=== PATIENT | male | born 1935 | race Hispanic/Latino ===

== ENCOUNTER 2019-02-18 12:29 | Outpatient (CLI) | payer MEDICARE ==
--- NOTE | 2019-02-18 13:58 | Cat Scan Report ---
CT HEAD WITHOUT CONTRAST INDICATION : STROKE. TECHNIQUE: Axial imaging performed from the skull apex through the skull base without the use of con trast. Sagittal and coronal reformatted images. All CT scans at this location are performed using CT dose reduction for ALARA by means of automated exposure control. COMPARISON: None FINDINGS: Parenchyma: Mild diffuse cortical volume loss and mild chronic ischemic changes in the white matter are identified. A chronic cortical infarct in the right parietal lobe measures 2.8 cm in greatest javier meter. A chronic focal infarct in the anterior left frontal lobe measures 1.4 cm. A chronic lacunar i nfarct in the posterior left thalamus measures 9 mm. There is no evidence for hemorrhage, mass, mass effect or extra-axial fluid collection. Ventricles: Ventricles are normal in size and appear symmetric. Soft tissues: Soft tissues including the orbits appear normal. Bones: No acute osseous abnormality. Sinuses: Sinuses and mastoid air cells are clear. IMPRESSION: No acute abnormality. Mild volume loss and chronic white matter changes. Focal chronic in farcts as outlined above. Signer Name: Maco Duran Jr, MD Signed: 02/18/2019 1:54 PM Workstation Name: [id number]
== END 2019-02-18 12:30 | disposition home or self-care (01) ==
LOC: CT 12:29
PROVIDERS: ATTEND Psychiatry & Neurology Neurology
DX: R90.82 White matter disease, unspecified (principal); Z90.49 Acquired absence of other specified parts of digestive tract
CPT/HCPCS: 70450

== ENCOUNTER 2019-04-21 11:26 | Observation (INO) | payer MEDICARE ==
--- NOTE | 2019-04-21 11:40 | Emergency Department Report ---
Blank Doc - Documentation Documentation: This is a 83-year-old male that presents with dizziness. HX of stroke 15 years ago. No new symptoms of one sided weakness. Speaking in full sentences. No facial drooping. Normal speech. This initial assessment/diagnostic orders/clinical plan/treatment(s) is/are subject to change based on patient's health status, clinical progression and re- assessment by fellow clinical providers in the ED. Further treatment and workup at subsequent clinical providers discretion. Patient/guardians urged not to elope from the ED as their condition may be serious if not clinically assessed and managed. Initial orders include: 1- Patient sent to main ed for further evaluation and treatment 2- labs 3- EKG 4- CT head
--- NOTE | 2019-04-21 12:03 | Consultation ---
History of Present Illness History of present illness: [facility] Impression: Dizziness R/O Stroke Not a tpa candidate due to:LKW > 4.5 hrs ago. Symptoms not consistent with LVO therefore no PAULINO Comments: Last Known Well: 12 last night [facility] contacted: 11:46 [facility] at bedside: 11:49 NIHSS assessment time: 11:56 Recommendations: Orthostatics Metabolic workup Admit for stroke workup. ASA/Statin if no contraindications. IV Fluids Inpatient neurology consultation Inpatient stroke evaluation as per Neurology/ Internal Medicine Discussed with ED MD Please call with questions --------- CC: dizziness History of Present Illness: Patient is a 83 yo m with h/o CAD s/p CABG, ICH presented with dizziness. He went to bed midnight last night and was feeling okay. This morning he woke up at 9:30 with dizziness. He could not stand up and when he finally stood up, he was off balance. No focal weakness. Dizziness is better lying down but worse on standing up. No nausea/vomiting. Diagnostic: CT Head: No acute Intracranial findings. Exam: NIH Stroke Scale/Score (NIHSS) from RESULT SUMMARY: 1 points NIH Stroke Scale INPUTS: 1A: Level of consciousness > 0 = Alert; keenly responsive 1B: Ask month and age > 1 = 1 question right 1C: 'Blink eyes' & 'squeeze hands' > 0 = Performs both tasks 2: Horizontal extraocular movements > 0 = Normal 3: Visual briseno > 0 = No visual loss 4: Facial palsy > 0 = Normal symmetry 5A: Left arm motor drift > 0 = No drift for 10 seconds 5B: Right arm motor drift > 0 = No drift for 10 seconds 6A: Left leg motor drift > 0 = No drift for 5 seconds 6B: Right leg motor drift > 0 = No drift for 5 seconds 7: Limb Ataxia > 0 = No ataxia 8: Sensation > 0 = Normal; no sensory loss 9: Language/aphasia > 0 = Normal; no aphasia 10: Dysarthria > 0 = Normal 11: Extinction/inattention > 0 = No abnormality Medical Decision Making: - Extensive number of diagnosis or management options are considered above. - Extensive amount of complex data reviewed. - High risk of complication and/or morbidity or mortality are associated with differential diagnostic considerations above. - There may be Uncertain outcome and increased probability of prolonged f unctional impairment or high probability of severe prolonged functional impairment associated with some of these differential diagnosis. Medical Data Reviewed: 1.Data reviewed include clinical labs, radiology, Medical Tests; 2.Tests results discussed w/performing or interpreting physician; 3.Obtaining/reviewing old medical records; 4.Obtaining case history from another source; 5.Independent review of image, tracing or specimen. Patient was informed the neurology consult would happen via telehealth consult by way of interactive audio and video telecommunications and consented to receiving care in this manner. Medications and Allergies Allergies Allergy/AdvReac Type Severity Reaction Status Date / Time levofloxacin [From Levaquin] AdvReac Rash Verified 04/21/17 21:12 Home Medications Medication Instructions Recorded Confirmed Last Taken Type Cetirizine HCl [ZyrTEC 10mg cap] 10 mg PO PRN 04/21/17 04/21/17 Unknown History Memantine HCl [Namenda] 10 mg PO QDAY 04/21/17 04/21/17 Unknown History Omeprazole 40 mg PO QDAY 04/21/17 04/21/17 Unknown History Sertraline [Zoloft] 50 mg PO QDAY 04/21/17 04/21/17 Unknown History Simvastatin [Zocor TAB] 40 mg PO QDAY 04/21/17 04/21/17 Unknown History Tamsulosin [Flomax] 0.4 mg PO QDAY 04/21/17 04/21/17 Unknown History Meclizine [Antivert] 12.5 mg PO BID #14 tablet 04/23/17 Unknown Rx
--- NOTE | 2019-04-21 12:15 | Cat Scan Report ---
CT HEAD WITHOUT CONTRAST INDICATION : Lightheadedness/Dizziness. CVA. Code stroke. Ataxia. TECHNIQUE: Axial imaging performed from the skull apex through the skull base without the use of con trast. Sagittal and coronal reformatted images. All CT scans at this location are performed using C T dose reduction for ALARA by means of automated exposure control. COMPARISON: 02/18/2019 FINDINGS: Parenchyma: Mild diffuse cortical volume loss and mild chronic white matter changes are again noted. Multiple chronic infarcts are again identified in the right parietal lobe, left frontal lobe and lef t thalamus. There is no evidence for hemorrhage, mass or large area of acute ischemia on noncontrast CT. The brainstem and cerebellar hemispheres are unremarkable. Ventricles: Ventricles are normal in size and appear symmetric. Bones: No acute osseous abnormality. Sinuses: Sinuses and mastoid air cells are clear. Soft tissues: Soft tissues including the orbits appear normal. IMPRESSION: Volume loss and chronic white matter changes. Multiple chronic focal infarcts as describe d. No change is appreciated since 02/18/2019. These findings were discussed with Dr. Burton in the emergency department at 1208 hours EST. Signer Name: Maco Duran Jr, MD Signed: 04/21/2019 12:10 PM Workstation Name: [id number]
[2019-04-21 12:35] LABS: Basophils % (Auto) 0.2 % (0.0-1.8); Eosinophils % (Auto) 0.4 % (0.0-4.3); Hematocrit 39.1 % (35.5-45.6); Hemoglobin 13.3 gm/dl (11.8-15.2); Lymphocytes # (Auto) 1.1 K/mm3 (1.2-5.4); Lymphocytes % (Auto) 13.4 % (13.4-35.0); Mean Corpuscular HGB Conc 34 % (32-34); Mean Corpuscular Volume 88 fl (84-94); Monocytes # (Auto) 0.4 K/mm3 (0.0-0.8); Monocytes % (Auto) 5.2 % (0.0-7.3); Platelet Count 185 K/mm3 (140-440); Red Blood Count 4.43 M/mm3 (3.65-5.03); Red Cell Distribution Width 16.9 % (13.2-15.2)
[2019-04-21 12:43] LABS: INR 1.05 (0.87-1.13)
[2019-04-21 12:44] LABS: Partial Thromboplastin Time 31.2 Sec. (24.2-36.6)
[2019-04-21 13:00] LABS: Alanine Aminotransferase 18 units/L (7-56); BUN/Creatinine Ratio 15; Blood Urea Nitrogen 15 mg/dL (9-20); Calcium 9.4 mg/dL (8.4-10.2); Hemolysis Index 15
--- NOTE | 2019-04-21 13:10 | Emergency Department Report ---
ED General Adult HPI - General Chief complaint: Dizziness Stated complaint: DIZZY/HARD TO WALK Time Seen by Provider: 04/21/19 11:35 Source: patient, family Mode of arrival: Wheelchair Limitations: No Limitations - History of Present Illness Initial comments: Patient presents to the emergency department with a chief complaint of dizziness that started last night before going to bed. Patient also ascribes walking stating he is leaning to the right. Patient describes the dizziness being present even with sitting still. Patient denies any chest pain, shortness breath, or headache. -: Sudden Severity scale (0 -10): 0 Consistency: constant Improves with: none Worsens with: none Associated Symptoms: denies other symptoms Treatments Prior to Arrival: none - Related Data Home Medications Medication Instructions Recorded Confirmed Last Taken Memantine HCl [Namenda] 10 mg PO BID 04/21/17 04/21/19 Unknown Omeprazole 40 mg PO QDAY 04/21/17 04/21/19 Unknown Sertraline [Zoloft] 50 mg PO QDAY 04/21/17 04/21/19 Unknown Simvastatin [Zocor TAB] 40 mg PO QHS 04/21/17 04/21/19 Unknown Tamsulosin [Flomax] 0.4 mg PO QDAY 04/21/17 04/21/19 Unknown Diclofenac 1% [Diclofenac 1% 2 gram TP DAILY PRN 04/21/19 04/21/19 Unknown topical gel] Allergies Allergy/AdvReac Type Severity Reaction Status Date / Time levofloxacin [From Levaquin] AdvReac Rash Verified 04/21/17 21:12 ED Review of Systems ROS: Stated complaint: DIZZY/HARD TO WALK Other details as noted in HPI Constitutional: denies: chills, fever Eyes: denies: eye pain, eye discharge, vision change ENT: denies: ear pain, throat pain Respiratory: denies: cough, shortness of breath, wheezing Cardiovascular: denies: chest pain, palpitations Endocrine: no symptoms reported Gastrointestinal: denies: abdominal pain, nausea, diarrhea Genitourinary: denies: urgency, dysuria Musculoskeletal: denies: back pain, joint swelling, arthralgia Skin: denies: rash, lesions Neurological: other (dizziness; difficulty walking ). denies: headache, weakness, paresthesias Psychiatric: denies: anxiety, depression Hematological/Lymphatic: denies: easy bleeding, easy bruising ED Past Medical Hx - Past Medical History Previous Medical History?: Yes Hx CVA: Yes Hx Heart Attack/AMI: Yes Hx Arthritis: Yes Hx Kidney Stones: Yes Additional medical history: hiatal hernia,BPH,elevated cholesterol - Surgical History Past Surgical History?: Yes Hx Coronary Stent: Yes (5) Hx Open Heart Surgery: Yes Hx Cholecystectomy: Yes - Social History Smoking Status: Never Smoker Substance Use Type: None - Medications Home Medications: Home Medications Medication Instructions Recorded Confirmed Last Taken Type Memantine HCl [Namenda] 10 mg PO BID 04/21/17 04/21/19 Unknown History Omeprazole 40 mg PO QDAY 04/21/17 04/21/19 Unknown History Sertraline [Zoloft] 50 mg PO QDAY 04/21/17 04/21/19 Unknown History Simvastatin [Zocor TAB] 40 mg PO QHS 04/21/17 04/21/19 Unknown History Tamsulosin [Flomax] 0.4 mg PO QDAY 04/21/17 04/21/19 Unknown History Diclofenac 1% [Diclofenac 1% 2 gram TP DAILY PRN 04/21/19 04/21/19 Unknown History topical gel] ED Physical Exam - General Limitations: No Limitations General appearance: alert, in no apparent distress - Head Head exam: Present: atraumatic, normocephalic - Eye Eye exam: Present: normal appearance, PERRL, EOMI - ENT ENT exam: Present: mucous membranes moist - Neck Neck exam: Present: normal inspection - Respiratory Respiratory exam: Present: normal lung sounds bilaterally. Absent: respiratory distress, wheezes, rales - Cardiovascular Cardiovascular Exam: Present: regular rate, normal rhythm. Absent: systolic murmur, diastolic murmur, rubs, gallop - GI/Abdominal GI/Abdominal exam: Present: soft, normal bowel sounds. Absent: distended, tenderness - Rectal Rectal exam: Present: deferred - Extremities Exam Extremities exam: Present: normal inspection - Back Exam Back exam: Present: normal inspection - Neurological Exam Neurological exam: Present: alert, oriented X3, CN II-XII intact, abnormal gait (right sided ataxia). Absent: motor sensory deficit - Psychiatric Psychiatric exam: Present: normal affect, normal mood - Skin Skin exam: Present: warm, dry, intact, normal color. Absent: rash ED Course Vital Signs 04/21/19 12:29 Temperature 98 F Pulse Rate 78 Respiratory 16 Rate Blood Pressure 126/67 [Left] O2 Sat by Pulse 100 Oximetry ED Medical Decision Making - Lab Data Result diagrams: 04/21/19 12:05 04/21/19 12:05 Lab Results 04/21/19 04/21/19 04/21/19 Range/Units 11:42 11:54 12:05 WBC 7.9 (4.5-11.0) K/mm3 RBC 4.43 (3.65-5.03) M/mm3 Hgb 13.3 (11.8-15.2) gm/dl Hct 39.1 (35.5-45.6) % MCV 88 (84-94) fl MCH 30 (28-32) pg MCHC 34 (32-34) % RDW 16.9 H (13.2-15.2) % Plt Count 185 (140-440) K/mm3 Lymph % (Auto) 13.4 (13.4-35.0) % Alcorn % (Auto) 5.2 (0.0-7.3) % Eos % (Auto) 0.4 (0.0-4.3) % Baso % (Auto) 0.2 (0.0-1.8) % Lymph # 1.1 L (1.2-5.4) K/mm3 Alcorn # 0.4 (0.0-0.8) K/mm3 Eos # 0.0 (0.0-0.4) K/mm3 Baso # 0.0 (0.0-0.1) K/mm3 Seg Neutrophils % 80.8 H (40.0-70.0) % Seg Neutrophils # 6.4 (1.8-7.7) K/mm3 PT (12.2-14.9) Sec. INR (0.87-1.13) APTT (24.2-36.6) Sec. Sodium (137-145) mmol/L Potassium (3.6-5.0) mmol/L Chloride (98-107) mmol/L Carbon Dioxide (22-30) mmol/L Anion Gap mmol/L BUN (9-20) mg/dL Creatinine (0.8-1.5) mg/dL Estimated GFR ml/min BUN/Creatinine Ratio % Glucose (75-100) mg/dL POC Glucose 101 104 (70-105) Calcium (8.4-10.2) mg/dL Total Bilirubin (0.1-1.2) mg/dL AST (5-40) units/L ALT (7-56) units/L Alkaline Phosphatase (35-129) units/L Troponin T (0.00-0.029) ng/mL Total Protein (6.3-8.2) g/dL Albumin (3.9-5) g/dL Albumin/Globulin Ratio % 04/21/19 04/21/19 Range/Units 12:05 12:05 WBC (4.5-11.0) K/mm3 RBC (3.65-5.03) M/mm3 Hgb (11.8-15.2) gm/dl Hct (35.5-45.6) % MCV (84-94) fl MCH (28-32) pg MCHC (32-34) % RDW (13.2-15.2) % Plt Count (140-440) K/mm3 Lymph % (Auto) (13.4-35.0) % Alcorn % (Auto) (0.0-7.3) % Eos % (Auto) (0.0-4.3) % Baso % (Auto) (0.0-1.8) % Lymph # (1.2-5.4) K/mm3 Alcorn # (0.0-0.8) K/mm3 Eos # (0.0-0.4) K/mm3 Baso # (0.0-0.1) K/mm3 Seg Neutrophils % (40.0-70.0) % Seg Neutrophils # (1.8-7.7) K/mm3 PT 13.4 (12.2-14.9) Sec. INR 1.05 (0.87-1.13) APTT 31.2 (24.2-36.6) Sec. Sodium 138 (137-145) mmol/L Potassium 4.2 (3.6-5.0) mmol/L Chloride 100.3 (98-107) mmol/L Carbon Dioxide 26 (22-30) mmol/L Anion Gap 16 mmol/L BUN 15 (9-20) mg/dL Creatinine 1.0 (0.8-1.5) mg/dL Estimated GFR > 60 ml/min BUN/Creatinine Ratio 15 % Glucose 96 (75-100) mg/dL POC Glucose (70-105) Calcium 9.4 (8.4-10.2) mg/dL Total Bilirubin 0.70 (0.1-1.2) mg/dL AST 24 (5-40) units/L ALT 18 (7-56) units/L Alkaline Phosphatase 66 (35-129) units/L Troponin T < 0.010 (0.00-0.029) ng/mL Total Protein 6.7 (6.3-8.2) g/dL Albumin 4.0 (3.9-5) g/dL Albumin/Globulin Ratio 1.5 % - EKG Data -: EKG Interpreted by Me EKG shows normal: sinus rhythm Rate: normal - Radiology Data Radiology results: report reviewed Critical care attestation.: If time is entered above; I have spent that time in minutes in the direct care of this critically ill patient, excluding procedure time. ED Disposition Clinical Impression: Ataxia Disposition: OP ADMIT IP TO THIS HOSP Is pt being admited?: Yes Does the pt Need Aspirin: Yes Condition: Fair - Assessment Assessment Interval: Baseline - Level of Consciousness 1a. Level of Consciousness: alert/keenly responsive - LOC Questions 1b. LOC Questions: answers 1 question correctly - LOC Command 1c. LOC Commands: performs tasks correctly - Best Gaze 2. Best Gaze: normal - Visual 3. Visual: no visual loss - Facial Palsy 4. Facial Palsy: normal symmetrical movement - Motor Arm 5a. Motor Arm Left: no drift 5b. Motor Arm Right: no drift - Motor Leg 6a. Motor Leg Left: no drift 6b. Motor Leg Right: no drift - Limb Ataxia 7. Limb Ataxia: absent - Sensory 8. Sensory: normal - Best Language 9. Best Language: no aphasia - Dysarthria 10. Dysarthria: normal
[2019-04-21] MEDS ORDERED: ZOFRAN IV PRN (13:19)
[2019-04-21] MEDS ORDERED: DULCOLAX PR PRN (13:19)
[2019-04-21] MEDS ORDERED: REGLAN PO PRN (13:19)
[2019-04-21] MEDS ORDERED: PHENERGAN PR PRN (13:19)
[2019-04-21] MEDS ORDERED: TYLENOL PO PRN (13:19)
[2019-04-21] MEDS ORDERED: MILK OF MAGNESIA PO PRN (13:19)
--- NOTE | 2019-04-21 13:19 | History and Physical Report ---
History of Present Illness Chief complaint: Im dizzy History of present illness: 83 YO Male with HLD, Dementia, CVA, [place], OA, Nephrolithiasis, CAD S/P CABG and Stent Placement, BPH presents to ED for evaluation. Pt states that he was in his usual state of health at bedtime around 2100hrs. Pt awoke from sleep this morn ing and experienced dizziness, and right side weakness. Pt reports that he is now unable to walk. Pt transported to [facility] via private vehicle. Pt seen and evaluated in ED. A code stroke was called. The patient was found to have symptoms consistent with CVA. Teleneurology consulted in ED. Pt admitted to telemetry and initiated on CVA protocol. Pt denies fever, chills, chest pain, shortness breath, or headache. Prior admission of 04/21/17 reviewed. All listed medication reconciled at time of admission. Past History Past Surgical History: cholecystectomy, CABG, Other (cardiac stent placement. ) Social history: , lives with family. denies: smoking, alcohol abuse, prescription drug abuse Family history: hypertension Medications and Allergies Allergies Allergy/AdvReac Type Severity Reaction Status Date / Time levofloxacin [From Levaquin] AdvReac Rash Verified 04/21/17 21:12 Home Medications Medication Instructions Recorded Confirmed Last Taken Type Memantine HCl [Namenda] 10 mg PO BID 04/21/17 04/21/19 Unknown History Omeprazole 40 mg PO QDAY 04/21/17 04/21/19 Unknown History Sertraline [Zoloft] 50 mg PO QDAY 04/21/17 04/21/19 Unknown History Simvastatin [Zocor TAB] 40 mg PO QHS 04/21/17 04/21/19 Unknown History Tamsulosin [Flomax] 0.4 mg PO QDAY 04/21/17 04/21/19 Unknown History Diclofenac 1% [Diclofenac 1% 2 gram TP DAILY PRN 04/21/19 04/21/19 Unknown History topical gel] Review of Systems Constitutional: no weight loss, no weight gain, no fever, no chills Ears, nose, mouth and throat: no ear pain, no ear discharge, no tinnitis, no decreased hearing, no nasal congestion Cardiovascular: no chest pain, no palpitations, no syncope, no shortness of breath Respiratory: no cough, no shortness of breath, no dyspnea on exertion Gastrointestinal: no abdominal pain, no nausea, no vomiting, no constipation, no change in bowel habits, no hematemesis, no coffee ground emesis Genitourinary Male: no dysuria, no hematuria, no discharge, no urinary frequency, no urinary hesitancy, no nocturia, no incontinence, no decreased libido, no testicular lump Rectal: no pain, no incontinence, no bleeding, no itching, no hemorrhoids, no discharge Musculoskeletal: no neck stiffness, no neck pain, no low back pain, no leg numbness/tingling, no morning stiffness Integumentary: no rash, no pruritis, no redness, no sores, no wounds, no bullae, no lesions, no depigmentation, no acne Neurological: weakness, ataxia, lack of coordination, change in speech, no head injury, no paralysis Psychiatric: no anxiety, no memory loss, no change in sleep habits, no sleep disturbances, no insomnia, no change in libido Endocrine: no cold intolerance, no heat intolerance, no polyphagia, no excessive thirst, no polydipsia, no polyuria Hematologic/Lymphatic: no easy bruising, no easy bleeding, no lymphadenopathy Allergic/Immunologic: no urticaria, no allergic rhinitis, no wheezing, no persistent infections, no angioedema Exam - Constitutional Vitals: Temp Pulse Resp BP Pulse Ox 98 F 78 16 126/67 100 04/21/19 12:29 04/21/19 12:29 04/21/19 12:29 04/21/19 12:29 04/21/19 12:29 General appearance: Present: mild distress - EENT Eyes: Present: PERRL ENT: hearing intact, clear oral mucosa - Neck Neck: Present: supple, normal ROM - Respiratory Respiratory effort: normal Respiratory: bilateral: CTA - Cardiovascular Heart Sounds: Present: S1 & S2. Absent: rub, click - Extremities Extremities: pulses symmetrical, No edema Peripheral Pulses: within normal limits - Abdominal General gastrointestinal: Present: soft, non-tender, non-distended, normal bowel sounds Male genitourinary: Present: normal - Integumentary Integumentary: Present: clear, warm, dry - Musculoskeletal Musculoskeletal: gait normal, strength equal bilaterally - Psychiatric Psychiatric: appropriate mood/affect, intact judgment & insight - Neurologic Neurologic: CNII-XII intact, moves all extremities Results - Labs CBC & Chem 7: 04/21/19 12:05 04/21/19 12:05 Labs: Abnormal lab results 04/21/19 Range/Units 12:05 RDW 16.9 H (13.2-15.2) % Lymph # 1.1 L (1.2-5.4) K/mm3 Seg Neutrophils % 80.8 H (40.0-70.0) % Assessment and Plan - Patient Problems (1) CVA (cerebral vascular accident) Current Visit: Yes Status: Acute Qualifiers: Laterality of affected vessel: unspecified Plan to address problem: Stroke Protocol: CT head, PT/OT/Speech Therapy, antiplatelet therapy, lipid panel, statin therapy, neurology consulted in ED, further testing as per neurology team. (2) HTN (hypertension) Current Visit: Yes Status: Acute Qualifiers: Hypertension type: essential hypertension Qualified Code(s): I10 - Essential (primary) hypertension Plan to address problem: Monitor BP q shift, continue medical management. (3) HLD (hyperlipidemia) Current Visit: Yes Status: Acute Qualifiers: Hyperlipidemia type: mixed hyperlipidemia Qualified Code(s): E78.2 - Mixed hyperlipidemia Plan to address problem: Statin therapy, lipid panel (4) Dementia Current Visit: Yes Status: Acute Plan to address problem: CT head, neuro checks, supportive care. (5) DVT prophylaxis Current Visit: Yes Status: Acute Plan to address problem: SCD to BLE while in bed, supportive care.
[2019-04-21 15:11] LABS: Bilirubin,Urine NEG (Negative); Blood,Urine NEG (Negative); Color,Urine Yellow (Yellow); Protein,Urine <15 mg/dL mg/dL (Negative); Urobilinogen,Urine < 2.0 mg/dL (<2.0)
--- NOTE | 2019-04-21 15:32 | Vascular Lab Report ---
BILATERAL CAROTID DOPPLER ULTRASOUND INDICATION : stroke TECHNIQUE: Grayscale and color Doppler imaging performed through the neck. COMPARISON: None FINDINGS: Right: There is no significant atherosclerotic disease. Peak systolic velocity in the CCA is 61 cm/ s with end-diastolic velocity of 12 cm/s. Peak systolic velocity in the proximal ICA is 68 cm/s with end-diastolic velocity of 11 cm/s. ICA to CCA ratio is less than 2. There is antegrade flow in the E CA and the vertebral artery. Left: There is mild calcific plaques in the proximal ICA. Peak systolic velocity in the CCA is 82 cm/ s with end-diastolic velocity of 17 cm/s. Peak systolic velocity in the proximal ICA is 94 cm/s with end-diastolic velocity of 27 cm/s. ICA to CCA ratio is less than 2. There is antegrade flow in the E CA and the vertebral artery. IMPRESSION: No hemodynamically significant stenosis by NASCET criteria. There is less than 50% lumina l narrowing in both carotid systems. Signer Name: Maco Duran Jr, MD Signed: 04/21/2019 3:27 PM Workstation Name: [id number]
[2019-04-21] MEDS: SODIUM CHLORIDE FLUSH SYRINGE 10 ML IV PRN (21:13)
[2019-04-22 06:11] LABS: Chol/HDL Ratio 2.82 %
--- NOTE | 2019-04-22 08:18 | Progress Note ---
Assessment and Plan Assessment and plan: 83 YO Male with HLD, Dementia, CVA, NH, OA, Nephrolithiasis, CAD S/P CABG and Stent Placement, BPH presents to ED for evaluation. Pt states that he was in his usual state of health at bedtime around 2100hrs. Pt awoke from sleep this morning and experienced dizziness, and right side weakness. Pt reports that he is now unable to walk. Pt transported to [facility] via private vehicle. Pt seen and evaluated in ED. A code stroke was called. The patient was found to have symptoms consistent with CVA. Teleneurology consulted in ED. Pt admitted to telemetry and initiated on CVA protocol. Pt denies fever, chills, chest pain, shortness breath, or headache. Prior admission of 04/21/17 reviewed. All listed medication reconciled at time of admission. Ataxia concerning for CVA * Prior hx of the same, Continue ASA, High intensity statin therapy, PT,OT,Speech * Await Neurology consult * Patient well known to him, hx of vertigo with more periods of imbalance, no change on exam from what he is known to be in the office. 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 Concern for sinus infection * Check orthostatic, Carotid ultrasound. Defer MRI to Neurology team. * Family declines home health or Rehab * BP control * Meclizine Presumed Sinusitis * Start on Augmentin X 5 DAYS Advanced age CAD with hx of NH * Resume home meds Hypertension * As noted above * check orthostatic vitals Hyperlipidemia * As noted above Dementia * Resume Home management plan DVT/GI prophy Monitor till tomorrow. History Interval history: Patient seen and examined, resting comfortable, states he feels better and was hoping to go home today. Discussed Home health but the patient declines. Hospitalist Physical - Constitutional Vitals: Temp Pulse Resp BP Pulse Ox 98.0 F 79 18 122/71 95 04/22/19 05:25 04/22/19 05:25 04/22/19 05:25 04/22/19 05:25 04/22/19 05:25 General appearance: Present: well-nourished, other (lathergic) - EENT Eyes: Present: PERRL, EOM intact ENT: hearing intact - Neck Neck: Present: supple, normal ROM - Respiratory Respiratory effort: normal Respiratory: bilateral: CTA - Cardiovascular Rhythm: regular Heart Sounds: Present: S1 & S2. Absent: systolic murmur, diastolic murmur - Extremities Extremities: no ischemia, pulses intact, pulses symmetrical, No edema, normal temperature, Full ROM Peripheral Pulses: within normal limits - Abdominal General gastrointestinal: soft, non-tender, non-distended, normal bowel sounds - Integumentary Integumentary: Present: clear, warm, dry - Psychiatric Psychiatric: appropriate mood/affect, intact judgment & insight, cooperative - Neurologic Neurologic: CNII-XII intact, moves all extremities, other (gait not tested) - Allied Health Allied health notes reviewed: nursing Results - Labs CBC & Chem 7: 04/21/19 12:05 04/21/19 12:05 Labs: Laboratory Last Values WBC 7.9 K/mm3 (4.5-11.0) 04/21/19 12:05 RBC 4.43 M/mm3 (3.65-5.03) 04/21/19 12:05 Hgb 13.3 gm/dl (11.8-15.2) 04/21/19 12:05 Hct 39.1 % (35.5-45.6) 04/21/19 12:05 MCV 88 fl (84-94) 04/21/19 12:05 MCH 30 pg (28-32) 04/21/19 12:05 MCHC 34 % (32-34) 04/21/19 12:05 RDW 16.9 % (13.2-15.2) H 04/21/19 12:05 Plt Count 185 K/mm3 (140-440) 04/21/19 12:05 Lymph % (Auto) 13.4 % (13.4-35.0) 04/21/19 12:05 Crane % (Auto) 5.2 % (0.0-7.3) 04/21/19 12:05 Eos % (Auto) 0.4 % (0.0-4.3) 04/21/19 12:05 Baso % (Auto) 0.2 % (0.0-1.8) 04/21/19 12:05 Lymph # 1.1 K/mm3 (1.2-5.4) L 04/21/19 12:05 Crane # 0.4 K/mm3 (0.0-0.8) 04/21/19 12:05 Eos # 0.0 K/mm3 (0.0-0.4) 04/21/19 12:05 Baso # 0.0 K/mm3 (0.0-0.1) 04/21/19 12:05 Seg Neutrophils % 80.8 % (40.0-70.0) H 04/21/19 12:05 Seg Neutrophils # 6.4 K/mm3 (1.8-7.7) 04/21/19 12:05 PT 13.4 Sec. (12.2-14.9) 04/21/19 12:05 INR 1.05 (0.87-1.13) 04/21/19 12:05 APTT 31.2 Sec. (24.2-36.6) 04/21/19 12:05 Sodium 138 mmol/L (137-145) 04/21/19 12:05 Potassium 4.2 mmol/L (3.6-5.0) 04/21/19 12:05 Chloride 100.3 mmol/L (98-107) 04/21/19 12:05 Carbon Dioxide 26 mmol/L (22-30) 04/21/19 12:05 16 mmol/L 04/21/19 12:05 BUN 15 mg/dL (9-20) 04/21/19 12:05 1.0 mg/dL (0.8-1.5) 04/21/19 12:05 Estimated GFR > 60 ml/min 04/21/19 12:05 15 % 04/21/19 12:05 Glucose 96 mg/dL (75-100) 04/21/19 12:05 POC Glucose 113 (70-105) H 04/21/19 22:36 Calcium 9.4 mg/dL (8.4-10.2) 04/21/19 12:05 0.70 mg/dL (0.1-1.2) 04/21/19 12:05 AST 24 units/L (5-40) 04/21/19 12:05 ALT 18 units/L (7-56) 04/21/19 12:05 66 units/L (35-129) 04/21/19 12:05 < 0.010 ng/mL (0.00-0.029) 04/21/19 12:05 6.7 g/dL (6.3-8.2) 04/21/19 12:05 4.0 g/dL (3.9-5) 04/21/19 12:05 1.5 % 04/21/19 12:05 Triglycerides 91 mg/dL (2-149) 04/22/19 04:29 Cholesterol 127 mg/dL (50-199) 04/22/19 04:29 82 mg/dL (50-130) 04/22/19 04:29 45 mg/dL (40-59) 04/22/19 04:29 2.82 % 04/22/19 04:29 Yellow (Yellow) 04/21/19 14:29 Clear (Clear) 04/21/19 14:29 7.0 (5.0-7.0) 04/21/19 14:29 Ur Specific [place] 1.008 (1.003-1.030) 04/21/19 14:29 <15 mg/dl mg/dL (Negative) 04/21/19 14:29 Neg mg/dL (Negative) 04/21/19 14:29 Neg mg/dL (Negative) 04/21/19 14:29 Neg (Negative) 04/21/19 14:29 Neg (Negative) 04/21/19 14:29 Neg (Negative) 04/21/19 14:29 < 2.0 mg/dL (<2.0) 04/21/19 14:29 Ur Leukocyte Esterase Mod (Negative) 04/21/19 14:29 1.0 /HPF (0.0-6.0) 04/21/19 14:29 6.0 /HPF (0.0-6.0) 04/21/19 14:29 Active Medications - Current Medications Current Medications: Generic Name Dose Route Start Last Admin Trade Name Freq PRN Reason Stop Dose Admin Acetaminophen 650 mg 04/21/19 13:19 Tylenol PO Q4H PRN Pain, Mild (1-3) Aspirin 325 mg 04/22/19 10:00 Aspirin PO QDAY GENA Atorvastatin Calcium 40 mg 04/21/19 22:00 04/21/19 21:16 Lipitor PO 40 mg QHS GENA Administration Bisacodyl 10 mg 04/21/19 13:19 Dulcolax HI QDAY PRN Constipation Diclofenac Sodium 0.4 applic 04/22/19 08:16 Diclofenac 1% TP DAILY PRN Inflammation Magnesium Hydroxide 30 ml 04/21/19 13:19 Milk Of Magnesia PO Q4H PRN Constipation Memantine 10 mg 04/22/19 10:00 Namenda PO BID GENA Metoclopramide HCl 10 mg 04/21/19 13:19 Reglan PO Q6H PRN Nausea And Vomiting Ondansetron HCl 4 mg 04/21/19 13:19 Zofran IV Q8H PRN Nausea And Vomiting Promethazine HCl 25 mg 04/21/19 13:19 Phenergan HI Q6H PRN Nausea And Vomiting Sertraline HCl 50 mg 04/22/19 10:00 Zoloft PO QDAY GENA Sodium Chloride 10 ml 04/21/19 13:19 04/21/19 21:13 Sodium Chloride Flush Syringe 10 Ml IV 10 ml PRN PRN Administration LINE FLUSH Tamsulosin HCl 0.4 mg 04/22/19 10:00 Flomax PO QDAY GENA
--- NOTE | 2019-04-22 08:19 | Progress Note ---
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 Objective - Vital Sign Vital Signs - 12hr 04/21/19 04/22/19 22:30 05:25 Temperature 97.6 F 98.0 F Pulse Rate 70 79 Respiratory 20 18 Rate Blood Pressure 126/69 122/71 O2 Sat by Pulse 95 95 Oximetry - Laboratory Findings CBC and BMP: 04/21/19 12:05 04/21/19 12:05 Abnormal Lab Findings: Abnormal Labs 04/21/19 04/21/19 04/21/19 12:05 17:37 22:36 RDW 16.9 H Lymph # 1.1 L Seg Neutrophils % 80.8 H POC Glucose 148 H 113 H
[2019-04-22] MEDS ORDERED: ANTIVERT PO PRN (09:00)
[2019-04-22] MEDS: ZOLOFT PO SCH (09:44)
[2019-04-22] MEDS: NAMENDA PO SCH ×2 (09:44→21:48)
[2019-04-22] MEDS: FLOMAX PO SCH (09:44)
[2019-04-22] MEDS: AUGMENTIN 875 MG PO SCH ×2 (09:53→21:47)
[2019-04-22] MEDS: SODIUM CHLORIDE FLUSH SYRINGE 10 ML IV PRN (09:56)
[2019-04-22] MEDS ORDERED: DICLOFENAC 1% TP PRN (10:00)
[2019-04-22] MEDS ORDERED: ASPIRIN PO SCH (10:00)
--- NOTE | 2019-04-22 17:30 | Progress Note ---
Subjective Date of service: 04/22/19 Interval history: to my review the CT is unchanged and see no new stroke not very impressive sinus changes do not see abscess in the sinus Objective - Vital Sign Vital Signs - 12hr 04/22/19 04/22/19 04/22/19 08:22 11:36 11:49 Temperature 98.0 F 97.9 F 97.9 F Pulse Rate 82 72 84 Respiratory 18 18 18 Rate Blood Pressure 137/82 139/85 Blood Pressure 118/62 [Left] O2 Sat by Pulse 98 99 99 Oximetry 04/22/19 04/22/19 11:51 16:17 Temperature 97.9 F 98.5 F Pulse Rate 77 81 Respiratory 18 18 Rate Blood Pressure 113/59 Blood Pressure 154/77 [Left] O2 Sat by Pulse 99 97 Oximetry - Laboratory Findings CBC and BMP: 04/21/19 12:05 04/21/19 12:05 Abnormal Lab Findings: Abnormal Labs 04/21/19 04/21/19 04/21/19 12:05 17:37 22:36 RDW 16.9 H Lymph # 1.1 L Seg Neutrophils % 80.8 H POC Glucose 148 H 113 H
--- NOTE | 2019-04-23 08:06 | Discharge Summary ---
Providers - Providers Date of Admission: 04/21/19 13:10 Attending physician: MARIA ALEJANDRA REYNOLDS MD 04/21/19 13:19 Occupational Therapy Evaluate and Treat [CONS] Routine Comment: Reason For Exam: Neuro deficits Physical Therapy Evaluation and Treat [CONS] Routine Comment: Reason For Exam: Neuro deficits 04/21/19 13:20 Speech Therapy Evaluation and Treat [CONS] Routine Reason For Exam: swallow eval 04/22/19 08:16 Consult to Physician [CONS] Routine Comment: Consulting Provider: KERI HENRY Physician Instructions: Reason For Exam: CVA Primary care physician: ANKUR MUSA Hospitalization Reason for admission: fall Condition: Stable Hospital course: 83 YO Male with HLD, Dementia, CVA, [place], OA, Nephrolithiasis, CAD S/P CABG and Stent Placement, BPH presents to ED for evaluation. Pt states that he was in his usual state of health at bedtime around 2100hrs. Pt awoke from sleep this morning and experienced dizziness, and right side weakness. Pt reports that he is now unable to walk. Pt transported to [facility] via private vehicle. Pt seen and evaluated in ED. A code stroke was called. The patient was found to have sy mptoms consistent with CVA. Teleneurology consulted in ED. Pt admitted to telemetry and initiated on CVA protocol. Pt denies fever, chills, chest pain, shortness breath, or headache. Prior admission of 04/21/17 reviewed. All listed medication reconciled at time of admission. * Neurology re-evaluated, recommend management for possible sinuistis, reviewed old ct, no new changes. hx of vertigo with more periods of imbalance, no change on exam from what he is known to be in the office. 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 Concern for sinus infection * family offered PT outaptient but declined, referral still given incase they change their mind as patient with recurrent falls * Patient clinically improved and will be discharged Ataxia concerning for CVA Sinusitis Advanced age CAD with hx of [place] Hypertension Hyperlipidemia Dementia Disposition: DC-01 TO HOME OR SELFCARE Time spent for discharge: 35 MINS Core Measure Documentation - Palliative Care Palliative Care/ Comfort Measures: Not Applicable - Core Measures Any of the following diagnoses?: none Exam - Physical Exam Narrative exam: General appearance: Present: well-nourished, - EENT Eyes: Present: PERRL, EOM intact ENT: hearing intact - Neck Neck: Present: supple, normal ROM - Respiratory Respiratory effort: normal Respiratory: bilateral: CTA - Cardiovascular Rhythm: regular Heart Sounds: Present: S1 & S2. Absent: systolic murmur, diastolic murmur - Extremities Extremities: no ischemia, pulses intact, pulses symmetrical, No edema, normal temperature, Full ROM Peripheral Pulses: within normal limits - Abdominal General gastrointestinal: soft, non-tender, non-distended, normal bowel sounds - Integumentary Integumentary: Present: clear, warm, dry - Psychiatric Psychiatric: appropriate mood/affect, intact judgment & insight, cooperative - Neurologic Neurologic: CNII-XII intact, moves all extremities, other (gait not tested) - Allied Health Allied health notes reviewed: nursing - Constitutional Vitals: Temp Pulse Resp BP Pulse Ox 98.0 F 81 20 139/75 98 04/23/19 04:02 04/23/19 06:04 04/23/19 04:02 04/23/19 04:02 04/23/19 04:02 Plan Activity: advance as tolerated, fall precautions Diet: low fat Special Instructions: record daily weights, record daily BP diary, physical therapy Follow up with: ANKUR MUSA MD [Primary Care Provider] - 7 Days KERI HENRY MD [Staff Physician] - 7 Days Prescriptions: Meclizine [Antivert] 12.5 mg PO Q12H PRN #60 tablet PRN Reason: Vertigo Amoxicillin/K Clav Tab [Augmentin 875MG TAB] 1 each PO Q12HR #10 tablet Fluticasone [Flonase] 1 spray NS QDAY #1 bottle Other Discharge Orders: Physicial Therapy (Amb) Location: None Selected
[2019-04-23 08:21] VITALS: BP 152/69
[2019-04-23] MEDS: FLOMAX PO SCH (09:23)
[2019-04-23] MEDS: ZOLOFT PO SCH (09:23)
[2019-04-23] MEDS: AUGMENTIN 875 MG PO SCH (09:23)
[2019-04-23] MEDS: NAMENDA PO SCH (09:23)
--- NOTE | 2019-04-23 09:49 | Progress Note ---
Subjective Date of service: 04/23/19 Interval history: patient seen and assessed doing excellent this AM and quite stable explained I want him to use Flonase AQ can have outpatient PT Objective - Vital Sign Vital Signs - 12hr 04/22/19 04/22/19 04/23/19 23:20 23:40 00:05 Temperature 98.0 F Pulse Rate 81 Respiratory 18 79 H 18 Rate Blood Pressure 124/67 Blood Pressure [Left] O2 Sat by Pulse 94 Oximetry 04/23/19 04/23/19 04/23/19 01:00 04:02 06:04 Temperature 98.0 F Pulse Rate 80 80 81 Respiratory 20 Rate Blood Pressure 139/75 Blood Pressure [Left] O2 Sat by Pulse 98 Oximetry 04/23/19 08:00 Temperature 97.9 F Pulse Rate 84 Respiratory 18 Rate Blood Pressure Blood Pressure 152/69 [Left] O2 Sat by Pulse 98 Oximetry - Laboratory Findings CBC and BMP: 04/21/19 12:05 04/21/19 12:05 Abnormal Lab Findings: Abnormal Labs 04/21/19 04/21/19 04/21/19 12:05 17:37 22:36 RDW 16.9 H Lymph # 1.1 L Seg Neutrophils % 80.8 H POC Glucose 148 H 113 H
== END 2019-04-23 11:59 | disposition home or self-care (01) ==
LOC: ED 11:26 → 4A 13:10 → INTOOBSV 13:10
PROVIDERS: ADMIT Internal Medicine; ATTEND Internal Medicine
DX: I63.9 Cerebral infarction, unspecified (principal); I10 Essential (primary) hypertension; F03.90 Unspecified dementia, unspecified severity, without behavioral disturbance, psychotic disturbance, mood disturbance, and anxiety; E78.5 Hyperlipidemia, unspecified
CPT/HCPCS: 36415; 70450; 80053; 80061; 81001; 82962; 84484; 85025; 85610; 85730; 92610; 93005; 93010; 93306; 93880; 97116; 97162; 99284; A9270; G0378; 96374

== ENCOUNTER 2022-04-02 14:14 | Outpatient (CLI) | payer MEDICARE ==
[2022-04-02 15:42] LABS: Basophils # (Auto) 0.1 K/mm3 (0.0-0.1); Basophils % (Auto) 1.1 % (0.0-1.8); Eosinophils % (Auto) 0.3 % (0.0-4.3); Hematocrit 37.9 % (35.5-45.6); Hemoglobin 12.9 gm/dl (11.8-15.2); Lymphocytes # (Auto) 1.3 K/mm3 (1.2-5.4); Lymphocytes % (Auto) 23.7 % (13.4-35.0); Mean Corpuscular HGB Conc 34 % (32-34); Mean Corpuscular Volume 84 fl (84-94); Monocytes # (Auto) 0.4 K/mm3 (0.0-0.8); Monocytes % (Auto) 7.4 % (0.0-7.3); Platelet Count 201 K/mm3 (140-440); Red Blood Count 4.51 M/mm3 (3.65-5.03); Red Cell Distribution Width 17.1 % (13.2-15.2)
[2022-04-02 15:51] LABS: Albumin 4.6 g/dL (3.9-5); Calcium 9.5 mg/dL (8.4-10.2); Chol/HDL Ratio 2.95 %
== END 2022-04-02 14:15 | disposition home or self-care (01) ==
LOC: LABHHL 14:14
PROVIDERS: ATTEND Internal Medicine
DX: E55.9 Vitamin D deficiency, unspecified (principal); R73.9 Hyperglycemia, unspecified; E78.5 Hyperlipidemia, unspecified; R53.83 Other fatigue
CPT/HCPCS: 36415; 80053; 80061; 82306; 83036; 84443; 85025

== ENCOUNTER 2022-05-01 22:30 | Inpatient (IN) | payer MEDICARE ==
--- NOTE | 2022-05-01 23:11 | Emergency Department Report ---
ED General Adult HPI - General Stated complaint: AMS PUI?: No Time Seen by Provider: 05/01/22 22:40 Source: EMS - History of Present Illness Initial comments: ER charge nurse brought to my attention and asked if I could see a patient who appears to be confused and is still on the stretcher with the EMS. On my arrival, EMS informed me that patient is confused and not saying anything and has history of stroke, hypertension, and hyperlipidemia. States they think the last known normal was about 2 hours ago. During my initial evaluation, patient understands what I said to him. "Look at me if you understand what I am saying;" patient did look at me. However, when asking patient questions, patient is not able to respond back at all. Patient was not able to follow command when I asked him to raise his lower extremities as well as upper extremities. Code stroke was called immediately. - Related Data Home Medications Medication Instructions Recorded Confirmed Last Taken Memantine HCl [Namenda] 10 mg PO BID 04/21/17 04/21/19 Unknown Omeprazole 40 mg PO QDAY 04/21/17 04/21/19 Unknown Sertraline [Zoloft] 50 mg PO QDAY 04/21/17 04/21/19 Unknown Simvastatin (NF) [Zocor TAB] 40 mg PO QHS 04/21/17 04/21/19 Unknown Tamsulosin [Flomax] 0.4 mg PO QDAY 04/21/17 04/21/19 Unknown Diclofenac 1% [Diclofenac 1% 2 gram TP DAILY PRN 04/21/19 04/21/19 Unknown topical gel] Previous Rx's Medication Instructions Recorded Last Taken Type Amoxicillin/K Clav Tab [Augmentin 1 each PO Q12HR #10 tablet 04/22/19 Unknown Rx 875MG TAB] Meclizine [Antivert] 12.5 mg PO Q12H PRN #60 tablet 04/22/19 Unknown Rx Fluticasone [Flonase] 1 spray NS QDAY #1 bottle 04/23/19 Unknown Rx Allergies Allergy/AdvReac Type Severity Reaction Status Date / Time levofloxacin [From Levaquin] AdvReac Rash Verified 04/21/17 21:12 ED Review of Systems ROS: Stated complaint: AMS Other details as noted in HPI ED Past Medical Hx - Past Medical History Hx CVA: Yes Hx Heart Attack/AMI: Yes Hx Congestive Heart Failure: No Hx Diabetes: No Hx Arthritis: Yes Hx Kidney Stones: Yes Hx Asthma: No Hx COPD: No Additional medical history: hiatal hernia,BPH,elevated cholesterol - Surgical History Hx Coronary Stent: Yes (5) Hx Open Heart Surgery: Yes Hx Cholecystectomy: Yes - Social History Smoking Status: Never Smoker - Medications Home Medications: Home Medications Medication Instructions Recorded Confirmed Last Taken Type Memantine HCl [Namenda] 10 mg PO BID 04/21/17 04/21/19 Unknown History Omeprazole 40 mg PO QDAY 04/21/17 04/21/19 Unknown History Sertraline [Zoloft] 50 mg PO QDAY 04/21/17 04/21/19 Unknown History Simvastatin (NF) [Zocor TAB] 40 mg PO QHS 04/21/17 04/21/19 Unknown History Tamsulosin [Flomax] 0.4 mg PO QDAY 04/21/17 04/21/19 Unknown History Diclofenac 1% [Diclofenac 1% 2 gram TP DAILY PRN 04/21/19 04/21/19 Unknown History topical gel] Amoxicillin/K Clav Tab [Augmentin 1 each PO Q12HR #10 tablet 04/22/19 Unknown Rx 875MG TAB] Meclizine [Antivert] 12.5 mg PO Q12H PRN #60 tablet 04/22/19 Unknown Rx Fluticasone [Flonase] 1 spray NS QDAY #1 bottle 04/23/19 Unknown Rx ED Course - Reevaluation(s) Reevaluation #1: 05/01/22 23:16 During my reevaluation after patient came back from CT. Patient have significantly improved. Following command; able to raise and keep upper extremities up for 5 seconds as well as left lower extremity. However, right lower extremity drift and hits bed rail. Patient is now able to answer one word "yes" when I ask him questions but with obvious effort to say it. Pending neurologist further recommendations. Per nurse at bedside who was also in CT Scan when neurologist did the neurological examination, "there is obvious/significant improvement." 05/01/22 23:42 SPOKE TO FAMILY WHO PROVIDED THE HISTORY. PER FAMILY, PATIENT HAD COVID-19 2-3 WEEKS AGO AND 2 DAYS AGO, THEY NOTICED THAT PATIENT HAS BEEN UNSTEADY ON THE FEET AND ALSO WOULD BE MORE CONFUSED THAN USUAL. NEUROLOGIST, DR CAMACHO GLASS STATES HE DOESN'T SEE ANY ACUTE FINDING ON CT SCAN. RADIOLOGIST CALLED ME AND STATES THERE ARE SEVERAL STENOSIS AT COMMUNICATIONS AND ANEURYSM BUT NO ACUTE FINDINGS. WE WILL CONTINUE WITH WORK UP; RACHEL. INFECTIOUS. 05/01/22 23:55 SPOKE TO FAMILY REGARDING THE CT SCAN FINDINGS SUCH STENOSIS/ANEURYSM; FAMILY AND STATES THEY DO NOT WANT ANY INTRACRANIAL INTERVENTIONS. 05/02/22 00:[address] WHITE WHO KINDLY ACCEPTED THE PATIENT. ED Medical Decision Making - Lab Data Result diagrams: 05/01/22 23:14 05/01/22 23:14 Critical care attestation.: If time is entered above; I have spent that time in minutes in the direct care of this critically ill patient, excluding procedure time. ED Disposition Clinical Impression: AMS (altered mental status) Disposition: ADMITTED INPATIENT Is pt being admited?: Yes Does the pt Need Aspirin: No Condition: Stable Time of Disposition: 23:55
--- NOTE | 2022-05-01 23:24 | Cat Scan Report ---
CT HEAD WITHOUT CONTRAST INDICATION / CLINICAL INFORMATION: EXPRESSIVE APHAGIA. TECHNIQUE: CT head was performed without administration of intravenous contrast. All CT scans at this location are performed using CT dose reduction for ALARA by means of automated exposure control. COMPARISON: None available. FINDINGS: CEREBRAL HEMISPHERES: Chronic right parietal infarction again demonstrated with interval increase in white matter hypoattenuation suggesting continued evolution and encephalomalacia. Additional subcorti radha white matter hypoattenuation within the far anterior left frontal lobe and left mid frontal lobe centrum semiovale appears stable. Generalized atrophy demonstrates little progression. White matter h ypoattenuation compatible with microvascular ischemia is present. HEMORRHAGE: None. CEREBELLUM / BRAINSTEM: No significant abnormality. ORBITS: No significant abnormality. Bilateral postoperative changes SOFT TISSUES: No significant abnormality. SKULL: No significant abnormality. PARANASAL SINUSES / MASTOID AIR CELLS: Normal as visualized. ADDITIONAL FINDINGS: None. IMPRESSION: 1. No acute intracranial abnormality. Stable appearance of right parietal infarction some evolution o f white matter encephalomalacia. Additional left frontal white matter hypoattenuation is stable. 2. Little change in the degree of atrophy or senescent changes. Signer Name: Vazquez Prado II, MD Signed: 05/01/2022 11:20 PM Workstation Name: [id number]
[2022-05-01 23:26] LABS: Hematocrit 30.9 % (35.5-45.6); Hemoglobin 10.8 gm/dl (11.8-15.2); Mean Corpuscular HGB Conc 35 % (32-34); Mean Corpuscular Volume 84 fl (84-94); Platelet Count 113 K/mm3 (140-440)
--- NOTE | 2022-05-01 23:34 | Consultation ---
History of Present Illness History of present illness: [place] [facility] Consult Note # Demographics Consult Type: Acute Stroke Level 1 (0-4.5 hrs) Patient Location: Emergency Room First Name: Les Last Name: Chantelle Date of : 1935 Age: 86 Gender: Male Facility: [facility] Time of Initial Page (): 05/01/2022, 22:42 Time of Return Call ( Time): 05/01/2022, 22:42 # HPI Chief Complaint: speech changes History: 86M with dementia, prior strokes and ICH, presents with difficulty speaking. LKWT [id number]. Will answer questions with one or two words, but cannot really answer; does appear to understand. BP 140/103, fingerstick 208. At baseline has right-sided weakness. # Scores Time of exam and NIHSS (): 05/01/2022, 22:48 Level of Consciousness 1a: [0] = Alert; keenly responsive LOC Questions 1b: [2] = Answers neither correctly LOC Commands 1c: [0] = Performs both tasks correctly Best Gaze 2: [0] = Normal Visual 3: [0] = No visual loss Facial Palsy 4: [0] = Normal symmetrical movements Motor Arm Left 5a: [2] = Some effort against gravity Motor Arm Right 5b: [2] = Some effort against gravity Motor Leg Left 6a: [2] = Some effort against gravity Motor Leg Right 6b: [2] = Some effort against gravity Limb Ataxia 7: [0] = Absent Sensory 8: [0] = Normal Best Language 9: [2] = Severe aphasia Dysarthria 10: [2] = Severe dysarthria Extinction and Inattention 11: [0] = No abnormality NIHSS Total: 14 # Data Time Head CT personally read by me (): 05/01/2022, 22:[address]: no bleed preliminarily reviewed by me, please refer to radiology read for official reading Chronic right parietal and left frontal strokes CTA Head: no large vessel occlusion preliminarily reviewed by me, please refer to radiology read for official readin g CTA Neck: preliminarily reviewed by me, please refer to radiology read for official reading moderate atherosclerotic disease at the origin of the R>L ICAs # Assessment Impression: r/o stroke # Plan Thrombolytic/Intervention: NOT IV Thrombolysis or IA Intervention candidate Thrombolytic Exclusion (< 3 hour window): history of ICH Intraarterial Exclusion: no large vessel occlusion (LVO) Target Blood Pressure: SBP < 220 DBP < 105 Medication: ASA 325 Other: permissive hypertension telemetry monitoring I have discussed my recommendations with the referring provider Disposition: admit # Logistics Telemedicine: Interactive 2 way audio and visual telecommunication technology was utilized during this visit Electronically signed at 05/01/2022 23:33 (Eastern Time) by Reji King MD Medications and Allergies Allergies Allergy/AdvReac Type Severity Reaction Status Date / Time levofloxacin [From Levaquin] AdvReac Rash Verified 04/21/17 21:12 Home Medications Medication Instructions Recorded Confirmed Last Taken Type Memantine HCl [Namenda] 10 mg PO BID 04/21/17 04/21/19 Unknown History Omeprazole 40 mg PO QDAY 04/21/17 04/21/19 Unknown History Sertraline [Zoloft] 50 mg PO QDAY 04/21/17 04/21/19 Unknown History Simvastatin (NF) [Zocor TAB] 40 mg PO QHS 04/21/17 04/21/19 Unknown History Tamsulosin [Flomax] 0.4 mg PO QDAY 04/21/17 04/21/19 Unknown History Diclofenac 1% [Diclofenac 1% 2 gram TP DAILY PRN 04/21/19 04/21/19 Unknown History topical gel] Amoxicillin/K Clav Tab [Augmentin 1 each PO Q12HR #10 tablet 04/22/19 Unknown Rx 875MG TAB] Meclizine [Antivert] 12.5 mg PO Q12H PRN #60 tablet 04/22/19 Unknown Rx Fluticasone [Flonase] 1 spray NS QDAY #1 bottle 04/23/19 Unknown Rx Results - Laboratory Findings CBC and BMP: 05/01/22 23:14 Abnormal Lab Findings: Abnormal Labs 05/01/22 23:14 Hgb 10.8 L Hct 30.9 L MCHC 35 H RDW 18.0 H Plt Count 113 L
[2022-05-01 23:35] LABS: INR 1.42 (0.87-1.13)
[2022-05-01 23:36] LABS: Partial Thromboplastin Time 39.9 Sec. (24.2-36.6)
--- NOTE | 2022-05-01 23:44 | Cat Scan Report ---
CT angio head, CT angio neck INDICATION / CLINICAL INFORMATION: expressive aphagia. TECHNIQUE: CT angiography of the head and neck was performed following administration of 100 cc Omnip aque 350 intravenous contrast. In addition to axial source images, coronal and sagittal thin slab MIP reconstructions were provided. Additional 3-D volumetric reconstructions of vasculature were provide d. All CT scans at this location are performed using CT dose reduction for ALARA by means of automate d exposure control. Calculation of stenosis will be made using direct NASCET criteria. COMPARISON: None available. FINDINGS: VASCULAR FINDINGS: NECK: AORTA: The aorta demonstrates normal branch morphology. Bovine variant arch. No acute aortic patholo gy. No severe stenosis of great vessel origins. GREAT VESSELS: No significant abnormality demonstrated involving great vessels. VERTEBRAL ARTERIES: Vertebral origins are patent. The bilateral V2 segments demonstrate no significan t abnormality. RIGHT CAROTID: The proximal right cervical segment ICA demonstrates a focal stenosis in which the lum en narrows to 1.8 mm as result of predominantly calcified plaque. The distal right cervical segment I CA measures 4 mm transverse dimension. Moderate to severe stenosis of the right common carotid artery origin additionally is demonstrated lumen narrowing to 2 mm. LEFT CAROTID: The left common carotid artery, common carotid artery bifurcation, external carotid art day, and cervical segment internal carotid artery demonstrate no significant abnormalities. Small foc us of calcified plaque noted along the posterior aspect of the proximal left cervical segment ICA. VENOUS STRUCTURES: No significant abnormality of the jugular veins is demonstrated. INTRACRANIAL CIRCULATION: RIGHT ICA: Short segment severe stenosis of the proximal right supraclinoid ICA is demonstrated as re sult of predominantly calcified plaque. Lumen of the vessel is nearly imperceptible. RIGHT MALOU: The right A1 segment is absent. A 2 segment is unremarkable flow provided by cross over fr om anterior communicating artery. RIGHT MCA: The right MCA demonstrates no evidence of large vessel occlusion, aneurysm formation, or s evere stenosis. LEFT ICA: Diffuse intimal calcification of the cavernous and supraclinoid segment resulting in no are as of severe stenosis. LEFT MALOU: The left MALOU demonstrates no evidence of aneurysm formation, occlusion, or severe stenosis. LEFT MCA: The left MCA demonstrates no evidence of large vessel occlusion, aneurysm formation, or sev ere stenosis. ANTERIOR COMMUNICATING ARTERY: A small saccular aneurysm projects anteriorly/superiorly from the junc tion of the anterior communicating artery and left A1 segment. This measures 1.9 cm transverse dimens ion, 2.0 cm craniocaudal dimension, the neck appears wide. POSTERIOR COMMUNICATING ARTERIES: Posterior communicating arteries are either are too small to visual ize are anatomically absent. VERTEBRAL CONFLUENCE: The vertebral confluence demonstrates no significant abnormality. BASILAR ARTERY: Basilar artery demonstrates no significant abnormality. Bifurcation and bilateral P1 segments demonstrate patency without evidence of aneurysm formation, significant stenosis, or occlusi on. RIGHT RESEARCH CENTER DIRECTOR: The right RESEARCH CENTER DIRECTOR demonstrates no evidence of occlusion, aneurysm formation, or severe stenosi s. LEFT RESEARCH CENTER DIRECTOR: Focal moderate stenosis of the proximal left P2 segment. DURAL SINUSES AND CORTICAL DURAL VEINS: The dural sinuses and cortical dural veins demonstrate no sig nificant abnormalities. NONVASCULAR FINDINGS: The intracranial contents, intraorbital contents, paranasal sinuses, mastoid air cells, soft tissues and musculature of the face, soft tissues and musculature of the neck, thyroid, and upper chest demon strate no significant abnormalities. IMPRESSION: 1. No evidence of large vessel occlusion. 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 2. The dural sinuses and cortical epidural veins as well as the cervical venous structures demonstrat e no significant abnormality. 3. 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 4. 50-60% stenosis of the right proximal cervical segment ICA. 5. No hemodynamically significant stenosis of the left cervical ICA. 6. Focal moderate stenosis of the proximal left P2 segment. CODE STROKE Time of Communication (SPECIAL DELIVERY CLERK/CDT): 2240 hours Licensed Practitioner Receiving Report: Dr. Botello Signer Name: Vazquez Prado II, MD Signed: 05/01/2022 11:40 PM Workstation Name: [id number]
--- NOTE | 2022-05-01 23:45 | Cat Scan Report ---
CT angio head, CT angio neck INDICATION / CLINICAL INFORMATION: expressive aphagia. TECHNIQUE: CT angiography of the head and neck was performed following administration of 100 cc Omnip aque 350 intravenous contrast. In addition to axial source images, coronal and sagittal thin slab MIP reconstructions were provided. Additional 3-D volumetric reconstructions of vasculature were provide d. All CT scans at this location are performed using CT dose reduction for ALARA by means of automate d exposure control. Calculation of stenosis will be made using direct NASCET criteria. COMPARISON: None available. FINDINGS: VASCULAR FINDINGS: NECK: AORTA: The aorta demonstrates normal branch morphology. Bovine variant arch. No acute aortic patholo gy. No severe stenosis of great vessel origins. GREAT VESSELS: No significant abnormality demonstrated involving great vessels. VERTEBRAL ARTERIES: Vertebral origins are patent. The bilateral V2 segments demonstrate no significan t abnormality. RIGHT CAROTID: The proximal right cervical segment ICA demonstrates a focal stenosis in which the lum en narrows to 1.8 mm as result of predominantly calcified plaque. The distal right cervical segment I CA measures 4 mm transverse dimension. Moderate to severe stenosis of the right common carotid artery origin additionally is demonstrated lumen narrowing to 2 mm. LEFT CAROTID: The left common carotid artery, common carotid artery bifurcation, external carotid art day, and cervical segment internal carotid artery demonstrate no significant abnormalities. Small foc us of calcified plaque noted along the posterior aspect of the proximal left cervical segment ICA. VENOUS STRUCTURES: No significant abnormality of the jugular veins is demonstrated. INTRACRANIAL CIRCULATION: RIGHT ICA: Short segment severe stenosis of the proximal right supraclinoid ICA is demonstrated as re sult of predominantly calcified plaque. Lumen of the vessel is nearly imperceptible. RIGHT MALOU: The right A1 segment is absent. A 2 segment is unremarkable flow provided by cross over fr om anterior communicating artery. RIGHT MCA: The right MCA demonstrates no evidence of large vessel occlusion, aneurysm formation, or s evere stenosis. LEFT ICA: Diffuse intimal calcification of the cavernous and supraclinoid segment resulting in no are as of severe stenosis. LEFT MALOU: The left MALOU demonstrates no evidence of aneurysm formation, occlusion, or severe stenosis. LEFT MCA: The left MCA demonstrates no evidence of large vessel occlusion, aneurysm formation, or sev ere stenosis. ANTERIOR COMMUNICATING ARTERY: A small saccular aneurysm projects anteriorly/superiorly from the junc tion of the anterior communicating artery and left A1 segment. This measures 1.9 cm transverse dimens ion, 2.0 cm craniocaudal dimension, the neck appears wide. POSTERIOR COMMUNICATING ARTERIES: Posterior communicating arteries are either are too small to visual ize are anatomically absent. VERTEBRAL CONFLUENCE: The vertebral confluence demonstrates no significant abnormality. BASILAR ARTERY: Basilar artery demonstrates no significant abnormality. Bifurcation and bilateral P1 segments demonstrate patency without evidence of aneurysm formation, significant stenosis, or occlusi on. RIGHT CHAIN PERSON: The right CHAIN PERSON demonstrates no evidence of occlusion, aneurysm formation, or severe stenosi s. LEFT CHAIN PERSON: Focal moderate stenosis of the proximal left P2 segment. DURAL SINUSES AND CORTICAL DURAL VEINS: The dural sinuses and cortical dural veins demonstrate no sig nificant abnormalities. NONVASCULAR FINDINGS: The intracranial contents, intraorbital contents, paranasal sinuses, mastoid air cells, soft tissues and musculature of the face, soft tissues and musculature of the neck, thyroid, and upper chest demon strate no significant abnormalities. IMPRESSION: 1. No evidence of large vessel occlusion. 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 2. The dural sinuses and cortical epidural veins as well as the cervical venous structures demonstrat e no significant abnormality. 3. 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 4. 50-60% stenosis of the right proximal cervical segment ICA. 5. No hemodynamically significant stenosis of the left cervical ICA. 6. Focal moderate stenosis of the proximal left P2 segment. CODE STROKE Time of Communication (MANAGER FUND/CDT): 2240 hours Licensed Practitioner Receiving Report: Dr. Botello Signer Name: Vazquez Prado II, MD Signed: 05/01/2022 11:40 PM Workstation Name: [id number]
[2022-05-01 23:51] LABS: Albumin 3.3 g/dL (3.9-5)
--- NOTE | 2022-05-01 23:55 | XRay Report ---
CHEST 1 VIEW INDICATION / CLINICAL INFORMATION: STROKE WORK UP. COMPARISON: Chest x-ray 04/21/2007 not available for comparison. FINDINGS: SUPPORT DEVICES: None. HEART / MEDIASTINUM: Heart size is within normal limits. Mediastinal contour demonstrates no signific ant abnormality. Prior sternotomy. LUNGS / PLEURA: Diffuse interstitial prominence demonstrated bilaterally is likely chronic. The left cardiophrenic angle is indistinct focal airspace disease not excluded. Small hiatal hernia not exclud ed. BONES: No significant osseous abnormality. ADDITIONAL FINDINGS: No significant additional findings. IMPRESSION: 1. Density in the left cardiophrenic angle may reflect focal airspace disease, atelectasis, infection , or possibly small hiatal hernia. 2. Coarsened interstitial markings present bilaterally likely chronic. Signer Name: Vazquez Prado II, MD Signed: 05/01/2022 11:51 PM Workstation Name: [id number]
[2022-05-02] MEDS ORDERED: ASPIRIN 325 MG TAB PO ONE
[2022-05-02] MEDS ORDERED: SODIUM CHLORIDE 0.9% 1000 ML 1,000 ML IV ONE
[2022-05-02 00:02] LABS: Color,Urine Yellow (Yellow)
[2022-05-02 00:04] LABS: Bacteria,Urine 2+ /HPF (Negative); Mucus,Urine FEW /HPF
[2022-05-02 00:06] LABS: WBC,Urine > 182.0 /HPF (0.0-6.0)
[2022-05-02 00:16] LABS: Calcium 7.9 mg/dL (8.4-10.2)
[2022-05-02] MEDS ORDERED: ONDANSETRON 4 MG/2 ML INJ IV PRN (00:33)
[2022-05-02] MEDS ORDERED: MAGNESIUM HYDROXIDE (MOM) ORAL LIQD UDC PO PRN (00:33)
[2022-05-02] MEDS ORDERED: MORPHINE 4 MG/1 ML INJ IV PRN (00:33)
[2022-05-02] MEDS ORDERED: ACETAMINOPHEN 325 MG TAB PO PRN (00:33)
--- NOTE | 2022-05-02 00:50 | History and Physical Report ---
History of Present Illness Date of examination: 05/02/22 Date of admission: 05/02/2022 Chief complaint: Altered mental status History of present illness: 86-year-old white male with known history of hypertension, CVA, dementia, hyperlipidemia and also a recent history of COVID infection about 2 to 3 weeks ago brought into the emergency room today accompanied by family for evaluation of changes in mental status with started about 2 hours prior to reporting to the emergency room. Patient is said to have been declining since his recent COVID infection. He has been increasingly getting weaker, having unsteady gait and appearing confused. Upon arrival in the emergency room, a code stroke was called and patient was promptly evaluated by the neurologist. CT head and neck and CT of the head did not reveal any acute abnormalities. Most of the history was obtained from and daughters who were by the bedside. Patient unable to give any coherent history. Further work-up reveals UTI and multiple electrolyte imbalance with acute kidney injury. Patient being admitted for multiple medical problems including UTI, electrolyte imbalance, dehydration. Will also be ruled out for possible CVA. Past History Past Medical History: arthritis, hypertension, hyperlipidemia, stroke, other (Dementia,hiatal hernia,BPH,Kidney stones) Past Surgical History: cholecystectomy, Other (Open heart surgery) Social history: no significant social history Family history: no significant family history Medications and Allergies Allergies Allergy/AdvReac Type Severity Reaction Status Date / Time aspirin AdvReac Bleeding Verified 05/02/22 13:20 levofloxacin [From Levaquin] AdvReac Rash Verified 04/21/17 21:12 blood thinners AdvReac Bleeding Uncoded 05/02/22 13:20 Home Medications Medication Instructions Recorded Confirmed Last Taken Type Memantine HCl [Namenda] 10 mg PO BID 04/21/17 05/02/22 Unknown History Omeprazole 40 mg PO QDAY 04/21/17 05/02/22 Unknown History Sertraline [Zoloft] 50 mg PO QDAY 04/21/17 05/02/22 Unknown History Simvastatin (NF) [Zocor TAB] 40 mg PO QHS 04/21/17 05/02/22 Unknown History Meclizine [Antivert] 12.5 mg PO Q12H PRN #60 tablet 04/22/19 05/02/22 Unknown Rx Fluticasone [Flonase] 1 spray NS QDAY #1 bottle 04/23/19 05/02/22 Unknown Rx Active Meds: Active Medications Acetaminophen (Acetaminophen 325 Mg Tab) 650 mg PO Q4H PRN PRN Reason: Pain MILD(1-3)/Fever >100.5/ALLEN Heparin Sodium (Porcine) (Heparin 5,000 Unit/1 Ml Vial) 5,000 unit SUB-Q Q8HR GENA Sodium Chloride (Nacl 0.9% 1000 Ml) 1,000 mls @ 100 mls/hr IV ONCE ONE Stop: 05/02/22 09:59 Sodium Chloride (Nacl 0.9% 1000 Ml) 1,000 mls @ 75 mls/hr IV DIRECT GENA Ceftriaxone Sodium (Rocephin/Ns 1 Gm/50 Ml) 1 gm in 50 mls @ 100 mls/hr IV Q24HR GENA; Protocol Magnesium Sulfate 1 gm/ Sodium (Chloride) 102 mls @ 52 mls/hr IV ONCE ONE Stop: 05/02/22 02:37 Magnesium Hydroxide (Magnesium Hydroxide (Mom) Oral Liqd Udc) 30 ml PO Q4H PRN PRN Reason: Constipation Morphine Sulfate (Morphine 2 Mg/1 Ml Inj) 2 mg IV Q4H PRN PRN Reason: Pain, Moderate (4-6) Morphine Sulfate (Morphine 4 Mg/1 Ml Inj) 4 mg IV Q4H PRN PRN Reason: Pain , Severe (7-10) Ondansetron HCl (Ondansetron 4 Mg/2 Ml Inj) 4 mg IV Q8H PRN PRN Reason: Nausea And Vomiting Sodium Chloride (Sodium Chloride 0.9% 10 Ml Flush Syringe) 10 ml IV BID GENA Sodium Chloride (Sodium Chloride 0.9% 10 Ml Flush Syringe) 10 ml IV PRN PRN PRN Reason: LINE FLUSH Review of Systems ROS unobtainable: due to mental status Exam - Constitutional General appearance: Present: no acute distress, well-nourished, other (Dry oral mucosa) - EENT Eyes: Present: PERRL, EOM intact. Absent: scleral icterus ENT: hearing intact, clear oral mucosa, dentition normal - Neck Neck: Present: supple, normal ROM - Respiratory Respiratory effort: normal Respiratory: bilateral: CTA - Cardiovascular Rhythm: regular Heart Sounds: Present: S1 & S2. Absent: gallop, systolic murmur, diastolic murmur, rub, click - Extremities Extremities: no ischemia, pulses intact, pulses symmetrical, No edema, Full ROM Peripheral Pulses: within normal limits - Abdominal General gastrointestinal: Present: soft, non-tender, non-distended, normal bowel sounds. Absent: mass - Integumentary Integumentary: Present: clear, warm, dry, normal turgor. Absent: rash - Musculoskeletal Musculoskeletal: strength equal bilaterally - Psychiatric Psychiatric: cooperative - Neurologic Neurologic: CNII-XII intact, no focal deficits, moves all extremities - Additional findings Additional findings: SKIN: Multiple skin bruises on elbows and chou of legs Wound on left big toe HEART Score - HEART Score Troponin: Troponin T 0.054 ng/mL (0.00-0.029) H 05/01/22 23:14 Results - Labs CBC & Chem 7: 05/01/22 23:14 05/02/22 20:20 Labs: Abnormal lab results 05/01/22 05/01/22 05/01/22 Range/Units 23:14 23:14 23:14 Hgb 10.8 L (11.8-15.2) gm/dl Hct 30.9 L (35.5-45.6) % MCHC 35 H (32-34) % RDW 18.0 H (13.2-15.2) % Plt Count 113 L (140-440) K/mm3 PT 19.1 H (12.2-14.9) Sec. INR 1.42 H (0.87-1.13) APTT 39.9 H (24.2-36.6) Sec. Sodium 125 L (137-145) mmol/L Chloride 91.0 L (98-107) mmol/L Carbon Dioxide 21 L (22-30) mmol/L BUN 38 H (9-20) mg/dL Creatinine 2.1 H (0.8-1.3) mg/dL Glucose 131 H (75-100) mg/dL Calcium 7.9 L (8.4-10.2) mg/dL Magnesium 1.60 L (1.7-2.3) mg/dL Troponin T (0.00-0.029) ng/mL NT-Pro-B Natriuret Pep (0-900) pg/mL Total Protein 4.8 L (6.3-8.2) g/dL Albumin 3.3 L (3.9-5) g/dL Urine WBC (Auto) (0.0-6.0) /HPF 05/01/22 05/01/22 Range/Units 23:14 23:54 Hgb (11.8-15.2) gm/dl Hct (35.5-45.6) % MCHC (32-34) % RDW (13.2-15.2) % Plt Count (140-440) K/mm3 PT (12.2-14.9) Sec. INR (0.87-1.13) APTT (24.2-36.6) Sec. Sodium (137-145) mmol/L Chloride (98-107) mmol/L Carbon Dioxide (22-30) mmol/L BUN (9-20) mg/dL Creatinine (0.8-1.3) mg/dL Glucose (75-100) mg/dL Calcium (8.4-10.2) mg/dL Magnesium (1.7-2.3) mg/dL Troponin T 0.054 H (0.00-0.029) ng/mL NT-Pro-B Natriuret Pep 03478 H (0-900) pg/mL Total Protein (6.3-8.2) g/dL Albumin (3.9-5) g/dL Urine WBC (Auto) > 182.0 H (0.0-6.0) /HPF Assessment and Plan Assessment: 1. Altered mental status 2. UTI 3. Electrolyte imbalance-namely hypomagnesemia, hyponatremia, hypocalcemia 4. ANJU 5.Hypotension 6.Sepsis- secondary to UTI Plan: 1. Patient admitted and placed on empiric IV antibiotics and IV fluid. 2. We will await culture results. 3. We will also monitor chemistry. 4. We will resume routine home medications once reconciled. 5. We will place consult to nephrology for evaluation and recommendations. 6.Patient placed on pressor . Will monitor vital signs closely DVT prophylaxis: Subcutaneous heparin CODE STATUS: Full code
[2022-05-02] MEDS: cefTRIAXone/NS 1 GM/50 ML 1 GM/50 ML BAG IV SCH ×2 (01:30→09:36)
[2022-05-02] MEDS ORDERED: MAGNESIUM SULFATE 1 GM in SODIUM CHLORIDE 0.9% 50 ML IV ONE (01:40)
[2022-05-02 02:27] LABS: Chol/HDL Ratio 1.67 %
[2022-05-02] MEDS: NORepinephrine/NS 8 MG-250 ML 8 MG/250 ML INFUS..BTL IV SCH ×3 (03:02→17:44)
[2022-05-02] MEDS: MORPHINE 2 MG/1 ML INJ IV PRN ×2 (04:49→13:17)
[2022-05-02] MEDS ORDERED: METOPROLOL TARTRATE 5 MG/5 ML INJ IV ONE ×2 (04:55)
[2022-05-02] MEDS ORDERED: dilTIAZem 25 MG/5 ML INJ IV ONE (05:13)
[2022-05-02] MEDS: SODIUM CHLORIDE 0.9% 1000 ML 1,000 ML IV SCH (05:24)
[2022-05-02] MEDS: HEPARIN 5,000 UNIT/1 ML VIAL SUB-Q SCH ×2 (05:25→13:41)
--- NOTE | 2022-05-02 09:22 | Consultation ---
History of Present Illness Consult date: 05/02/22 Requesting physician: AFIA TODD Reason for consult: other (A-fib with RVR; Hypotension) History of present illness: PCCM CONSULT NOTE (Full dictation # [id number]) Please see dictated notes for full details Past History Past Medical History: arthritis, hypertension, hyperlipidemia, stroke, other (Dementia,hiatal hernia,BPH,Kidney stones) Past Surgical History: cholecystectomy, Other (Open heart surgery) Social history: no significant social history Family history: no significant family history Medications and Allergies Allergies Allergy/AdvReac Type Severity Reaction Status Date / Time aspirin AdvReac Bleeding Verified 05/02/22 13:20 levofloxacin [From Levaquin] AdvReac Rash Verified 04/21/17 21:12 blood thinners AdvReac Bleeding Uncoded 05/02/22 13:20 Home Medications Medication Instructions Recorded Confirmed Last Taken Type Memantine HCl [Namenda] 10 mg PO BID 04/21/17 05/02/22 Unknown History Omeprazole 40 mg PO QDAY 04/21/17 05/02/22 Unknown History Sertraline [Zoloft] 50 mg PO QDAY 04/21/17 05/02/22 Unknown History Simvastatin (NF) [Zocor TAB] 40 mg PO QHS 04/21/17 05/02/22 Unknown History Tamsulosin [Flomax] 0.4 mg PO QDAY 04/21/17 05/02/22 Unknown History Diclofenac 1% [Diclofenac 1% 2 gram TP DAILY PRN 04/21/19 04/21/19 Unknown History topical gel] Amoxicillin/K Clav Tab [Augmentin 1 each PO Q12HR #10 tablet 04/22/19 Unknown Rx 875MG TAB] Meclizine [Antivert] 12.5 mg PO Q12H PRN #60 tablet 04/22/19 05/02/22 Unknown Rx Fluticasone [Flonase] 1 spray NS QDAY #1 bottle 04/23/19 05/02/22 Unknown Rx Active Meds: Active Medications Acetaminophen (Acetaminophen 325 Mg Tab) 650 mg PO Q4H PRN PRN Reason: Pain MILD(1-3)/Fever >100.5/ALLEN Atorvastatin Calcium (Atorvastatin 40 Mg Tab) 40 mg PO QHS GENA Famotidine (Famotidine 20 Mg/2 Ml Inj) 20 mg IV QDAY GENA Stop: 05/03/22 09:59 Famotidine (Famotidine 20 Mg Tab) 20 mg PO QDAY GENA Heparin Sodium (Porcine) (Heparin 5,000 Unit/1 Ml Vial) 5,000 unit SUB-Q Q8HR GENA Last Admin: 05/02/22 05:25 Dose: 5,000 unit Sodium Chloride (Nacl 0.9% 1000 Ml) 1,000 mls @ 100 mls/hr IV ONCE ONE Stop: 05/02/22 09:59 Last Infusion: 05/02/22 06:25 Dose: 0 mls/hr Sodium Chloride (Nacl 0.9% 1000 Ml) 1,000 mls @ 75 mls/hr IV DIRECT GENA Last Infusion: 05/02/22 06:25 Dose: 75 mls/hr Ceftriaxone Sodium (Rocephin/Ns 1 Gm/50 Ml) 1 gm in 50 mls @ 100 mls/hr IV Q24HR GENA; Protocol Last Infusion: 05/02/22 06:25 Dose: Infused NORepinephrine/NS 8 MG-250 ML (Norepinephrine/Ns 8 Mg-250 Ml (Double Conc)) 8 mg in 250 mls @ 14.458 mls/hr IV TITRATE GENA; Protocol Last Titration: 05/02/22 08:49 Dose: 0.16 mcg/kg/min, 23.133 mls/hr Sodium Chloride (Nacl 0.9% 500 Ml) 500 mls @ 999 mls/hr IV ONCE ONE Stop: 05/02/22 09:01 Magnesium Sulfate (Magnesium Sulfate 2gm/50ml) 2 gm in 50 mls @ 25 mls/hr IV ONCE ONE Stop: 05/02/22 10:35 Magnesium Hydroxide (Magnesium Hydroxide (Mom) Oral Liqd Udc) 30 ml PO Q4H PRN PRN Reason: Constipation Morphine Sulfate (Morphine 2 Mg/1 Ml Inj) 2 mg IV Q4H PRN PRN Reason: Pain, Moderate (4-6) Last Admin: 05/02/22 04:49 Dose: 2 mg Ondansetron HCl (Ondansetron 4 Mg/2 Ml Inj) 4 mg IV Q8H PRN PRN Reason: Nausea And Vomiting Sodium Chloride (Sodium Chloride 0.9% 10 Ml Flush Syringe) 10 ml IV BID GENA Sodium Chloride (Sodium Chloride 0.9% 10 Ml Flush Syringe) 10 ml IV PRN PRN PRN Reason: LINE FLUSH Physical Examination Vital signs: Vital Signs Temp Pulse Resp BP Pulse Ox 96.5 F L 124 H 18 147/103 96 05/02/22 00:34 05/02/22 00:34 05/02/22 00:34 05/02/22 00:34 05/02/22 00:34 Results - Laboratory Findings CBC and BMP: 05/01/22 23:14 05/02/22 11:14 PT/INR, D-dimer PT 19.1 Sec. (12.2-14.9) H 05/01/22 23:14 INR 1.42 (0.87-1.13) H 05/01/22 23:14 Abnormal lab findings: Abnormal Labs 05/01/22 05/01/22 05/01/22 23:14 23:14 23:14 Hgb 10.8 L Hct 30.9 L MCHC 35 H RDW 18.0 H Plt Count 113 L PT 19.1 H INR 1.42 H APTT 39.9 H Sodium 125 L Chloride 91.0 L Carbon Dioxide 21 L BUN 38 H Creatinine 2.1 H Glucose 131 H POC Glucose Lactic Acid Calcium 7.9 L Magnesium 1.60 L Troponin T NT-Pro-B Natriuret Pep Total Protein 4.8 L Albumin 3.3 L LDL Cholesterol Direct Urine WBC (Auto) 05/01/22 05/01/22 05/02/22 23:14 23:54 03:39 Hgb Hct MCHC RDW Plt Count PT INR APTT Sodium Chloride Carbon Dioxide BUN Creatinine Glucose POC Glucose Lactic Acid 2.30 H* Calcium Magnesium Troponin T 0.054 H NT-Pro-B Natriuret Pep 68869 H Total Protein Albumin LDL Cholesterol Direct 25 L Urine WBC (Auto) > 182.0 H 05/02/22 06:05 Hgb Hct MCHC RDW Plt Count PT INR APTT Sodium Chloride Carbon Dioxide BUN Creatinine Glucose POC Glucose 139 H Lactic Acid Calcium Magnesium Troponin T NT-Pro-B Natriuret Pep Total Protein Albumin LDL Cholesterol Direct Urine WBC (Auto)
[2022-05-02] MEDS ORDERED: SODIUM CHLORIDE 0.9% 500 ML 500 ML IV ONE (10:00)
[2022-05-02] MEDS ORDERED: MAGNESIUM SULFATE 2 GM/50 ML BAG IV SCH (10:00)
[2022-05-02] MEDS ORDERED: FAMOTIDINE 20 MG/2 ML INJ IV SCH (10:00)
--- NOTE | 2022-05-02 11:10 | Progress Note ---
<PARVEZ LEON - Last Filed: 05/02/22 16:32> Assessment and Plan Assessment and plan: This is a 86-year-old male with known past medical history of CVA, ICHx2, dementia, HLD, UT, CAD s/p CABGX5, paroxysmal Afib- not a candidate of anticoagulation, s/p multiple falls at home admitted for septic shock probably secondary to urosepsis requiring vasopressors. Hospital Course to Date 05/02: Remains encephalopathic, stable on RA, on high dose pressors, additional IVF bolus administered. Patient remains in Afib, rate control. Cardiology consulted Dumont inserted this am due to retenstion, 1L of malodorous and cloudy urine drained. Probable urosepsis, patient is current on IV rocephin. D/w patie nt's daughters they reported that patient does have a history of Afib and open heart surgery with 5 bypass. Patient had X2 ICH in the past and he is not a candidate for any anticoagulations. Patient was also recently diagnosed with COVID outpatient, did not received any treatment since he was stable. COVID and PLU PCRs pending, check inflam. markers and Procal. Renal function is unchanged, continue IVF hydration, Nephrology is also following. Continue to trend Lactic acid. Assessment and Plan #Septic Shock- Probable Urosepsis (POA) #Urinary Tract Infection (UTI) #Lactic Acidosis #Recent COVID infection- no treatment at that time - Dumont inserted for retention- cloudy and malodourous urine drained - Blood cultures and urine culture pending - R/o COVID infection and FLU - Check inflammatory markers and procal - Continue IVF hydration and current empiric IV Abx- Rocephin - Continue blood pressure monitor per protocol - Titrate pressors to maintain MAP above 65 #Acute Kidney Injury(ANJU) most likely ATN #Electrolyte imbalance- hypomagnesemia, hyponatremia, hypocalcemia #Hypovelemia/Dehydration - Nephrology on consult, appreciated recommendation - Strict intake and output - Avoid nephrotoxic medications; Renally dose medications - Dumont inserted for retention- cloudy and malodourous urine drained - Continue IVF for now - Monitor and replace electrolytes as needed #Paroxysmal Atrial Fibrillation- Not candidate for anticoagulation #NSTEMI- probably Type 2 2/2 demand ischemia vs ANJU #H/o UT and CAD s/p CABGX5 over 20 years ago - Cardiology consulted - Not candidate for BB due to low BP on levophed gtt - Continue blood pressure monitor per protocol - Titrate pressors to maintain MAP above 65 - Not candidate for AC due to bleeding #Acute Metabolic Encephalopathy #Multiple Falls at Home #H/o Dementia #H/o CVA and ICHx2 - Mentation improved - Avoid benzodiazepine to reduce the possibility of delirium - PRN Analgesia for pain control - Maintenance of sleep-wake cycle - Fall precaution #Urinary Retention #History of BPH - Dumont inserted - resume home meds once list is available #Thrombocytopenia - Present on admit - H&H stable, no s/s of any active bleeding - Not on any AC due to bleeding - Continue to trend CBC - Transfuse for hgb less than 7 #GI/DVT Prophylaxis - PPI- pepcid - SCDs to bilateral lower extremities while in bed #Advance Care Planning - Disease education data, care plan, diagnoses, and prognosis were discussed with patient's daughters via phone, Kath Sargentruben- ; Jacquie Laguerre- . Patient is a FULL code. Patient's family acknowledged understanding and agreed with current care plan. The high probability of a clinically significant, sudden or life threatening deterioration of the [multiple] system(s) required my full and direct attention, intervention and personal management. The aggregate critical care time was [60] minutes. This time is in addition to time spent performing reported procedures but includes the following: [x] Data Review and interpretation [x] Patient assessment and monitoring of vital signs [x] Documentation [x] Medication orders and management Disposition Plan: ICU Total Time Spent with Patient (Minutes): 60 History Interval history: Patient seen and examined at the bedside. Drowsy but easily arousable, AAOX2, on RA, complaining of generalized bodyache. Patient voiced that he fell multiple times at home, generalized bruising and skin tears note throughout his body. In Afib, rate control on the monitor, hypotensive on high dose Levophed. Dumont cath inserted for urinary retention, 1L of cloudy and malodorous urine drained. Hospitalist Physical - Constitutional Vitals: Temp Pulse Resp BP Pulse Ox 98.8 F 94 H 17 72/36 98 05/02/22 08:00 05/02/22 10:00 05/02/22 10:00 05/02/22 10:00 05/02/22 10:00 General appearance: Present: no acute distress, well-nourished, other (Confused) - EENT Eyes: Present: PERRL ENT: hearing intact, other (Dry oral mucosa) - Neck Neck: Present: normal ROM - Respiratory Respiratory effort: normal Respiratory: bilateral: diminished - Cardiovascular Rhythm: regular Heart Sounds: Present: S1 & S2 - Extremities Extremities: no ischemia, pulses intact, pulses symmetrical Peripheral Pulses: within normal limits - Abdominal General gastrointestinal: soft, non-distended, normal bowel sounds - Integumentary Integumentary: Present: dry, erythema (Generalized ecchymosis and skin tears, stage 1 sacral pressure ulcer, and Lt. big toe wound) - Psychiatric Psychiatric: appropriate mood/affect, cooperative, other (Drowsy but confused) - Neurologic Neurologic: moves all extremities, other (Drowsy but confused) - Allied Health Allied health notes reviewed: nursing HEART Score - HEART Score Troponin: Troponin T 0.054 ng/mL (0.00-0.029) H 05/01/22 23:14 Results - Labs CBC & Chem 7: 05/01/22 23:14 05/02/22 11:14 Labs: Laboratory Last Values WBC 4.5 K/mm3 (4.5-11.0) 05/01/22 23:14 RBC 3.70 M/mm3 (3.65-5.03) 05/01/22 23:14 Hgb 10.8 gm/dl (11.8-15.2) L 05/01/22 23:14 Hct 30.9 % (35.5-45.6) L 05/01/22 23:14 MCV 84 fl (84-94) 05/01/22 23:14 MCH 29 pg (28-32) 05/01/22 23:14 MCHC 35 % (32-34) H 05/01/22 23:14 RDW 18.0 % (13.2-15.2) H 05/01/22 23:14 Plt Count 113 K/mm3 (140-440) L 05/01/22 23:14 PT 19.1 Sec. (12.2-14.9) H 05/01/22 23:14 INR 1.42 (0.87-1.13) H 05/01/22 23:14 APTT 39.9 Sec. (24.2-36.6) H 05/01/22 23:14 Sodium 125 mmol/L (137-145) L 05/01/22 23:14 Potassium 4.2 mmol/L (3.6-5.0) 05/01/22 23:14 Chloride 91.0 mmol/L (98-107) L 05/01/22 23:14 Carbon Dioxide 21 mmol/L (22-30) L 05/01/22 23:14 Anion Gap 17 mmol/L 05/01/22 23:14 BUN 38 mg/dL (9-20) H 05/01/22 23:14 Creatinine 2.1 mg/dL (0.8-1.3) H 05/01/22 23:14 Estimated GFR 30 ml/min 05/01/22 23:14 BUN/Creatinine Ratio 18 % 05/01/22 23:14 Glucose 131 mg/dL (75-100) H 05/01/22 23:14 POC Glucose 139 mg/dL (70-105) H 05/02/22 06:05 Lactic Acid 2.30 mmol/L (0.7-2.0) H* 05/02/22 03:39 Calcium 7.9 mg/dL (8.4-10.2) L 05/01/22 23:14 Magnesium 1.60 mg/dL (1.7-2.3) L 05/01/22 23:14 Total Bilirubin 1.00 mg/dL (0.1-1.2) 05/01/22 23:14 AST 27 units/L (5-40) 05/01/22 23:14 ALT 17 units/L (7-56) 05/01/22 23:14 Alkaline Phosphatase 77 units/L (35-129) 05/01/22 23:14 Troponin T 0.054 ng/mL (0.00-0.029) H 05/01/22 23:14 NT-Pro-B Natriuret Pep 97463 pg/mL (0-900) H 05/01/22 23:14 Total Protein 4.8 g/dL (6.3-8.2) L 05/01/22 23:14 Albumin 3.3 g/dL (3.9-5) L 05/01/22 23:14 Albumin/Globulin Ratio 2.2 % 05/01/22 23:14 Triglycerides 64 mg/dL (2-149) 05/01/22 23:14 Cholesterol 77 mg/dL (50-199) 05/01/22 23:14 LDL Cholesterol Direct 25 mg/dL (50-130) L 05/01/22 23:14 HDL Cholesterol 46 mg/dL (40-59) 05/01/22 23:14 Cholesterol/HDL Ratio 1.67 % 05/01/22 23:14 Urine Color Yellow (Yellow) 05/01/22 23:54 Urine Turbidity Hazy (Clear) 05/01/22 23:54 Specific [place] (Man) 1.015 (1.003-1.030) 05/01/22 23:54 Ur Protein (Man) 1+ mg/dL (Negative) 05/01/22 23:54 Ur Ketones (Man) Negative (Negative) 05/01/22 23:54 Ur Nitrite (Man) Negative (Negative) 05/01/22 23:54 Urine Bilirubin (Man) Negative (Negative) 05/01/22 23:54 Leukocyte Esterase (Man) Moderate (Negative) 05/01/22 23:54 Urine WBC (Auto) > 182.0 /HPF (0.0-6.0) H 05/01/22 23:54 Urine RBC (Auto) 33.0 /HPF (0.0-6.0) 05/01/22 23:54 Urine Bacteria (Auto) 2+ /HPF (Negative) 05/01/22 23:54 Urine RBC (Manual) 3+ (Negative) 05/01/22 23:54 Urine WBC Clumps 3+ /HPF 05/01/22 23:54 Urine Mucus Few /HPF 05/01/22 23:54 Urine Yeast (Budding) 2+ /HPF 05/01/22 23:54 Microbiology: Microbiology 05/02/22 00:38 Peripheral/Venous Blood Culture - Preliminary Culture in Progress 05/02/22 00:44 Peripheral/Venous Blood Culture - Preliminary Culture in Progress Dumont/IV: Voiding Method Incontinent Active Medications - Current Medications Current Medications: Generic Name Dose Route Start Last Admin Trade Name Freq PRN Reason Stop Dose Admin Acetaminophen 650 mg 05/02/22 00:33 Acetaminophen 325 Mg Tab PO Q4H PRN Pain MILD(1-3)/Fever >100.5/ALLEN Atorvastatin Calcium 40 mg 05/02/22 22:00 Atorvastatin 40 Mg Tab PO QHS GENA Famotidine 20 mg 05/02/22 10:00 05/02/22 10:48 Famotidine 20 Mg/2 Ml Inj IV 05/03/22 09:59 20 mg QDAY GENA Administration Famotidine 20 mg 05/03/22 10:00 Famotidine 20 Mg Tab PO QDAY GENA Heparin Sodium (Porcine) 5,000 unit 05/02/22 06:00 05/02/22 05:25 Heparin 5,000 Unit/1 Ml Vial SUB-Q 5,000 unit Q8HR GENA Administration Sodium Chloride 1,000 mls @ 75 mls/hr 05/02/22 00:45 05/02/22 06:25 Nacl 0.9% 1000 Ml IV 75 mls/hr DIRECT GENA Infusion Ceftriaxone Sodium 1 gm in 50 mls @ 100 mls/hr 05/02/22 01:00 05/02/22 09:36 Rocephin/Ns 1 Gm/50 Ml IV 100 mls/hr Q24HR GENA Administration Protocol NORepinephrine/NS 8 MG-250 ML 8 mg in 250 mls @ 14.458 mls/hr 05/02/22 03:00 05/02/22 10:47 Norepinephrine/Ns 8 Mg-250 Ml (Double Conc) IV 0.22 mcg/kg/min TITRATE GENA 31.808 mls/hr Titration Protocol 0.1 MCG/KG/MIN Magnesium Sulfate 2 gm in 50 mls @ 25 mls/hr 05/02/22 10:00 05/02/22 10:48 Magnesium Sulfate 2gm/50ml IV 05/02/22 14:00 25 mls/hr ONCE@1000 GENA Administration Magnesium Hydroxide 30 ml 05/02/22 00:33 Magnesium Hydroxide (Mom) Oral Liqd Udc PO Q4H PRN Constipation Morphine Sulfate 2 mg 05/02/22 00:33 05/02/22 04:49 Morphine 2 Mg/1 Ml Inj IV 2 mg Q4H PRN Administration Pain, Moderate (4-6) Ondansetron HCl 4 mg 05/02/22 00:33 Ondansetron 4 Mg/2 Ml Inj IV Q8H PRN Nausea And Vomiting Sodium Chloride 10 ml 05/02/22 10:00 05/02/22 10:50 Sodium Chloride 0.9% 10 Ml Flush Syringe IV 10 ml BID GENA Administration Sodium Chloride 10 ml 05/02/22 00:33 Sodium Chloride 0.9% 10 Ml Flush Syringe IV PRN PRN LINE FLUSH Nutrition/Malnutrition Assess - Dietary Evaluation Nutrition/Malnutrition Findings: Nutrition Notes Start: 05/02/22 10:24 Freq: Status: Active Protocol: Document 05/02/22 10:24 KIERSTEN (Rec: 05/02/22 11:05 KIERSTEN [id number]) Nutrition Notes Need for Assessment generated from: distributor sales manager,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 Current Diet Cardiac -Renal- Diet (since B 05/02). Labs/Tests 05/01: Na 125, Cl 91.0, CO2 21 , BUN 38, Crea 2.1, Glu 131, Ca 7.9, Mg 1.6. Pertinent Medications 05/02: Nutritionally unremarkable. 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 Weight Status Appropriate Subjective/Other Information RD consult for skin risk and risk of malnutrition assessments. No reports available on Pt's PO intake of meals at the time , will assess at F/U. I will recommend Renal modification to current diet, to support Pt's ANJU condition during LOS. I will also recommend dietary supplements to support wound healinh processes during LOS. Pt is on Room Air, O2 saturation @ 99%, according to Physical Assessment History notes. Pt has caries and missing teeth, according to Physical Assessment History notes. Pt passed bedside swallow assessment on 05/02, according to Swallow Screen notes. Pt shows Decubitus Sacral Ulcer stage II, L-toe open wound, and multiple bruises and skin tears in arms and legs as signs of concern for skin risk at the time, according to Physical Assessment History notes. Pt shows no signs of concern for risk of malnutrition at the time, according to Physical Assessment History notes. Percent of energy/protein needs met: Prescribed Cardiac -Renal- Diet provides for energy/ protein needs (2,230 Kcal/85 g ) during LOS; additionally, Dietary Supplements will support wound healing processes with 320 Kcal and 32 g of protein. Burn Absent Trauma Absent GI Symptoms None Food Allergy No Skin Integrity/Comment Sacral decubitus, L-toe & bruises. Minimum of two criteria No Fluid Accumulation N/A Reduced Elementary Instructional Coach Strength N/A (non-severe) Protein-Calorie Malnutrition N\A #2 Nutrition Diagnosis Increased nutrient needs ( specify in comment below) Comments: Protein, to support wound healing processes during LOS. Etiology Uncertain. As Evidenced by Signs and Symptoms Pt shows Decubitus Sacral Ulcer stage II, L-toe open wound, and multiple bruises and skin tears in arms and legs as signs of concern for skin risk at the time, according to Physical Assessment History notes. #1 Nutrition Diagnosis Altered nutrition-related laboratory values Etiology ANJU. As Evidenced by Signs and Symptoms 05/01: Na 125, Cl 91.0, CO2 21 , BUN 38, Crea 2.1, Glu 131, Ca 7.9, Mg 1.6. Is patient on ventilator? No Is Patient Ambulatory and/or Out of Bed No REE-([facility]-confined to bed) 1617.408 Kcal/Kg value to use for calculation 26 Approximate Energy Requirements Using 1812 kcal/Kg Calculation Used for Recommendations Kcal/kg Additional Notes Protein: 0.8-1.2 g/Kg ABW; 56- 84 g/day. Fluids: 1 ml/Kcal, or as per MD. Nutrition Intervention Change Diet Order: Modify to Cardiac -Renal- Diet , continue as tolerated. Add Supplement/Snack (indicate name/kcal Start 8 fl oz Ensure High /protein ) Protein; BID. Provides kCal: 320 Provides Protein (gm) 32 Goal #1 Help reach and maintain acceptable chemistry lab values during LOS. Goal #2 Support, through dietary supplementation, wound healing processes during LOS. Goal #3 Adjust the dietary intervention to better serve Pt's energy/protein needs and clinical conditions during LOS . Follow-Up By: 05/09/22 Additional Comments Continue monitoring food tolerance, %PO intake of meals , dietary supplements, and BM. <MARIA ALEJANDRA REYNOLDS - Last Filed: 05/03/22 07:33> Assessment and Plan Assessment and plan: I saw and evaluated the patient. I agree with the findings and the plan of care as documented in the Nurse Practitioner's~note, with the following corrections and additions. Hospitalist Physical - Constitutional Vitals: Temp Pulse Resp BP Pulse Ox 98.2 F 96 H 23 105/61 100 05/03/22 04:31 05/03/22 06:15 05/03/22 06:15 05/03/22 06:15 05/03/22 06:15 HEART Score - HEART Score Troponin: Troponin T 0.196 ng/mL (0.00-0.029) H* D 05/02/22 11:14 Results - Labs CBC & Chem 7: 05/03/22 05:00 05/02/22 20:20 Labs: Laboratory Last Values WBC 13.3 K/mm3 (4.5-11.0) H 05/03/22 05:00 RBC 3.62 M/mm3 (3.65-5.03) L 05/03/22 05:00 Hgb 10.1 gm/dl (11.8-15.2) L 05/03/22 05:00 Hct 30.8 % (35.5-45.6) L 05/03/22 05:00 MCV 85 fl (84-94) 05/03/22 05:00 MCH 28 pg (28-32) 05/03/22 05:00 MCHC 33 % (32-34) 05/03/22 05:00 RDW 19.1 % (13.2-15.2) H 05/03/22 05:00 Plt Count 160 K/mm3 (140-440) 05/03/22 05:00 Lymph % (Auto) 3.9 % (13.4-35.0) L 05/03/22 05:00 Dare % (Auto) 9.4 % (0.0-7.3) H 05/03/22 05:00 Eos % (Auto) 1.0 % (0.0-4.3) 05/03/22 05:00 Baso % (Auto) 0.1 % (0.0-1.8) 05/03/22 05:00 Lymph # (Auto) 0.5 K/mm3 (1.2-5.4) L 05/03/22 05:00 Dare # (Auto) 1.3 K/mm3 (0.0-0.8) H 05/03/22 05:00 Eos # (Auto) 0.1 K/mm3 (0.0-0.4) 05/03/22 05:00 Baso # (Auto) 0.0 K/mm3 (0.0-0.1) 05/03/22 05:00 Seg Neutrophils % 85.6 % (40.0-70.0) H 05/03/22 05:00 Seg Neutrophils # 11.4 K/mm3 (1.8-7.7) H 05/03/22 05:00 PT 19.1 Sec. (12.2-14.9) H 05/01/22 23:14 INR 1.42 (0.87-1.13) H 05/01/22 23:14 APTT 39.9 Sec. (24.2-36.6) H 05/01/22 23:14 D-Dimer 1135.33 ng/mlDDU (0-234) H 05/02/22 11:14 Sodium 133 mmol/L (137-145) L 05/02/22 20:20 Potassium 4.3 mmol/L (3.6-5.0) 05/02/22 11:14 Potassium 4.4 mmol/L (3.6-5.0) 05/02/22 11:14 Chloride 96.0 mmol/L (98-107) L 05/02/22 11:14 Chloride 99.0 mmol/L (98-107) 05/02/22 11:14 Carbon Dioxide 15 mmol/L (22-30) L 05/02/22 11:14 Carbon Dioxide 17 mmol/L (22-30) L 05/02/22 11:14 Anion Gap 21 mmol/L 05/02/22 11:14 Anion Gap 22 mmol/L 05/02/22 11:14 BUN 41 mg/dL (9-20) H 05/02/22 11:14 BUN 42 mg/dL (9-20) H 05/02/22 11:14 Creatinine 2.1 mg/dL (0.8-1.3) H 05/02/22 11:14 Creatinine 2.3 mg/dL (0.8-1.3) H 05/02/22 11:14 Estimated GFR 27 ml/min 05/02/22 11:14 Estimated GFR 30 ml/min 05/02/22 11:14 BUN/Creatinine Ratio 18 % 05/02/22 11:14 BUN/Creatinine Ratio 20 % 05/02/22 11:14 Glucose 127 mg/dL (75-100) H 05/02/22 11:14 Glucose 141 mg/dL (75-100) H 05/02/22 11:14 POC Glucose 146 mg/dL (70-105) H 05/02/22 22:06 Lactic Acid 1.90 mmol/L (0.7-2.0) 05/02/22 11:14 Calcium 7.6 mg/dL (8.4-10.2) L 05/02/22 11:14 Calcium 7.7 mg/dL (8.4-10.2) L 05/02/22 11:14 Phosphorus 3.10 mg/dL (2.5-4.5) 05/02/22 11:14 Magnesium 2.20 mg/dL (1.7-2.3) 05/02/22 11:14 Ferritin 544.4 ng/mL (30.0-300.0) H 05/02/22 11:14 Total Bilirubin 1.00 mg/dL (0.1-1.2) 05/01/22 23:14 AST 27 units/L (5-40) 05/01/22 23:14 ALT 17 units/L (7-56) 05/01/22 23:14 Alkaline Phosphatase 77 units/L (35-129) 05/01/22 23:14 Lactate Dehydrogenase 172 units/L (91-180) 05/02/22 11:14 Total Creatine Kinase 816 units/L (55-170) H 05/02/22 20:20 Troponin T 0.196 ng/mL (0.00-0.029) H* D 05/02/22 11:14 C-Reactive Protein 29.00 mg/dL (0.00-1.30) H 05/02/22 11:14 NT-Pro-B Natriuret Pep 45567 pg/mL (0-900) H 05/01/22 23:14 Total Protein 4.8 g/dL (6.3-8.2) L 05/01/22 23:14 Albumin 3.3 g/dL (3.9-5) L 05/01/22 23:14 Albumin/Globulin Ratio 2.2 % 05/01/22 23:14 Triglycerides 64 mg/dL (2-149) 05/01/22 23:14 Cholesterol 77 mg/dL (50-199) 05/01/22 23:14 LDL Cholesterol Direct 25 mg/dL (50-130) L 05/01/22 23:14 HDL Cholesterol 46 mg/dL (40-59) 05/01/22 23:14 Cholesterol/HDL Ratio 1.67 % 05/01/22 23:14 Procalcitonin 16.30 ng/mL (<0.15) 05/02/22 11:14 Urine Color Yellow (Yellow) 05/01/22 23:54 Urine Turbidity Hazy (Clear) 05/01/22 23:54 Specific [place] (Man) 1.015 (1.003-1.030) 05/01/22 23:54 Ur Protein (Man) 1+ mg/dL (Negative) 05/01/22 23:54 Ur Ketones (Man) Negative (Negative) 05/01/22 23:54 Ur Nitrite (Man) Negative (Negative) 05/01/22 23:54 Urine Bilirubin (Man) Negative (Negative) 05/01/22 23:54 Leukocyte Esterase (Man) Moderate (Negative) 05/01/22 23:54 Urine WBC (Auto) > 182.0 /HPF (0.0-6.0) H 05/01/22 23:54 Urine RBC (Auto) 33.0 /HPF (0.0-6.0) 05/01/22 23:54 Urine Bacteria (Auto) 2+ /HPF (Negative) 05/01/22 23:54 Urine RBC (Manual) 3+ (Negative) 05/01/22 23:54 Urine WBC Clumps 3+ /HPF 05/01/22 23:54 Urine Mucus Few /HPF 05/01/22 23:54 Urine Yeast (Budding) 2+ /HPF 05/01/22 23:54 Coronavirus (PCR) Positive (Negative) A 05/02/22 Unknown Hep Bs Antigen Non-reactive (Negative) 05/02/22 20:20 Hepatitis C Antibody Non-reactive (NonReactive) 05/02/22 20:20 Influenza A (RT-PCR) Negative (Negative) 05/02/22 15:40 Influenza B (RT-PCR) Negative (Negative) 05/02/22 15:40 Microbiology: Microbiology 05/02/22 00:44 Peripheral/Venous Blood Culture - Preliminary 05/02/22 00:38 Peripheral/Venous Blood Culture - Preliminary Dumont/IV: Voiding Method Indwelling Catheter Active Medications - Current Medications Current Medications: Generic Name Dose Route Start Last Admin Trade Name Freq PRN Reason Stop Dose Admin Acetaminophen 650 mg 05/02/22 00:33 Acetaminophen 325 Mg Tab PO Q4H PRN Pain MILD(1-3)/Fever >100.5/ALLEN Atorvastatin Calcium 40 mg 05/02/22 22:00 05/02/22 23:44 Atorvastatin 40 Mg Tab PO Not Given QHS GENA Dexamethasone 8 mg 05/03/22 10:00 Dexamethasone 4 Mg Tab PO 05/13/22 09:59 DAILY GENA Dextrose 50 ml 05/02/22 18:49 Dextrose 50% In Water (25gm) 50 Ml Syringe IV Q30MIN PRN Hypoglycemia Protocol Famotidine 20 mg 05/02/22 10:00 05/02/22 10:48 Famotidine 20 Mg/2 Ml Inj IV 05/03/22 09:59 20 mg QDAY GENA Administration Famotidine 20 mg 05/03/22 10:00 Famotidine 20 Mg Tab PO QDAY GENA Sodium Chloride 1,000 mls @ 75 mls/hr 05/02/22 00:45 05/03/22 02:35 Nacl 0.9% 1000 Ml IV 75 mls/hr DIRECT GENA Administration Ceftriaxone Sodium 1 gm in 50 mls @ 100 mls/hr 05/02/22 01:00 05/02/22 20:33 Rocephin/Ns 1 Gm/50 Ml IV Infused Q24HR GENA Infusion Protocol NORepinephrine/NS 8 MG-250 ML 8 mg in 250 mls @ 14.458 mls/hr 05/02/22 03:00 05/03/22 01:35 Norepinephrine/Ns 8 Mg-250 Ml (Double Conc) IV 0.1 mcg/kg/min TITRATE GENA 14.458 mls/hr Administration Protocol 0.1 MCG/KG/MIN AMIODARONE HCL 450 mg/ 250 mls @ 16.667 mls/hr 05/02/22 16:00 05/03/22 02:35 Dextrose IV 0.5 mg/min DIRECT GENA 16.667 mls/hr Administration Protocol 0.5 MG/MIN Insulin Human Regular 0 units 05/02/22 22:00 05/02/22 22:07 Insulin Regular, Human 100 Units/1 Ml SUB-Q Not Given ACHS [facility] Protocol Magnesium Hydroxide 30 ml 05/02/22 00:33 Magnesium Hydroxide (Mom) Oral Liqd Udc PO Q4H PRN Constipation Morphine Sulfate 2 mg 05/02/22 00:33 05/02/22 13:17 Morphine 2 Mg/1 Ml Inj IV 2 mg Q4H PRN Administration Pain, Moderate (4-6) Ondansetron HCl 4 mg 05/02/22 00:33 Ondansetron 4 Mg/2 Ml Inj IV Q8H PRN Nausea And Vomiting Sodium Chloride 10 ml 05/02/22 10:00 05/02/22 23:44 Sodium Chloride 0.9% 10 Ml Flush Syringe IV 10 ml BID GENA Administration Sodium Chloride 10 ml 05/02/22 00:33 Sodium Chloride 0.9% 10 Ml Flush Syringe IV PRN PRN LINE FLUSH Nutrition/Malnutrition Assess - Dietary Evaluation Nutrition/Malnutrition Findings: Nutrition Notes Start: 05/02/22 10:24 Freq: Status: Active Protocol: Document 05/02/22 10:24 KIERSTEN (Rec: 05/02/22 11:05 KIERSTEN [id number]) Nutrition Notes Need for Assessment generated from: distributor sales manager,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 Current Diet Cardiac -Renal- Diet (since B 05/02). Labs/Tests 05/01: Na 125, Cl 91.0, CO2 21 , BUN 38, Crea 2.1, Glu 131, Ca 7.9, Mg 1.6. Pertinent Medications 05/02: Nutritionally unremarkable. 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 Weight Status Appropriate Subjective/Other Information RD consult for skin risk and risk of malnutrition assessments. No reports available on Pt's PO intake of meals at the time , will assess at F/U. I will recommend Renal modification to current diet, to support Pt's ANJU condition during LOS. I will also recommend dietary supplements to support wound healinh processes during LOS. Pt is on Room Air, O2 saturation @ 99%, according to Physical Assessment History notes. Pt has caries and missing teeth, according to Physical Assessment History notes. Pt passed bedside swallow assessment on 05/02, according to Swallow Screen notes. Pt shows Decubitus Sacral Ulcer stage II, L-toe open wound, and multiple bruises and skin tears in arms and legs as signs of concern for skin risk at the time, according to Physical Assessment History notes. Pt shows no signs of concern for risk of malnutrition at the time, according to Physical Assessment History notes. Percent of energy/protein needs met: Prescribed Cardiac -Renal- Diet provides for energy/ protein needs (2,230 Kcal/85 g ) during LOS; additionally, Dietary Supplements will support wound healing processes with 320 Kcal and 32 g of protein. Burn Absent Trauma Absent GI Symptoms None Food Allergy No Skin Integrity/Comment Sacral decubitus, L-toe & bruises. Minimum of two criteria No Fluid Accumulation N/A Reduced Elementary Instructional Coach Strength N/A (non-severe) Protein-Calorie Malnutrition N\A #2 Nutrition Diagnosis Increased nutrient needs ( specify in comment below) Comments: Protein, to support wound healing processes during LOS. Etiology Uncertain. As Evidenced by Signs and Symptoms Pt shows Decubitus Sacral Ulcer stage II, L-toe open wound, and multiple bruises and skin tears in arms and legs as signs of concern for skin risk at the time, according to Physical Assessment History notes. #1 Nutrition Diagnosis Altered nutrition-related laboratory values Etiology ANJU. As Evidenced by Signs and Symptoms 05/01: Na 125, Cl 91.0, CO2 21 , BUN 38, Crea 2.1, Glu 131, Ca 7.9, Mg 1.6. Is patient on ventilator? No Is Patient Ambulatory and/or Out of Bed No REE-([facility]-confined to bed) 1617.408 Kcal/Kg value to use for calculation 26 Approximate Energy Requirements Using 1812 kcal/Kg Calculation Used for Recommendations Kcal/kg Additional Notes Protein: 0.8-1.2 g/Kg ABW; 56- 84 g/day. Fluids: 1 ml/Kcal, or as per MD. Nutrition Intervention Change Diet Order: Modify to Cardiac -Renal- Diet , continue as tolerated. Add Supplement/Snack (indicate name/kcal Start 8 fl oz Ensure High /protein ) Protein; BID. Provides kCal: 320 Provides Protein (gm) 32 Goal #1 Help reach and maintain acceptable chemistry lab values during LOS. Goal #2 Support, through dietary supplementation, wound healing processes during LOS. Goal #3 Adjust the dietary intervention to better serve Pt's energy/protein needs and clinical conditions during LOS . Follow-Up By: 05/09/22 Additional Comments Continue monitoring food tolerance, %PO intake of meals , dietary supplements, and BM.
[2022-05-02 11:58] LABS: Calcium 7.7 mg/dL (8.4-10.2)
--- NOTE | 2022-05-02 13:27 | Electrocardiograph Report ---
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
--- NOTE | 2022-05-02 14:20 | XRay Report ---
CHEST 1 VIEW 05/02/2022 1:13 PM INDICATION / CLINICAL INFORMATION: CVL Placement. COMPARISON: May 01, 2022 FINDINGS: SUPPORT DEVICES: Right jugular line tip overlies distal SVC RA junction HEART / MEDIASTINUM: No significant abnormality. LUNGS / PLEURA: Bilateral pulmonary opacities with increased pulmonary vascularity No pneumothorax. Signer Name: Jcarlos Caraballo MD Signed: 05/02/2022 2:15 PM Workstation Name: [id number]
--- NOTE | 2022-05-02 14:43 | Procedure Note ---
Date of procedure: 05/02/22 Pre-op diagnosis: Septic Shock Post-op diagnosis: same Procedure: Right Internal Jugular Central Line Placement Patient was evaluated and required Central line placement due to pressor requirement Informed consent obtained from patient's daughters. Consent signed, witnessed, and placed in the chart A time-out was completed verifying correct patient, procedure, site, and positioning. Hand hygiene were performed immediately prior to the procedure and sterile technique was used throughout the procedure. The patient's right neck was prepped with chlorhexidine scrub then draped in a sterile fashion. 1% Lidocaine was used to anesthetize the surrounding skin area. Ultrasound was utilized to localize the right internal jugular vein without difficulty. Then the right internal jugular vein was accessed using ultrasound guidance and a triple lumen catheter was introduced using the Seldinger technique. The catheter threaded smoothly over the guidewire and advanced easily into the vein and brisk blood return was observed from each lumen. Each lumen were flushed and clamped, then the catheter was sutured in place, a Biopatch was placed at the insertion site, and covered with a sterile dressing. Patient tolerated the procedure well, no signs of any adverse reaction noted. CXR shows good placement without PTX, CVC is okay to use. Total Time Spent with Patient (Minutes): 60 minutes Anesthesia: local Surgeon: PARVEZ LEON Estimated blood loss: minimal Condition: critical Disposition: ICU
[2022-05-02] MEDS ORDERED: LORazepam 2 MG/ML VIAL IV PRN (15:00)
[2022-05-02] MEDS ORDERED: AMIODARONE 150 MG in DEXTROSE 5% IN WATER 97 ML IV ONE (16:00)
[2022-05-02] MEDS: AMIODARONE HCL 450 MG in DEXTROSE 5% IN WATER 241 ML IV SCH (16:16)
[2022-05-02 16:52] LABS: Calcium 7.6 mg/dL (8.4-10.2)
[2022-05-02] MEDS ORDERED: VANCOMYCIN PHARMACY TO DOSE IV SCH (18:00)
[2022-05-02] MEDS ORDERED: DEXTROSE 50% IN WATER (25GM) 50 ML SYRINGE IV PRN (18:49)
--- NOTE | 2022-05-02 19:15 | Consultation ---
History of Present Illness - Reason for Consult Consult date: 05/02/22 acute renal failure - History of Present Illness This is a 86-year-old man with history of dementia, CVA, hypertension, hyperl ipidemia and recent history of COVID who presented to the emergency department on 05/01/2022 with encephalopathy. Nephrology was consulted for acute kidney injury on 05/02/2022. Review of labs was also notable for hyponatremia. History has been obtained from chart as patient is encephalopathic. Past History Past Medical History: arthritis, hypertension, hyperlipidemia, stroke, other (Dementia,hiatal hernia,BPH,Kidney stones) Past Surgical History: cholecystectomy, Other (Open heart surgery) Social history: no significant social history Family history: no significant family history Medications and Allergies Allergies Allergy/AdvReac Type Severity Reaction Status Date / Time aspirin AdvReac Bleeding Verified 05/02/22 13:20 levofloxacin [From Levaquin] AdvReac Rash Verified 04/21/17 21:12 blood thinners AdvReac Bleeding Uncoded 05/02/22 13:20 Home Medications Medication Instructions Recorded Confirmed Last Taken Type Memantine HCl [Namenda] 10 mg PO BID 04/21/17 05/02/22 Unknown History Omeprazole 40 mg PO QDAY 04/21/17 05/02/22 Unknown History Sertraline [Zoloft] 50 mg PO QDAY 04/21/17 05/02/22 Unknown History Simvastatin (NF) [Zocor TAB] 40 mg PO QHS 04/21/17 05/02/22 Unknown History Meclizine [Antivert] 12.5 mg PO Q12H PRN #60 tablet 04/22/19 05/02/22 Unknown Rx Fluticasone [Flonase] 1 spray NS QDAY #1 bottle 04/23/19 05/02/22 Unknown Rx Active Meds: Active Medications Acetaminophen (Acetaminophen 325 Mg Tab) 650 mg PO Q4H PRN PRN Reason: Pain MILD(1-3)/Fever >100.5/ALLEN Atorvastatin Calcium (Atorvastatin 40 Mg Tab) 40 mg PO QHS GENA Dexamethasone (Dexamethasone 4 Mg Tab) 8 mg PO DAILY GENA Stop: 05/13/22 09:59 Dextrose (Dextrose 50% In Water (25gm) 50 Ml Syringe) 50 ml IV Q30MIN PRN; Protocol PRN Reason: Hypoglycemia Famotidine (Famotidine 20 Mg/2 Ml Inj) 20 mg IV QDAY GENA Stop: 05/03/22 09:59 Last Admin: 05/02/22 10:48 Dose: 20 mg Famotidine (Famotidine 20 Mg Tab) 20 mg PO QDAY GENA Sodium Chloride (Nacl 0.9% 1000 Ml) 1,000 mls @ 75 mls/hr IV DIRECT GENA Last Infusion: 05/02/22 06:25 Dose: 75 mls/hr Ceftriaxone Sodium (Rocephin/Ns 1 Gm/50 Ml) 1 gm in 50 mls @ 100 mls/hr IV Q24HR GENA; Protocol Last Admin: 05/02/22 09:36 Dose: 100 mls/hr NORepinephrine/NS 8 MG-250 ML (Norepinephrine/Ns 8 Mg-250 Ml (Double Conc)) 8 mg in 250 mls @ 14.458 mls/hr IV TITRATE GENA; Protocol Last Admin: 05/02/22 17:44 Dose: 0.28 mcg/kg/min, 40.483 mls/hr AMIODARONE HCL 450 mg/ (Dextrose) 250 mls @ 16.667 mls/hr IV DIRECT GENA; Protocol Last Admin: 05/02/22 16:16 Dose: 0.5 mg/min, 16.667 mls/hr Vancomycin HCl 1,500 mg/ (Sodium Chloride) 530 mls @ 333.333 mls/hr IV ONCE ONE Stop: 05/02/22 21:35 Insulin Human Regular (Insulin Regular, Human 100 Units/1 Ml) 0 units SUB-Q ACHS GENA; Protocol Lorazepam (Lorazepam 2 Mg/Ml Vial) 1 mg IV ONCE PRN PRN Reason: Prior to MRI Stop: 05/02/22 21:00 Last Admin: 05/02/22 14:58 Dose: 1 mg Magnesium Hydroxide (Magnesium Hydroxide (Mom) Oral Liqd Udc) 30 ml PO Q4H PRN PRN Reason: Constipation Morphine Sulfate (Morphine 2 Mg/1 Ml Inj) 2 mg IV Q4H PRN PRN Reason: Pain, Moderate (4-6) Last Admin: 05/02/22 13:17 Dose: 2 mg Ondansetron HCl (Ondansetron 4 Mg/2 Ml Inj) 4 mg IV Q8H PRN PRN Reason: Nausea And Vomiting Sodium Chloride (Sodium Chloride 0.9% 10 Ml Flush Syringe) 10 ml IV BID GENA Last Admin: 05/02/22 10:50 Dose: 10 ml Sodium Chloride (Sodium Chloride 0.9% 10 Ml Flush Syringe) 10 ml IV PRN PRN PRN Reason: LINE FLUSH Review of Systems ROS unobtainable: due to mental status Exam - Vital Signs Vital signs: Vital Signs Temp Pulse Resp BP Pulse Ox 96.5 F L 124 H 18 147/103 96 05/02/22 00:34 05/02/22 00:34 05/02/22 00:34 05/02/22 00:34 05/02/22 00:34 - Physical Exam Narrative exam: Constitutional: no acute distress Head: NC/AT Neck: supple Lungs: clear to auscultation CV: RRR, no M/R/G Abdomen: soft, non-tender, bowel sounds present Back: nontender Extremities: no edema, pulses WNL Skin: intact Neuro: Somnolent. Altered. Results - Lab Results 05/01/22 23:14 05/02/22 11:14 Most recent lab results Calcium 7.6 mg/dL (8.4-10.2) L 05/02/22 11:14 Calcium 7.7 mg/dL (8.4-10.2) L 05/02/22 11:14 Phosphorus 3.10 mg/dL (2.5-4.5) 05/02/22 11:14 Magnesium 2.20 mg/dL (1.7-2.3) 05/02/22 11:14 Assessment and Plan Acute kidney injury Hyponatremia Acute encephalopathy Shock Check renal ultrasound Check serologies Check urine culture Status post IVF with appropriate rise of sodium. Continue IVF Monitor sodium every 8 hours Keep MAP more than 65 renally dose medications Avoid nephrotoxins Renal diet Neurology note reviewed
[2022-05-02] MEDS ORDERED: VANCOMYCIN 1,500 MG in SODIUM CHLORIDE 0.9% 500 ML 500 ML IV ONE (20:00)
[2022-05-02] MEDS: INSULIN REGULAR, HUMAN 100 UNITS/1 ML SUB-Q SCH (22:07)
[2022-05-03] MEDS: NORepinephrine/NS 8 MG-250 ML 8 MG/250 ML INFUS..BTL IV SCH (01:35)
--- NOTE | 2022-05-03 02:17 | Consultation ---
DATE OF CONSULTATION: 05/02/2022 PULMONARY CRITICAL CARE CONSULT NOTE CONSULTING PHYSICIAN: Dr. Frank. REASON FOR CONSULTATION: Hypotension and atrial fibrillation with rapid ventricular response. CHIEF COMPLAINT AND HISTORY OF PRESENT ILLNESS: The patient is a now 86-year-old male with a past medical history significant amongst other things for hypertension, but also cerebrovascular accident that was previously complicated with intracranial bleeding as well as a history of a recent COVID-19 infection about 2-3 weeks ago, was brought into the Emergency Room by his family complaining of altered mental status that happened 2 hours prior to reporting to the ER. They report that his mental status had been declining since his recent COVID-19 infection. He had been increasingly getting weaker. His gait was unsteady. I believe his daughters and gave the history in the Emergency Room as the patient was unable to give a coherent history. Further workup revealed a urinary tract infection as well as multiple electrolyte imbalances and acute kidney injury. He remained hypotensive and ICU admission was requested and offered. The patient ultimately required institution of vasopressor support with Levophed. When I stopped by to see him, he was resting peacefully in bed. He was on room air. He answered questions with simple answers. He denied chest pain. He denied fevers or chills. He denied nausea or vomiting. He was unsure if he was on home oxygen prior to coming to the hospital. This really is as much of the history of presentation as I have. PAST MEDICAL HISTORY: Again, history of prior cerebrovascular accident, history of hypertension, hyperlipidemia, history of dementia, benign prostatic hypertrophy. PAST SURGICAL HISTORY: He has had a cholecystectomy and has had open heart surgery in the past. MEDICATIONS: He was on at the time I stopped by to see him, according to the medication administration record included the following: He was on Tylenol 650 mg p.o. q. 4 hours p.r.n. mild pain or fevers, Lipitor 40 mg p.o. at bedtime, Rocephin 1 gram IV q. 12 hours, Pepcid 20 mg IV daily, heparin 5000 units subcutaneous q. 8 hours that was held, milk of magnesia 30 mL p.o. q. 4 hours p.r.n. constipation. He got 2 grams of magnesium sulfate IV x1, morphine sulfate 2 mg IV q. 4 hours p.r.n. moderate pain, Levophed drip had been started at 0.1 mcg per kilogram per minute, Zofran 4 mg IV q. 8 hours p.r.n. nausea and vomiting. He apparently received 1 dose of aspirin in the Emergency Room as well as IV metoprolol. ALLERGIES: ASPIRIN AND LEVAQUIN. Nature of this allergy is unknown. DIET: Well built gentleman, acute weight loss or gain history is unknown. SOCIAL HISTORY: Apparently lives in the family. He is . His daughter was also in the hospital today. The patient denies current alcohol, tobacco or illicit drug use or abuse. Remote history is unknown. FAMILY HISTORY: Unknown. REVIEW OF SYSTEMS: Difficult to obtain secondary to the patient's medical and mental condition. Since he has been in the hospital, no gross hematochezia or melena. No gross hematuria. He had an abnormal urine that appeared to have pus in it. No witnessed seizures. He denies chest pain. Review of systems otherwise unobtainable or as in the body of history above. PHYSICAL EXAMINATION: VITAL SIGNS: At presentation in the Emergency Room, he was afebrile, temperature 96.5 degrees Fahrenheit, pulse of 124, respiratory rate of 18, blood pressure 147/103, O2 sats were 96%, inspired oxygen concentration at that time was not recorded. When I stopped by to see him, he was on room air. GENERAL: He is an elderly looking male. Normocephalic, atraumatic. Resting in bed with normal respiratory effort at rest. HEAD, EYES, EARS, NOSE AND THROAT: Anicteric. No conjunctival erythema. Oropharynx was dry. NECK: No gross jugular venous distention, no thyromegaly. Grossly, there were no palpable lymph nodes in the supraclavicular or submandibular lymph node chains. LUNGS: Auscultation of both lung briseno unremarkable except for diminished bilateral breath sounds. There was no active wheezing. HEART: Sounds 1 and 2 are heard at the time of my evaluation. Irregular rate and rhythm without overt rubs or murmurs. ABDOMEN: Soft, full, protuberant. Bowel sounds are positive, nontender, no palpable hepatosplenomegaly. EXTREMITIES: Without overt digital clubbing or cyanosis, no pedal edema. Pedal pulses are 2+ bilaterally. NEUROLOGIC: Pupils were equal, round, about 4 mm, reactive to light. Extraocular muscle movements were intact. He moves all 4 extremities spontaneously and followed my commands appropriately to a large extent. SKIN: Normal turgor in the areas examined without overt cellulitis or rash. Please see the wound care nurses' notes for full description of his skin. He did not have any evidence of obvious abrasion to the forehead or face that I could see. PSYCHIATRIC: Mood was normal. Affect was appropriate. He did not have intact judgment and insight. LABORATORY DATA: From my review are as follows: White cell count 4500, hemoglobin 10.8, hematocrit 30.9, platelet count was 113. INR was 1.42. Serum sodium was 125, potassium 4.2, chloride 91, bicarbonate 21, BUN 38, creatinine 2.1, glucose 131. Lactic acid level was 2.30 at presentation, is now within normal limits. Magnesium was low at 1.6. Liver function test essentially within normal limits. His BNP was elevated at 14,516, LDL cholesterol was 25. Urinalysis, moderate leukocyte esterase, greater than 182 white cells per high power field, 2+ bacteria. Two sets of blood cultures, no growth to date for now. Chest x-ray has been reviewed. There is indeed density in the left costophrenic angle, nonspecific, perhaps some of the left heart border, perhaps a little bit of atelectasis. He does have increased interstitial markings bilaterally that appear chronic. Median sternotomy wires are in place. No gross pneumothorax. No gross bony fracture. A CT scan of the head was done as well as CT angio. No evidence of large vessel occlusion. 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 The CT of the head itself did not report any intracranial bleeding. ASSESSMENT: 1. Acute altered mental status. 2. Urinary tract infection. 3. History of a cerebrovascular accident with intracranial hemorrhage. 4. Acute possibly on chronic kidney injury. 5. Sepsis, presumably secondary to the urinary tract infection. 6. Septic shock. 7. History of hyperlipidemia. 8. History of hypertension. 9. History of arthritis. 10. Anemia that is normocytic. 11. Thrombocytopenia. 12. Hypomagnesemia. PLAN: He has appropriately been started on empiric antibiotic therapy with Rocephin. He has received about 2 liters of volume replacement since he has been in the hospital. I will give him another third liter bolus. He remains hypoxemic at this time. He does have a history of coronary artery disease, but there is no evidence of volume overload acutely at this time. Supplemental oxygen as necessary will be offered to keep sats greater than or equal to 90%. An initial CT does not report any acute findings. MRI has been ordered; however, the patient is hemodynamically unstable right now and the MRI will be done tomorrow. Some of his changes in mental status are probably explained by the urinary tract infection also at his age. Urine electrolytes has been sent and will be monitored to calculate a fractional excretion of sodium. According to the family, he is not to receive any anticoagulation or antiplatelet therapy and we will respect that. He is appropriately on GI prophylaxis with Pepcid. DVT prophylaxis will be with SCDs. Flu and pneumonia vaccination will be addressed per protocol. Atrial fibrillation rate controlled will be deferred to Cardiology. Thank you very much for the consult. We will follow along and make further recommendations as picture progresses/becomes clearer. I should mention vasopressors will be started to keep mean we will continue to keep mean arterial pressures greater than or equal to about 65 mmHg and a central venous access has been obtained. I will follow along and make further recommendations as picture progresses/becomes clearer. He is critically ill on life-sustaining interventions including Levophed drip, at very high risk of from cardiopulmonary and possibly neurologic system decompensation. At this time, I spent about 35-40 minutes of critical care time without overlap and excluding any procedural time that may be necessary. TID: [id number] RECEIPT: [id number] MARICEL/HAKAN
[2022-05-03] MEDS: AMIODARONE HCL 450 MG in DEXTROSE 5% IN WATER 241 ML IV SCH ×2 (02:35→17:59)
[2022-05-03] MEDS: SODIUM CHLORIDE 0.9% 1000 ML 1,000 ML IV SCH ×2 (02:35→16:50)
[2022-05-03 06:24] LABS: Basophils % (Auto) 0.1 % (0.0-1.8); Eosinophils # (Auto) 0.1 K/mm3 (0.0-0.4); Hematocrit 30.8 % (35.5-45.6); Hemoglobin 10.1 gm/dl (11.8-15.2); Lymphocytes # (Auto) 0.5 K/mm3 (1.2-5.4); Lymphocytes % (Auto) 3.9 % (13.4-35.0); Mean Corpuscular HGB Conc 33 % (32-34); Mean Corpuscular Volume 85 fl (84-94); Monocytes # (Auto) 1.3 K/mm3 (0.0-0.8); Monocytes % (Auto) 9.4 % (0.0-7.3); Platelet Count 160 K/mm3 (140-440); Red Blood Count 3.62 M/mm3 (3.65-5.03); Red Cell Distribution Width 19.1 % (13.2-15.2)
[2022-05-03 08:12] LABS: Calcium 7.6 mg/dL (8.4-10.2)
[2022-05-03] MEDS: INSULIN REGULAR, HUMAN 100 UNITS/1 ML SUB-Q SCH ×3 (08:51→16:46)
[2022-05-03] MEDS: cefTRIAXone/NS 1 GM/50 ML 1 GM/50 ML BAG IV SCH (09:07)
[2022-05-03] MEDS: FAMOTIDINE 20 MG TAB PO SCH (09:07)
--- NOTE | 2022-05-03 09:15 | Progress Note ---
Assessment and Plan 86-year-old white male with known history of hypertension, CVA, dementia,Arthritis, hyperlipidemia and also a recent history of COVID infection about 2 to 3 weeks ago brought into the emergency room by the family for evaluation of changes in mental status with started about 2 hours prior to reporting to the emergency room. Patient is said to have been declining since his recent COVID infection. He has been increasingly getting weaker, having unsteady gait and appearing confused. Upon arrival in the emergency room, a code stroke was called and patient was promptly evaluated by the neurologist. CT head and neck and CT of the head did not reveal any acute abnormalities. Patient has history of Cholecystectomy and Open heart surgery. Most of the history was obtained from and daughter. Patient unable to give any coherent history. Patients smoking, alcohol or drug history not known at this time. Further work-up reveals UTI and multiple electrolyte imbalance with acute kidney injury. Patient being admitted for multiple medical problems including UTI, electrolyte imbalance, dehydration. Will also be ruled out for possible CVA. Urine wbc greater than 182. Patient sleeping at this time. Not responding to verbal stimuli. Patient is on room air. O2 saturation running 98%. No acute respiratory distress. Patient afebrile. Has leukocytosis. Blood pressure 109/61, Pulse 86, Respirations 21. Urine wbc greater than 182. Patients Coronana virus PCR Positive. Chest xray done 05/02/22 reported Bilateral pulmonary opacities with increased pulmonary vascularity . No pneumothorax, Patient is on ceftriaxone, Vancomycin, Norepinephrine, famotidine. I spent critical care time of 45 minutes, review the chart, examine the patient, review chest xray, lab results,talking to the nursing staff, respiratory therapy and work up plan of treatment in this critically ill patient. - Patient Problems (1) AMS (altered mental status) Current Visit: No Status: Acute Plan to address problem: Could be related to his infection or dementia. Management as per primary care. (2) CVA (cerebral vascular accident) Current Visit: No Status: Acute Qualifiers: Laterality of affected vessel: unspecified Plan to address problem: Management as per primary care and neurology. (3) Dementia Current Visit: No Status: Acute Plan to address problem: Management as per primary care. (4) HLD (hyperlipidemia) Current Visit: No Status: Acute Qualifiers: Hyperlipidemia type: mixed hyperlipidemia Qualified Code(s): E78.2 - Mixed hyperlipidemia Plan to address problem: Management as per primary care. (5) HTN (hypertension) Current Visit: No Status: Acute Qualifiers: Hypertension type: essential hypertension Plan to address problem: Management as per primary care. (6) UTI (urinary tract infection) Current Visit: Yes Status: Acute Plan to address problem: Patient is on Rocephin and vancomycin. (7) Coronavirus infection Current Visit: Yes Status: Acute Plan to address problem: Management as per infectious disease specialists. Gann virus precautions. (8) Opacities of both lungs present on chest x-ray Current Visit: Yes Status: Acute Plan to address problem: Patient is on rocephin and vancomycin. Subjective Date of service: 05/03/22 Interval history: 86-year-old white male with known history of hypertension, CVA, dementia,Arthritis, hyperlipidemia and also a recent history of COVID infection about 2 to 3 weeks ago brought into the emergency room by the family for evalu ation of changes in mental status with started about 2 hours prior to reporting to the emergency room. Patient is said to have been declining since his recent COVID infection. He has been increasingly getting weaker, having unsteady gait and appearing confused. Upon arrival in the emergency room, a code stroke was called and patient was promptly evaluated by the neurologist. CT head and neck and CT of the head did not reveal any acute abnormalities. Patient has history of Cholecystectomy and O pen heart surgery. Most of the history was obtained from and daughter. Patient unable to give any coherent history. Patients smoking, alcohol or drug history not known at this time. Further work-up reveals UTI and multiple electrolyte imbalance with acute kidney injury. Patient being admitted for multiple medical problems including UTI, electrolyte imbalance, dehydration. Will also be ruled out for possible CVA. Patient sleeping at this time. Not responding to verbal stimuli. Patient is on room air. O2 saturation running 98%. No acute respiratory distress. Patient afebrile. Has leukocytosis. Blood pressure 109/61, Pulse 86, Respirations 21. Urine wbc greater than 182. Patients Coronana virus PCR Positive Chest xray done 05/02/22 reported Bilateral pulmonary opacities with increased pulmonary vascularity . No pneumothorax, Patient is on ceftriaxone, Vancomycin, Norepinephrine, famotidine. Objective Vital Signs - 12hr 05/02/22 05/02/22 05/02/22 21:15 21:30 21:45 Temperature Pulse Rate 88 91 H 87 Pulse Rate [ From Monitor] Respiratory 21 22 15 Rate Blood Pressure 105/46 103/50 112/59 O2 Sat by Pulse 100 100 100 Oximetry 05/02/22 05/02/22 05/02/22 22:00 22:15 22:30 Temperature Pulse Rate 85 83 85 Pulse Rate [ From Monitor] Respiratory 25 H 21 11 L Rate Blood Pressure 105/64 96/57 96/57 O2 Sat by Pulse 100 100 100 Oximetry 05/02/22 05/02/22 05/02/22 22:45 23:00 23:15 Temperature 98.8 F Pulse Rate 89 89 89 Pulse Rate [ From Monitor] Respiratory 22 17 18 Rate Blood Pressure 111/54 111/54 109/56 O2 Sat by Pulse 100 100 100 Oximetry 05/02/22 05/02/22 05/03/22 23:34 23:45 00:00 Temperature Pulse Rate 84 82 86 Pulse Rate [ From Monitor] Respiratory 17 12 22 Rate Blood Pressure 103/54 115/60 O2 Sat by Pulse 100 100 100 Oximetry 05/03/22 05/03/22 05/03/22 00:01 00:05 00:15 Temperature Pulse Rate 91 H 92 H 84 Pulse Rate [ From Monitor] Respiratory 25 H 24 24 Rate Blood Pressure 118/66 118/66 118/66 O2 Sat by Pulse 100 100 98 Oximetry 05/03/22 05/03/22 05/03/22 00:30 00:45 01:00 Temperature Pulse Rate 86 94 H 89 Pulse Rate [ From Monitor] Respiratory 23 24 23 Rate Blood Pressure 108/46 100/49 97/52 O2 Sat by Pulse 100 100 100 Oximetry 05/03/22 05/03/22 05/03/22 01:15 01:30 01:45 Temperature Pulse Rate 77 88 83 Pulse Rate [ From Monitor] Respiratory 22 25 H 19 Rate Blood Pressure 107/54 90/48 93/51 O2 Sat by Pulse 100 98 100 Oximetry 05/03/22 05/03/22 05/03/22 02:01 02:15 02:30 Temperature Pulse Rate 89 92 H 87 Pulse Rate [ From Monitor] Respiratory 26 H 25 H 13 Rate Blood Pressure 113/50 113/50 103/61 O2 Sat by Pulse 100 100 100 Oximetry 05/03/22 05/03/22 05/03/22 02:45 03:00 03:15 Temperature Pulse Rate 92 H 98 H 87 Pulse Rate [ From Monitor] Respiratory 18 15 20 Rate Blood Pressure 108/59 111/56 115/52 O2 Sat by Pulse 100 100 100 Oximetry 05/03/22 05/03/22 05/03/22 03:30 03:45 04:00 Temperature Pulse Rate 92 H 91 H 900 H Pulse Rate [ From Monitor] Respiratory 19 15 22 Rate Blood Pressure 116/60 116/60 O2 Sat by Pulse 100 100 100 Oximetry 05/03/22 05/03/22 05/03/22 04:01 04:15 04:30 Temperature Pulse Rate 92 H 99 H 90 Pulse Rate [ From Monitor] Respiratory 21 15 18 Rate Blood Pressure 105/55 117/45 108/54 O2 Sat by Pulse 100 100 100 Oximetry 05/03/22 05/03/22 05/03/22 04:31 04:45 05:00 Temperature 98.2 F Pulse Rate 93 H 91 H Pulse Rate [ From Monitor] Respiratory 11 L 27 H Rate Blood Pressure 108/54 98/54 O2 Sat by Pulse 97 100 Oximetry 05/03/22 05/03/22 05/03/22 05:15 05:31 05:45 Temperature Pulse Rate 91 H 89 92 H Pulse Rate [ From Monitor] Respiratory 24 24 21 Rate Blood Pressure 87/54 105/48 112/58 O2 Sat by Pulse 100 100 100 Oximetry 05/03/22 05/03/22 05/03/22 06:01 06:15 06:30 Temperature Pulse Rate 100 H 96 H 97 H Pulse Rate [ From Monitor] Respiratory 19 23 19 Rate Blood Pressure 116/48 105/61 106/58 O2 Sat by Pulse 100 100 100 Oximetry 05/03/22 05/03/22 05/03/22 06:45 07:00 07:15 Temperature 99.1 F Pulse Rate 91 H 78 91 H Pulse Rate [ From Monitor] Respiratory 22 23 26 H Rate Blood Pressure 116/65 101/51 112/59 O2 Sat by Pulse 100 100 100 Oximetry 05/03/22 05/03/22 05/03/22 07:30 07:45 08:00 Temperature Pulse Rate 92 H 92 H 85 Pulse Rate [ 93 H From Monitor] Respiratory 25 H 19 21 Rate Blood Pressure 100/52 105/60 99/60 O2 Sat by Pulse 100 100 100 Oximetry 05/03/22 05/03/22 05/03/22 08:15 08:30 08:45 Temperature Pulse Rate 95 H 85 89 Pulse Rate [ From Monitor] Respiratory 19 20 22 Rate Blood Pressure 105/47 105/64 92/49 O2 Sat by Pulse 100 100 100 Oximetry 05/03/22 05/03/22 09:00 09:04 Temperature Pulse Rate 92 H Pulse Rate [ From Monitor] Respiratory 21 Rate Blood Pressure 87/47 O2 Sat by Pulse 100 100 Oximetry Constitutional: no acute distress, asleep, other (Weak) Eyes: non-icteric ENT: oropharynx dry Neck: supple, no lymphadenopathy Effort: mildly labored Ascultation: Bilateral: rhonchi Cardiovascular: regular rate and rhythm Gastrointestinal: normoactive bowel sounds, soft, non-tender Integumentary: normal Extremities: no cyanosis, no edema Neurologic: non-focal exam, pupils equal and round Psychiatric: other (Patient sleeping. Notresponding to verbal stimuli.) CBC and BMP: 05/03/22 05:00 05/03/22 06:48 ABG, PT/INR, D-dimer: PT/INR, D-dimer PT 19.1 Sec. (12.2-14.9) H 05/01/22 23:14 INR 1.42 (0.87-1.13) H 05/01/22 23:14 D-Dimer 1135.33 ng/mlDDU (0-234) H 05/02/22 11:14 Abnormal lab findings: Abnormal Labs 05/01/22 05/01/22 05/01/22 23:14 23:14 23:14 WBC RBC Hgb 10.8 L Hct 30.9 L MCHC 35 H RDW 18.0 H Plt Count 113 L Lymph % (Auto) [place] % (Auto) Lymph # (Auto) [place] # (Auto) Seg Neutrophils % Seg Neutrophils # PT 19.1 H INR 1.42 H APTT 39.9 H D-Dimer Sodium 125 L Chloride 91.0 L Carbon Dioxide 21 L BUN 38 H Creatinine 2.1 H Glucose 131 H POC Glucose Lactic Acid Calcium 7.9 L Magnesium 1.60 L Ferritin Total Creatine Kinase Troponin T C-Reactive Protein NT-Pro-B Natriuret Pep Total Protein 4.8 L Albumin 3.3 L LDL Cholesterol Direct Urine WBC (Auto) Coronavirus (PCR) 05/01/22 05/01/2222 23:14 23:54 03:39 WBC RBC Hgb Hct MCHC RDW Plt Count Lymph % (Auto) [place] % (Auto) Lymph # (Auto) [place] # (Auto) Seg Neutrophils % Seg Neutrophils # PT INR APTT D-Dimer Sodium Chloride Carbon Dioxide BUN Creatinine Glucose POC Glucose Lactic Acid 2.30 H* Calcium Magnesium Ferritin Total Creatine Kinase Troponin T 0.054 H C-Reactive Protein NT-Pro-B Natriuret Pep 40860 H Total Protein Albumin LDL Cholesterol Direct 25 L Urine WBC (Auto) > 182.0 H Coronavirus (PCR) 05/02/22 05/02/22 05/02/22 06:05 11:14 11:14 WBC RBC Hgb Hct MCHC RDW Plt Count Lymph % (Auto) [place] % (Auto) Lymph # (Auto) [place] # (Auto) Seg Neutrophils % Seg Neutrophils # PT INR APTT D-Dimer 1135.33 H Sodium 132 L D Chloride Carbon Dioxide 15 L BUN 41 H Creatinine 2.1 H Glucose 127 H POC Glucose 139 H Lactic Acid Calcium 7.6 L Magnesium Ferritin Total Creatine Kinase Troponin T 0.196 H* D C-Reactive Protein 29.00 H NT-Pro-B Natriuret Pep Total Protein Albumin LDL Cholesterol Direct Urine WBC (Auto) Coronavirus (PCR) 05/02/22 05/02/22 05/02/22 11:14 11:14 17:10 WBC RBC Hgb Hct MCHC RDW Plt Count Lymph % (Auto) [place] % (Auto) Lymph # (Auto) [place] # (Auto) Seg Neutrophils % Seg Neutrophils # PT INR APTT D-Dimer Sodium 130 L Chloride 96.0 L Carbon Dioxide 17 L BUN 42 H Creatinine 2.3 H Glucose 141 H POC Glucose 150 H Lactic Acid Calcium 7.7 L Magnesium Ferritin 544.4 H Total Creatine Kinase Troponin T C-Reactive Protein NT-Pro-B Natriuret Pep Total Protein Albumin LDL Cholesterol Direct Urine WBC (Auto) Coronavirus (PCR) 05/02/22 05/02/22 05/02/22 20:20 20:20 22:06 WBC RBC Hgb Hct MCHC RDW Plt Count Lymph % (Auto) [place] % (Auto) Lymph # (Auto) [place] # (Auto) Seg Neutrophils % Seg Neutrophils # PT INR APTT D-Dimer Sodium 133 L Chloride Carbon Dioxide BUN Creatinine Glucose POC Glucose 146 H Lactic Acid Calcium Magnesium Ferritin Total Creatine Kinase 816 H Troponin T C-Reactive Protein NT-Pro-B Natriuret Pep Total Protein Albumin LDL Cholesterol Direct Urine WBC (Auto) Coronavirus (PCR) 05/02/22 05/03/22 05/03/22 Unknown 05:00 06:48 WBC 13.3 H RBC 3.62 L Hgb 10.1 L Hct 30.8 L MCHC RDW 19.1 H Plt Count Lymph % (Auto) 3.9 L [place] % (Auto) 9.4 H Lymph # (Auto) 0.5 L [place] # (Auto) 1.3 H Seg Neutrophils % 85.6 H Seg Neutrophils # 11.4 H PT INR APTT D-Dimer Sodium 135 L Chloride Carbon Dioxide 16 L BUN 38 H Creatinine 2.0 H Glucose 122 H POC Glucose Lactic Acid Calcium 7.6 L Magnesium Ferritin Total Creatine Kinase Troponin T C-Reactive Protein NT-Pro-B Natriuret Pep Total Protein Albumin LDL Cholesterol Direct Urine WBC (Auto) Coronavirus (PCR) Positive A Chest x-ray: report reviewed, image reviewed Additional Studies: CHEST 1 VIEW 05/02/2022 1:13 PM INDICATION / CLINICAL INFORMATION: CVL Placement. COMPARISON: May 01, 2022 FINDINGS: SUPPORT DEVICES: Right jugular line tip overlies distal SVC RA junction HEART / MEDIASTINUM: No significant abnormality. LUNGS / PLEURA: Bilateral pulmonary opacities with increased pulmonary vascularity No pneumothorax
[2022-05-03] MEDS ORDERED: dexAMETHasone 4 MG/ML VIAL IV SCH (10:00)
[2022-05-03] MEDS ORDERED: DEXAMETHASONE 4 MG TAB PO SCH (10:00)
--- NOTE | 2022-05-03 10:59 | Progress Note ---
Subjective Date of service: 05/03/22 Interval history: CONSULT DICTATED A.FIB - HR CONTROLLED POSSIBLE PULM EDEMA Hx CABG MMPS PLAN: ECHO MAY NEED TO DIURESE AMIODARONE CAN BE GIVEN PO Objective Vital Signs Temp Pulse Pulse Resp BP Pulse Ox 05/03/22 10:30 86 24 100/56 100 05/03/22 10:15 90 23 102/54 100 05/03/22 10:00 81 22 102/58 100 05/03/22 09:45 89 20 98/52 100 05/03/22 09:30 89 21 95/56 100 05/03/22 09:15 83 23 96/50 100 05/03/22 09:04 100 05/03/22 09:00 92 H 21 87/47 100 05/03/22 08:45 89 22 92/49 100 05/03/22 08:30 85 20 105/64 100 05/03/22 08:15 95 H 19 105/47 100 05/03/22 08:00 85 93 H 21 99/60 100 05/03/22 07:45 92 H 19 105/60 100 05/03/22 07:30 92 H 25 H 100/52 100 05/03/22 07:15 91 H 26 H 112/59 100 05/03/22 07:00 99.1 F 78 23 101/51 100 05/03/22 06:45 91 H 22 116/65 100 05/03/22 06:30 97 H 19 106/58 100 05/03/22 06:15 96 H 23 105/61 100 05/03/22 06:01 100 H 19 116/48 100 05/03/22 05:45 92 H 21 112/58 100 05/03/22 05:31 89 24 105/48 100 05/03/22 05:15 91 H 24 87/54 100 05/03/22 05:00 91 H 27 H 98/54 100 05/03/22 04:45 93 H 11 L 108/54 97 05/03/22 04:31 98.2 F 05/03/22 04:30 90 18 108/54 100 05/03/22 04:15 99 H 15 117/45 100 05/03/22 04:01 92 H 21 105/55 100 05/03/22 04:00 900 H 22 100 05/03/22 03:45 91 H 15 116/60 100 05/03/22 03:30 92 H 19 116/60 100 05/03/22 03:15 87 20 115/52 100 05/03/22 03:00 98 H 15 111/56 100 05/03/22 02:45 92 H 18 108/59 100 05/03/22 02:30 87 13 103/61 100 05/03/22 02:15 92 H 25 H 113/50 100 05/03/22 02:01 89 26 H 113/50 100 05/03/22 01:45 83 19 93/51 100 05/03/22 01:30 88 25 H 90/48 98 05/03/22 01:15 77 22 107/54 100 05/03/22 01:00 89 23 97/52 100 05/03/22 00:45 94 H 24 100/49 100 05/03/22 00:30 86 23 108/46 100 05/03/22 00:15 84 24 118/66 98 05/03/22 00:05 92 H 24 118/66 100 05/03/22 00:01 91 H 25 H 118/66 100 05/03/22 00:00 86 22 100 05/02/22 23:45 82 12 115/60 100 05/02/22 23:34 84 17 103/54 100 05/02/22 23:15 89 18 109/56 100 05/02/22 23:00 98.8 F 89 17 111/54 100 05/02/22 22:45 89 22 111/54 100 05/02/22 22:30 85 11 L 96/57 100 05/02/22 22:15 83 21 96/57 100 05/02/22 22:00 85 25 H 105/64 100 05/02/22 21:45 87 15 112/59 100 05/02/22 21:30 91 H 22 103/50 100 05/02/22 21:15 88 21 105/46 100 05/02/22 21:00 86 24 100/40 99 05/02/22 20:52 100 05/02/22 20:45 97 H 23 93/39 100 05/02/22 20:30 94 H 23 100/47 100 05/02/22 20:15 89 17 98/55 100 05/02/22 20:00 99.7 F H 95 H 24 98/55 100 05/02/22 19:45 97 H 21 106/55 100 05/02/22 19:30 97 H 23 98/52 100 05/02/22 19:15 90 23 105/53 100 05/02/22 19:00 94 H 21 96/51 100 05/02/22 18:45 96 H 22 94/52 100 05/02/22 18:30 89 25 H 92/56 98 05/02/22 18:15 96 H 22 102/60 100 05/02/22 18:00 93 H 19 107/52 100 05/02/22 17:45 102 H 22 108/51 100 05/02/22 17:30 97 H 22 99/60 83 L 05/02/22 17:15 97 H 22 110/58 100 05/02/22 17:00 98 H 18 118/57 100 05/02/22 16:45 93 H 19 95/52 100 05/02/22 16:30 96 H 22 100/52 100 05/02/22 16:15 88 23 98/44 98 05/02/22 16:00 99.4 F 103 H 102 H 22 96/48 99 05/02/22 15:45 107 H 22 91/41 100 05/02/22 15:30 106 H 23 96/46 98 05/02/22 15:15 143 H 12 132/77 84 05/02/22 15:01 157 H 24 133/71 83 L 05/02/22 14:45 159 H 34 H 110/87 88 05/02/22 14:30 140 H 23 125/86 85 05/02/22 14:15 111 H 24 135/60 97 05/02/22 14:01 94 H 19 131/54 100 05/02/22 13:45 83 17 139/66 100 05/02/22 13:30 77 17 145/67 98 05/02/22 13:15 87 20 137/65 92 05/02/22 13:00 84 20 93/46 92 05/02/22 12:45 88 21 87/52 96 05/02/22 12:30 74 17 85/48 100 05/02/22 12:15 82 17 87/43 96 05/02/22 12:00 97.6 F 82 83 19 77/44 98 05/02/22 11:45 95 H 15 71/37 99 05/02/22 11:30 90 18 71/42 99 05/02/22 11:15 88 13 80/44 98 05/02/22 11:00 81 13 78/42 100 - Labs and Meds Cardiac Enzymes 05/02/22 Range/Units 11:14 Lactate Dehydrogenase 172 (91-180) units/L CBC 05/03/22 Range/Units 05:00 WBC 13.3 H (4.5-11.0) K/mm3 RBC 3.62 L (3.65-5.03) M/mm3 Hgb 10.1 L (11.8-15.2) gm/dl Hct 30.8 L (35.5-45.6) % Plt Count 160 (140-440) K/mm3 Lymph # (Auto) 0.5 L (1.2-5.4) K/mm3 [place] # (Auto) 1.3 H (0.0-0.8) K/mm3 Eos # (Auto) 0.1 (0.0-0.4) K/mm3 Baso # (Auto) 0.0 (0.0-0.1) K/mm3 Comprehensive Metabolic Panel 05/02/22 05/02/22 05/02/22 Range/Units 11:14 11:14 20:20 Sodium 132 L D 130 L 133 L (137-145) mmol/L Potassium 4.4 4.3 (3.6-5.0) mmol/L Chloride 99.0 96.0 L (98-107) mmol/L Carbon Dioxide 15 L 17 L (22-30) mmol/L BUN 41 H 42 H (9-20) mg/dL Creatinine 2.1 H 2.3 H (0.8-1.3) mg/dL Glucose 127 H 141 H (75-100) mg/dL Calcium 7.6 L 7.7 L (8.4-10.2) mg/dL 05/03/22 Range/Units 06:48 Sodium 135 L (137-145) mmol/L Potassium 4.2 (3.6-5.0) mmol/L Chloride 103.3 (98-107) mmol/L Carbon Dioxide 16 L (22-30) mmol/L BUN 38 H (9-20) mg/dL Creatinine 2.0 H (0.8-1.3) mg/dL Glucose 122 H (75-100) mg/dL Calcium 7.6 L (8.4-10.2) mg/dL
--- NOTE | 2022-05-03 11:32 | Progress Note ---
<PARVEZ LEON - Last Filed: 05/03/22 17:11> Assessment and Plan Assessment and plan: This is a 86-year-old male with known past medical history of CVA, ICHx2, dementia, HLD, ID, CAD s/p CABGX5, paroxysmal Afib- not a candidate of anticoagulation, s/p multiple falls at home admitted for septic shock probably secondary to urosepsis requiring vasopressors. Hospital Course to Date 05/02: Remains encephalopathic, stable on RA, on high dose pressors, additional IVF bolus administered. Patient remains in Afib, rate control. Cardiology consulted Dumont inserted this am due to retenstion, 1L of malodorous and cloudy urine drained. Probable urosepsis, patient is current on IV rocephin. D/w patie nt's daughters they reported that patient does have a history of Afib and open heart surgery with 5 bypass. Patient had X2 ICH in the past and he is not a candidate for any anticoagulations. Patient was also recently diagnosed with COVID outpatient, did not received any treatment since he was stable. COVID and PLU PCRs pending, check inflam. markers and Procal. Renal function is unchanged, continue IVF hydration, Nephrology is also following. Continue to trend Lactic acid. 05/03: More awake and alert this am but still confused. Still in Afib but rate control this am. Amiodarone gtt added yesterday due to Afib with RVR, patient remains on low dose Levophed. Cardiology recommendations noted. Concern for possible aspiration this morning, awaiting speech consulted. Will keep amiodarone gtt for now, transition to PO Amio if clear by speech. Blood cultures positive gram negative rods in 3/4 bottles, Vancomycin added. Check 2D echo to r/o vegetations. ID consulted pending. COVID PCR came back positive, spoke with patient's daughter. She reported that patient received "the COVID pill that Cruzito had". Patient is currently on 1L NC, SPO2 at 100%. Will continue to mon itor for now. Assessment and Plan #Septic Shock- Probable Urosepsis (POA) #Urinary Tract Infection (UTI) #Lactic Acidosis #Recent COVID infection- Received Treatment, probably Paxlovid - Dumont inserted for retention- cloudy and malodourous urine drained - Urine culture pending, Blood cultures with Gram neg Rods in 3/4 bottles - Check inflammatory markers and procal - Continue IVF hydration and current empiric IV Abx- Rocephin, Vanco added - 2D Echo to r/o vegetation - ID consulted - Continue blood pressure monitor per protocol - Titrate pressors to maintain MAP above 65 - COVID PCR positive- per patient's daughter, patient received the COVID Pill that Cruzito had. Probably Paxlovid - Patient is stable on 1L NC, continue to monitor for now #Acute Kidney Injury(ANJU) most likely ATN #Electrolyte imbalance- hypomagnesemia, hyponatremia, hypocalcemia #Hypovelemia/Dehydration - Nephrology on consult, appreciated recommendation - Strict intake and output - Avoid nephrotoxic medications; Renally dose medications - Dumont inserted for retention- cloudy and malodourous urine drained - Continue IVF for now - Monitor and replace electrolytes as needed #Paroxysmal Atrial Fibrillation- Not candidate for anticoagulation #NSTEMI- probably Type 2 2/2 demand ischemia vs ANJU #H/o ID and CAD s/p CABGX5 over 20 years ago - Cardiology consulted - Not candidate for BB due to low BP on levophed gtt - s/p Amio gtt, now on PO Amio - Continue blood pressure monitor per protocol - Titrate pressors to maintain MAP above 65 - Not candidate for AC due to bleeding #Acute Metabolic Encephalopathy #Multiple Falls at Home #H/o Dementia #H/o CVA and ICHx2 - Mentation improved - Avoid benzodiazepine to reduce the possibility of delirium - PRN Analgesia for pain control - Maintenance of sleep-wake cycle - Fall precaution #Urinary Retention #History of BPH - Dumont inserted - resume home meds once list is available #Thrombocytopenia - Present on admit - H&H stable, no s/s of any active bleeding - Not on any AC due to bleeding - Continue to trend CBC - Transfuse for hgb less than 7 #GI/DVT Prophylaxis - PPI- pepcid - SCDs to bilateral lower extremities while in bed #Advance Care Planning - Disease education data, care plan, diagnoses, and prognosis were discussed with patient's daughters via phone, Kath Rogruben- ; Jacquie Laguerre- . Patient is a FULL code. Patient's family acknowledged understanding and agreed with current care plan. The high probability of a clinically significant, sudden or life threatening de terioration of the [multiple] system(s) required my full and direct attention, intervention and personal management. The aggregate critical care time was [60] minutes. This time is in addition to time spent performing reported procedures but includes the following: [x] Data Review and interpretation [x] Patient assessment and monitoring of vital signs [x] Documentation [x] Medication orders and management Disposition Plan: ICU Total Time Spent with Patient (Minutes): 60 History Interval history: Patient seen and examined at the bedside. More awake and alert this am, still with periods of confusion. Remains in Afib, control rate, HR in the 80-90s. On low dose Levophed and amiodarone gtt. LANDEN overnight. Hospitalist Physical - Physical exam Narrative exam: General appearance: Present: no acute distress, well-nourished - EENT Eyes: Present: PERRL ENT: hearing intact, other (Dry oral mucosa) - Neck Neck: Present: normal ROM - Respiratory Respiratory effort: normal Respiratory: bilateral: diminished - Cardiovascular Rhythm: regular Heart Sounds: Present: S1 & S2 - Extremities Extremities: no ischemia, pulses intact, pulses symmetrical Peripheral Pulses: within normal limits - Abdominal General gastrointestinal: soft, non-distended, normal bowel sounds - Integumentary Integumentary: Present: dry, erythema (Generalized ecchymosis and skin tears, stage 1 sacral pressure ulcer, and Lt. big toe wound) - Psychiatric Psychiatric: appropriate mood/affect, cooperative, other (confused) - Neurologic Neurologic: moves all extremities, other (confused) - Allied Health Allied health notes reviewed: nursing, Case management - Constitutional Vitals: Temp Pulse Resp BP Pulse Ox 99.1 F 86 26 H 97/53 99 05/03/22 07:00 05/03/22 11:00 05/03/22 11:00 05/03/22 11:00 05/03/22 11:00 HEART Score - HEART Score Troponin: Troponin T 0.196 ng/mL (0.00-0.029) H* D 05/02/22 11:14 Results - Labs CBC & Chem 7: 05/03/22 05:00 05/03/22 06:48 Labs: Laboratory Last Values WBC 13.3 K/mm3 (4.5-11.0) H 05/03/22 05:00 RBC 3.62 M/mm3 (3.65-5.03) L 05/03/22 05:00 Hgb 10.1 gm/dl (11.8-15.2) L 05/03/22 05:00 Hct 30.8 % (35.5-45.6) L 05/03/22 05:00 MCV 85 fl (84-94) 05/03/22 05:00 MCH 28 pg (28-32) 05/03/22 05:00 MCHC 33 % (32-34) 05/03/22 05:00 RDW 19.1 % (13.2-15.2) H 05/03/22 05:00 Plt Count 160 K/mm3 (140-440) 05/03/22 05:00 Lymph % (Auto) 3.9 % (13.4-35.0) L 05/03/22 05:00 Burnet % (Auto) 9.4 % (0.0-7.3) H 05/03/22 05:00 Eos % (Auto) 1.0 % (0.0-4.3) 05/03/22 05:00 Baso % (Auto) 0.1 % (0.0-1.8) 05/03/22 05:00 Lymph # (Auto) 0.5 K/mm3 (1.2-5.4) L 05/03/22 05:00 [place] # (Auto) 1.3 K/mm3 (0.0-0.8) H 05/03/22 05:00 Eos # (Auto) 0.1 K/mm3 (0.0-0.4) 05/03/22 05:00 Baso # (Auto) 0.0 K/mm3 (0.0-0.1) 05/03/22 05:00 Seg Neutrophils % 85.6 % (40.0-70.0) H 05/03/22 05:00 Seg Neutrophils # 11.4 K/mm3 (1.8-7.7) H 05/03/22 05:00 PT 19.1 Sec. (12.2-14.9) H 05/01/22 23:14 INR 1.42 (0.87-1.13) H 05/01/22 23:14 APTT 39.9 Sec. (24.2-36.6) H 05/01/22 23:14 D-Dimer 1135.33 ng/mlDDU (0-234) H 05/02/22 11:14 Sodium 135 mmol/L (137-145) L 05/03/22 06:48 Potassium 4.2 mmol/L (3.6-5.0) 05/03/22 06:48 Chloride 103.3 mmol/L (98-107) 05/03/22 06:48 Carbon Dioxide 16 mmol/L (22-30) L 05/03/22 06:48 Anion Gap 20 mmol/L 05/03/22 06:48 BUN 38 mg/dL (9-20) H 05/03/22 06:48 Creatinine 2.0 mg/dL (0.8-1.3) H 05/03/22 06:48 Estimated GFR 32 ml/min 05/03/22 06:48 BUN/Creatinine Ratio 19 % 05/03/22 06:48 Glucose 122 mg/dL (75-100) H 05/03/22 06:48 POC Glucose 146 mg/dL (70-105) H 05/02/22 22:06 Lactic Acid 1.90 mmol/L (0.7-2.0) 05/02/22 11:14 Calcium 7.6 mg/dL (8.4-10.2) L 05/03/22 06:48 Phosphorus 3.20 mg/dL (2.5-4.5) 05/03/22 06:48 Magnesium 2.10 mg/dL (1.7-2.3) 05/03/22 06:48 Ferritin 544.4 ng/mL (30.0-300.0) H 05/02/22 11:14 Total Bilirubin 1.00 mg/dL (0.1-1.2) 05/01/22 23:14 AST 27 units/L (5-40) 05/01/22 23:14 ALT 17 units/L (7-56) 05/01/22 23:14 Alkaline Phosphatase 77 units/L (35-129) 05/01/22 23:14 Lactate Dehydrogenase 172 units/L (91-180) 05/02/22 11:14 Total Creatine Kinase 816 units/L (55-170) H 05/02/22 20:20 Troponin T 0.196 ng/mL (0.00-0.029) H* D 05/02/22 11:14 C-Reactive Protein 29.00 mg/dL (0.00-1.30) H 05/02/22 11:14 NT-Pro-B Natriuret Pep 90289 pg/mL (0-900) H 05/01/22 23:14 Total Protein 4.8 g/dL (6.3-8.2) L 05/01/22 23:14 Albumin 3.3 g/dL (3.9-5) L 05/01/22 23:14 Albumin/Globulin Ratio 2.2 % 05/01/22 23:14 Triglycerides 64 mg/dL (2-149) 05/01/22 23:14 Cholesterol 77 mg/dL (50-199) 05/01/22 23:14 LDL Cholesterol Direct 25 mg/dL (50-130) L 05/01/22 23:14 HDL Cholesterol 46 mg/dL (40-59) 05/01/22 23:14 Cholesterol/HDL Ratio 1.67 % 05/01/22 23:14 Procalcitonin 16.30 ng/mL (<0.15) 05/02/22 11:14 Urine Color Yellow (Yellow) 05/01/22 23:54 Urine Turbidity Hazy (Clear) 05/01/22 23:54 Specific [place] (Man) 1.015 (1.003-1.030) 05/01/22 23:54 Ur Protein (Man) 1+ mg/dL (Negative) 05/01/22 23:54 Ur Ketones (Man) Negative (Negative) 05/01/22 23:54 Ur Nitrite (Man) Negative (Negative) 05/01/22 23:54 Urine Bilirubin (Man) Negative (Negative) 05/01/22 23:54 Leukocyte Esterase (Man) Moderate (Negative) 05/01/22 23:54 Urine WBC (Auto) > 182.0 /HPF (0.0-6.0) H 05/01/22 23:54 Urine RBC (Auto) 33.0 /HPF (0.0-6.0) 05/01/22 23:54 Urine Bacteria (Auto) 2+ /HPF (Negative) 05/01/22 23:54 Urine RBC (Manual) 3+ (Negative) 05/01/22 23:54 Urine WBC Clumps 3+ /HPF 05/01/22 23:54 Urine Mucus Few /HPF 05/01/22 23:54 Urine Yeast (Budding) 2+ /HPF 05/01/22 23:54 Coronavirus (PCR) Positive (Negative) A 05/02/22 Unknown Hep Bs Antigen Non-reactive (Negative) 05/02/22 20:20 Hepatitis C Antibody Non-reactive (NonReactive) 05/02/22 20:20 Influenza A (RT-PCR) Negative (Negative) 05/02/22 15:40 Influenza B (RT-PCR) Negative (Negative) 05/02/22 15:40 Microbiology: Microbiology 05/02/22 00:44 Peripheral/Venous Blood Culture - Preliminary 05/02/22 00:38 Peripheral/Venous Blood Culture - Preliminary Dumont/IV: Voiding Method Indwelling Catheter Active Medications - Current Medications Current Medications: Generic Name Dose Route Start Last Admin Trade Name Freq PRN Reason Stop Dose Admin Acetaminophen 650 mg 05/02/22 00:33 Acetaminophen 325 Mg Tab PO Q4H PRN Pain MILD(1-3)/Fever >100.5/ALLEN Atorvastatin Calcium 40 mg 05/02/22 22:00 05/02/22 23:44 Atorvastatin 40 Mg Tab PO Not Given QHS GENA Dexamethasone 8 mg 05/03/22 10:00 05/03/22 09:07 Dexamethasone 4 Mg Tab PO 05/13/22 09:59 Not Given DAILY GENA Dextrose 50 ml 05/02/22 18:49 Dextrose 50% In Water (25gm) 50 Ml Syringe IV Q30MIN PRN Hypoglycemia Protocol Famotidine 20 mg 05/03/22 10:00 05/03/22 09:07 Famotidine 20 Mg Tab PO Not Given QDAY GENA Sodium Chloride 1,000 mls @ 75 mls/hr 05/02/22 00:45 05/03/22 02:35 Nacl 0.9% 1000 Ml IV 75 mls/hr DIRECT GENA Administration Ceftriaxone Sodium 1 gm in 50 mls @ 100 mls/hr 05/02/22 01:00 05/03/22 09:07 Rocephin/Ns 1 Gm/50 Ml IV 100 mls/hr Q24HR GENA Administration Protocol NORepinephrine/NS 8 MG-250 ML 8 mg in 250 mls @ 14.458 mls/hr 05/02/22 03:00 05/03/22 10:47 Norepinephrine/Ns 8 Mg-250 Ml (Double Conc) IV 0.01 mcg/kg/min TITRATE GENA 1.446 mls/hr Titration Protocol 0.1 MCG/KG/MIN AMIODARONE HCL 450 mg/ 250 mls @ 16.667 mls/hr 05/02/22 16:00 05/03/22 02:35 Dextrose IV 0.5 mg/min DIRECT GENA 16.667 mls/hr Administration Protocol 0.5 MG/MIN Insulin Human Regular 0 units 05/02/22 22:00 05/03/22 11:12 Insulin Regular, Human 100 Units/1 Ml SUB-Q Not Given ACHS [facility] Protocol Magnesium Hydroxide 30 ml 05/02/22 00:33 Magnesium Hydroxide (Mom) Oral Liqd Udc PO Q4H PRN Constipation Morphine Sulfate 2 mg 05/02/22 00:33 05/02/22 13:17 Morphine 2 Mg/1 Ml Inj IV 2 mg Q4H PRN Administration Pain, Moderate (4-6) Ondansetron HCl 4 mg 05/02/22 00:33 Ondansetron 4 Mg/2 Ml Inj IV Q8H PRN Nausea And Vomiting Senna/Docusate Sodium 1 tab 05/03/22 22:00 Sennosides/Docusate Sodium 8.6/50 Mg Tab PO QHS [facility] Sodium Bicarbonate 1,300 mg 05/03/22 14:00 Sodium Bicarbonate 650 Mg Tab PO TID GENA Sodium Chloride 10 ml 05/02/22 10:00 05/03/22 09:07 Sodium Chloride 0.9% 10 Ml Flush Syringe IV 10 ml BID GENA Administration Sodium Chloride 10 ml 05/02/22 00:33 Sodium Chloride 0.9% 10 Ml Flush Syringe IV PRN PRN LINE FLUSH Nutrition/Malnutrition Assess - Dietary Evaluation Nutrition/Malnutrition Findings: Nutrition Notes Start: 05/02/22 10:24 Freq: Status: Active Protocol: Document 05/02/22 10:24 KIERSTEN (Rec: 05/02/22 11:05 KIERSTEN [id number]) Nutrition Notes 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 Current Diet Cardiac -Renal- Diet (since B 05/02). Labs/Tests 05/01: Na 125, Cl 91.0, CO2 21 , BUN 38, Crea 2.1, Glu 131, Ca 7.9, Mg 1.6. Pertinent Medications 05/02: Nutritionally unremarkable. 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 Weight Status Appropriate Subjective/Other Information RD consult for skin risk and risk of malnutrition assessments. No reports available on Pt's PO intake of meals at the time , will assess at F/U. I will recommend Renal modification to current diet, to support Pt's AJNU condition during LOS. I will also recommend dietary supplements to support wound healinh processes during LOS. Pt is on Room Air, O2 saturation @ 99%, according to Physical Assessment History notes. Pt has caries and missing teeth, according to Physical Assessment History notes. Pt passed bedside swallow assessment on 05/02, according to Swallow Screen notes. Pt shows Decubitus Sacral Ulcer stage II, L-toe open wound, and multiple bruises and skin tears in arms and legs as signs of concern for skin risk at the time, according to Physical Assessment History notes. Pt shows no signs of concern for risk of malnutrition at the time, according to Physical Assessment History notes. Percent of energy/protein needs met: Prescribed Cardiac -Renal- Diet provides for energy/ protein needs (2,230 Kcal/85 g ) during LOS; additionally, Dietary Supplements will support wound healing processes with 320 Kcal and 32 g of protein. Burn Absent Trauma Absent GI Symptoms None Food Allergy No Skin Integrity/Comment Sacral decubitus, L-toe & bruises. 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 Etiology Uncertain. As Evidenced by Signs and Symptoms Pt shows Decubitus Sacral Ulcer stage II, L-toe open wound, and multiple bruises and skin tears in arms and legs as signs of concern for skin risk at the time, according to Physical Assessment History notes. #1 Nutrition Diagnosis Altered nutrition-related laboratory values Etiology ANJU. As Evidenced by Signs and Symptoms 05/01: Na 125, Cl 91.0, CO2 21 , BUN 38, Crea 2.1, Glu 131, Ca 7.9, Mg 1.6. Is patient on ventilator? No Is Patient Ambulatory and/or Out of Bed No REE-([place]-St Jeor-confined to bed) 1617.408 Kcal/Kg value to use for calculation 26 Approximate Energy Requirements Using 1812 kcal/Kg Calculation Used for Recommendations Kcal/kg Additional Notes Protein: 0.8-1.2 g/Kg ABW; 56- 84 g/day. Fluids: 1 ml/Kcal, or as per MD. Nutrition Intervention Change Diet Order: Modify to Cardiac -Renal- Diet , continue as tolerated. Add Supplement/Snack (indicate name/kcal Start 8 fl oz Ensure High /protein ) Protein; BID. Provides kCal: 320 Provides Protein (gm) 32 Goal #1 Help reach and maintain acceptable chemistry lab values during LOS. Goal #2 Support, through dietary supplementation, wound healing processes during LOS. Goal #3 Adjust the dietary intervention to better serve Pt's energy/protein needs and clinical conditions during LOS . Follow-Up By: 05/09/22 Additional Comments Continue monitoring food tolerance, %PO intake of meals , dietary supplements, and BM. <MARIA ALEJANDRA REYNOLDS - Last Filed: 05/04/22 12:34> Assessment and Plan Assessment and plan: I saw and evaluated the patient. I agree with the findings and the plan of care as documented in the Nurse Practitioner's~note, with the following corrections and additions. Hospitalist Physical - Constitutional Vitals: Temp Pulse Resp BP Pulse Ox 98.0 F 100 H 22 156/70 99 05/04/22 11:40 05/04/22 11:16 05/04/22 11:16 05/04/22 11:16 05/04/22 11:16 HEART Score - HEART Score Troponin: Troponin T 0.196 ng/mL (0.00-0.029) H* D 05/02/22 11:14 Results - Labs CBC & Chem 7: 05/04/22 05:00 05/04/22 Unknown Labs: Laboratory Last Values WBC 10.2 K/mm3 (4.5-11.0) 05/04/22 05:00 RBC 3.39 M/mm3 (3.65-5.03) L 05/04/22 05:00 Hgb 9.6 gm/dl (11.8-15.2) L 05/04/22 05:00 Hct 28.8 % (35.5-45.6) L 05/04/22 05:00 MCV 85 fl (84-94) 05/04/22 05:00 MCH 28 pg (28-32) 05/04/22 05:00 MCHC 33 % (32-34) 05/04/22 05:00 RDW 18.8 % (13.2-15.2) H 05/04/22 05:00 Plt Count 150 K/mm3 (140-440) 05/04/22 05:00 Lymph % (Auto) 3.9 % (13.4-35.0) L 05/03/22 05:00 [place] % (Auto) 9.4 % (0.0-7.3) H 05/03/22 05:00 Eos % (Auto) 1.0 % (0.0-4.3) 05/03/22 05:00 Baso % (Auto) 0.1 % (0.0-1.8) 05/03/22 05:00 Lymph # (Auto) 0.5 K/mm3 (1.2-5.4) L 05/03/22 05:00 [place] # (Auto) 1.3 K/mm3 (0.0-0.8) H 05/03/22 05:00 Eos # (Auto) 0.1 K/mm3 (0.0-0.4) 05/03/22 05:00 Baso # (Auto) 0.0 K/mm3 (0.0-0.1) 05/03/22 05:00 Seg Neutrophils % 85.6 % (40.0-70.0) H 05/03/22 05:00 Seg Neutrophils # 11.4 K/mm3 (1.8-7.7) H 05/03/22 05:00 PT 19.1 Sec. (12.2-14.9) H 05/01/22 23:14 INR 1.42 (0.87-1.13) H 05/01/22 23:14 APTT 39.9 Sec. (24.2-36.6) H 05/01/22 23:14 D-Dimer 1135.33 ng/mlDDU (0-234) H 05/02/22 11:14 Sodium 138 mmol/L (137-145) 05/04/22 Unknown Potassium 3.3 mmol/L (3.6-5.0) L D 05/04/22 05:00 Chloride 108.7 mmol/L (98-107) H 05/04/22 05:00 Carbon Dioxide 17 mmol/L (22-30) L 05/04/22 05:00 Anion Gap 16 mmol/L 05/04/22 05:00 BUN 37 mg/dL (9-20) H 05/04/22 05:00 Creatinine 1.8 mg/dL (0.8-1.3) H 05/04/22 05:00 Estimated GFR 36 ml/min 05/04/22 05:00 BUN/Creatinine Ratio 21 % 05/04/22 05:00 Glucose 117 mg/dL (75-100) H 05/04/22 05:00 POC Glucose 107 mg/dL (70-105) H 05/04/22 07:40 Lactic Acid 1.90 mmol/L (0.7-2.0) 05/02/22 11:14 Calcium 7.4 mg/dL (8.4-10.2) L 05/04/22 05:00 Phosphorus 3.20 mg/dL (2.5-4.5) 05/03/22 06:48 Magnesium 2.10 mg/dL (1.7-2.3) 05/03/22 06:48 Ferritin 544.4 ng/mL (30.0-300.0) H 05/02/22 11:14 Total Bilirubin 1.00 mg/dL (0.1-1.2) 05/01/22 23:14 AST 27 units/L (5-40) 05/01/22 23:14 ALT 17 units/L (7-56) 05/01/22 23:14 Alkaline Phosphatase 77 units/L (35-129) 05/01/22 23:14 Lactate Dehydrogenase 172 units/L (91-180) 05/02/22 11:14 Total Creatine Kinase 816 units/L (55-170) H 05/02/22 20:20 Troponin T 0.196 ng/mL (0.00-0.029) H* D 05/02/22 11:14 C-Reactive Protein 29.00 mg/dL (0.00-1.30) H 05/02/22 11:14 NT-Pro-B Natriuret Pep 51864 pg/mL (0-900) H 05/01/22 23:14 Total Protein 4.8 g/dL (6.3-8.2) L 05/01/22 23:14 Albumin 3.3 g/dL (3.9-5) L 05/01/22 23:14 Albumin/Globulin Ratio 2.2 % 05/01/22 23:14 Triglycerides 64 mg/dL (2-149) 05/01/22 23:14 Cholesterol 77 mg/dL (50-199) 05/01/22 23:14 LDL Cholesterol Direct 25 mg/dL (50-130) L 05/01/22 23:14 HDL Cholesterol 46 mg/dL (40-59) 05/01/22 23:14 Cholesterol/HDL Ratio 1.67 % 05/01/22 23:14 Procalcitonin 16.30 ng/mL (<0.15) 05/02/22 11:14 Urine Color Yellow (Yellow) 05/01/22 23:54 Urine Turbidity Hazy (Clear) 05/01/22 23:54 Specific [place] (Man) 1.015 (1.003-1.030) 05/01/22 23:54 Ur Protein (Man) 1+ mg/dL (Negative) 05/01/22 23:54 Ur Ketones (Man) Negative (Negative) 05/01/22 23:54 Ur Nitrite (Man) Negative (Negative) 05/01/22 23:54 Urine Bilirubin (Man) Negative (Negative) 05/01/22 23:54 Leukocyte Esterase (Man) Moderate (Negative) 05/01/22 23:54 Urine WBC (Auto) > 182.0 /HPF (0.0-6.0) H 05/01/22 23:54 Urine RBC (Auto) 33.0 /HPF (0.0-6.0) 05/01/22 23:54 Urine Bacteria (Auto) 2+ /HPF (Negative) 05/01/22 23:54 Urine RBC (Manual) 3+ (Negative) 05/01/22 23:54 Urine WBC Clumps 3+ /HPF 05/01/22 23:54 Urine Mucus Few /HPF 05/01/22 23:54 Urine Yeast (Budding) 2+ /HPF 05/01/22 23:54 Coronavirus (PCR) Positive (Negative) A 05/02/22 Unknown Hep Bs Antigen Non-reactive (Negative) 05/02/22 20:20 Hepatitis C Antibody Non-reactive (NonReactive) 05/02/22 20:20 Influenza A (RT-PCR) Negative (Negative) 05/02/22 15:40 Influenza B (RT-PCR) Negative (Negative) 05/02/22 15:40 Microbiology: Microbiology 05/04/22 09:20 Peripheral/Venous Blood Culture - Preliminary Culture in Progress 05/04/22 09:20 Peripheral/Venous Blood Culture - Preliminary Culture in Progress 05/02/22 00:38 Peripheral/Venous Blood Culture - Preliminary Gram Negative Lars 05/02/22 00:44 Peripheral/Venous Blood Culture - Preliminary Gram Negative Lars 05/02/22 Unknown Urine,Clean Catch Urine Culture - Preliminary Gram Negative Lars Dumont/IV: Voiding Method Indwelling Catheter Active Medications - Current Medications Current Medications: Generic Name Dose Route Start Last Admin Trade Name Freq PRN Reason Stop Dose Admin Acetaminophen 650 mg 05/02/22 00:33 Acetaminophen 325 Mg Tab PO Q4H PRN Pain MILD(1-3)/Fever >100.5/ALLEN Atorvastatin Calcium 40 mg 05/02/22 22:00 05/03/22 22:10 Atorvastatin 40 Mg Tab PO Not Given QHS GENA Dextrose 50 ml 05/02/22 18:49 Dextrose 50% In Water (25gm) 50 Ml Syringe IV Q30MIN PRN Hypoglycemia Protocol Famotidine 20 mg 05/03/22 10:00 05/04/22 10:16 Famotidine 20 Mg Tab PO Not Given QDAY GENA Haloperidol Lactate 5 mg 05/03/22 13:25 05/04/22 03:08 Haloperidol Lactate 5 Mg/1 Ml Inj IV 5 mg Q6H PRN Administration Agitation Ceftriaxone Sodium 1 gm in 50 mls @ 100 mls/hr 05/02/22 01:00 05/04/22 11:21 Rocephin/Ns 1 Gm/50 Ml IV Infused Q24HR GENA Infusion Protocol NORepinephrine/NS 8 MG-250 ML 8 mg in 250 mls @ 14.458 mls/hr 05/02/22 03:00 05/03/22 16:00 Norepinephrine/Ns 8 Mg-250 Ml (Double Conc) IV 0 mcg/kg/min TITRATE GENA 0 mls/hr Titration Protocol 0.1 MCG/KG/MIN Vancomycin HCl 1 gm in 250 mls @ 166.667 mls/hr 05/03/22 20:00 05/04/22 07:00 Vancomycin/Ns 1 Gm/250 Ml IV Infused Q24H GENA Infusion AMIODARONE HCL 450 mg/ 250 mls @ 16.667 mls/hr 05/03/22 17:00 05/04/22 07:52 Dextrose IV 0.5 mg/min DIRECT GENA 16.667 mls/hr Administration Protocol 0.5 MG/MIN Dextrose/Sodium Chloride 1,000 mls @ 75 mls/hr 05/04/22 12:00 D5ns IV DIRECT GENA Insulin Human Regular 0 units 05/02/22 22:00 05/04/22 11:55 Insulin Regular, Human 100 Units/1 Ml SUB-Q Not Given ACHS [facility] Protocol Magnesium Hydroxide 30 ml 05/02/22 00:33 Magnesium Hydroxide (Mom) Oral Liqd Udc PO Q4H PRN Constipation Morphine Sulfate 2 mg 05/02/22 00:33 05/03/22 21:00 Morphine 2 Mg/1 Ml Inj IV 2 mg Q4H PRN Administration Pain, Moderate (4-6) Ondansetron HCl 4 mg 05/02/22 00:33 Ondansetron 4 Mg/2 Ml Inj IV Q8H PRN Nausea And Vomiting Senna/Docusate Sodium 1 tab 05/03/22 22:00 05/03/22 22:10 Sennosides/Docusate Sodium 8.6/50 Mg Tab PO Not Given QHS [facility] Sodium Bicarbonate 1,300 mg 05/03/22 14:00 05/04/22 07:53 Sodium Bicarbonate 650 Mg Tab PO Not Given TID GENA Sodium Chloride 10 ml 05/02/22 10:00 05/04/22 10:24 Sodium Chloride 0.9% 10 Ml Flush Syringe IV 10 ml BID GENA Administration Sodium Chloride 10 ml 05/02/22 00:33 Sodium Chloride 0.9% 10 Ml Flush Syringe IV PRN PRN LINE FLUSH Nutrition/Malnutrition Assess - Dietary Evaluation Nutrition/Malnutrition Findings: Nutrition Notes Start: 05/02/22 10:24 Freq: Status: Active Protocol: Document 05/02/22 10:24 KIERSTEN (Rec: 05/02/22 11:05 KIERSTEN [id number]) Nutrition Notes 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 Current Diet Cardiac -Renal- Diet (since B 05/02). Labs/Tests 05/01: Na 125, Cl 91.0, CO2 21 , BUN 38, Crea 2.1, Glu 131, Ca 7.9, Mg 1.6. Pertinent Medications 05/02: Nutritionally unremarkable. 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 Weight Status Appropriate Subjective/Other Information RD consult for skin risk and risk of malnutrition assessments. No reports available on Pt's PO intake of meals at the time , will assess at F/U. I will recommend Renal modification to current diet, to support Pt's ANJU condition during LOS. I will also recommend dietary supplements to support wound healinh processes during LOS. Pt is on Room Air, O2 saturation @ 99%, according to Physical Assessment History notes. Pt has caries and missing teeth, according to Physical Assessment History notes. Pt passed bedside swallow assessment on 05/02, according to Swallow Screen notes. Pt shows Decubitus Sacral Ulcer stage II, L-toe open wound, and multiple bruises and skin tears in arms and legs as signs of concern for skin risk at the time, according to Physical Assessment History notes. Pt shows no signs of concern for risk of malnutrition at the time, according to Physical Assessment History notes. Percent of energy/protein needs met: Prescribed Cardiac -Renal- Diet provides for energy/ protein needs (2,230 Kcal/85 g ) during LOS; additionally, Dietary Supplements will support wound healing processes with 320 Kcal and 32 g of protein. Burn Absent Trauma Absent GI Symptoms None Food Allergy No Skin Integrity/Comment Sacral decubitus, L-toe & bruises. 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 Etiology Uncertain. As Evidenced by Signs and Symptoms Pt shows Decubitus Sacral Ulcer stage II, L-toe open wound, and multiple bruises and skin tears in arms and legs as signs of concern for skin risk at the time, according to Physical Assessment History notes. #1 Nutrition Diagnosis Altered nutrition-related laboratory values Etiology ANJU. As Evidenced by Signs and Symptoms 05/01: Na 125, Cl 91.0, CO2 21 , BUN 38, Crea 2.1, Glu 131, Ca 7.9, Mg 1.6. Is patient on ventilator? No Is Patient Ambulatory and/or Out of Bed No REE-([facility]-confined to bed) 1617.408 Kcal/Kg value to use for calculation 26 Approximate Energy Requirements Using 1812 kcal/Kg Calculation Used for Recommendations Kcal/kg Additional Notes Protein: 0.8-1.2 g/Kg ABW; 56- 84 g/day. Fluids: 1 ml/Kcal, or as per MD. Nutrition Intervention Change Diet Order: Modify to Cardiac -Renal- Diet , continue as tolerated. Add Supplement/Snack (indicate name/kcal Start 8 fl oz Ensure High /protein ) Protein; BID. Provides kCal: 320 Provides Protein (gm) 32 Goal #1 Help reach and maintain acceptable chemistry lab values during LOS. Goal #2 Support, through dietary supplementation, wound healing processes during LOS. Goal #3 Adjust the dietary intervention to better serve Pt's energy/protein needs and clinical conditions during LOS . Follow-Up By: 05/09/22 Additional Comments Continue monitoring food tolerance, %PO intake of meals , dietary supplements, and BM.
--- NOTE | 2022-05-03 12:16 | XRay Report ---
ABDOMEN 1 VIEW 05/03/2022 11:17 AM INDICATION / CLINICAL INFORMATION: dobhoff placement confirmation. COMPARISON: Chest radiograph yesterday. FINDINGS: TUBES / LINES: A partially imaged enteric tube tip projects over the lower mediastinum near the GE ju nction. There is suggestion of a possible hiatal hernia with gas-filled lumen projecting over the lef t cardiac silhouette. BOWEL GAS PATTERN: Several mildly pathologically distended loops of small bowel are present, maximum caliber approaching 4 cm. FREE AIR / EXTRALUMINAL GAS: None. ADDITIONAL FINDINGS: No significant additional findings. IMPRESSION: 1. Enteric tube tip projects over the lower mediastinum near the expected position of the GE junction , in the setting of a suspected hiatal hernia. Slight advancement and repeat imaging is recommended t o better characterize tube position. Signer Name: Jase Reynolds MD Signed: 05/03/2022 12:12 PM Workstation Name: [id number]
[2022-05-03] MEDS: SODIUM BICARBONATE 650 MG TAB PO SCH ×2 (16:46→21:00)
[2022-05-03] MEDS: VANCOMYCIN/NS 1 GM/250 ML 1 GM/250 ML BAG IV SCH (20:01)
[2022-05-03] MEDS: MORPHINE 2 MG/1 ML INJ IV PRN (21:00)
[2022-05-03] MEDS ORDERED: SODIUM BICARB 8.4% 50 MEQ/50 ML SYRINGE IV ONE (21:53)
--- NOTE | 2022-05-03 21:56 | Progress Note ---
Assessment and Plan Acute kidney injury Hyponatremia Acute encephalopathy Shock Acidosis COVID-positive Follow-up renal ultrasound Follow serologies Check urine culture Status post IVF with appropriate rise of sodium. Monitor sodium level Ordered sodium bicarb tabs Keep MAP more than 65 renally dose medications Avoid nephrotoxins Renal diet Neurology note reviewed Subjective Date of service: 05/03/22 Principal diagnosis: Encephalopathy Interval history: Seen in ICU Vitals, labs and I/os reviewed Interdisciplinary notes and consults reviewed Objective - Exam Narrative Exam: Constitutional: no acute distress Head: NC/AT Neck: supple Lungs: clear to auscultation CV: RRR, no M/R/G Abdomen: soft, non-tender, bowel sounds present Back: nontender Extremities: no edema, pulses WNL Skin: intact Neuro: Somnolent. Altered. - Vital Signs Vital signs: Vital Signs - 12hr 05/03/22 05/03/22 05/03/22 10:00 10:15 10:30 Temperature Pulse Rate 81 90 86 Pulse Rate [ From Monitor] Respiratory 22 23 24 Rate Blood Pressure 102/58 102/54 100/56 O2 Sat by Pulse 100 100 100 Oximetry 05/03/22 05/03/22 05/03/22 10:45 11:00 11:15 Temperature Pulse Rate 79 86 83 Pulse Rate [ From Monitor] Respiratory 24 26 H 22 Rate Blood Pressure 111/57 97/53 94/51 O2 Sat by Pulse 99 99 Oximetry 05/03/22 05/03/22 05/03/22 11:30 11:45 12:00 Temperature 97.4 F L Pulse Rate 87 87 99 H Pulse Rate [ 92 H From Monitor] Respiratory 23 23 25 H Rate Blood Pressure 109/61 109/61 O2 Sat by Pulse 100 99 99 Oximetry 05/03/22 05/03/22 05/03/22 12:13 12:15 12:31 Temperature Pulse Rate 92 H 88 100 H Pulse Rate [ From Monitor] Respiratory 22 23 23 Rate Blood Pressure 108/51 57/38 O2 Sat by Pulse 99 99 99 Oximetry 05/03/22 05/03/22 05/03/22 12:45 13:01 13:15 Temperature Pulse Rate 104 H 94 H 99 H Pulse Rate [ From Monitor] Respiratory 21 23 19 Rate Blood Pressure 101/49 107/40 110/53 O2 Sat by Pulse 99 100 100 Oximetry 05/03/22 05/03/22 05/03/22 13:30 13:45 14:00 Temperature Pulse Rate 93 H 104 H 105 H Pulse Rate [ From Monitor] Respiratory 25 H 20 36 H Rate Blood Pressure 100/56 99/54 108/60 O2 Sat by Pulse 100 99 98 Oximetry 05/03/22 05/03/22 05/03/22 14:15 14:30 14:45 Temperature Pulse Rate 94 H 88 91 H Pulse Rate [ From Monitor] Respiratory 28 H 27 H 17 Rate Blood Pressure 106/59 115/53 102/56 O2 Sat by Pulse 97 98 97 Oximetry 05/03/22 05/03/22 05/03/22 15:00 15:15 15:30 Temperature Pulse Rate 94 H 92 H 95 H Pulse Rate [ From Monitor] Respiratory 23 22 18 Rate Blood Pressure 96/57 103/57 101/51 O2 Sat by Pulse 97 97 97 Oximetry 05/03/22 05/03/22 05/03/22 15:45 16:00 16:15 Temperature 98.5 F Pulse Rate 99 H 102 H 103 H Pulse Rate [ 89 From Monitor] Respiratory 20 16 17 Rate Blood Pressure 105/60 101/59 103/64 O2 Sat by Pulse 97 98 99 Oximetry 05/03/22 05/03/22 05/03/22 16:30 16:45 17:00 Temperature Pulse Rate 93 H 91 H 96 H Pulse Rate [ From Monitor] Respiratory 24 24 25 H Rate Blood Pressure 97/58 102/55 109/62 O2 Sat by Pulse 99 100 98 Oximetry 05/03/22 05/03/22 05/03/22 17:15 17:30 17:45 Temperature Pulse Rate 99 H 107 H 104 H Pulse Rate [ From Monitor] Respiratory 22 19 23 Rate Blood Pressure 114/47 114/61 114/61 O2 Sat by Pulse 99 100 100 Oximetry 05/03/22 05/03/22 05/03/22 18:01 18:15 20:38 Temperature Pulse Rate 107 H 110 H Pulse Rate [ From Monitor] Respiratory 29 H 13 Rate Blood Pressure 113/63 114/61 O2 Sat by Pulse 99 98 94 Oximetry - Lab 05/03/22 05:00 05/03/22 17:40 Most recent lab results Calcium 7.6 mg/dL (8.4-10.2) L 05/03/22 06:48 Phosphorus 3.20 mg/dL (2.5-4.5) 05/03/22 06:48 Magnesium 2.10 mg/dL (1.7-2.3) 05/03/22 06:48 Medications & Allergies - Medications Allergies/Adverse Reactions: Allergies aspirin Adverse Reaction (Verified 05/02/22 13:20) Bleeding levofloxacin [From Levaquin] Adverse Reaction (Verified 04/21/17 21:12) Rash blood thinners Adverse Reaction (Uncoded 05/02/22 13:20) Bleeding Home Medications: Home Medications Medication Instructions Recorded Confirmed Last Taken Type Memantine HCl [Namenda] 10 mg PO BID 04/21/17 05/02/22 Unknown History Omeprazole 40 mg PO QDAY 04/21/17 05/02/22 Unknown History Sertraline [Zoloft] 50 mg PO QDAY 04/21/17 05/02/22 Unknown History Simvastatin (NF) [Zocor TAB] 40 mg PO QHS 04/21/17 05/02/22 Unknown History Meclizine [Antivert] 12.5 mg PO Q12H PRN #60 tablet 04/22/19 05/02/22 Unknown Rx Fluticasone [Flonase] 1 spray NS QDAY #1 bottle 04/23/19 05/02/22 Unknown Rx Active Medications: Generic Name Dose Route Start Last Admin Trade Name Cristino PRN Reason Stop Dose Admin Acetaminophen 650 mg 05/02/22 00:33 Acetaminophen 325 Mg Tab PO Q4H PRN Pain MILD(1-3)/Fever >100.5/ALLEN Atorvastatin Calcium 40 mg 05/02/22 22:00 05/02/22 23:44 Atorvastatin 40 Mg Tab PO Not Given QHS GENA Dextrose 50 ml 05/02/22 18:49 Dextrose 50% In Water (25gm) 50 Ml Syringe IV Q30MIN PRN Hypoglycemia Protocol Famotidine 20 mg 05/03/22 10:00 05/03/22 09:07 Famotidine 20 Mg Tab PO Not Given QDAY GENA Haloperidol Lactate 5 mg 05/03/22 13:25 Haloperidol Lactate 5 Mg/1 Ml Inj IV Q6H PRN Agitation Sodium Chloride 1,000 mls @ 75 mls/hr 05/02/22 00:45 05/03/22 16:50 Nacl 0.9% 1000 Ml IV 75 mls/hr DIRECT GENA Administration Ceftriaxone Sodium 1 gm in 50 mls @ 100 mls/hr 05/02/22 01:00 05/03/22 09:40 Rocephin/Ns 1 Gm/50 Ml IV Infused Q24HR GENA Infusion Protocol NORepinephrine/NS 8 MG-250 ML 8 mg in 250 mls @ 14.458 mls/hr 05/02/22 03:00 05/03/22 16:00 Norepinephrine/Ns 8 Mg-250 Ml (Double Conc) IV 0 mcg/kg/min TITRATE GENA 0 mls/hr Titration Protocol 0.1 MCG/KG/MIN Vancomycin HCl 1 gm in 250 mls @ 166.667 mls/hr 05/03/22 20:00 05/03/22 20:01 Vancomycin/Ns 1 Gm/250 Ml IV 166.667 mls/hr Q24H GENA Administration AMIODARONE HCL 450 mg/ 250 mls @ 16.667 mls/hr 05/03/22 17:00 05/03/22 17:59 Dextrose IV 0.5 mg/min DIRECT GENA 16.667 mls/hr Administration Protocol 0.5 MG/MIN Insulin Human Regular 0 units 05/02/22 22:00 05/03/22 16:46 Insulin Regular, Human 100 Units/1 Ml SUB-Q Not Given ACHS [facility] Protocol Magnesium Hydroxide 30 ml 05/02/22 00:33 Magnesium Hydroxide (Mom) Oral Liqd Udc PO Q4H PRN Constipation Morphine Sulfate 2 mg 05/02/22 00:33 05/03/22 21:00 Morphine 2 Mg/1 Ml Inj IV 2 mg Q4H PRN Administration Pain, Moderate (4-6) Ondansetron HCl 4 mg 05/02/22 00:33 Ondansetron 4 Mg/2 Ml Inj IV Q8H PRN Nausea And Vomiting Senna/Docusate Sodium 1 tab 05/03/22 22:00 Sennosides/Docusate Sodium 8.6/50 Mg Tab PO QHS [facility] Sodium Bicarbonate 1,300 mg 05/03/22 14:00 05/03/22 21:00 Sodium Bicarbonate 650 Mg Tab PO Not Given TID [facility] Sodium Chloride 10 ml 05/02/22 10:00 05/03/22 09:07 Sodium Chloride 0.9% 10 Ml Flush Syringe IV 10 ml BID GENA Administration Sodium Chloride 10 ml 05/02/22 00:33 Sodium Chloride 0.9% 10 Ml Flush Syringe IV PRN PRN LINE FLUSH
[2022-05-03] MEDS ORDERED: AMIODARONE 200 MG TAB PO SCH (22:00)
[2022-05-03] MEDS: SENNOSIDES/DOCUSATE SODIUM 8.6/50 MG TAB PO SCH (22:10)
[2022-05-04] MEDS: INSULIN REGULAR, HUMAN 100 UNITS/1 ML SUB-Q SCH ×5 (00:11→22:58)
[2022-05-04] MEDS: HALOPERIDOL LACTATE 5 MG/1 ML INJ IV PRN (03:08)
--- NOTE | 2022-05-04 06:19 | Consultation ---
DATE OF CONSULTATION: 05/03/2022 HISTORY OF PRESENT ILLNESS: The patient is an 86-year-old male with many medical problems who is unable to give a history. He has had strokes and coronary artery bypass surgery in the past. He had a recent COVID infection. He was brought in with a chief complaint of an altered mental status. The family described a declining status since his COVID infection a few weeks ago. No clearcut cardiac symptoms were described. He became hypotensive and was placed on pressors. He was noted to have atrial fibrillation with rapid ventricular response. PAST MEDICAL HISTORY: Cholecystectomy and coronary artery bypass surgery. SOCIAL HISTORY: Smoking: None listed. Alcohol: No heavy use described. He lives with his family. REVIEW OF SYSTEMS: He has a history of strokes and intracranial hemorrhage, hypertension, hyperlipidemia, dementia and BPH. ALLERGIES: ASPIRIN and LEVAQUIN. PHYSICAL EXAMINATION: GENERAL: Well developed, well nourished, alert, confused. EYES, NOSE AND THROAT: Unremarkable. NECK: Reveals JVD. There are no bruits. Neck is supple, no masses. LUNGS: Scattered rhonchi. No labored respirations. HEART: Irregular rhythm. No rubs, murmurs or gallops are appreciable. ABDOMEN: Soft, nontender, no masses. Bowel sounds intact. EXTREMITIES: No cyanosis, clubbing, edema. Peripheral pulses are intact, slightly diminished. NEUROLOGIC: He is good. Exam deferred. SKIN: Clear. IMPRESSION: 1. Atrial fibrillation: Currently, the heart rate is under control. 2. History of coronary artery bypass surgery with possible [id number] myocardial infarction. 3. Abnormal chest x-ray, possible early pulmonary edema. 4. History of hypertension. 5. History of cerebrovascular accident and dementia. 6. Hyperlipidemia. 7. Recent COVID infection. 8. Sepsis with shock, possibly secondary to urinary tract infection. 9. Acute renal failure with abnormal electrolytes. 10. Anemia. PLAN: Check the echocardiogram. Consider congestive heart failure therapy. Continue heparin. Aspirin is held because of history of bleeding. Overall, prognosis is guarded. Thank you for this consultation. We will follow the patient. TID: [id number] RECEIPT: [id number] JDS/ARIN
[2022-05-04 06:27] LABS: Hematocrit 28.8 % (35.5-45.6); Hemoglobin 9.6 gm/dl (11.8-15.2); Mean Corpuscular HGB Conc 33 % (32-34); Mean Corpuscular Volume 85 fl (84-94); Platelet Count 150 K/mm3 (140-440); Red Blood Count 3.39 M/mm3 (3.65-5.03); Red Cell Distribution Width 18.8 % (13.2-15.2)
[2022-05-04 06:47] LABS: Calcium 7.4 mg/dL (8.4-10.2)
[2022-05-04] MEDS: SODIUM CHLORIDE 0.9% 1000 ML 1,000 ML IV SCH (07:11)
[2022-05-04] MEDS: AMIODARONE HCL 450 MG in DEXTROSE 5% IN WATER 241 ML IV SCH ×2 (07:52→23:52)
[2022-05-04] MEDS: SODIUM BICARBONATE 650 MG TAB PO SCH ×3 (07:53→20:26)
[2022-05-04] MEDS ORDERED: SODIUM BICARBONATE 650 MG TAB PO SCH (08:00)
[2022-05-04] MEDS ORDERED: SODIUM BICARB 8.4% 50 MEQ/50 ML SYRINGE IV NR (09:51)
[2022-05-04] MEDS: FAMOTIDINE 20 MG TAB PO SCH (10:16)
[2022-05-04] MEDS: POTASSIUM CHLORIDE 20 MEQ 20 MEQ/100 ML BAG IV SCH ×2 (10:25→11:24)
[2022-05-04] MEDS: cefTRIAXone/NS 1 GM/50 ML 1 GM/50 ML BAG IV SCH (10:25)
--- NOTE | 2022-05-04 11:36 | Progress Note ---
<PARVEZ LEON - Last Filed: 05/04/22 16:30> Assessment and Plan Assessment and plan: This is a 86-year-old male with known past medical history of CVA, ICHx2, dementia, HLD, NE, CAD s/p CABGX5, paroxysmal Afib- not a candidate of anticoagulation, s/p multiple falls at home admitted for septic shock probably secondary to urosepsis requiring vasopressors. Hospital Course to Date 05/02: Remains encephalopathic, stable on RA, on high dose pressors, additional IVF bolus administered. Patient remains in Afib, rate control. Cardiology consulted Dumont inserted this am due to retenstion, 1L of malodorous and cloudy urine drained. Probable urosepsis, patient is current on IV rocephin. D/w patie nt's daughters they reported that patient does have a history of Afib and open heart surgery with 5 bypass. Patient had X2 ICH in the past and he is not a candidate for any anticoagulations. Patient was also recently diagnosed with COVID outpatient, did not received any treatment since he was stable. COVID and PLU PCRs pending, check inflam. markers and Procal. Renal function is unchanged, continue IVF hydration, Nephrology is also following. Continue to trend Lactic acid. 05/03: More awake and alert this am but still confused. Still in Afib but rate control this am. Amiodarone gtt added yesterday due to Afib with RVR, patient remains on low dose Levophed. Cardiology recommendations noted. Concern for possible aspiration this morning, awaiting speech consulted. Will keep amiodarone gtt for now, transition to PO Amio if clear by speech. Blood cultures positive gram negative rods in 3/4 bottles, Vancomycin added. Check 2D echo to r/o vegetations. ID consulted pending. COVID PCR came back positive, spoke with patient's daughter. She reported that patient received "the COVID pill that Cruzito had". Patient is currently on 1L NC, SPO2 at 100%. Will continue to mon itor for now. 05/04: Still confused but calm and following commands, agitated overnight required IV ativan. MRI brain pending. Patient remains in Afib, rate control. Remains on Amiodarone gtt, off pressors this am, VSS. Orders placed for repeat blood culture. Continue current IV abx, 2D echo and ID consult pending. Patient failed speech swallow due to cognitive deficits, multiple attempts to insert DHT was unsuccessful due to suspected hiatal hernia. Continue IVF hydration for now, speech to reassess swallow screen in 48hrs since patient's mentation is improving. If patient continue to fail swallow, alternative nutrition should be considered. Plan of care discussed with patient's daughters while visiting patient today. All questions and concerns were addressed at this time. Team will continue to follow with any further updates. Assessment and Plan #Septic Shock- Probable Urosepsis (POA) #Urinary Tract Infection (UTI) #Lactic Acidosis #Recent COVID infection- Received Treatment, probably Paxlovid - Dumont inserted for retention- cloudy and malodourous urine drained - Urine culture pending, Blood cultures with Gram neg Rods in 3/4 bottles - Repeat Blood cultures - Continue IVF hydration and current empiric IV Abx- Rocephin, Vanco added - 2D Echo to r/o vegetation - ID consulted - Continue blood pressure monitor per protocol - Titrate pressors to maintain MAP above 65 - COVID PCR positive- per patient's daughter, patient received the COVID Pill that Cruzito had. Probably Paxlovid - Patient is stable on 1L NC, continue to monitor for now #Acute Kidney Injury(ANJU) most likely ATN #Electrolyte imbalance- hypomagnesemia, hyponatremia, hypocalcemia #Hypovelemia/Dehydration - Nephrology on consult, appreciated recommendation - Strict intake and output - Avoid nephrotoxic medications; Renally dose medications - Dumont inserted for retention- cloudy and malodourous urine drained - Continue IVF for now - Monitor and replace electrolytes as needed #Paroxysmal Atrial Fibrillation- Not candidate for anticoagulation #NSTEMI- probably Type 2 2/2 demand ischemia vs ANJU #H/o NE and CAD s/p CABGX5 over 20 years ago - Cardiology consulted - Not candidate for BB due to low BP on levophed gtt - on Amio gtt - Continue blood pressure monitor per protocol - Titrate pressors to maintain MAP above 65 - Not candidate for AC due to bleeding #Acute Metabolic Encephalopathy #Multiple Falls at Home #H/o Dementia #H/o CVA and ICHx2 - Mentation improved - Avoid benzodiazepine to reduce the possibility of delirium - PRN Analgesia for pain control - Maintenance of sleep-wake cycle - Fall precaution #Dyphagia #Unable to insert NGT/DHT due to Hiatal Hernia - Failed speech bedside swallow due to cognitive deficits - Multiple attempts to insert NGT/DHT unsuccessful, blockage at the GE junction probably due to Hiatal Hernia - Continue IVF hydration for now - speech to reassess swallow screen in 48hrs since patient's mentation is improving. - If patient continue to fail swallow, alternative nutrition should be considered #Urinary Retention #History of BPH - Dumont inserted - resume home meds once list is available #Thrombocytopenia - Present on admit - H&H stable, no s/s of any active bleeding - Not on any AC due to bleeding - Continue to trend CBC - Transfuse for hgb less than 7 #GI/DVT Prophylaxis - PPI- pepcid - SCDs to bilateral lower extremities while in bed #Advance Care Planning - Disease education data, care plan, diagnoses, and prognosis were discussed with patient's daughters via phone, Kath Carter- ; Jacquie Pooleward- . Patient is a FULL code. Patient's family acknowledged understanding and agreed with current care plan. The high probability of a clinically significant, sudden or life threatening deterioration of the [multiple] system(s) required my full and direct attention, intervention and personal management. The aggregate critical care time was [60] minutes. This time is in addition to time spent performing reported procedures but includes the following: [x] Data Review and interpretation [x] Patient assessment and monitoring of vital signs [x] Documentation [x] Medication orders and management Disposition Plan: ICU Total Time Spent with Patient (Minutes): 60 History Interval history: Patient seen and examined at the bedside. More awake and alert this am, still with periods of confusion. Remains in Afib, control rate, HR in the 80-100s. Off Levophed gtt this am, remains amiodarone gtt. Increased agitation overnight, received IV ativan. Hospitalist Physical - Physical exam Narrative exam: General appearance: Present: no acute distress, well-nourished - EENT Eyes: Present: PERRL ENT: hearing intact, other (Dry oral mucosa) - Neck Neck: Present: normal ROM - Respiratory Respiratory effort: normal Respiratory: bilateral: diminished - Cardiovascular Rhythm: regular Heart Sounds: Present: S1 & S2 - Extremities Extremities: no ischemia, pulses intact, pulses symmetrical Peripheral Pulses: within normal limits - Abdominal General gastrointestinal: soft, non-distended, normal bowel sounds - Integumentary Integumentary: Present: dry, erythema (Generalized ecchymosis and skin tears, stage 1 sacral pressure ulcer, and Lt. big toe wound) - Psychiatric Psychiatric: appropriate mood/affect, cooperative, other (confused) - Neurologic Neurologic: moves all extremities, other (confused) - Allied Health Allied health notes reviewed: nursing, Case management - Constitutional Vitals: Temp Pulse Resp BP Pulse Ox 98.6 F 100 H 22 156/70 99 05/04/22 07:16 05/04/22 11:16 05/04/22 11:16 05/04/22 11:16 05/04/22 11:16 HEART Score - HEART Score Troponin: Troponin T 0.196 ng/mL (0.00-0.029) H* D 05/02/22 11:14 Results - Labs CBC & Chem 7: 05/04/22 05:00 05/04/22 Unknown Labs: Laboratory Last Values WBC 10.2 K/mm3 (4.5-11.0) 05/04/22 05:00 RBC 3.39 M/mm3 (3.65-5.03) L 05/04/22 05:00 Hgb 9.6 gm/dl (11.8-15.2) L 05/04/22 05:00 Hct 28.8 % (35.5-45.6) L 05/04/22 05:00 MCV 85 fl (84-94) 05/04/22 05:00 MCH 28 pg (28-32) 05/04/22 05:00 MCHC 33 % (32-34) 05/04/22 05:00 RDW 18.8 % (13.2-15.2) H 05/04/22 05:00 Plt Count 150 K/mm3 (140-440) 05/04/22 05:00 Lymph % (Auto) 3.9 % (13.4-35.0) L 05/03/22 05:00 [place] % (Auto) 9.4 % (0.0-7.3) H 05/03/22 05:00 Eos % (Auto) 1.0 % (0.0-4.3) 05/03/22 05:00 Baso % (Auto) 0.1 % (0.0-1.8) 05/03/22 05:00 Lymph # (Auto) 0.5 K/mm3 (1.2-5.4) L 05/03/22 05:00 [place] # (Auto) 1.3 K/mm3 (0.0-0.8) H 05/03/22 05:00 Eos # (Auto) 0.1 K/mm3 (0.0-0.4) 05/03/22 05:00 Baso # (Auto) 0.0 K/mm3 (0.0-0.1) 05/03/22 05:00 Seg Neutrophils % 85.6 % (40.0-70.0) H 05/03/22 05:00 Seg Neutrophils # 11.4 K/mm3 (1.8-7.7) H 05/03/22 05:00 PT 19.1 Sec. (12.2-14.9) H 05/01/22 23:14 INR 1.42 (0.87-1.13) H 05/01/22 23:14 APTT 39.9 Sec. (24.2-36.6) H 05/01/22 23:14 D-Dimer 1135.33 ng/mlDDU (0-234) H 05/02/22 11:14 Sodium 138 mmol/L (137-145) 05/04/22 05:00 Sodium 138 mmol/L (137-145) 05/04/22 05:00 Potassium 3.3 mmol/L (3.6-5.0) L D 05/04/22 05:00 Chloride 108.7 mmol/L (98-107) H 05/04/22 05:00 Carbon Dioxide 17 mmol/L (22-30) L 05/04/22 05:00 Anion Gap 16 mmol/L 05/04/22 05:00 BUN 37 mg/dL (9-20) H 05/04/22 05:00 Creatinine 1.8 mg/dL (0.8-1.3) H 05/04/22 05:00 Estimated GFR 36 ml/min 05/04/22 05:00 BUN/Creatinine Ratio 21 % 05/04/22 05:00 Glucose 117 mg/dL (75-100) H 05/04/22 05:00 POC Glucose 107 mg/dL (70-105) H 05/04/22 07:40 Lactic Acid 1.90 mmol/L (0.7-2.0) 05/02/22 11:14 Calcium 7.4 mg/dL (8.4-10.2) L 05/04/22 05:00 Phosphorus 3.20 mg/dL (2.5-4.5) 05/03/22 06:48 Magnesium 2.10 mg/dL (1.7-2.3) 05/03/22 06:48 Ferritin 544.4 ng/mL (30.0-300.0) H 05/02/22 11:14 Total Bilirubin 1.00 mg/dL (0.1-1.2) 05/01/22 23:14 AST 27 units/L (5-40) 05/01/22 23:14 ALT 17 units/L (7-56) 05/01/22 23:14 Alkaline Phosphatase 77 units/L (35-129) 05/01/22 23:14 Lactate Dehydrogenase 172 units/L (91-180) 05/02/22 11:14 Total Creatine Kinase 816 units/L (55-170) H 05/02/22 20:20 Troponin T 0.196 ng/mL (0.00-0.029) H* D 05/02/22 11:14 C-Reactive Protein 29.00 mg/dL (0.00-1.30) H 05/02/22 11:14 NT-Pro-B Natriuret Pep 39530 pg/mL (0-900) H 05/01/22 23:14 Total Protein 4.8 g/dL (6.3-8.2) L 05/01/22 23:14 Albumin 3.3 g/dL (3.9-5) L 05/01/22 23:14 Albumin/Globulin Ratio 2.2 % 05/01/22 23:14 Triglycerides 64 mg/dL (2-149) 05/01/22 23:14 Cholesterol 77 mg/dL (50-199) 05/01/22 23:14 LDL Cholesterol Direct 25 mg/dL (50-130) L 05/01/22 23:14 HDL Cholesterol 46 mg/dL (40-59) 05/01/22 23:14 Cholesterol/HDL Ratio 1.67 % 05/01/22 23:14 Procalcitonin 16.30 ng/mL (<0.15) 05/02/22 11:14 Urine Color Yellow (Yellow) 05/01/22 23:54 Urine Turbidity Hazy (Clear) 05/01/22 23:54 Specific Charlo (Man) 1.015 (1.003-1.030) 05/01/22 23:54 Ur Protein (Man) 1+ mg/dL (Negative) 05/01/22 23:54 Ur Ketones (Man) Negative (Negative) 05/01/22 23:54 Ur Nitrite (Man) Negative (Negative) 05/01/22 23:54 Urine Bilirubin (Man) Negative (Negative) 05/01/22 23:54 Leukocyte Esterase (Man) Moderate (Negative) 05/01/22 23:54 Urine WBC (Auto) > 182.0 /HPF (0.0-6.0) H 05/01/22 23:54 Urine RBC (Auto) 33.0 /HPF (0.0-6.0) 05/01/22 23:54 Urine Bacteria (Auto) 2+ /HPF (Negative) 05/01/22 23:54 Urine RBC (Manual) 3+ (Negative) 05/01/22 23:54 Urine WBC Clumps 3+ /HPF 05/01/22 23:54 Urine Mucus Few /HPF 05/01/22 23:54 Urine Yeast (Budding) 2+ /HPF 05/01/22 23:54 Coronavirus (PCR) Positive (Negative) A 05/02/22 Unknown Hep Bs Antigen Non-reactive (Negative) 05/02/22 20:20 Hepatitis C Antibody Non-reactive (NonReactive) 05/02/22 20:20 Influenza A (RT-PCR) Negative (Negative) 05/02/22 15:40 Influenza B (RT-PCR) Negative (Negative) 05/02/22 15:40 Microbiology: Microbiology 05/02/22 00:38 Peripheral/Venous Blood Culture - Preliminary Gram Negative Lars 05/02/22 00:44 Peripheral/Venous Blood Culture - Preliminary Gram Negative Lars 05/02/22 Unknown Urine,Clean Catch Urine Culture - Preliminary Gram Negative Lars Dumont/IV: Voiding Method Indwelling Catheter Active Medications - Current Medications Current Medications: Generic Name Dose Route Start Last Admin Trade Name Freq PRN Reason Stop Dose Admin Acetaminophen 650 mg 05/02/22 00:33 Acetaminophen 325 Mg Tab PO Q4H PRN Pain MILD(1-3)/Fever >100.5/ALLEN Atorvastatin Calcium 40 mg 05/02/22 22:00 05/03/22 22:10 Atorvastatin 40 Mg Tab PO Not Given QHS GENA Dextrose 50 ml 05/02/22 18:49 Dextrose 50% In Water (25gm) 50 Ml Syringe IV Q30MIN PRN Hypoglycemia Protocol Famotidine 20 mg 05/03/22 10:00 05/04/22 10:16 Famotidine 20 Mg Tab PO Not Given QDAY GENA Haloperidol Lactate 5 mg 05/03/22 13:25 05/04/22 03:08 Haloperidol Lactate 5 Mg/1 Ml Inj IV 5 mg Q6H PRN Administration Agitation Sodium Chloride 1,000 mls @ 75 mls/hr 05/02/22 00:45 05/04/22 07:11 Nacl 0.9% 1000 Ml IV 75 mls/hr DIRECT GENA Administration Ceftriaxone Sodium 1 gm in 50 mls @ 100 mls/hr 05/02/22 01:00 05/04/22 11:21 Rocephin/Ns 1 Gm/50 Ml IV Infused Q24HR GENA Infusion Protocol NORepinephrine/NS 8 MG-250 ML 8 mg in 250 mls @ 14.458 mls/hr 05/02/22 03:00 05/03/22 16:00 Norepinephrine/Ns 8 Mg-250 Ml (Double Conc) IV 0 mcg/kg/min TITRATE GENA 0 mls/hr Titration Protocol 0.1 MCG/KG/MIN Vancomycin HCl 1 gm in 250 mls @ 166.667 mls/hr 05/03/22 20:00 05/04/22 07:00 Vancomycin/Ns 1 Gm/250 Ml IV Infused Q24H GENA Infusion AMIODARONE HCL 450 mg/ 250 mls @ 16.667 mls/hr 05/03/22 17:00 05/04/22 07:52 Dextrose IV 0.5 mg/min DIRECT GENA 16.667 mls/hr Administration Protocol 0.5 MG/MIN Insulin Human Regular 0 units 05/02/22 22:00 05/04/22 07:52 Insulin Regular, Human 100 Units/1 Ml SUB-Q Not Given ACHS GENA Protocol Magnesium Hydroxide 30 ml 05/02/22 00:33 Magnesium Hydroxide (Mom) Oral Liqd Udc PO Q4H PRN Constipation Morphine Sulfate 2 mg 05/02/22 00:33 05/03/22 21:00 Morphine 2 Mg/1 Ml Inj IV 2 mg Q4H PRN Administration Pain, Moderate (4-6) Ondansetron HCl 4 mg 05/02/22 00:33 Ondansetron 4 Mg/2 Ml Inj IV Q8H PRN Nausea And Vomiting Senna/Docusate Sodium 1 tab 05/03/22 22:00 05/03/22 22:10 Sennosides/Docusate Sodium 8.6/50 Mg Tab PO Not Given QHS GENA Sodium Bicarbonate 1,300 mg 05/03/22 14:00 05/04/22 07:53 Sodium Bicarbonate 650 Mg Tab PO Not Given TID GENA Sodium Chloride 10 ml 05/02/22 10:00 05/04/22 10:24 Sodium Chloride 0.9% 10 Ml Flush Syringe IV 10 ml BID GENA Administration Sodium Chloride 10 ml 05/02/22 00:33 Sodium Chloride 0.9% 10 Ml Flush Syringe IV PRN PRN LINE FLUSH Nutrition/Malnutrition Assess - Dietary Evaluation Nutrition/Malnutrition Findings: Nutrition Notes Start: 05/02/22 10:24 Freq: Status: Active Protocol: Document 05/02/22 10:24 KIERSTEN (Rec: 05/02/22 11:05 KIERSTEN [id number]) Nutrition Notes Need for 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 Current Diet Cardiac -Renal- Diet (since B 05/02). Labs/Tests 05/01: Na 125, Cl 91.0, CO2 21 , BUN 38, Crea 2.1, Glu 131, Ca 7.9, Mg 1.6. Pertinent Medications 05/02: Nutritionally unremarkable. 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 Weight Status Appropriate Subjective/Other Information RD consult for skin risk and risk of malnutrition assessments. No reports available on Pt's PO intake of meals at the time , will assess at F/U. I will recommend Renal modification to current diet, to support Pt's ANJU condition during LOS. I will also recommend dietary supplements to support wound healinh processes during LOS. Pt is on Room Air, O2 saturation @ 99%, according to Physical Assessment History notes. Pt has caries and missing teeth, according to Physical Assessment History notes. Pt passed bedside swallow assessment on 05/02, according to Swallow Screen notes. Pt shows Decubitus Sacral Ulcer stage II, L-toe open wound, and multiple bruises and skin tears in arms and legs as signs of concern for skin risk at the time, according to Physical Assessment History notes. Pt shows no signs of concern for risk of malnutrition at the time, according to Physical Assessment History notes. Percent of energy/protein needs met: Prescribed Cardiac -Renal- Diet provides for energy/ protein needs (2,230 Kcal/85 g ) during LOS; additionally, Dietary Supplements will support wound healing processes with 320 Kcal and 32 g of protein. Burn Absent Trauma Absent GI Symptoms None Food Allergy No Skin Integrity/Comment Sacral decubitus, L-toe & bruises. 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 Etiology Uncertain. As Evidenced by Signs and Symptoms Pt shows Decubitus Sacral Ulcer stage II, L-toe open wound, and multiple bruises and skin tears in arms and legs as signs of concern for skin risk at the time, according to Physical Assessment History notes. #1 Nutrition Diagnosis Altered nutrition-related laboratory values Etiology ANJU. As Evidenced by Signs and Symptoms 05/01: Na 125, Cl 91.0, CO2 21 , BUN 38, Crea 2.1, Glu 131, Ca 7.9, Mg 1.6. Is patient on ventilator? No Is Patient Ambulatory and/or Out of Bed No REE-([facility]-confined to bed) 1617.408 Kcal/Kg value to use for calculation 26 Approximate Energy Requirements Using 1812 kcal/Kg Calculation Used for Recommendations Kcal/kg Additional Notes Protein: 0.8-1.2 g/Kg ABW; 56- 84 g/day. Fluids: 1 ml/Kcal, or as per MD. Nutrition Intervention Change Diet Order: Modify to Cardiac -Renal- Diet , continue as tolerated. Add Supplement/Snack (indicate name/kcal Start 8 fl oz Ensure High /protein ) Protein; BID. Provides kCal: 320 Provides Protein (gm) 32 Goal #1 Help reach and maintain acceptable chemistry lab values during LOS. Goal #2 Support, through dietary supplementation, wound healing processes during LOS. Goal #3 Adjust the dietary intervention to better serve Pt's energy/protein needs and clinical conditions during LOS . Follow-Up By: 05/09/22 Additional Comments Continue monitoring food tolerance, %PO intake of meals , dietary supplements, and BM. <MARIA ALEJANDRA REYNOLDS E - Last Filed: 05/05/22 07:13> Assessment and Plan Assessment and plan: I saw and evaluated the patient. I agree with the findings and the plan of care as documented in the Nurse Practitioner's~note, with the following corrections and additions. Hospitalist Physical - Constitutional Vitals: Temp Pulse Resp BP Pulse Ox 99.2 F 81 20 151/83 97 05/05/22 04:00 05/05/22 06:22 05/05/22 06:22 05/05/22 06:16 05/05/22 06:22 HEART Score - HEART Score Troponin: Troponin T 0.196 ng/mL (0.00-0.029) H* D 05/02/22 11:14 Results - Labs CBC & Chem 7: 05/05/22 04:38 05/05/22 04:38 Labs: Laboratory Last Values WBC 8.9 K/mm3 (4.5-11.0) 05/05/22 04:38 RBC 3.82 M/mm3 (3.65-5.03) 05/05/22 04:38 Hgb 10.6 gm/dl (11.8-15.2) L 05/05/22 04:38 Hct 32.3 % (35.5-45.6) L 05/05/22 04:38 MCV 85 fl (84-94) 05/05/22 04:38 MCH 28 pg (28-32) 05/05/22 04:38 MCHC 33 % (32-34) 05/05/22 04:38 RDW 19.3 % (13.2-15.2) H 05/05/22 04:38 Plt Count 160 K/mm3 (140-440) 05/05/22 04:38 Lymph % (Auto) 3.9 % (13.4-35.0) L 05/03/22 05:00 [place] % (Auto) 9.4 % (0.0-7.3) H 05/03/22 05:00 Eos % (Auto) 1.0 % (0.0-4.3) 05/03/22 05:00 Baso % (Auto) 0.1 % (0.0-1.8) 05/03/22 05:00 Lymph # (Auto) 0.5 K/mm3 (1.2-5.4) L 05/03/22 05:00 [place] # (Auto) 1.3 K/mm3 (0.0-0.8) H 05/03/22 05:00 Eos # (Auto) 0.1 K/mm3 (0.0-0.4) 05/03/22 05:00 Baso # (Auto) 0.0 K/mm3 (0.0-0.1) 05/03/22 05:00 Seg Neutrophils % 85.6 % (40.0-70.0) H 05/03/22 05:00 Seg Neutrophils # 11.4 K/mm3 (1.8-7.7) H 05/03/22 05:00 PT 19.1 Sec. (12.2-14.9) H 05/01/22 23:14 INR 1.42 (0.87-1.13) H 05/01/22 23:14 APTT 39.9 Sec. (24.2-36.6) H 05/01/22 23:14 D-Dimer 1135.33 ng/mlDDU (0-234) H 05/02/22 11:14 Sodium 142 mmol/L (137-145) 05/05/22 04:38 Potassium 3.2 mmol/L (3.6-5.0) L 05/05/22 04:38 Chloride 112.3 mmol/L (98-107) H 05/05/22 04:38 Carbon Dioxide 19 mmol/L (22-30) L 05/05/22 04:38 Anion Gap 14 mmol/L 05/05/22 04:38 BUN 27 mg/dL (9-20) H 05/05/22 04:38 Creatinine 1.6 mg/dL (0.8-1.3) H 05/05/22 04:38 Estimated GFR 41 ml/min 05/05/22 04:38 BUN/Creatinine Ratio 17 % 05/05/22 04:38 Glucose 168 mg/dL (75-100) H 05/05/22 04:38 POC Glucose 138 mg/dL (70-105) H 05/04/22 22:40 Lactic Acid 1.90 mmol/L (0.7-2.0) 05/02/22 11:14 Calcium 7.6 mg/dL (8.4-10.2) L 05/05/22 04:38 Phosphorus 2.30 mg/dL (2.5-4.5) L 05/05/22 04:38 Magnesium 2.00 mg/dL (1.7-2.3) 05/05/22 04:38 Ferritin 544.4 ng/mL (30.0-300.0) H 05/02/22 11:14 Total Bilirubin 0.40 mg/dL (0.1-1.2) 05/05/22 04:38 AST 44 units/L (5-40) H 05/05/22 04:38 ALT 34 units/L (7-56) 05/05/22 04:38 Alkaline Phosphatase 82 units/L (35-129) 05/05/22 04:38 Lactate Dehydrogenase 172 units/L (91-180) 05/02/22 11:14 Total Creatine Kinase 816 units/L (55-170) H 05/02/22 20:20 Troponin T 0.196 ng/mL (0.00-0.029) H* D 05/02/22 11:14 C-Reactive Protein 29.00 mg/dL (0.00-1.30) H 05/02/22 11:14 NT-Pro-B Natriuret Pep 92200 pg/mL (0-900) H 05/01/22 23:14 Total Protein 4.5 g/dL (6.3-8.2) L 05/05/22 04:38 Albumin 2.5 g/dL (3.9-5) L 05/05/22 04:38 Albumin/Globulin Ratio 1.3 % 05/05/22 04:38 Triglycerides 64 mg/dL (2-149) 05/01/22 23:14 Cholesterol 77 mg/dL (50-199) 05/01/22 23:14 LDL Cholesterol Direct 25 mg/dL (50-130) L 05/01/22 23:14 HDL Cholesterol 46 mg/dL (40-59) 05/01/22 23:14 Cholesterol/HDL Ratio 1.67 % 05/01/22 23:14 Procalcitonin 16.30 ng/mL (<0.15) 05/02/22 11:14 Urine Color Yellow (Yellow) 05/01/22 23:54 Urine Turbidity Hazy (Clear) 05/01/22 23:54 Specific [place] (Man) 1.015 (1.003-1.030) 05/01/22 23:54 Ur Protein (Man) 1+ mg/dL (Negative) 05/01/22 23:54 Ur Ketones (Man) Negative (Negative) 05/01/22 23:54 Ur Nitrite (Man) Negative (Negative) 05/01/22 23:54 Urine Bilirubin (Man) Negative (Negative) 05/01/22 23:54 Leukocyte Esterase (Man) Moderate (Negative) 05/01/22 23:54 Urine WBC (Auto) > 182.0 /HPF (0.0-6.0) H 05/01/22 23:54 Urine RBC (Auto) 33.0 /HPF (0.0-6.0) 05/01/22 23:54 Urine Bacteria (Auto) 2+ /HPF (Negative) 05/01/22 23:54 Urine RBC (Manual) 3+ (Negative) 05/01/22 23:54 Urine WBC Clumps 3+ /HPF 05/01/22 23:54 Urine Mucus Few /HPF 05/01/22 23:54 Urine Yeast (Budding) 2+ /HPF 05/01/22 23:54 Coronavirus (PCR) Positive (Negative) A 05/02/22 Unknown Hep Bs Antigen Non-reactive (Negative) 05/02/22 20:20 Hepatitis C Antibody Non-reactive (NonReactive) 05/02/22 20:20 Influenza A (RT-PCR) Negative (Negative) 05/02/22 15:40 Influenza B (RT-PCR) Negative (Negative) 05/02/22 15:40 Microbiology: Microbiology 05/02/22 00:38 Peripheral/Venous Blood Culture - Final Escherichia Coli 05/02/22 00:44 Peripheral/Venous Blood Culture - Final Escherichia Coli 05/02/22 Unknown Urine,Clean Catch Urine Culture - Final Escherichia Coli 05/04/22 09:20 Peripheral/Venous Blood Culture - Preliminary Culture in Progress 05/04/22 09:20 Peripheral/Venous Blood Culture - Preliminary Culture in Progress Dumont/IV: Voiding Method Indwelling Catheter Active Medications - Current Medications Current Medications: Generic Name Dose Route Start Last Admin Trade Name Freq PRN Reason Stop Dose Admin Acetaminophen 650 mg 05/02/22 00:33 Acetaminophen 325 Mg Tab PO Q4H PRN Pain MILD(1-3)/Fever >100.5/ALLEN Atorvastatin Calcium 40 mg 05/02/22 22:00 05/04/22 20:59 Atorvastatin 40 Mg Tab PO Not Given QHS GENA Dextrose 50 ml 05/02/22 18:49 Dextrose 50% In Water (25gm) 50 Ml Syringe IV Q30MIN PRN Hypoglycemia Protocol Famotidine 20 mg 05/03/22 10:00 05/04/22 10:16 Famotidine 20 Mg Tab PO Not Given QDAY GENA Haloperidol Lactate 5 mg 05/03/22 13:25 05/05/22 00:30 Haloperidol Lactate 5 Mg/1 Ml Inj IV 5 mg Q6H PRN Administration Agitation Ceftriaxone Sodium 1 gm in 50 mls @ 100 mls/hr 05/02/22 01:00 05/04/22 11:21 Rocephin/Ns 1 Gm/50 Ml IV Infused Q24HR GENA Infusion Protocol AMIODARONE HCL 450 mg/ 250 mls @ 16.667 mls/hr 05/03/22 17:00 05/04/22 23:52 Dextrose IV 0.5 mg/min DIRECT GENA 16.667 mls/hr Administration Protocol 0.5 MG/MIN Dextrose/Sodium Chloride 1,000 mls @ 75 mls/hr 05/04/22 12:00 05/04/22 23:53 D5ns IV 75 mls/hr DIRECT GENA Administration Insulin Human Regular 0 units 05/02/22 22:00 05/04/22 22:58 Insulin Regular, Human 100 Units/1 Ml SUB-Q Not Given ACHS GENA Protocol Magnesium Hydroxide 30 ml 05/02/22 00:33 Magnesium Hydroxide (Mom) Oral Liqd Udc PO Q4H PRN Constipation Morphine Sulfate 2 mg 05/02/22 00:33 05/05/22 01:41 Morphine 2 Mg/1 Ml Inj IV 2 mg Q4H PRN Administration Pain, Moderate (4-6) Ondansetron HCl 4 mg 05/02/22 00:33 Ondansetron 4 Mg/2 Ml Inj IV Q8H PRN Nausea And Vomiting Senna/Docusate Sodium 1 tab 05/03/22 22:00 05/04/22 20:59 Sennosides/Docusate Sodium 8.6/50 Mg Tab PO Not Given QHS [facility] Sodium Bicarbonate 1,300 mg 05/03/22 14:00 05/04/22 20:26 Sodium Bicarbonate 650 Mg Tab PO Not Given TID GENA Sodium Chloride 10 ml 05/02/22 10:00 05/04/22 20:59 Sodium Chloride 0.9% 10 Ml Flush Syringe IV 10 ml BID GENA Administration Sodium Chloride 10 ml 05/02/22 00:33 Sodium Chloride 0.9% 10 Ml Flush Syringe IV PRN PRN LINE FLUSH Nutrition/Malnutrition Assess - Dietary Evaluation Nutrition/Malnutrition Findings: Nutrition Notes Start: 05/02/22 10:24 Freq: Status: Active Protocol: Document 05/02/22 10:24 KIERSTEN (Rec: 05/02/22 11:05 KIERSTEN [id number]) Nutrition Notes Need for 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 Current Diet Cardiac -Renal- Diet (since B 05/02). Labs/Tests 05/01: Na 125, Cl 91.0, CO2 21 , BUN 38, Crea 2.1, Glu 131, Ca 7.9, Mg 1.6. Pertinent Medications 05/02: Nutritionally unremarkable. 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 Weight Status Appropriate Subjective/Other Information RD consult for skin risk and risk of malnutrition assessments. No reports available on Pt's PO intake of meals at the time , will assess at F/U. I will recommend Renal modification to current diet, to support Pt's ANJU condition during LOS. I will also recommend dietary supplements to support wound healinh processes during LOS. Pt is on Room Air, O2 saturation @ 99%, according to Physical Assessment History notes. Pt has caries and missing teeth, according to Physical Assessment History notes. Pt passed bedside swallow assessment on 05/02, according to Swallow Screen notes. Pt shows Decubitus Sacral Ulcer stage II, L-toe open wound, and multiple bruises and skin tears in arms and legs as signs of concern for skin risk at the time, according to Physical Assessment History notes. Pt shows no signs of concern for risk of malnutrition at the time, according to Physical Assessment History notes. Percent of energy/protein needs met: Prescribed Cardiac -Renal- Diet provides for energy/ protein needs (2,230 Kcal/85 g ) during LOS; additionally, Dietary Supplements will support wound healing processes with 320 Kcal and 32 g of protein. Burn Absent Trauma Absent GI Symptoms None Food Allergy No Skin Integrity/Comment Sacral decubitus, L-toe & bruises. 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 Etiology Uncertain. As Evidenced by Signs and Symptoms Pt shows Decubitus Sacral Ulcer stage II, L-toe open wound, and multiple bruises and skin tears in arms and legs as signs of concern for skin risk at the time, according to Physical Assessment History notes. #1 Nutrition Diagnosis Altered nutrition-related laboratory values Etiology ANJU. As Evidenced by Signs and Symptoms 05/01: Na 125, Cl 91.0, CO2 21 , BUN 38, Crea 2.1, Glu 131, Ca 7.9, Mg 1.6. Is patient on ventilator? No Is Patient Ambulatory and/or Out of Bed No REE-([facility]-confined to bed) 1617.408 Kcal/Kg value to use for calculation 26 Approximate Energy Requirements Using 1812 kcal/Kg Calculation Used for Recommendations Kcal/kg Additional Notes Protein: 0.8-1.2 g/Kg ABW; 56- 84 g/day. Fluids: 1 ml/Kcal, or as per MD. Nutrition Intervention Change Diet Order: Modify to Cardiac -Renal- Diet , continue as tolerated. Add Supplement/Snack (indicate name/kcal Start 8 fl oz Ensure High /protein ) Protein; BID. Provides kCal: 320 Provides Protein (gm) 32 Goal #1 Help reach and maintain acceptable chemistry lab values during LOS. Goal #2 Support, through dietary supplementation, wound healing processes during LOS. Goal #3 Adjust the dietary intervention to better serve Pt's energy/protein needs and clinical conditions during LOS . Follow-Up By: 05/09/22 Additional Comments Continue monitoring food tolerance, %PO intake of meals , dietary supplements, and BM.
[2022-05-04] MEDS ORDERED: D5W/0.9% NACL 1,000 ML IV SCH (12:00)
--- NOTE | 2022-05-04 12:56 | Progress Note ---
Assessment and Plan 86-year-old white male with known history of hypertension, CVA, dementia,Arthritis, hyperlipidemia and also a recent history of COVID infection about 2 to 3 weeks ago brought into the emergency room by the family for evaluation of changes in mental status with started about 2 hours prior to reporting to the emergency room. Patient is said to have been declining since his recent COVID infection. He has been increasingly getting weaker, having unsteady gait and appearing confused. Upon arrival in the emergency room, a code stroke was called and patient was promptly evaluated by the neurologist. CT head and neck and CT of the head did not reveal any acute abnormalities. Patient has history of Cholecystectomy and Open heart surgery. Most of the history was obtained from and daughter. Patient unable to give any coherent history. Patients smoking, alcohol or drug history not known at this time. Further work-up reveals UTI and multiple electrolyte imbalance with acute kidney injury. Patient being admitted for multiple medical problems including UTI, electrolyte imbalance, dehydration. Will also be ruled out for possible CVA. Urine wbc greater than 182. Patient awake, weak.. Patient is on room air. O2 saturation running 99%. No acute respiratory distress. No complaint of chest pain, shortness of breath or cough. Patient afebrile. No leukocytosis. Blood pressure 133/88, Pulse 105, Respirations 20. Urine wbc greater than 182. Patients Coronana virus PCR Positive Chest xray done 05/02/22 reported Bilateral pulmonary opacities with increased pulmonary vascularity . No pneumothorax, Patient is on ceftriaxone, Vancomycin, famotidine. I spent critical care time of 35 minutes, review the chart, examine the patient, review chest xray, lab results,talking to the nursing staff, respiratory therapy and work up plan of treatment in this critically ill patient. - Patient Problems (1) AMS (altered mental status) Current Visit: No Status: Acute Plan to address problem: Could be related to his infection or dementia. Management as per primary care. (2) CVA (cerebral vascular accident) Current Visit: No Status: Acute Qualifiers: Laterality of affected vessel: unspecified Plan to address problem: Management as per primary care and neurology. (3) Dementia Current Visit: No Status: Acute Plan to address problem: Management as per primary care. (4) HLD (hyperlipidemia) Current Visit: No Status: Acute Qualifiers: Hyperlipidemia type: mixed hyperlipidemia Qualified Code(s): E78.2 - Mixed hyperlipidemia Plan to address problem: Management as per primary care. (5) HTN (hypertension) Current Visit: No Status: Acute Qualifiers: Hypertension type: essential hypertension Plan to address problem: Management as per primary care. (6) UTI (urinary tract infection) Current Visit: Yes Status: Acute Plan to address problem: Patient is on Rocephin and vancomycin. (7) Coronavirus infection Current Visit: Yes Status: Acute Plan to address problem: Management as per infectious disease specialists. Gann virus precautions. (8) Opacities of both lungs present on chest x-ray Current Visit: Yes Status: Acute Plan to address problem: Patient is on rocephin and vancomycin. Subjective Date of service: 05/04/22 Principal diagnosis: Encephalopathy Interval history: 86-year-old white male with known history of hypertension, CVA, dementia,Arthritis, hyperlipidemia and also a recent history of COVID infection about 2 to 3 weeks ago brought into the emergency room by the family for evaluation of changes in mental status with started about 2 hours prior to reporting to the emergency room. Patient is said to have been declining since his recent COVID infection. He has been increasingly getting weaker, having unsteady gait and appearing confused. Upon arrival in the emergency room, a code stroke was called and patient was promptly evaluated by the neurologist. CT head and neck and CT of the head did not reveal any acute abnormalities. Patient has history of Cholecystectomy and Open heart surgery. Most of the history was obtained from and daughter. Patient unable to give any coherent history. Patients smoking, alcohol or drug history not known at this time. Further work-up reveals UTI and multiple electrolyte imbalance with acute kidney injury. Patient being admitted for multiple medical problems including UTI, electrolyte imbalance, dehydration. Will also be ruled out for possible CVA. Patient awake, weak.. Patient is on room air. O2 saturation running 99%. No acute respiratory distress. No complaint of chest pain, shortness of breath or cough. Patient afebrile. No leukocytosis. Blood pressure 133/88, Pulse 105, Respirations 20. Urine wbc greater than 182. Patients Coronana virus PCR Positive Chest xray done 05/02/22 reported Bilateral pulmonary opacities with increased pulmonary vascularity . No pneumothorax, Patient is on ceftriaxone, Vancomycin, famotidine. Objective Vital Signs - 12hr 05/04/22 05/04/22 05/04/22 01:00 01:15 01:30 Temperature Pulse Rate 128 H 96 H Pulse Rate [ From Monitor] Respiratory 23 Rate Blood Pressure 127/76 132/74 127/70 O2 Sat by Pulse 97 96 97 Oximetry 05/04/22 05/04/22 05/04/22 01:45 02:00 02:15 Temperature Pulse Rate 94 H 101 H 100 H Pulse Rate [ From Monitor] Respiratory 22 17 15 Rate Blood Pressure 137/72 144/64 132/72 O2 Sat by Pulse 98 98 98 Oximetry 05/04/22 05/04/22 05/04/22 02:30 02:46 03:00 Temperature Pulse Rate 105 H 148 H 102 H Pulse Rate [ From Monitor] Respiratory 22 30 H Rate Blood Pressure 123/69 124/85 144/81 O2 Sat by Pulse 98 95 Oximetry 05/04/22 05/04/22 05/04/22 03:15 03:30 03:46 Temperature Pulse Rate 102 H 116 H 108 H Pulse Rate [ From Monitor] Respiratory 34 H 20 21 Rate Blood Pressure 139/86 126/84 123/93 O2 Sat by Pulse 95 92 96 Oximetry 05/04/22 05/04/22 05/04/22 04:00 04:15 04:30 Temperature 98.9 F Pulse Rate 108 H 105 H 105 H Pulse Rate [ 108 H From Monitor] Respiratory 18 20 23 Rate Blood Pressure 126/93 110/67 111/63 O2 Sat by Pulse 93 93 94 Oximetry 05/04/22 05/04/22 05/04/22 04:45 05:00 05:16 Temperature Pulse Rate 96 H 99 H 97 H Pulse Rate [ From Monitor] Respiratory 21 22 19 Rate Blood Pressure 112/55 114/65 127/61 O2 Sat by Pulse 94 94 94 Oximetry 05/04/22 05/04/22 05/04/22 05:30 05:45 06:00 Temperature Pulse Rate 101 H 104 H 94 H Pulse Rate [ From Monitor] Respiratory 19 19 19 Rate Blood Pressure 111/62 108/68 114/61 O2 Sat by Pulse 96 96 97 Oximetry 05/04/22 05/04/22 05/04/22 06:15 06:30 06:46 Temperature Pulse Rate 103 H 99 H 101 H Pulse Rate [ From Monitor] Respiratory 20 20 26 H Rate Blood Pressure 125/76 133/66 132/75 O2 Sat by Pulse 98 97 97 Oximetry 05/04/22 05/04/22 05/04/22 07:00 07:15 07:16 Temperature 98.6 F Pulse Rate 94 H 92 H Pulse Rate [ From Monitor] Respiratory 18 20 Rate Blood Pressure 145/76 141/72 O2 Sat by Pulse 98 98 Oximetry 05/04/22 05/04/22 05/04/22 07:30 07:45 08:00 Temperature Pulse Rate 106 H 103 H 93 H Pulse Rate [ 100 H From Monitor] Respiratory 18 13 22 Rate Blood Pressure 145/76 132/81 140/72 O2 Sat by Pulse 100 98 98 Oximetry 05/04/22 05/04/22 05/04/22 08:05 08:15 08:30 Temperature Pulse Rate 97 H 100 H Pulse Rate [ From Monitor] Respiratory 21 22 Rate Blood Pressure 131/72 144/78 O2 Sat by Pulse 100 100 99 Oximetry 05/04/22 05/04/22 05/04/22 08:45 09:00 09:16 Temperature Pulse Rate 103 H 101 H 107 H Pulse Rate [ From Monitor] Respiratory 22 20 24 Rate Blood Pressure 145/69 134/85 134/85 O2 Sat by Pulse 100 99 96 Oximetry 05/04/22 05/04/22 05/04/22 09:30 09:46 10:00 Temperature Pulse Rate 94 H 96 H 102 H Pulse Rate [ From Monitor] Respiratory 18 17 24 Rate Blood Pressure 131/73 131/73 140/86 O2 Sat by Pulse 100 96 97 Oximetry 05/04/22 05/04/22 05/04/22 10:16 10:30 10:46 Temperature Pulse Rate 92 H 96 H 89 Pulse Rate [ From Monitor] Respiratory 21 26 H 21 Rate Blood Pressure 140/86 140/86 156/70 O2 Sat by Pulse 98 96 99 Oximetry 05/04/22 05/04/22 05/04/22 11:00 11:16 11:30 Temperature Pulse Rate 99 H 100 H 103 H Pulse Rate [ From Monitor] Respiratory 19 22 22 Rate Blood Pressure 156/70 156/70 140/78 O2 Sat by Pulse 98 99 98 Oximetry 05/04/22 05/04/22 05/04/22 11:40 11:46 12:00 Temperature 98.0 F Pulse Rate 94 H 103 H Pulse Rate [ 96 H From Monitor] Respiratory 26 H 20 Rate Blood Pressure 140/78 140/78 O2 Sat by Pulse 98 98 Oximetry 05/04/22 05/04/22 12:16 12:30 Temperature Pulse Rate 100 H 90 Pulse Rate [ From Monitor] Respiratory 18 24 Rate Blood Pressure 147/62 147/62 O2 Sat by Pulse 98 95 Oximetry Constitutional: no acute distress, alert, other (Weak) Eyes: non-icteric ENT: oropharynx dry Neck: supple, no lymphadenopathy Effort: mildly labored Ascultation: Bilateral: rhonchi Cardiovascular: regular rate and rhythm Gastrointestinal: normoactive bowel sounds, soft, non-tender Integumentary: normal Extremities: no cyanosis, no edema Neurologic: non-focal exam, pupils equal and round Psychiatric: mood appropriate CBC and BMP: 05/05/22 04:38 05/05/22 04:38 ABG, PT/INR, D-dimer: PT/INR, D-dimer PT 19.1 Sec. (12.2-14.9) H 05/01/22 23:14 INR 1.42 (0.87-1.13) H 05/01/22 23:14 D-Dimer 1135.33 ng/mlDDU (0-234) H 05/02/22 11:14 Abnormal lab findings: Abnormal Labs 05/01/22 05/01/22 05/01/22 23:14 23:14 23:14 WBC RBC Hgb 10.8 L Hct 30.9 L MCHC 35 H RDW 18.0 H Plt Count 113 L Lymph % (Auto) [place] % (Auto) Lymph # (Auto) [place] # (Auto) Seg Neutrophils % Seg Neutrophils # PT 19.1 H INR 1.42 H APTT 39.9 H D-Dimer Sodium 125 L Potassium Chloride 91.0 L Carbon Dioxide 21 L BUN 38 H Creatinine 2.1 H Glucose 131 H POC Glucose Lactic Acid Calcium 7.9 L Magnesium 1.60 L Ferritin Total Creatine Kinase Troponin T C-Reactive Protein NT-Pro-B Natriuret Pep Total Protein 4.8 L Albumin 3.3 L LDL Cholesterol Direct Urine WBC (Auto) Coronavirus (PCR) 05/01/22 05/01/22 05/02/22 23:14 23:54 03:39 WBC RBC Hgb Hct MCHC RDW Plt Count Lymph % (Auto) [place] % (Auto) Lymph # (Auto) [place] # (Auto) Seg Neutrophils % Seg Neutrophils # PT INR APTT D-Dimer Sodium Potassium Chloride Carbon Dioxide BUN Creatinine Glucose POC Glucose Lactic Acid 2.30 H* Calcium Magnesium Ferritin Total Creatine Kinase Troponin T 0.054 H C-Reactive Protein NT-Pro-B Natriuret Pep 56279 H Total Protein Albumin LDL Cholesterol Direct 25 L Urine WBC (Auto) > 182.0 H Coronavirus (PCR) 05/02/22 05/02/22 05/02/22 06:05 11:14 11:14 WBC RBC Hgb Hct MCHC RDW Plt Count Lymph % (Auto) [place] % (Auto) Lymph # (Auto) [place] # (Auto) Seg Neutrophils % Seg Neutrophils # PT INR APTT D-Dimer 1135.33 H Sodium 132 L D Potassium Chloride Carbon Dioxide 15 L BUN 41 H Creatinine 2.1 H Glucose 127 H POC Glucose 139 H Lactic Acid Calcium 7.6 L Magnesium Ferritin Total Creatine Kinase Troponin T 0.196 H* D C-Reactive Protein 29.00 H NT-Pro-B Natriuret Pep Total Protein Albumin LDL Cholesterol Direct Urine WBC (Auto) Coronavirus (PCR) 05/02/22 05/02/22 05/02/22 11:14 11:14 17:10 WBC RBC Hgb Hct MCHC RDW Plt Count Lymph % (Auto) [place] % (Auto) Lymph # (Auto) [place] # (Auto) Seg Neutrophils % Seg Neutrophils # PT INR APTT D-Dimer Sodium 130 L Potassium Chloride 96.0 L Carbon Dioxide 17 L BUN 42 H Creatinine 2.3 H Glucose 141 H POC Glucose 150 H Lactic Acid Calcium 7.7 L Magnesium Ferritin 544.4 H Total Creatine Kinase Troponin T C-Reactive Protein NT-Pro-B Natriuret Pep Total Protein Albumin LDL Cholesterol Direct Urine WBC (Auto) Coronavirus (PCR) 05/02/22 05/02/22 05/02/22 20:20 20:20 22:06 WBC RBC Hgb Hct MCHC RDW Plt Count Lymph % (Auto) [place] % (Auto) Lymph # (Auto) [place] # (Auto) Seg Neutrophils % Seg Neutrophils # PT INR APTT D-Dimer Sodium 133 L Potassium Chloride Carbon Dioxide BUN Creatinine Glucose POC Glucose 146 H Lactic Acid Calcium Magnesium Ferritin Total Creatine Kinase 816 H Troponin T C-Reactive Protein NT-Pro-B Natriuret Pep Total Protein Albumin LDL Cholesterol Direct Urine WBC (Auto) Coronavirus (PCR) 05/02/22 05/03/22 05/03/22 Unknown 05:00 06:48 WBC 13.3 H RBC 3.62 L Hgb 10.1 L Hct 30.8 L MCHC RDW 19.1 H Plt Count Lymph % (Auto) 3.9 L [place] % (Auto) 9.4 H Lymph # (Auto) 0.5 L [place] # (Auto) 1.3 H Seg Neutrophils % 85.6 H Seg Neutrophils # 11.4 H PT INR APTT D-Dimer Sodium 135 L Potassium Chloride Carbon Dioxide 16 L BUN 38 H Creatinine 2.0 H Glucose 122 H POC Glucose Lactic Acid Calcium 7.6 L Magnesium Ferritin Total Creatine Kinase Troponin T C-Reactive Protein NT-Pro-B Natriuret Pep Total Protein Albumin LDL Cholesterol Direct Urine WBC (Auto) Coronavirus (PCR) Positive A 05/03/22 05/03/22 05/03/22 08:48 11:07 16:29 WBC RBC Hgb Hct MCHC RDW Plt Count Lymph % (Auto) [place] % (Auto) Lymph # (Auto) [place] # (Auto) Seg Neutrophils % Seg Neutrophils # PT INR APTT D-Dimer Sodium Potassium Chloride Carbon Dioxide BUN Creatinine Glucose POC Glucose 127 H 116 H 113 H Lactic Acid Calcium Magnesium Ferritin Total Creatine Kinase Troponin T C-Reactive Protein NT-Pro-B Natriuret Pep Total Protein Albumin LDL Cholesterol Direct Urine WBC (Auto) Coronavirus (PCR) 05/03/22 05/04/22 05/04/22 22:29 05:00 05:00 WBC RBC 3.39 L Hgb 9.6 L Hct 28.8 L MCHC RDW 18.8 H Plt Count Lymph % (Auto) [place] % (Auto) Lymph # (Auto) [place] # (Auto) Seg Neutrophils % Seg Neutrophils # PT INR APTT D-Dimer Sodium Potassium 3.3 L D Chloride 108.7 H Carbon Dioxide 17 L BUN 37 H Creatinine 1.8 H Glucose 117 H POC Glucose 113 H Lactic Acid Calcium 7.4 L Magnesium Ferritin Total Creatine Kinase Troponin T C-Reactive Protein NT-Pro-B Natriuret Pep Total Protein Albumin LDL Cholesterol Direct Urine WBC (Auto) Coronavirus (PCR) 05/04/22 07:40 WBC RBC Hgb Hct MCHC RDW Plt Count Lymph % (Auto) [place] % (Auto) Lymph # (Auto) [place] # (Auto) Seg Neutrophils % Seg Neutrophils # PT INR APTT D-Dimer Sodium Potassium Chloride Carbon Dioxide BUN Creatinine Glucose POC Glucose 107 H Lactic Acid Calcium Magnesium Ferritin Total Creatine Kinase Troponin T C-Reactive Protein NT-Pro-B Natriuret Pep Total Protein Albumin LDL Cholesterol Direct Urine WBC (Auto) Coronavirus (PCR)
--- NOTE | 2022-05-04 13:49 | Progress Note ---
Assessment and Plan - Patient Problems (1) Coronavirus infection Current Visit: Yes Status: Acute (2) Opacities of both lungs present on chest x-ray Current Visit: Yes Status: Acute (3) UTI (urinary tract infection) Current Visit: Yes Status: Acute (4) Dementia Current Visit: No Status: Acute Subjective Date of service: 05/04/22 Principal diagnosis: Encephalopathy Interval history: NO C/O Objective Vital Signs Temp Pulse Pulse Resp BP Pulse Ox 05/04/22 13:00 94 H 26 H 133/87 92 05/04/22 12:45 94 H 21 147/62 96 05/04/22 12:30 90 24 147/62 95 05/04/22 12:16 100 H 18 147/62 98 05/04/22 12:00 103 H 96 H 20 140/78 98 05/04/22 11:46 94 H 26 H 140/78 98 05/04/22 11:40 98.0 F 05/04/22 11:30 103 H 22 140/78 98 05/04/22 11:16 100 H 22 156/70 99 05/04/22 11:00 99 H 19 156/70 98 05/04/22 10:46 89 21 156/70 99 05/04/22 10:30 96 H 26 H 140/86 96 05/04/22 10:16 92 H 21 140/86 98 05/04/22 10:00 102 H 24 140/86 97 05/04/22 09:46 96 H 17 131/73 96 05/04/22 09:30 94 H 18 131/73 100 05/04/22 09:16 107 H 24 134/85 96 05/04/22 09:00 101 H 20 134/85 99 05/04/22 08:45 103 H 22 145/69 100 05/04/22 08:30 100 H 22 144/78 99 05/04/22 08:15 97 H 21 131/72 100 05/04/22 08:05 100 05/04/22 08:00 93 H 100 H 22 140/72 98 05/04/22 07:45 103 H 13 132/81 98 05/04/22 07:30 106 H 18 145/76 100 05/04/22 07:16 98.6 F 05/04/22 07:15 92 H 20 141/72 98 05/04/22 07:00 94 H 18 145/76 98 05/04/22 06:46 101 H 26 H 132/75 97 05/04/22 06:30 99 H 20 133/66 97 05/04/22 06:15 103 H 20 125/76 98 05/04/22 06:00 94 H 19 114/61 97 05/04/22 05:45 104 H 19 108/68 96 05/04/22 05:30 101 H 19 111/62 96 05/04/22 05:16 97 H 19 127/61 94 05/04/22 05:00 99 H 22 114/65 94 05/04/22 04:45 96 H 21 112/55 94 05/04/22 04:30 105 H 23 111/63 94 05/04/22 04:15 105 H 20 110/67 93 05/04/22 04:00 98.9 F 108 H 108 H 18 126/93 93 05/04/22 03:46 108 H 21 123/93 96 05/04/22 03:30 116 H 20 126/84 92 05/04/22 03:15 102 H 34 H 139/86 95 05/04/22 03:00 102 H 30 H 144/81 05/04/22 02:46 148 H 124/85 95 05/04/22 02:30 105 H 22 123/69 98 05/04/22 02:15 100 H 15 132/72 98 05/04/22 02:00 101 H 17 144/64 98 05/04/22 01:45 94 H 22 137/72 98 05/04/22 01:30 96 H 23 127/70 97 05/04/22 01:15 128 H 132/74 96 05/04/22 01:00 127/76 97 05/04/22 00:46 107 H 20 118/80 97 05/04/22 00:30 97 H 21 111/75 97 05/04/22 00:15 100 H 12 114/68 97 05/04/22 00:07 100 H 18 111/70 97 05/04/22 00:00 97 H 97 H 24 111/70 97 05/03/22 23:47 99.7 F H 05/03/22 23:45 105 H 24 124/58 96 05/03/22 23:30 102 H 15 127/61 97 05/03/22 23:15 107 H 22 133/63 96 05/03/22 23:00 103 H 14 120/69 96 05/03/22 22:45 112 H 18 120/61 94 05/03/22 22:30 97 H 28 H 119/71 95 05/03/22 22:15 104 H 16 116/68 94 05/03/22 22:00 97 H 22 103/55 93 05/03/22 21:45 97 H 21 120/67 93 05/03/22 21:30 110 H 22 123/64 93 05/03/22 21:15 102 H 25 H 125/62 94 05/03/22 21:01 120 H 21 119/52 95 05/03/22 20:45 109 H 29 H 126/63 94 05/03/22 20:38 94 05/03/22 20:31 111 H 21 101/73 95 05/03/22 20:15 105 H 23 105/72 94 05/03/22 20:01 118 H 26 H 105/72 96 05/03/22 20:00 97 H 118 H 26 H 96 05/03/22 19:45 105 H 28 H 98/71 96 05/03/22 19:30 103 H 20 98/71 98 05/03/22 19:15 96 H 25 H 113/66 98 05/03/22 19:01 102 H 26 H 113/59 97 05/03/22 18:45 107 H 26 H 124/54 97 05/03/22 18:30 109 H 23 147/110 98 05/03/22 18:15 110 H 13 114/61 98 05/03/22 18:01 107 H 29 H 113/63 99 05/03/22 17:45 104 H 23 114/61 100 05/03/22 17:30 107 H 19 114/61 100 05/03/22 17:15 99 H 22 114/47 99 05/03/22 17:00 96 H 25 H 109/62 98 05/03/22 16:45 91 H 24 102/55 100 05/03/22 16:30 93 H 24 97/58 99 05/03/22 16:15 103 H 17 103/64 99 05/03/22 16:00 98.5 F 102 H 89 16 101/59 98 05/03/22 15:45 99 H 20 105/60 97 05/03/22 15:30 95 H 18 101/51 97 05/03/22 15:15 92 H 22 103/57 97 05/03/22 15:00 94 H 23 96/57 97 05/03/22 14:45 91 H 17 102/56 97 05/03/22 14:30 88 27 H 115/53 98 05/03/22 14:15 94 H 28 H 106/59 97 05/03/22 14:00 105 H 36 H 108/60 98 - Physical Examination General: No Apparent Distress Neck: Positive: JVD/HJR Cardiac: Positive: Irregularly Regular, Systolic Murmur Lungs: Positive: Rales Abdomen: Positive: Unremarkable, Soft Extremities: Present: edema (NO ) - Labs and Meds CBC 05/04/22 Range/Units 05:00 WBC 10.2 (4.5-11.0) K/mm3 RBC 3.39 L (3.65-5.03) M/mm3 Hgb 9.6 L (11.8-15.2) gm/dl Hct 28.8 L (35.5-45.6) % Plt Count 150 (140-440) K/mm3 Comprehensive Metabolic Panel 05/03/22 05/04/22 05/04/22 Range/Units 17:40 05:00 05:00 Sodium 137 138 138 (137-145) mmol/L Potassium 3.3 L D (3.6-5.0) mmol/L Chloride 108.7 H (98-107) mmol/L Carbon Dioxide 17 L (22-30) mmol/L BUN 37 H (9-20) mg/dL Creatinine 1.8 H (0.8-1.3) mg/dL Glucose 117 H (75-100) mg/dL Calcium 7.4 L (8.4-10.2) mg/dL 05/04/22 Range/Units Unknown Sodium 138 (137-145) mmol/L Potassium (3.6-5.0) mmol/L Chloride (98-107) mmol/L Carbon Dioxide (22-30) mmol/L BUN (9-20) mg/dL Creatinine (0.8-1.3) mg/dL Glucose (75-100) mg/dL Calcium (8.4-10.2) mg/dL
--- NOTE | 2022-05-04 18:30 | Progress Note ---
Assessment and Plan Acute kidney injury Hyponatremia Acute encephalopathy Shock Acidosis COVID-positive Follow-up renal ultrasound - pending Follow serologies - pending Check urine culture Status post IVF with appropriate rise of sodium. Monitor sodium level Continue sodium bicarb tabs Status post potassium repletion, recheck level Keep MAP more than 65 renally dose medications Avoid nephrotoxins Renal diet Neurology note reviewed Subjective Date of service: 05/04/22 Principal diagnosis: Encephalopathy Interval history: Seen in ICU Vitals, labs and I/os reviewed Interdisciplinary notes and consults reviewed Objective - Exam Narrative Exam: Constitutional: no acute distress Head: NC/AT Neck: supple Lungs: clear to auscultation CV: RRR, no M/R/G Abdomen: soft, non-tender, bowel sounds present Back: nontender Extremities: no edema, pulses WNL Skin: intact Neuro: Somnolent. Altered. - Vital Signs Vital signs: Vital Signs - 12hr 05/04/22 05/04/22 05/04/22 06:30 06:46 07:00 Temperature Pulse Rate 99 H 101 H 94 H Pulse Rate [ From Monitor] Respiratory 20 26 H 18 Rate Blood Pressure 133/66 132/75 145/76 O2 Sat by Pulse 97 97 98 Oximetry 05/04/22 05/04/22 05/04/22 07:15 07:16 07:30 Temperature 98.6 F Pulse Rate 92 H 106 H Pulse Rate [ From Monitor] Respiratory 20 18 Rate Blood Pressure 141/72 145/76 O2 Sat by Pulse 98 100 Oximetry 05/04/22 05/04/22 05/04/22 07:45 08:00 08:05 Temperature Pulse Rate 103 H 93 H Pulse Rate [ 100 H From Monitor] Respiratory 13 22 Rate Blood Pressure 132/81 140/72 O2 Sat by Pulse 98 98 100 Oximetry 05/04/22 05/04/22 05/04/22 08:15 08:30 08:45 Temperature Pulse Rate 97 H 100 H 103 H Pulse Rate [ From Monitor] Respiratory 21 22 22 Rate Blood Pressure 131/72 144/78 145/69 O2 Sat by Pulse 100 99 100 Oximetry 05/04/22 05/04/22 05/04/22 09:00 09:16 09:30 Temperature Pulse Rate 101 H 107 H 94 H Pulse Rate [ From Monitor] Respiratory 20 24 18 Rate Blood Pressure 134/85 134/85 131/73 O2 Sat by Pulse 99 96 100 Oximetry 05/04/22 05/04/22 05/04/22 09:46 10:00 10:16 Temperature Pulse Rate 96 H 102 H 92 H Pulse Rate [ From Monitor] Respiratory 17 24 21 Rate Blood Pressure 131/73 140/86 140/86 O2 Sat by Pulse 96 97 98 Oximetry 05/04/22 05/04/22 05/04/22 10:30 10:46 11:00 Temperature Pulse Rate 96 H 89 99 H Pulse Rate [ From Monitor] Respiratory 26 H 21 19 Rate Blood Pressure 140/86 156/70 156/70 O2 Sat by Pulse 96 99 98 Oximetry 05/04/22 05/04/22 05/04/22 11:16 11:30 11:40 Temperature 98.0 F Pulse Rate 100 H 103 H Pulse Rate [ From Monitor] Respiratory 22 22 Rate Blood Pressure 156/70 140/78 O2 Sat by Pulse 99 98 Oximetry 05/04/22 05/04/22 05/04/22 11:46 12:00 12:16 Temperature Pulse Rate 94 H 103 H 100 H Pulse Rate [ 96 H From Monitor] Respiratory 26 H 20 18 Rate Blood Pressure 140/78 140/78 147/62 O2 Sat by Pulse 98 98 98 Oximetry 05/04/22 05/04/22 05/04/22 12:30 12:45 13:00 Temperature Pulse Rate 90 94 H 94 H Pulse Rate [ From Monitor] Respiratory 24 21 26 H Rate Blood Pressure 147/62 147/62 133/87 O2 Sat by Pulse 95 96 92 Oximetry 05/04/22 05/04/22 05/04/22 13:15 13:30 13:45 Temperature Pulse Rate 93 H 97 H 92 H Pulse Rate [ From Monitor] Respiratory 21 27 H 18 Rate Blood Pressure 133/87 137/88 137/88 O2 Sat by Pulse 99 90 98 Oximetry 05/04/22 05/04/22 05/04/22 14:00 14:15 14:30 Temperature Pulse Rate 101 H 94 H 98 H Pulse Rate [ From Monitor] Respiratory 21 23 25 H Rate Blood Pressure 142/88 142/88 145/88 O2 Sat by Pulse 98 97 97 Oximetry 05/04/22 05/04/22 05/04/22 14:45 15:01 15:15 Temperature Pulse Rate 90 107 H 101 H Pulse Rate [ From Monitor] Respiratory 20 18 22 Rate Blood Pressure 145/88 155/103 155/103 O2 Sat by Pulse 97 95 95 Oximetry 05/04/22 05/04/22 05/04/22 15:30 15:45 16:00 Temperature 97.4 F L Pulse Rate 95 H 93 H 97 H Pulse Rate [ 94 H From Monitor] Respiratory 20 26 H 23 Rate Blood Pressure 163/79 163/79 164/81 O2 Sat by Pulse 97 95 96 Oximetry 05/04/22 05/04/22 05/04/22 16:15 16:30 16:45 Temperature Pulse Rate 100 H 87 101 H Pulse Rate [ From Monitor] Respiratory 24 22 29 H Rate Blood Pressure 164/81 147/81 147/81 O2 Sat by Pulse 97 99 97 Oximetry 05/04/22 05/04/22 05/04/22 17:00 17:15 17:30 Temperature Pulse Rate 91 H 110 H 90 Pulse Rate [ From Monitor] Respiratory 23 29 H 22 Rate Blood Pressure 156/74 156/74 166/79 O2 Sat by Pulse 99 92 95 Oximetry 05/04/22 05/04/22 05/04/22 17:45 18:00 18:01 Temperature Pulse Rate 86 96 H Pulse Rate [ 96 H From Monitor] Respiratory 21 28 H 22 Rate Blood Pressure 166/79 139/85 O2 Sat by Pulse 93 99 100 Oximetry - Lab 05/04/22 05:00 05/04/22 Unknown Most recent lab results Calcium 7.4 mg/dL (8.4-10.2) L 05/04/22 05:00 Phosphorus 3.20 mg/dL (2.5-4.5) 05/03/22 06:48 Magnesium 2.10 mg/dL (1.7-2.3) 05/03/22 06:48 Medications & Allergies - Medications Allergies/Adverse Reactions: Allergies aspirin Adverse Reaction (Verified 05/02/22 13:20) Bleeding levofloxacin [From Levaquin] Adverse Reaction (Verified 04/21/17 21:12) Rash blood thinners Adverse Reaction (Uncoded 05/02/22 13:20) Bleeding Home Medications: Home Medications Medication Instructions Recorded Confirmed Last Taken Type Memantine HCl [Namenda] 10 mg PO BID 04/21/17 05/02/22 Unknown History Omeprazole 40 mg PO QDAY 04/21/17 05/02/22 Unknown History Sertraline [Zoloft] 50 mg PO QDAY 04/21/17 05/02/22 Unknown History Simvastatin (NF) [Zocor TAB] 40 mg PO QHS 04/21/17 05/02/22 Unknown History Meclizine [Antivert] 12.5 mg PO Q12H PRN #60 tablet 04/22/19 05/02/22 Unknown Rx Fluticasone [Flonase] 1 spray NS QDAY #1 bottle 04/23/19 05/02/22 Unknown Rx Active Medications: Generic Name Dose Route Start Last Admin Trade Name Freq PRN Reason Stop Dose Admin Acetaminophen 650 mg 05/02/22 00:33 Acetaminophen 325 Mg Tab PO Q4H PRN Pain MILD(1-3)/Fever >100.5/ALLEN Atorvastatin Calcium 40 mg 05/02/22 22:00 05/03/22 22:10 Atorvastatin 40 Mg Tab PO Not Given QHS GENA Dextrose 50 ml 05/02/22 18:49 Dextrose 50% In Water (25gm) 50 Ml Syringe IV Q30MIN PRN Hypoglycemia Protocol Famotidine 20 mg 05/03/22 10:00 05/04/22 10:16 Famotidine 20 Mg Tab PO Not Given QDAY GENA Haloperidol Lactate 5 mg 05/03/22 13:25 05/04/22 03:08 Haloperidol Lactate 5 Mg/1 Ml Inj IV 5 mg Q6H PRN Administration Agitation Ceftriaxone Sodium 1 gm in 50 mls @ 100 mls/hr 05/02/22 01:00 05/04/22 11:21 Rocephin/Ns 1 Gm/50 Ml IV Infused Q24HR GENA Infusion Protocol NORepinephrine/NS 8 MG-250 ML 8 mg in 250 mls @ 14.458 mls/hr 05/02/22 03:00 05/03/22 16:00 Norepinephrine/Ns 8 Mg-250 Ml (Double Conc) IV 0 mcg/kg/min TITRATE GENA 0 mls/hr Titration Protocol 0.1 MCG/KG/MIN Vancomycin HCl 1 gm in 250 mls @ 166.667 mls/hr 05/03/22 20:00 05/04/22 07:00 Vancomycin/Ns 1 Gm/250 Ml IV Infused Q24H GENA Infusion AMIODARONE HCL 450 mg/ 250 mls @ 16.667 mls/hr 05/03/22 17:00 05/04/22 07:52 Dextrose IV 0.5 mg/min DIRECT GENA 16.667 mls/hr Administration Protocol 0.5 MG/MIN Dextrose/Sodium Chloride 1,000 mls @ 75 mls/hr 05/04/22 12:00 D5ns IV DIRECT [facility] Insulin Human Regular 0 units 05/02/22 22:00 05/04/22 16:05 Insulin Regular, Human 100 Units/1 Ml SUB-Q Not Given ACHS [facility] Protocol Magnesium Hydroxide 30 ml 05/02/22 00:33 Magnesium Hydroxide (Mom) Oral Liqd Udc PO Q4H PRN Constipation Morphine Sulfate 2 mg 05/02/22 00:33 05/03/22 21:00 Morphine 2 Mg/1 Ml Inj IV 2 mg Q4H PRN Administration Pain, Moderate (4-6) Ondansetron HCl 4 mg 05/02/22 00:33 Ondansetron 4 Mg/2 Ml Inj IV Q8H PRN Nausea And Vomiting Senna/Docusate Sodium 1 tab 05/03/22 22:00 05/03/22 22:10 Sennosides/Docusate Sodium 8.6/50 Mg Tab PO Not Given QHS [facility] Sodium Bicarbonate 1,300 mg 05/03/22 14:00 05/04/22 13:56 Sodium Bicarbonate 650 Mg Tab PO Not Given TID GENA Sodium Chloride 10 ml 05/02/22 10:00 05/04/22 10:24 Sodium Chloride 0.9% 10 Ml Flush Syringe IV 10 ml BID GENA Administration Sodium Chloride 10 ml 05/02/22 00:33 Sodium Chloride 0.9% 10 Ml Flush Syringe IV PRN PRN LINE FLUSH
[2022-05-04 19:23] LABS: Calcium 7.4 mg/dL (8.4-10.2)
[2022-05-04] MEDS: VANCOMYCIN/NS 1 GM/250 ML 1 GM/250 ML BAG IV SCH (20:31)
[2022-05-04] MEDS: SENNOSIDES/DOCUSATE SODIUM 8.6/50 MG TAB PO SCH (20:59)
[2022-05-05] MEDS: HALOPERIDOL LACTATE 5 MG/1 ML INJ IV PRN ×2 (00:30→17:38)
[2022-05-05] MEDS: MORPHINE 2 MG/1 ML INJ IV PRN ×2 (01:41→21:20)
[2022-05-05 05:12] LABS: Hematocrit 32.3 % (35.5-45.6); Hemoglobin 10.6 gm/dl (11.8-15.2); Mean Corpuscular HGB Conc 33 % (32-34); Mean Corpuscular Volume 85 fl (84-94); Platelet Count 160 K/mm3 (140-440); Red Blood Count 3.82 M/mm3 (3.65-5.03); Red Cell Distribution Width 19.3 % (13.2-15.2)
[2022-05-05 05:23] LABS: Albumin 2.5 g/dL (3.9-5); Calcium 7.6 mg/dL (8.4-10.2)
[2022-05-05] MEDS: INSULIN REGULAR, HUMAN 100 UNITS/1 ML SUB-Q SCH ×4 (08:26→22:18)
[2022-05-05] MEDS: FAMOTIDINE 20 MG TAB PO SCH (09:21)
[2022-05-05] MEDS: SODIUM BICARBONATE 650 MG TAB PO SCH ×3 (09:21→20:02)
[2022-05-05] MEDS: cefTRIAXone/NS 1 GM/50 ML 1 GM/50 ML BAG IV SCH (09:29)
--- NOTE | 2022-05-05 10:25 | Ultrasound Report ---
ULTRASOUND RENAL INDICATION / CLINICAL INFORMATION: ANJU. COMPARISON: None available. FINDINGS: RIGHT KIDNEY: Length = 10.0 cm. - Echogenicity: Normal. - Parenchymal Thickness: Mild thinning. - Hydronephrosis: None. - Cyst / Mass: Mildly complex lower pole cyst measuring 1.3 x 1.2 x 1.4 cm. - Stones: None seen. LEFT KIDNEY: Length = 10.2 cm. - Echogenicity: Normal. - Parenchymal Thickness: Normal. - Hydronephrosis: None. - Cyst / Mass: Heterogeneous mass in the medial aspect measuring 2.7 x 3.1 x 2.0 cm. - Stones: None seen. URINARY BLADDER: Not well-visualized. Dumont catheter is not definitively identified. FREE FLUID: None. ADDITIONAL FINDINGS: None. IMPRESSION: 1. No acute sonographic abnormality. 2. Solid left renal mass measuring 3.1 cm and mildly complex right renal cyst measuring 1.4 cm. Recom mend follow-up CT urogram for further evaluation. Scribed by: Maribeth Gutierres RDMS, SHANNON, LUDMILA Scribed: 05/05/2022 9:17 AM I have reviewed the images, agree with this report, and edited this report as needed. Signer Name: Dane Hoang MD Signed: 05/05/2022 10:21 AM Workstation Name: [id number]
--- NOTE | 2022-05-05 10:31 | Progress Note ---
Assessment and Plan - Patient Problems (1) Atrial fibrillation Current Visit: Yes Status: Acute Plan to address problem: Patient's rates are controlled. Can switch to oral amiodarone 200 twice daily if patient is able to tolerate p.o. (2) Coronavirus infection Current Visit: Yes Status: Acute Plan to address problem: Management per primary team Subjective Principal diagnosis: Encephalopathy Interval history: Patient sleeping in the bed he denies any active chest pain shortness of breath orthopnea or PND. Objective Vital Signs Temp Pulse Pulse Resp BP Pulse Ox 05/05/22 09:14 86 05/05/22 09:00 82 21 132/60 96 05/05/22 08:46 71 19 116/53 95 05/05/22 08:30 73 18 132/60 95 05/05/22 08:16 83 20 132/60 96 05/05/22 08:00 79 19 126/49 94 05/05/22 07:46 76 18 130/66 95 05/05/22 07:30 85 19 132/60 95 05/05/22 07:21 99.6 F 05/05/22 07:16 85 19 130/71 93 05/05/22 07:00 92 H 18 130/66 88 05/05/22 06:46 78 20 130/71 93 05/05/22 06:30 92 H 23 130/71 97 05/05/22 06:22 81 20 97 05/05/22 06:16 89 22 151/83 96 05/05/22 05:46 88 27 H 153/81 97 05/05/22 05:30 88 24 153/81 98 05/05/22 05:16 88 18 150/77 98 05/05/22 05:00 86 20 150/77 98 05/05/22 04:00 99.2 F 108 H 29 H 167/89 97 05/05/22 03:30 73 05/05/22 03:00 82 22 148/79 97 05/05/22 02:11 20 05/05/22 02:00 98 H 23 148/72 100 05/05/22 01:41 19 05/05/22 01:00 110 H 17 155/100 99 05/05/22 00:30 87 16 142/82 97 05/05/22 00:04 96 H 16 142/82 100 05/05/22 00:00 99.2 F 88 21 142/82 100 05/04/22 23:46 95 H 22 98 05/04/22 23:30 92 H 92 H 20 143/79 100 05/04/22 23:15 90 21 147/81 100 05/04/22 23:01 90 24 99 05/04/22 22:45 94 H 20 147/81 100 05/04/22 22:30 92 H 21 147/81 100 05/04/22 22:15 90 24 159/82 98 05/04/22 22:00 89 25 H 159/82 100 05/04/22 21:45 99 H 17 150/84 100 05/04/22 21:30 85 24 150/84 100 05/04/22 21:15 95 H 28 H 138/80 100 05/04/22 21:01 107 H 18 138/80 100 05/04/22 20:45 93 H 21 164/75 100 05/04/22 20:31 98 H 24 164/75 100 05/04/22 20:15 94 H 22 169/83 99 05/04/22 20:03 89 05/04/22 20:00 91 H 22 169/83 100 05/04/22 19:45 96 H 23 163/91 100 05/04/22 19:31 100 H 24 148/84 100 05/04/22 19:15 99 H 23 148/84 100 05/04/22 19:00 87 20 148/84 100 05/04/22 18:45 89 19 153/75 100 05/04/22 18:30 85 22 153/75 100 05/04/22 18:15 85 21 139/85 100 05/04/22 18:01 96 H 22 100 05/04/22 18:00 96 H 28 H 139/85 99 05/04/22 17:45 86 21 166/79 93 05/04/22 17:30 90 22 166/79 95 05/04/22 17:15 110 H 29 H 156/74 92 05/04/22 17:00 91 H 23 156/74 99 05/04/22 16:45 101 H 29 H 147/81 97 05/04/22 16:30 87 22 147/81 99 05/04/22 16:15 100 H 24 164/81 97 05/04/22 16:00 97.4 F L 97 H 94 H 23 164/81 96 05/04/22 15:45 93 H 26 H 163/79 95 05/04/22 15:30 95 H 20 163/79 97 05/04/22 15:15 101 H 22 155/103 95 05/04/22 15:01 107 H 18 155/103 95 05/04/22 14:45 90 20 145/88 97 05/04/22 14:30 98 H 25 H 145/88 97 05/04/22 14:15 94 H 23 142/88 97 05/04/22 14:00 101 H 21 142/88 98 05/04/22 13:45 92 H 18 137/88 98 05/04/22 13:30 97 H 27 H 137/88 90 05/04/22 13:15 93 H 21 133/87 99 05/04/22 13:00 94 H 26 H 133/87 92 05/04/22 12:45 94 H 21 147/62 96 05/04/22 12:30 90 24 147/62 95 05/04/22 12:16 100 H 18 147/62 98 05/04/22 12:00 103 H 96 H 20 140/78 98 05/04/22 11:46 94 H 26 H 140/78 98 05/04/22 11:40 98.0 F 05/04/22 11:30 103 H 22 140/78 98 05/04/22 11:16 100 H 22 156/70 99 05/04/22 11:00 99 H 19 156/70 98 05/04/22 10:46 89 21 156/70 99 05/04/22 10:30 96 H 26 H 140/86 96 - Physical Examination General: No Apparent Distress Neck: Positive: JVD/HJR Cardiac: Positive: irregularly irregular, S1/S2 Lungs: Positive: Decreased Breath Sounds Neuro: Positive: Grossly Intact Abdomen: Positive: Unremarkable, Soft Extremities: Present: edema (NO ) - Labs and Meds Cardiac Enzymes 05/05/22 Range/Units 04:38 AST 44 H (5-40) units/L CBC 05/05/22 Range/Units 04:38 WBC 8.9 (4.5-11.0) K/mm3 RBC 3.82 (3.65-5.03) M/mm3 Hgb 10.6 L (11.8-15.2) gm/dl Hct 32.3 L (35.5-45.6) % Plt Count 160 (140-440) K/mm3 Comprehensive Metabolic Panel 05/04/22 05/04/22 05/04/22 Range/Units 13:59 18:55 Unknown Sodium 139 139 138 (137-145) mmol/L Potassium 3.5 L (3.6-5.0) mmol/L Chloride 109.4 H (98-107) mmol/L Carbon Dioxide 18 L (22-30) mmol/L BUN 31 H (9-20) mg/dL Creatinine 1.6 H (0.8-1.3) mg/dL Glucose 166 H (75-100) mg/dL Calcium 7.4 L (8.4-10.2) mg/dL AST (5-40) units/L ALT (7-56) units/L Alkaline Phosphatase (35-129) units/L Total Protein (6.3-8.2) g/dL Albumin (3.9-5) g/dL 05/05/22 Range/Units 04:38 Sodium 142 (137-145) mmol/L Potassium 3.2 L (3.6-5.0) mmol/L Chloride 112.3 H (98-107) mmol/L Carbon Dioxide 19 L (22-30) mmol/L BUN 27 H (9-20) mg/dL Creatinine 1.6 H (0.8-1.3) mg/dL Glucose 168 H (75-100) mg/dL Calcium 7.6 L (8.4-10.2) mg/dL AST 44 H (5-40) units/L ALT 34 (7-56) units/L Alkaline Phosphatase 82 (35-129) units/L Total Protein 4.5 L (6.3-8.2) g/dL Albumin 2.5 L (3.9-5) g/dL - Telemetry EKG Rhythm: Atrial Fibrillation
--- NOTE | 2022-05-05 12:05 | Magnetic Resonance Report ---
MRI BRAIN 05/05/2022 INDICATION / CLINICAL INFORMATION: stroke symptoms, COVID 19, UNSTEADY GAIT, WEAKNESS, AMS. TECHNIQUE: Multiplanar, multisequence MR images of the brain were obtained. COMPARISON: CT brain 05/01/2022. CT angiogram brain 05/01/2022. CT angiogram neck 05/01/2022 FINDINGS: BRAIN / INTRACRANIAL CONTENTS: Unenhanced and enhanced MR images of the brain were obtained. There is no evidence of acute abnormality. Ventricles and sulci are prominent in size, consistent with age-related atrophic change. 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 Periventricular white matter T2 weighted hyperintensities are present. There is no evidence of acute ischemic injury, hemorrhage, or mass. There are no abnormal extra-axial fluid collections. EXTRACRANIAL: Unremarkable CRANIOCERVICAL JUNCTION: No significant abnormality. VASCULAR FLOW-VOIDS: No significant abnormality. IMPRESSION: 1. No acute abnormality. 2. Chronic ischemic changes. 3. Age-related atrophy. Signer Name: Fernando Coronado MD Signed: 05/05/2022 12:00 PM Workstation Name: [email or web address]
[2022-05-05] MEDS: AMIODARONE 200 MG TAB PO SCH ×2 (13:04→22:02)
--- NOTE | 2022-05-05 14:09 | Consultation ---
History of Present Illness Consult date: 05/05/22 Reason for Consult: cva Chief complaint: cva History of present illness: Patient not seen with televideo equipment due to covid-19 isolation status. 86 yo male with htn, hld, stroke, recent covid-19 (past 2-3 weeks), dementia, bph, who initially presented with acute encephaloapthy and is admitted w/ urosepsis; in icu initially for pressors and for afib w/ rvr; per RN (at bedside), awake, no focal weakness; difficulty getting words out; no seizure- like activity. Past History Past Medical History: arthritis, hypertension, hyperlipidemia, stroke, other (Dementia,hiatal hernia,BPH,Kidney stones) Past Surgical History: cholecystectomy, Other (Open heart surgery) Social history: no significant social history Family history: no significant family history Medications and Allergies Allergies Allergy/AdvReac Type Severity Reaction Status Date / Time aspirin AdvReac Bleeding Verified 05/02/22 13:20 levofloxacin [From Levaquin] AdvReac Rash Verified 04/21/17 21:12 blood thinners AdvReac Bleeding Uncoded 05/02/22 13:20 Home Medications Medication Instructions Recorded Confirmed Last Taken Type Memantine HCl [Namenda] 10 mg PO BID 04/21/17 05/02/22 Unknown History Omeprazole 40 mg PO QDAY 04/21/17 05/02/22 Unknown History Sertraline [Zoloft] 50 mg PO QDAY 04/21/17 05/02/22 Unknown History Simvastatin (NF) [Zocor TAB] 40 mg PO QHS 04/21/17 05/02/22 Unknown History Meclizine [Antivert] 12.5 mg PO Q12H PRN #60 tablet 04/22/19 05/02/22 Unknown Rx Fluticasone [Flonase] 1 spray NS QDAY #1 bottle 04/23/19 05/02/22 Unknown Rx Active Meds: Active Medications Acetaminophen (Acetaminophen 325 Mg Tab) 650 mg PO Q4H PRN PRN Reason: Pain MILD(1-3)/Fever >100.5/ALLEN Amiodarone HCl (Amiodarone 200 Mg Tab) 200 mg PO BID [facility] Last Admin: 05/05/22 13:04 Dose: 200 mg Atorvastatin Calcium (Atorvastatin 40 Mg Tab) 40 mg PO QHS [facility] Last Admin: 05/04/22 20:59 Dose: Not Given Dextrose (Dextrose 50% In Water (25gm) 50 Ml Syringe) 50 ml IV Q30MIN PRN; Protocol PRN Reason: Hypoglycemia Famotidine (Famotidine 20 Mg Tab) 20 mg PO QDAY [facility] Last Admin: 05/05/22 09:21 Dose: Not Given Haloperidol Lactate (Haloperidol Lactate 5 Mg/1 Ml Inj) 5 mg IV Q6H PRN PRN Reason: Agitation Last Admin: 05/05/22 00:30 Dose: 5 mg Ceftriaxone Sodium (Rocephin/Ns 1 Gm/50 Ml) 1 gm in 50 mls @ 100 mls/hr IV Q24HR [facility]; Protocol Last Admin: 05/05/22 09:29 Dose: 100 mls/hr Dextrose/Sodium Chloride (D5ns) 1,000 mls @ 75 mls/hr IV DIRECT [facility] Last Admin: 05/04/22 23:53 Dose: 75 mls/hr Insulin Human Regular (Insulin Regular, Human 100 Units/1 Ml) 0 units SUB-Q AC HS [facility]; Protocol Last Admin: 05/05/22 13:15 Dose: 3 units Magnesium Hydroxide (Magnesium Hydroxide (Mom) Oral Liqd Udc) 30 ml PO Q4H PRN PRN Reason: Constipation Morphine Sulfate (Morphine 2 Mg/1 Ml Inj) 2 mg IV Q4H PRN PRN Reason: Pain, Moderate (4-6) Last Admin: 05/05/22 01:41 Dose: 2 mg Ondansetron HCl (Ondansetron 4 Mg/2 Ml Inj) 4 mg IV Q8H PRN PRN Reason: Nausea And Vomiting Senna/Docusate Sodium (Sennosides/Docusate Sodium 8.6/50 Mg Tab) 1 tab PO QHS [facility] Last Admin: 05/04/22 20:59 Dose: Not Given Sodium Bicarbonate (Sodium Bicarbonate 650 Mg Tab) 1,300 mg PO TID [facility] Last Admin: 05/05/22 13:04 Dose: 1,300 mg Sodium Chloride (Sodium Chloride 0.9% 10 Ml Flush Syringe) 10 ml IV BID [facility] Last Admin: 05/05/22 09:30 Dose: 10 ml Sodium Chloride (Sodium Chloride 0.9% 10 Ml Flush Syringe) 10 ml IV PRN PRN PRN Reason: LINE FLUSH Physical Examination - Vital Signs Vital Signs: Vital Signs Temp Pulse Resp BP Pulse Ox 96.5 F L 124 H 18 147/103 96 05/02/22 00:34 05/02/22 00:34 05/02/22 00:34 05/02/22 00:34 05/02/22 00:34 Results - Laboratory Findings CBC and BMP: 05/05/22 04:38 05/05/22 04:38 Abnormal Lab Findings: Abnormal Labs 05/01/22 05/01/22 05/01/22 23:14 23:14 23:14 WBC RBC Hgb 10.8 L Hct 30.9 L MCHC 35 H RDW 18.0 H Plt Count 113 L Lymph % (Auto) Wright % (Auto) Lymph # (Auto) Wright # (Auto) Seg Neutrophils % Seg Neutrophils # PT 19.1 H INR 1.42 H APTT 39.9 H D-Dimer Sodium 125 L Potassium Chloride 91.0 L Carbon Dioxide 21 L BUN 38 H Creatinine 2.1 H Glucose 131 H POC Glucose Lactic Acid Calcium 7.9 L Phosphorus Magnesium 1.60 L Ferritin AST Total Creatine Kinase Troponin T C-Reactive Protein NT-Pro-B Natriuret Pep Total Protein 4.8 L Albumin 3.3 L LDL Cholesterol Direct Urine WBC (Auto) Coronavirus (PCR) 05/01/22 05/01/22 05/02/22 23:14 23:54 03:39 WBC RBC Hgb Hct MCHC RDW Plt Count Lymph % (Auto) Wright % (Auto) Lymph # (Auto) Wright # (Auto) Seg Neutrophils % Seg Neutrophils # PT INR APTT D-Dimer Sodium Potassium Chloride Carbon Dioxide BUN Creatinine Glucose POC Glucose Lactic Acid 2.30 H* Calcium Phosphorus Magnesium Ferritin AST Total Creatine Kinase Troponin T 0.054 H C-Reactive Protein NT-Pro-B Natriuret Pep 88325 H Total Protein Albumin LDL Cholesterol Direct 25 L Urine WBC (Auto) > 182.0 H Coronavirus (PCR) 05/02/22 05/02/22 05/02/22 06:05 11:14 11:14 WBC RBC Hgb Hct MCHC RDW Plt Count Lymph % (Auto) Wright % (Auto) Lymph # (Auto) Wright # (Auto) Seg Neutrophils % Seg Neutrophils # PT INR APTT D-Dimer 1135.33 H Sodium 132 L D Potassium Chloride Carbon Dioxide 15 L BUN 41 H Creatinine 2.1 H Glucose 127 H POC Glucose 139 H Lactic Acid Calcium 7.6 L Phosphorus Magnesium Ferritin AST Total Creatine Kinase Troponin T 0.196 H* D C-Reactive Protein 29.00 H NT-Pro-B Natriuret Pep Total Protein Albumin LDL Cholesterol Direct Urine WBC (Auto) Coronavirus (PCR) 05/02/22 05/02/22 05/02/22 11:14 11:14 17:10 WBC RBC Hgb Hct MCHC RDW Plt Count Lymph % (Auto) Wright % (Auto) Lymph # (Auto) Wright # (Auto) Seg Neutrophils % Seg Neutrophils # PT INR APTT D-Dimer Sodium 130 L Potassium Chloride 96.0 L Carbon Dioxide 17 L BUN 42 H Creatinine 2.3 H Glucose 141 H POC Glucose 150 H Lactic Acid Calcium 7.7 L Phosphorus Magnesium Ferritin 544.4 H AST Total Creatine Kinase Troponin T C-Reactive Protein NT-Pro-B Natriuret Pep Total Protein Albumin LDL Cholesterol Direct Urine WBC (Auto) Coronavirus (PCR) 05/02/22 05/02/22 05/02/22 20:20 20:20 22:06 WBC RBC Hgb Hct MCHC RDW Plt Count Lymph % (Auto) Wright % (Auto) Lymph # (Auto) Wright # (Auto) Seg Neutrophils % Seg Neutrophils # PT INR APTT D-Dimer Sodium 133 L Potassium Chloride Carbon Dioxide BUN Creatinine Glucose POC Glucose 146 H Lactic Acid Calcium Phosphorus Magnesium Ferritin AST Total Creatine Kinase 816 H Troponin T C-Reactive Protein NT-Pro-B Natriuret Pep Total Protein Albumin LDL Cholesterol Direct Urine WBC (Auto) Coronavirus (PCR) 05/02/22 05/03/22 05/03/22 Unknown 05:00 06:48 WBC 13.3 H RBC 3.62 L Hgb 10.1 L Hct 30.8 L MCHC RDW 19.1 H Plt Count Lymph % (Auto) 3.9 L Wright % (Auto) 9.4 H Lymph # (Auto) 0.5 L Wright # (Auto) 1.3 H Seg Neutrophils % 85.6 H Seg Neutrophils # 11.4 H PT INR APTT D-Dimer Sodium 135 L Potassium Chloride Carbon Dioxide 16 L BUN 38 H Creatinine 2.0 H Glucose 122 H POC Glucose Lactic Acid Calcium 7.6 L Phosphorus Magnesium Ferritin AST Total Creatine Kinase Troponin T C-Reactive Protein NT-Pro-B Natriuret Pep Total Protein Albumin LDL Cholesterol Direct Urine WBC (Auto) Coronavirus (PCR) Positive A 05/03/22 05/03/22 05/03/22 08:48 11:07 16:29 WBC RBC Hgb Hct MCHC RDW Plt Count Lymph % (Auto) Wright % (Auto) Lymph # (Auto) Wright # (Auto) Seg Neutrophils % Seg Neutrophils # PT INR APTT D-Dimer Sodium Potassium Chloride Carbon Dioxide BUN Creatinine Glucose POC Glucose 127 H 116 H 113 H Lactic Acid Calcium Phosphorus Magnesium Ferritin AST Total Creatine Kinase Troponin T C-Reactive Protein NT-Pro-B Natriuret Pep Total Protein Albumin LDL Cholesterol Direct Urine WBC (Auto) Coronavirus (PCR) 05/03/22 05/04/22 05/04/22 22:29 05:00 05:00 WBC RBC 3.39 L Hgb 9.6 L Hct 28.8 L MCHC RDW 18.8 H Plt Count Lymph % (Auto) Wright % (Auto) Lymph # (Auto) Wright # (Auto) Seg Neutrophils % Seg Neutrophils # PT INR APTT D-Dimer Sodium Potassium 3.3 L D Chloride 108.7 H Carbon Dioxide 17 L BUN 37 H Creatinine 1.8 H Glucose 117 H POC Glucose 113 H Lactic Acid Calcium 7.4 L Phosphorus Magnesium Ferritin AST Total Creatine Kinase Troponin T C-Reactive Protein NT-Pro-B Natriuret Pep Total Protein Albumin LDL Cholesterol Direct Urine WBC (Auto) Coronavirus (PCR) 05/04/22 05/04/22 05/04/22 07:40 11:22 15:57 WBC RBC Hgb Hct MCHC RDW Plt Count Lymph % (Auto) Wright % (Auto) Lymph # (Auto) Wright # (Auto) Seg Neutrophils % Seg Neutrophils # PT INR APTT D-Dimer Sodium Potassium Chloride Carbon Dioxide BUN Creatinine Glucose POC Glucose 107 H 124 H 147 H Lactic Acid Calcium Phosphorus Magnesium Ferritin AST Total Creatine Kinase Troponin T C-Reactive Protein NT-Pro-B Natriuret Pep Total Protein Albumin LDL Cholesterol Direct Urine WBC (Auto) Coronavirus (PCR) 05/04/22 05/04/22 05/05/22 18:55 22:40 04:38 WBC RBC Hgb 10.6 L Hct 32.3 L MCHC RDW 19.3 H Plt Count Lymph % (Auto) Wright % (Auto) Lymph # (Auto) Wright # (Auto) Seg Neutrophils % Seg Neutrophils # PT INR APTT D-Dimer Sodium Potassium 3.5 L Chloride 109.4 H Carbon Dioxide 18 L BUN 31 H Creatinine 1.6 H Glucose 166 H POC Glucose 138 H Lactic Acid Calcium 7.4 L Phosphorus Magnesium Ferritin AST Total Creatine Kinase Troponin T C-Reactive Protein NT-Pro-B Natriuret Pep Total Protein Albumin LDL Cholesterol Direct Urine WBC (Auto) Coronavirus (PCR) 05/05/22 05/05/22 05/05/22 04:38 07:35 13:06 WBC RBC Hgb Hct MCHC RDW Plt Count Lymph % (Auto) Wright % (Auto) Lymph # (Auto) Wright # (Auto) Seg Neutrophils % Seg Neutrophils # PT INR APTT D-Dimer Sodium Potassium 3.2 L Chloride 112.3 H Carbon Dioxide 19 L BUN 27 H Creatinine 1.6 H Glucose 168 H POC Glucose 152 H 208 H Lactic Acid Calcium 7.6 L Phosphorus 2.30 L Magnesium Ferritin AST 44 H Total Creatine Kinase Troponin T C-Reactive Protein NT-Pro-B Natriuret Pep Total Protein 4.5 L Albumin 2.5 L LDL Cholesterol Direct Urine WBC (Auto) Coronavirus (PCR) Assessment and Plan 86 yo male with htn, hld, stroke, recent covid-19 (past 2-3 weeks), dementia, bph, who initially presented with acute encephaloapthy and is admitted w/ urosepsis; in icu initially for pressors and for afib w/ rvr; per RN (at bedside), awake, no focal weakness; difficulty getting words out; no seizure- like activity. 1. Acute Metabolic Encephalopathy - management per primary team in the setting of sepsis. 2. Paroxysmal AFib w/ hx of ICH - recommend watchman procedure for secondary stroke prophylaxis. 3. Hypertension - aim for normotension. 4. Hyperlipidemai - goal ld of 70 w/ statin therapy if no contraindications. 5. Dementia - ordered serologies; risk of sundowning. Chris Naqvi MD Neurology
[2022-05-05] MEDS ORDERED: POTASSIUM CHLORIDE 20 MEQ PACKET FEEDTUBE ONE (15:15)
--- NOTE | 2022-05-05 16:11 | Progress Note ---
Assessment and Plan Acute altered mental status Urinary tract infection H/O CVA withy ICH ANJU on CKD Septic shock E. Coli Bacteremia UTI Hyperlipidemia HTN Arthritis Anemia Thrombocytopenia Hypomagnesemia - MRI Brain negative for acute process - continue aniodarone for rate control - complete Rocephin course - ID consult re: duration of therapy & COVID therapy - neurology evaluation ongoing - azotemia per nephrology team (improving) - supplemental oxygen to keep O2 sats > 90% - bronchodilators (CHLOE) with pulm hygiene per RT - continue to avoid nephrotoxins, renally dose all medications - mobility protocols to prevent pressure ulcers - PT/OT as tolerated - Wound care per RN/WCT - continue accuchecks with glycemic control per SSI for target blood glucose < 180 mg/dL - tobacco abstinence counseled at the bedside - home oxygen evaluation at discharge - GI & VTE prophylaxis - Flu & pneumovax per protocol - Pulmonary out patient follow up for PFTs and optimization of respiratory status - continue other care per attending / other consultants - prn analgesia per pain score COVID SPECIFIC INTERVENTIONS - Remdesivir as per ID/Pulmonary developed protocols - continue systemic steroids for severe COVID-19 infection empirically (decadron) - follow repeat COVID tests results - zinc and vitamin C supplementation - Monitor inflammatory markers per facility protocol - ferritin, Ddimer, CRP - therapeutic anticoagulation per system Protocol based on d-dimer and clinical considerations (DVT prophylaxis) - Continue contact and airborne isolation ... re-evaluate in am & prn I have spent ( >35 ) minutes with the patient w/ >50% of the time spent counseling and/or coordinating care for this patient. Counseling topics and/or how time was spent coordinating patient's care is outlined in the impression and plan above. Subjective Date of service: 05/05/22 Principal diagnosis: AMS; UTI; ANJU; Septic shock; E.Coli Bacteremia; UTI; Thrombocytopenia Interval history: Patient is seen today for: AMS; UTI; H/O CVA withy ICH; ANJU; Septic shock; E. Coli Bacteremia; UTI; Thrombocytopenia; A-fib Seen and examined at bedside; 24hour events reviewed; nursing and respiratory care staff consulted; no adverse overnight events reported to me; resting in bed; thrombocytopenia has resolved; more coherent but with baseline dementia; s/p MRI today; No N/V/F/C Objective Vital Signs - 12hr 05/05/22 05/05/2205/05/22 05:00 05:16 05:30 Temperature Pulse Rate 86 88 88 Pulse Rate [ From Monitor] Respiratory 20 18 24 Rate Blood Pressure 150/77 150/77 153/81 O2 Sat by Pulse 98 98 98 Oximetry 05/05/22 05/05/22 05/05/22 05:46 06:16 06:22 Temperature Pulse Rate 88 89 Pulse Rate [ 81 From Monitor] Respiratory 27 H 22 20 Rate Blood Pressure 153/81 151/83 O2 Sat by Pulse 97 96 97 Oximetry 05/05/22 05/05/22 05/05/22 06:30 06:46 07:00 Temperature Pulse Rate 92 H 78 92 H Pulse Rate [ From Monitor] Respiratory 23 20 18 Rate Blood Pressure 130/71 130/71 130/66 O2 Sat by Pulse 97 93 88 Oximetry 05/05/22 05/05/22 05/05/22 07:16 07:21 07:30 Temperature 99.6 F Pulse Rate 85 85 Pulse Rate [ From Monitor] Respiratory 19 19 Rate Blood Pressure 130/71 132/60 O2 Sat by Pulse 93 95 Oximetry 05/05/22 05/05/22 05/05/22 07:46 08:00 08:16 Temperature Pulse Rate 76 79 83 Pulse Rate [ 86 From Monitor] Respiratory 18 20 20 Rate Blood Pressure 130/66 126/49 132/60 O2 Sat by Pulse 95 97 96 Oximetry 05/05/22 05/05/22 05/05/22 08:30 08:46 09:00 Temperature Pulse Rate 73 71 82 Pulse Rate [ From Monitor] Respiratory 18 19 21 Rate Blood Pressure 132/60 116/53 132/60 O2 Sat by Pulse 95 95 96 Oximetry 05/05/22 05/05/22 05/05/22 09:14 09:16 09:30 Temperature Pulse Rate 86 78 85 Pulse Rate [ From Monitor] Respiratory 19 25 H Rate Blood Pressure 132/60 123/56 O2 Sat by Pulse 95 96 Oximetry 05/05/22 05/05/22 05/05/22 09:46 10:00 10:16 Temperature Pulse Rate 81 93 H 91 H Pulse Rate [ From Monitor] Respiratory 21 24 30 H Rate Blood Pressure 123/56 123/56 O2 Sat by Pulse 97 95 98 Oximetry 05/05/22 05/05/22 05/05/22 10:30 11:40 11:46 Temperature Pulse Rate 85 89 90 Pulse Rate [ From Monitor] Respiratory 32 H 27 H 29 H Rate Blood Pressure 140/70 140/70 162/82 O2 Sat by Pulse 97 94 94 Oximetry 05/05/22 05/05/22 05/05/22 11:47 12:00 12:16 Temperature 97.7 F Pulse Rate 93 H 106 H Pulse Rate [ 88 From Monitor] Respiratory 29 H 26 H Rate Blood Pressure 155/82 155/82 O2 Sat by Pulse 94 94 Oximetry 05/05/22 05/05/22 05/05/22 12:30 12:46 13:00 Temperature Pulse Rate 86 92 H 126 H Pulse Rate [ From Monitor] Respiratory 21 19 24 Rate Blood Pressure 137/64 155/82 155/82 O2 Sat by Pulse 94 94 97 Oximetry 05/05/22 05/05/22 05/05/22 13:16 13:30 13:46 Temperature Pulse Rate 102 H 113 H 105 H Pulse Rate [ From Monitor] Respiratory 28 H 26 H 27 H Rate Blood Pressure 154/104 154/104 134/109 O2 Sat by Pulse 96 84 74 L Oximetry 05/05/22 05/05/22 05/05/22 14:00 14:16 14:30 Temperature Pulse Rate 96 H 98 H 96 H Pulse Rate [ From Monitor] Respiratory 25 H 24 25 H Rate Blood Pressure 132/76 132/76 124/82 O2 Sat by Pulse 92 89 94 Oximetry 05/05/22 05/05/22 14:46 15:00 Temperature Pulse Rate 102 H 107 H Pulse Rate [ From Monitor] Respiratory 24 21 Rate Blood Pressure 124/82 124/82 O2 Sat by Pulse 94 94 Oximetry Constitutional: no acute distress, alert, other (elderly male with milldy increased respiratory effort at rest) Eyes: non-icteric ENT: oropharynx moist Neck: supple, no lymphadenopathy, no JVD Effort: mildly labored Ascultation: Bilateral: diminished breath sounds, rhonchi Percussion: Bilateral: not dull Cardiovascular: irregular rhythm Gastrointestinal: normoactive bowel sounds, soft, non-tender, non-distended (protuberant) Integumentary: normal Extremities: no cyanosis, no edema, pink and warm, pulses normal Neurologic: non-focal exam (grossly), pupils equal and round, motor strength normal and Psychiatric: anxious CBC and BMP: 05/05/22 04:38 05/05/22 04:38 ABG, PT/INR, D-dimer: PT/INR, D-dimer PT 19.1 Sec. (12.2-14.9) H 05/01/22 23:14 INR 1.42 (0.87-1.13) H 05/01/22 23:14 D-Dimer 1135.33 ng/mlDDU (0-234) H 05/02/22 11:14 Abnormal lab findings: Abnormal Labs 05/01/22 05/01/22 05/01/22 23:14 23:14 23:14 WBC RBC Hgb 10.8 L Hct 30.9 L MCHC 35 H RDW 18.0 H Plt Count 113 L Lymph % (Auto) Fisher % (Auto) Lymph # (Auto) Fisher # (Auto) Seg Neutrophils % Seg Neutrophils # PT 19.1 H INR 1.42 H APTT 39.9 H D-Dimer Sodium 125 L Potassium Chloride 91.0 L Carbon Dioxide 21 L BUN 38 H Creatinine 2.1 H Glucose 131 H POC Glucose Lactic Acid Calcium 7.9 L Phosphorus Magnesium 1.60 L Ferritin AST Total Creatine Kinase Troponin T C-Reactive Protein NT-Pro-B Natriuret Pep Total Protein 4.8 L Albumin 3.3 L LDL Cholesterol Direct Urine WBC (Auto) Coronavirus (PCR) 05/01/22 05/01/22 05/02/22 23:14 23:54 03:39 WBC RBC Hgb Hct MCHC RDW Plt Count Lymph % (Auto) Fisher % (Auto) Lymph # (Auto) Fisher # (Auto) Seg Neutrophils % Seg Neutrophils # PT INR APTT D-Dimer Sodium Potassium Chloride Carbon Dioxide BUN Creatinine Glucose POC Glucose Lactic Acid 2.30 H* Calcium Phosphorus Magnesium Ferritin AST Total Creatine Kinase Troponin T 0.054 H C-Reactive Protein NT-Pro-B Natriuret Pep 91857 H Total Protein Albumin LDL Cholesterol Direct 25 L Urine WBC (Auto) > 182.0 H Coronavirus (PCR) 05/02/22 05/02/22 05/02/22 06:05 11:14 11:14 WBC RBC Hgb Hct MCHC RDW Plt Count Lymph % (Auto) Fisher % (Auto) Lymph # (Auto) Fisher # (Auto) Seg Neutrophils % Seg Neutrophils # PT INR APTT D-Dimer 1135.33 H Sodium 132 L D Potassium Chloride Carbon Dioxide 15 L BUN 41 H Creatinine 2.1 H Glucose 127 H POC Glucose 139 H Lactic Acid Calcium 7.6 L Phosphorus Magnesium Ferritin AST Total Creatine Kinase Troponin T 0.196 H* D C-Reactive Protein 29.00 H NT-Pro-B Natriuret Pep Total Protein Albumin LDL Cholesterol Direct Urine WBC (Auto) Coronavirus (PCR) 05/02/22 05/02/22 05/02/22 11:14 11:14 17:10 WBC RBC Hgb Hct MCHC RDW Plt Count Lymph % (Auto) Fisher % (Auto) Lymph # (Auto) Fisher # (Auto) Seg Neutrophils % Seg Neutrophils # PT INR APTT D-Dimer Sodium 130 L Potassium Chloride 96.0 L Carbon Dioxide 17 L BUN 42 H Creatinine 2.3 H Glucose 141 H POC Glucose 150 H Lactic Acid Calcium 7.7 L Phosphorus Magnesium Ferritin 544.4 H AST Total Creatine Kinase Troponin T C-Reactive Protein NT-Pro-B Natriuret Pep Total Protein Albumin LDL Cholesterol Direct Urine WBC (Auto) Coronavirus (PCR) 05/02/22 05/02/22 05/02/22 20:20 20:20 22:06 WBC RBC Hgb Hct MCHC RDW Plt Count Lymph % (Auto) Fisher % (Auto) Lymph # (Auto) Fisher # (Auto) Seg Neutrophils % Seg Neutrophils # PT INR APTT D-Dimer Sodium 133 L Potassium Chloride Carbon Dioxide BUN Creatinine Glucose POC Glucose 146 H Lactic Acid Calcium Phosphorus Magnesium Ferritin AST Total Creatine Kinase 816 H Troponin T C-Reactive Protein NT-Pro-B Natriuret Pep Total Protein Albumin LDL Cholesterol Direct Urine WBC (Auto) Coronavirus (PCR) 05/02/22 05/03/22 05/03/22 Unknown 05:00 06:48 WBC 13.3 H RBC 3.62 L Hgb 10.1 L Hct 30.8 L MCHC RDW 19.1 H Plt Count Lymph % (Auto) 3.9 L Fisher % (Auto) 9.4 H Lymph # (Auto) 0.5 L Fisher # (Auto) 1.3 H Seg Neutrophils % 85.6 H Seg Neutrophils # 11.4 H PT INR APTT D-Dimer Sodium 135 L Potassium Chloride Carbon Dioxide 16 L BUN 38 H Creatinine 2.0 H Glucose 122 H POC Glucose Lactic Acid Calcium 7.6 L Phosphorus Magnesium Ferritin AST Total Creatine Kinase Troponin T C-Reactive Protein NT-Pro-B Natriuret Pep Total Protein Albumin LDL Cholesterol Direct Urine WBC (Auto) Coronavirus (PCR) Positive A 05/03/22 05/03/22 05/03/22 08:48 11:07 16:29 WBC RBC Hgb Hct MCHC RDW Plt Count Lymph % (Auto) Fisher % (Auto) Lymph # (Auto) Fisher # (Auto) Seg Neutrophils % Seg Neutrophils # PT INR APTT D-Dimer Sodium Potassium Chloride Carbon Dioxide BUN Creatinine Glucose POC Glucose 127 H 116 H 113 H Lactic Acid Calcium Phosphorus Magnesium Ferritin AST Total Creatine Kinase Troponin T C-Reactive Protein NT-Pro-B Natriuret Pep Total Protein Albumin LDL Cholesterol Direct Urine WBC (Auto) Coronavirus (PCR) 05/03/22 05/04/22 05/04/22 22:29 05:00 05:00 WBC RBC 3.39 L Hgb 9.6 L Hct 28.8 L MCHC RDW 18.8 H Plt Count Lymph % (Auto) Fisher % (Auto) Lymph # (Auto) Fisher # (Auto) Seg Neutrophils % Seg Neutrophils # PT INR APTT D-Dimer Sodium Potassium 3.3 L D Chloride 108.7 H Carbon Dioxide 17 L BUN 37 H Creatinine 1.8 H Glucose 117 H POC Glucose 113 H Lactic Acid Calcium 7.4 L Phosphorus Magnesium Ferritin AST Total Creatine Kinase Troponin T C-Reactive Protein NT-Pro-B Natriuret Pep Total Protein Albumin LDL Cholesterol Direct Urine WBC (Auto) Coronavirus (PCR) 05/04/22 05/04/22 05/04/22 07:40 11:22 15:57 WBC RBC Hgb Hct MCHC RDW Plt Count Lymph % (Auto) Fisher % (Auto) Lymph # (Auto) Fisher # (Auto) Seg Neutrophils % Seg Neutrophils # PT INR APTT D-Dimer Sodium Potassium Chloride Carbon Dioxide BUN Creatinine Glucose POC Glucose 107 H 124 H 147 H Lactic Acid Calcium Phosphorus Magnesium Ferritin AST Total Creatine Kinase Troponin T C-Reactive Protein NT-Pro-B Natriuret Pep Total Protein Albumin LDL Cholesterol Direct Urine WBC (Auto) Coronavirus (PCR) 05/04/22 05/04/22 05/05/22 18:55 22:40 04:38 WBC RBC Hgb 10.6 L Hct 32.3 L MCHC RDW 19.3 H Plt Count Lymph % (Auto) Fisher % (Auto) Lymph # (Auto) Fisher # (Auto) Seg Neutrophils % Seg Neutrophils # PT INR APTT D-Dimer Sodium Potassium 3.5 L Chloride 109.4 H Carbon Dioxide 18 L BUN 31 H Creatinine 1.6 H Glucose 166 H POC Glucose 138 H Lactic Acid Calcium 7.4 L Phosphorus Magnesium Ferritin AST Total Creatine Kinase Troponin T C-Reactive Protein NT-Pro-B Natriuret Pep Total Protein Albumin LDL Cholesterol Direct Urine WBC (Auto) Coronavirus (PCR) 05/05/22 05/05/22 05/05/22 04:38 07:35 13:06 WBC RBC Hgb Hct MCHC RDW Plt Count Lymph % (Auto) Fisher % (Auto) Lymph # (Auto) Fisher # (Auto) Seg Neutrophils % Seg Neutrophils # PT INR APTT D-Dimer Sodium Potassium 3.2 L Chloride 112.3 H Carbon Dioxide 19 L BUN 27 H Creatinine 1.6 H Glucose 168 H POC Glucose 152 H 208 H Lactic Acid Calcium 7.6 L Phosphorus 2.30 L Magnesium Ferritin AST 44 H Total Creatine Kinase Troponin T C-Reactive Protein NT-Pro-B Natriuret Pep Total Protein 4.5 L Albumin 2.5 L LDL Cholesterol Direct Urine WBC (Auto) Coronavirus (PCR) Allied health notes reviewed: nursing
[2022-05-05] MEDS ORDERED: hydrALAZINE 20 MG/1 ML INJ IV PRN (17:45)
--- NOTE | 2022-05-05 17:47 | Progress Note ---
Assessment and Plan Assessment and plan: This is a 86-year-old male with known past medical history of CVA, ICHx2, dementia, HLD, [place], CAD s/p CABGX5, paroxysmal Afib- not a candidate of anticoagulation, s/p multiple falls at home admitted for septic shock probably secondary to urosepsis requiring vasopressors. Hospital Course to Date 05/02: Remains encephalopathic, stable on RA, on high dose pressors, additional IVF bolus administered. Patient remains in Afib, rate control. Cardiology consulted Dumont inserted this am due to retenstion, 1L of malodorous and cloudy urine drained. Probable urosepsis, patient is current on IV rocephin. D/w patient's daughters they reported that patient does have a history of Afib and open heart surgery with 5 bypass. Patient had X2 ICH in the past and he is not a candidate for any anticoagulations. Patient was also recently diagnosed with COVID outpatient, did not received any treatment since he was stable. COVID and PLU PCRs pending, check inflam. markers and Procal. Renal function is unchanged, continue IVF hydration, Nephrology is also following. Continue to trend Lactic acid. 05/03: More awake and alert this am but still confused. Still in Afib but rate control this am. Amiodarone gtt added yesterday due to Afib with RVR, patient remains on low dose Levophed. Cardiology recommendations noted. Concern for possible aspiration this morning, awaiting speech consulted. Will keep amiodarone gtt for now, transition to PO Amio if clear by speech. Blood cultures positive gram negative rods in 3/4 bottles, Vancomycin added. Check 2D echo to r/o vegetations. ID consulted pending. COVID PCR came back positive, spoke with patient's daughter. She reported that patient received "the COVID pill that Cruzito had". Patient is currently on 1L NC, SPO2 at 100%. Will continue to monitor for now. 05/04: Still confused but calm and following commands, agitated overnight required IV ativan. MRI brain pending. Patient remains in Afib, rate control. Remains on Amiodarone gtt, off pressors this am, VSS. Orders placed for repeat blood culture. Continue current IV abx, 2D echo and ID consult pending. Patient failed speech swallow due to cognitive deficits, multiple attempts to insert DHT was unsuccessful due to suspected hiatal hernia. Continue IVF hydration for now, speech to reassess swallow screen in 48hrs since patient's mentation is improving. If patient continue to fail swallow, alternative nutrition should be considered. Plan of care discussed with patient's daughters while visiting patient today. All questions and concerns were addressed at this time. Team will continue to follow with any further updates. 05/05: I did reach out to this infectious disease to see the patient as they had not previously seen him. He does not have any new fever today. Speech did evaluate the patient recommended some nectar thick. Patient was tested positive for COVID did have PACs COVID as mentioned. Currently very minimal oxygen requirement. We will transition him to oral amiodarone due to underlying atrial fibrillation. Creatinine is down to 1.6. He is not a candidate for anticoagulation as mentioned. I did update the patient's daughter anticipate discharge in 24 to 48 hours. During my conversation we did reaffirm CODE STATUS and advance care planning done for 35 minutes that he is a full code. Assessment and Plan #Septic Shock- Probable Urosepsis (POA) #Urinary Tract Infection (UTI) #Lactic Acidosis #Recent COVID infection- Received Treatment, probably Paxlovid - Dumont inserted for retention- cloudy and malodourous urine drained - Urine culture pending, Blood cultures with Gram neg Rods in 3/4 bottles - Repeat Blood cultures - Continue IVF hydration and current empiric IV Abx- Rocephin, Vanco added - 2D Echo to r/o vegetation - ID consulted - Continue blood pressure monitor per protocol - Titrate pressors to maintain MAP above 65 - COVID PCR positive- per patient's daughter, patient received the COVID Pill that Cruzito had. Probably Paxlovid - Patient is stable on 1L NC, continue to monitor for now #Acute Kidney Injury(ANJU) most likely ATN #Electrolyte imbalance- hypomagnesemia, hyponatremia, hypocalcemia #Hypovelemia/Dehydration - Nephrology on consult, appreciated recommendation - Strict intake and output - Avoid nephrotoxic medications; Renally dose medications - Dumont inserted for retention- cloudy and malodourous urine drained - Continue IVF for now - Monitor and replace electrolytes as needed #Paroxysmal Atrial Fibrillation- Not candidate for anticoagulation #NSTEMI- probably Type 2 2/2 demand ischemia vs ANJU #H/o TN and CAD s/p CABGX5 over 20 years ago - Cardiology consulted - Not candidate for BB due to low BP on levophed gtt - on Amio gtt - Continue blood pressure monitor per protocol - Titrate pressors to maintain MAP above 65 - Not candidate for AC due to bleeding #Acute Metabolic Encephalopathy #Multiple Falls at Home #H/o Dementia #H/o CVA and ICHx2 - Mentation improved - Avoid benzodiazepine to reduce the possibility of delirium - PRN Analgesia for pain control - Maintenance of sleep-wake cycle - Fall precaution #Dyphagia #Unable to insert NGT/DHT due to Hiatal Hernia - Failed speech bedside swallow due to cognitive deficits - Multiple attempts to insert NGT/DHT unsuccessful, blockage at the GE junction probably due to Hiatal Hernia - Continue IVF hydration for now - speech to reassess swallow screen in 48hrs since patient's mentation is improving. - If patient continue to fail swallow, alternative nutrition should be considered #Urinary Retention #History of BPH - Dumont inserted - resume home meds once list is available #Thrombocytopenia - Present on admit - H&H stable, no s/s of any active bleeding - Not on any AC due to bleeding - Continue to trend CBC - Transfuse for hgb less than 7 #GI/DVT Prophylaxis - PPI- pepcid - SCDs to bilateral lower extremities while in bed #Advance Care Planning - Disease education data, care plan, diagnoses, and prognosis were discussed with patient's daughters via phone, Kath Carter- ; Jacquie Pooleward- . Patient is a FULL code. Patient's family acknowledged understanding and agreed with current care plan. History Interval history: Patient seen and examined was more sleepy eai Hospitalist Physical - Physical exam Narrative exam: Physical exam Narrative exam: General appearance: Present: no acute distress, well-nourished - EENT Eyes: Present: PERRL ENT: hearing intact, - Neck Neck: Present: normal ROM - Respiratory Respiratory effort: normal Respiratory: bilateral: diminished - Cardiovascular Rhythm: regular Heart Sounds: Present: S1 & S2 - Extremities Extremities: no ischemia, pulses intact, pulses symmetrical Peripheral Pulses: within normal limits - Abdominal General gastrointestinal: soft, non-distended, normal bowel sounds - Integumentary Integumentary: Present: dry, erythema (Generalized ecchymosis and skin tears, stage 1 sacral pressure ulcer, and Lt. big toe wound) - Psychiatric Psychiatric: appropriate mood/affect, cooperative, - Neurologic Neurologic: moves all extremities, following commands - Allied Health Allied health notes reviewed: nursing, Case management - Constitutional Vitals: Temp Pulse Resp BP Pulse Ox 98.0 F 99 H 22 183/105 99 05/05/22 16:35 05/05/22 16:16 05/05/22 16:16 05/05/22 16:16 05/05/22 16:16 General appearance: Present: no acute distress, well-nourished, other (Dry oral mucosa) HEART Score - HEART Score Troponin: Troponin T 0.196 ng/mL (0.00-0.029) H* D 05/02/22 11:14 Results - Labs CBC & Chem 7: 05/05/22 04:38 05/05/22 04:38 Labs: Laboratory Last Values WBC 8.9 K/mm3 (4.5-11.0) 05/05/22 04:38 RBC 3.82 M/mm3 (3.65-5.03) 05/05/22 04:38 Hgb 10.6 gm/dl (11.8-15.2) L 05/05/22 04:38 Hct 32.3 % (35.5-45.6) L 05/05/22 04:38 MCV 85 fl (84-94) 05/05/22 04:38 MCH 28 pg (28-32) 05/05/22 04:38 MCHC 33 % (32-34) 05/05/22 04:38 RDW 19.3 % (13.2-15.2) H 05/05/22 04:38 Plt Count 160 K/mm3 (140-440) 05/05/22 04:38 Lymph % (Auto) 3.9 % (13.4-35.0) L 05/03/22 05:00 [place] % (Auto) 9.4 % (0.0-7.3) H 05/03/22 05:00 Eos % (Auto) 1.0 % (0.0-4.3) 05/03/22 05:00 Baso % (Auto) 0.1 % (0.0-1.8) 05/03/22 05:00 Lymph # (Auto) 0.5 K/mm3 (1.2-5.4) L 05/03/22 05:00 [place] # (Auto) 1.3 K/mm3 (0.0-0.8) H 05/03/22 05:00 Eos # (Auto) 0.1 K/mm3 (0.0-0.4) 05/03/22 05:00 Baso # (Auto) 0.0 K/mm3 (0.0-0.1) 05/03/22 05:00 Seg Neutrophils % 85.6 % (40.0-70.0) H 05/03/22 05:00 Seg Neutrophils # 11.4 K/mm3 (1.8-7.7) H 05/03/22 05:00 PT 19.1 Sec. (12.2-14.9) H 05/01/22 23:14 INR 1.42 (0.87-1.13) H 05/01/22 23:14 APTT 39.9 Sec. (24.2-36.6) H 05/01/22 23:14 D-Dimer 1135.33 ng/mlDDU (0-234) H 05/02/22 11:14 Sodium 142 mmol/L (137-145) 05/05/22 04:38 Potassium 3.2 mmol/L (3.6-5.0) L 05/05/22 04:38 Chloride 112.3 mmol/L (98-107) H 05/05/22 04:38 Carbon Dioxide 19 mmol/L (22-30) L 05/05/22 04:38 Anion Gap 14 mmol/L 05/05/22 04:38 BUN 27 mg/dL (9-20) H 05/05/22 04:38 Creatinine 1.6 mg/dL (0.8-1.3) H 05/05/22 04:38 Estimated GFR 41 ml/min 05/05/22 04:38 BUN/Creatinine Ratio 17 % 05/05/22 04:38 Glucose 168 mg/dL (75-100) H 05/05/22 04:38 POC Glucose 164 mg/dL (70-105) H 05/05/22 16:20 Lactic Acid 1.90 mmol/L (0.7-2.0) 05/02/22 11:14 Calcium 7.6 mg/dL (8.4-10.2) L 05/05/22 04:38 Phosphorus 2.30 mg/dL (2.5-4.5) L 05/05/22 04:38 Magnesium 2.00 mg/dL (1.7-2.3) 05/05/22 04:38 Ferritin 544.4 ng/mL (30.0-300.0) H 05/02/22 11:14 Total Bilirubin 0.40 mg/dL (0.1-1.2) 05/05/22 04:38 AST 44 units/L (5-40) H 05/05/22 04:38 ALT 34 units/L (7-56) 05/05/22 04:38 Alkaline Phosphatase 82 units/L (35-129) 05/05/22 04:38 Lactate Dehydrogenase 172 units/L (91-180) 05/02/22 11:14 Total Creatine Kinase 72 units/L (55-170) 05/05/22 16:00 Troponin T 0.196 ng/mL (0.00-0.029) H* D 05/02/22 11:14 C-Reactive Protein 29.00 mg/dL (0.00-1.30) H 05/02/22 11:14 NT-Pro-B Natriuret Pep 79720 pg/mL (0-900) H 05/01/22 23:14 Total Protein 4.5 g/dL (6.3-8.2) L 05/05/22 04:38 Albumin 2.5 g/dL (3.9-5) L 05/05/22 04:38 Albumin/Globulin Ratio 1.3 % 05/05/22 04:38 Triglycerides 64 mg/dL (2-149) 05/01/22 23:14 Cholesterol 77 mg/dL (50-199) 05/01/22 23:14 LDL Cholesterol Direct 25 mg/dL (50-130) L 05/01/22 23:14 HDL Cholesterol 46 mg/dL (40-59) 05/01/22 23:14 Cholesterol/HDL Ratio 1.67 % 05/01/22 23:14 Procalcitonin 16.30 ng/mL (<0.15) 05/02/22 11:14 Urine Color Yellow (Yellow) 05/01/22 23:54 Urine Turbidity Hazy (Clear) 05/01/22 23:54 Specific [place] (Man) 1.015 (1.003-1.030) 05/01/22 23:54 Ur Protein (Man) 1+ mg/dL (Negative) 05/01/22 23:54 Ur Ketones (Man) Negative (Negative) 05/01/22 23:54 Ur Nitrite (Man) Negative (Negative) 05/01/22 23:54 Urine Bilirubin (Man) Negative (Negative) 05/01/22 23:54 Leukocyte Esterase (Man) Moderate (Negative) 05/01/22 23:54 Urine WBC (Auto) > 182.0 /HPF (0.0-6.0) H 05/01/22 23:54 Urine RBC (Auto) 33.0 /HPF (0.0-6.0) 05/01/22 23:54 Urine Bacteria (Auto) 2+ /HPF (Negative) 05/01/22 23:54 Urine RBC (Manual) 3+ (Negative) 05/01/22 23:54 Urine WBC Clumps 3+ /HPF 05/01/22 23:54 Urine Mucus Few /HPF 05/01/22 23:54 Urine Yeast (Budding) 2+ /HPF 05/01/22 23:54 Coronavirus (PCR) Positive (Negative) A 05/02/22 Unknown Hep Bs Antigen Non-reactive (Negative) 05/02/22 20:20 Hepatitis C Antibody Non-reactive (NonReactive) 05/02/22 20:20 Influenza A (RT-PCR) Negative (Negative) 05/02/22 15:40 Influenza B (RT-PCR) Negative (Negative) 05/02/22 15:40 Microbiology: Microbiology 05/04/22 09:20 Peripheral/Venous Blood Culture - Preliminary NO GROWTH AFTER 24 HOURS 05/04/22 09:20 Peripheral/Venous Blood Culture - Preliminary NO GROWTH AFTER 24 HOURS 05/02/22 00:38 Peripheral/Venous Blood Culture - Final Escherichia Coli 05/02/22 00:44 Peripheral/Venous Blood Culture - Final Escherichia Coli 05/02/22 Unknown Urine,Clean Catch Urine Culture - Final Escherichia Coli Dumont/IV: Voiding Method Indwelling Catheter Active Medications - Current Medications Current Medications: Generic Name Dose Route Start Last Admin Trade Name Freq PRN Reason Stop Dose Admin Acetaminophen 650 mg 05/02/22 00:33 Acetaminophen 325 Mg Tab PO Q4H PRN Pain MILD(1-3)/Fever >100.5/ALLEN Amiodarone HCl 200 mg 05/05/22 14:00 05/05/22 13:04 Amiodarone 200 Mg Tab PO 200 mg BID GENA Administration Ascorbic Acid 500 mg 05/05/22 22:00 Ascorbic Acid 500 Mg Tab PO BID [facility] Atorvastatin Calcium 40 mg 05/02/22 22:00 05/04/22 20:59 Atorvastatin 40 Mg Tab PO Not Given QHS [facility] Dextrose 50 ml 05/02/22 18:49 Dextrose 50% In Water (25gm) 50 Ml Syringe IV Q30MIN PRN Hypoglycemia Protocol Famotidine 20 mg 05/03/22 10:00 05/05/22 09:21 Famotidine 20 Mg Tab PO Not Given QDAY [facility] Haloperidol Lactate 5 mg 05/03/22 13:25 05/05/22 17:38 Haloperidol Lactate 5 Mg/1 Ml Inj IV 5 mg Q6H PRN Administration Agitation Ceftriaxone Sodium 1 gm in 50 mls @ 100 mls/hr 05/02/22 01:00 05/05/22 09:29 Rocephin/Ns 1 Gm/50 Ml IV 100 mls/hr Q24HR [facility] Administration Protocol Insulin Human Regular 0 units 05/02/22 22:00 05/05/22 13:15 Insulin Regular, Human 100 Units/1 Ml SUB-Q 3 units ACHS [facility] Administration Protocol Magnesium Hydroxide 30 ml 05/02/22 00:33 Magnesium Hydroxide (Mom) Oral Liqd Udc PO Q4H PRN Constipation Morphine Sulfate 2 mg 05/02/22 00:33 05/05/22 01:41 Morphine 2 Mg/1 Ml Inj IV 2 mg Q4H PRN Administration Pain, Moderate (4-6) Ondansetron HCl 4 mg 05/02/22 00:33 Ondansetron 4 Mg/2 Ml Inj IV Q8H PRN Nausea And Vomiting Senna/Docusate Sodium 1 tab 05/03/22 22:00 05/04/22 20:59 Sennosides/Docusate Sodium 8.6/50 Mg Tab PO Not Given QHS [facility] Sodium Bicarbonate 1,300 mg 05/03/22 14:00 05/05/22 13:04 Sodium Bicarbonate 650 Mg Tab PO 1,300 mg TID [facility] Administration Sodium Chloride 10 ml 05/02/22 10:00 05/05/22 09:30 Sodium Chloride 0.9% 10 Ml Flush Syringe IV 10 ml BID GENA Administration Sodium Chloride 10 ml 05/02/22 00:33 Sodium Chloride 0.9% 10 Ml Flush Syringe IV PRN PRN LINE FLUSH Zinc Sulfate 220 mg 05/06/22 10:00 Zinc Sulfate 220 Mg Cap PO QDAY GENA Nutrition/Malnutrition Assess - Dietary Evaluation Nutrition/Malnutrition Findings: Nutrition Notes Start: 05/02/22 10:24 Freq: Status: Active Protocol: Document 05/02/22 10:24 KIERSTEN (Rec: 05/02/22 11:05 KIERSTEN [id number]) Nutrition Notes 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 Current Diet Cardiac -Renal- Diet (since B 05/02). Labs/Tests 05/01: Na 125, Cl 91.0, CO2 21 , BUN 38, Crea 2.1, Glu 131, Ca 7.9, Mg 1.6. Pertinent Medications 05/02: Nutritionally unremarkable. 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 Weight Status Appropriate Subjective/Other Information RD consult for skin risk and risk of malnutrition assessments. No reports available on Pt's PO intake of meals at the time , will assess at F/U. I will recommend Renal modification to current diet, to support Pt's ANJU condition during LOS. I will also recommend dietary supplements to support wound healinh processes during LOS. Pt is on Room Air, O2 saturation @ 99%, according to Physical Assessment History notes. Pt has caries and missing teeth, according to Physical Assessment History notes. Pt passed bedside swallow assessment on 05/02, according to Swallow Screen notes. Pt shows Decubitus Sacral Ulcer stage II, L-toe open wound, and multiple bruises and skin tears in arms and legs as signs of concern for skin risk at the time, according to Physical Assessment History notes. Pt shows no signs of concern for risk of malnutrition at the time, according to Physical Assessment History notes. Percent of energy/protein needs met: Prescribed Cardiac -Renal- Diet provides for energy/ protein needs (2,230 Kcal/85 g ) during LOS; additionally, Dietary Supplements will support wound healing processes with 320 Kcal and 32 g of protein. Burn Absent Trauma Absent GI Symptoms None Food Allergy No Skin Integrity/Comment Sacral decubitus, L-toe & bruises. Minimum of two criteria No Fluid Accumulation N/A Reduced It Generalist Strength N/A (non-severe) Protein-Calorie Malnutrition N\\A #2 Nutrition Diagnosis Increased nutrient needs ( specify in comment below) Comments: Protein, to support wound healing processes during LOS. Etiology Uncertain. As Evidenced by Signs and Symptoms Pt shows Decubitus Sacral Ulcer stage II, L-toe open wound, and multiple bruises and skin tears in arms and legs as signs of concern for skin risk at the time, according to Physical Assessment History notes. #1 Nutrition Diagnosis Altered nutrition-related laboratory values Etiology ANJU. As Evidenced by Signs and Symptoms 05/01: Na 125, Cl 91.0, CO2 21 , BUN 38, Crea 2.1, Glu 131, Ca 7.9, Mg 1.6. Is patient on ventilator? No Is Patient Ambulatory and/or Out of Bed No REE-([facility]-confined to bed) 1617.408 Kcal/Kg value to use for calculation 26 Approximate Energy Requirements Using 1812 kcal/Kg Calculation Used for Recommendations Kcal/kg Additional Notes Protein: 0.8-1.2 g/Kg ABW; 56- 84 g/day. Fluids: 1 ml/Kcal, or as per MD. Nutrition Intervention Change Diet Order: Modify to Cardiac -Renal- Diet , continue as tolerated. Add Supplement/Snack (indicate name/kcal Start 8 fl oz Ensure High /protein ) Protein; BID. Provides kCal: 320 Provides Protein (gm) 32 Goal #1 Help reach and maintain acceptable chemistry lab values during LOS. Goal #2 Support, through dietary supplementation, wound healing processes during LOS. Goal #3 Adjust the dietary intervention to better serve Pt's energy/protein needs and clinical conditions during LOS . Follow-Up By: 05/09/22 Additional Comments Continue monitoring food tolerance, %PO intake of meals , dietary supplements, and BM.
--- NOTE | 2022-05-05 19:04 | Progress Note ---
Assessment and Plan Acute kidney injury: suspect due to tubular injury in setting of shock Hyponatremia Hypokalemia Acute encephalopathy Shock Acidosis COVID-positive Creatinine stable at 1.6 this AM Sodium at goal, note hypokalemia, acidosis Continue NaHCO3 for now, may need to stop if K persistently low, replete K prn for now Follow-up renal ultrasound- no acute process noted, do note potential mass, plan for CT once more stable Follow serologies - pending Continue current supportive measures Keep MAP more than 65 renally dose medications Avoid nephrotoxins Renal diet Neurology, cardiology note reviewed Subjective Date of service: 05/05/22 Principal diagnosis: AMS; UTI; ANJU; Septic shock; E.Coli Bacteremia; UTI; Thrombocytopenia Interval history: Seen in [facility] Vitals, labs and I/os reviewed Interdisciplinary notes and consults reviewed Objective - Exam Narrative Exam: Constitutional: no acute distress Head: NC/AT Neck: supple Lungs: clear to auscultation CV: RRR, no M/R/G Abdomen: soft, non-tender, bowel sounds present Back: nontender Extremities: no edema, pulses WNL Skin: intact Neuro: Somnolent. Altered. - Vital Signs Vital signs: Vital Signs - 12hr 05/05/22 05/05/22 05/05/22 07:16 07:21 07:30 Temperature 99.6 F Pulse Rate 85 85 Pulse Rate [ From Monitor] Respiratory 19 19 Rate Blood Pressure 130/71 132/60 O2 Sat by Pulse 93 95 Oximetry 05/05/22 05/05/22 05/05/22 07:46 08:00 08:16 Temperature Pulse Rate 76 79 83 Pulse Rate [ 86 From Monitor] Respiratory 18 20 20 Rate Blood Pressure 130/66 126/49 132/60 O2 Sat by Pulse 95 97 96 Oximetry 05/05/22 05/05/22 05/05/22 08:30 08:46 09:00 Temperature Pulse Rate 73 71 82 Pulse Rate [ From Monitor] Respiratory 18 19 21 Rate Blood Pressure 132/60 116/53 132/60 O2 Sat by Pulse 95 95 96 Oximetry 05/05/22 05/05/22 05/05/22 09:14 09:16 09:30 Temperature Pulse Rate 86 78 85 Pulse Rate [ From Monitor] Respiratory 19 25 H Rate Blood Pressure 132/60 123/56 O2 Sat by Pulse 95 96 Oximetry 05/05/22 05/05/2205/05/22 09:46 10:00 10:16 Temperature Pulse Rate 81 93 H 91 H Pulse Rate [ From Monitor] Respiratory 21 24 30 H Rate Blood Pressure 123/56 123/56 O2 Sat by Pulse 97 95 98 Oximetry 05/05/22 05/05/22 05/05/22 10:30 11:40 11:46 Temperature Pulse Rate 85 89 90 Pulse Rate [ From Monitor] Respiratory 32 H 27 H 29 H Rate Blood Pressure 140/70 140/70 162/82 O2 Sat by Pulse 97 94 94 Oximetry 05/05/22 05/05/22 05/05/22 11:47 12:00 12:16 Temperature 97.7 F Pulse Rate 93 H 106 H Pulse Rate [ 88 From Monitor] Respiratory 29 H 26 H Rate Blood Pressure 155/82 155/82 O2 Sat by Pulse 94 94 Oximetry 05/05/22 05/05/22 05/05/22 12:30 12:46 13:00 Temperature Pulse Rate 86 92 H 126 H Pulse Rate [ From Monitor] Respiratory 21 19 24 Rate Blood Pressure 137/64 155/82 155/82 O2 Sat by Pulse 94 94 97 Oximetry 05/05/22 05/05/22 05/05/22 13:16 13:30 13:46 Temperature Pulse Rate 102 H 113 H 105 H Pulse Rate [ From Monitor] Respiratory 28 H 26 H 27 H Rate Blood Pressure 154/104 154/104 134/109 O2 Sat by Pulse 96 84 74 L Oximetry 05/05/22 05/05/22 05/05/22 14:00 14:16 14:30 Temperature Pulse Rate 96 H 98 H 96 H Pulse Rate [ From Monitor] Respiratory 25 H 24 25 H Rate Blood Pressure 132/76 132/76 124/82 O2 Sat by Pulse 92 89 94 Oximetry 05/05/22 05/05/22 05/05/22 14:46 15:00 15:16 Temperature Pulse Rate 102 H 107 H 132 H Pulse Rate [ From Monitor] Respiratory 24 21 28 H Rate Blood Pressure 124/82 124/82 124/82 O2 Sat by Pulse 94 94 Oximetry 05/05/22 05/05/22 05/05/22 15:30 15:46 16:00 Temperature Pulse Rate 114 H 98 H 106 H Pulse Rate [ 97 H From Monitor] Respiratory 23 24 12 Rate Blood Pressure 124/82 150/94 150/94 O2 Sat by Pulse 93 96 95 Oximetry 05/05/22 05/05/22 05/05/22 16:16 16:30 16:35 Temperature 98.0 F Pulse Rate 99 H 96 H Pulse Rate [ From Monitor] Respiratory 22 17 Rate Blood Pressure 183/105 132/69 O2 Sat by Pulse 99 100 Oximetry 05/05/22 05/05/22 05/05/22 16:46 17:00 17:16 Temperature Pulse Rate 97 H 101 H 116 H Pulse Rate [ From Monitor] Respiratory 28 H 24 32 H Rate Blood Pressure 132/69 132/69 132/69 O2 Sat by Pulse 98 98 97 Oximetry 05/05/22 05/05/22 05/05/22 17:30 17:46 18:00 Temperature Pulse Rate 109 H 105 H 103 H Pulse Rate [ From Monitor] Respiratory 21 20 24 Rate Blood Pressure 165/88 165/88 134/70 O2 Sat by Pulse 98 100 100 Oximetry 05/05/22 05/05/22 18:16 18:30 Temperature Pulse Rate 118 H Pulse Rate [ From Monitor] Respiratory 34 H 24 Rate Blood Pressure 134/70 134/70 O2 Sat by Pulse 100 96 Oximetry - Lab 05/05/22 04:38 05/05/22 04:38 Most recent lab results Calcium 7.6 mg/dL (8.4-10.2) L 05/05/22 04:38 Phosphorus 2.30 mg/dL (2.5-4.5) L 05/05/22 04:38 Magnesium 2.00 mg/dL (1.7-2.3) 05/05/22 04:38 Medications & Allergies - Medications Allergies/Adverse Reactions: Allergies aspirin Adverse Reaction (Verified 05/02/22 13:20) Bleeding levofloxacin [From Levaquin] Adverse Reaction (Verified 04/21/17 21:12) Rash blood thinners Adverse Reaction (Uncoded 05/02/22 13:20) Bleeding Home Medications: Home Medications Medication Instructions Recorded Confirmed Last Taken Type Memantine HCl [Namenda] 10 mg PO BID 04/21/17 05/02/22 Unknown History Omeprazole 40 mg PO QDAY 04/21/17 05/02/22 Unknown History Sertraline [Zoloft] 50 mg PO QDAY 04/21/17 05/02/22 Unknown History Simvastatin (NF) [Zocor TAB] 40 mg PO QHS 04/21/17 05/02/22 Unknown History Meclizine [Antivert] 12.5 mg PO Q12H PRN #60 tablet 04/22/19 05/02/22 Unknown Rx Fluticasone [Flonase] 1 spray NS QDAY #1 bottle 04/23/19 05/02/22 Unknown Rx Active Medications: Generic Name Dose Route Start Last Admin Trade Name Freq PRN Reason Stop Dose Admin Acetaminophen 650 mg 05/02/22 00:33 Acetaminophen 325 Mg Tab PO Q4H PRN Pain MILD(1-3)/Fever >100.5/ALLEN Amiodarone HCl 200 mg 05/05/22 14:00 05/05/22 13:04 Amiodarone 200 Mg Tab PO 200 mg BID GENA Administration Ascorbic Acid 500 mg 05/05/22 22:00 Ascorbic Acid 500 Mg Tab PO BID GENA Atorvastatin Calcium 40 mg 05/02/22 22:00 05/04/22 20:59 Atorvastatin 40 Mg Tab PO Not Given QHS GENA Dextrose 50 ml 05/02/22 18:49 Dextrose 50% In Water (25gm) 50 Ml Syringe IV Q30MIN PRN Hypoglycemia Protocol Famotidine 20 mg 05/03/22 10:00 05/05/22 09:21 Famotidine 20 Mg Tab PO Not Given QDAY GENA Haloperidol Lactate 5 mg 05/03/22 13:25 05/05/22 17:38 Haloperidol Lactate 5 Mg/1 Ml Inj IV 5 mg Q6H PRN Administration Agitation Hydralazine HCl 10 mg 05/05/22 17:45 Hydralazine 20 Mg/1 Ml Inj IV Q4HR PRN Hypertension Ceftriaxone Sodium 1 gm in 50 mls @ 100 mls/hr 05/02/22 01:00 05/05/22 09:59 Rocephin/Ns 1 Gm/50 Ml IV Infused Q24HR [facility] Infusion Protocol Insulin Human Regular 0 units 05/02/22 22:00 05/05/22 17:44 Insulin Regular, Human 100 Units/1 Ml SUB-Q 2 units ACHS GENA Administration Protocol Magnesium Hydroxide 30 ml 05/02/22 00:33 Magnesium Hydroxide (Mom) Oral Liqd Udc PO Q4H PRN Constipation Memantine 10 mg 05/05/22 22:00 Memantine 10 Mg Tab PO BID GENA Morphine Sulfate 2 mg 05/02/22 00:33 05/05/22 01:41 Morphine 2 Mg/1 Ml Inj IV 2 mg Q4H PRN Administration Pain, Moderate (4-6) Ondansetron HCl 4 mg 05/02/22 00:33 Ondansetron 4 Mg/2 Ml Inj IV Q8H PRN Nausea And Vomiting Senna/Docusate Sodium 1 tab 05/03/22 22:00 05/04/22 20:59 Sennosides/Docusate Sodium 8.6/50 Mg Tab PO Not Given QHS GENA Sodium Bicarbonate 1,300 mg 05/03/22 14:00 05/05/22 13:04 Sodium Bicarbonate 650 Mg Tab PO 1,300 mg TID GENA Administration Sodium Chloride 10 ml 05/02/22 10:00 05/05/22 09:30 Sodium Chloride 0.9% 10 Ml Flush Syringe IV 10 ml BID GENA Administration Sodium Chloride 10 ml 05/02/22 00:33 Sodium Chloride 0.9% 10 Ml Flush Syringe IV PRN PRN LINE FLUSH Zinc Sulfate 220 mg 05/06/22 10:00 Zinc Sulfate 220 Mg Cap PO QDAY GENA
[2022-05-05] MEDS: MEMANTINE 10 MG TAB PO SCH (22:02)
[2022-05-05] MEDS: ASCORBIC ACID 500 MG TAB PO SCH (22:03)
[2022-05-05] MEDS: SENNOSIDES/DOCUSATE SODIUM 8.6/50 MG TAB PO SCH (22:03)
[2022-05-06] MEDS: MORPHINE 2 MG/1 ML INJ IV PRN (01:31)
[2022-05-06] MEDS: HALOPERIDOL LACTATE 5 MG/1 ML INJ IV PRN (03:42)
--- NOTE | 2022-05-06 06:48 | Progress Note ---
Assessment and Plan Acute altered mental status Urinary tract infection H/O CVA withy ICH ANJU on CKD Septic shock E. Coli Bacteremia UTI Hyperlipidemia HTN Arthritis Anemia Thrombocytopenia Hypomagnesemia - advance diet per [employer] recommendations - continue aniodarone for rate control - continue Rocephin; transition to oral Keflex X 2 weeks at discharge - ID input appreciated - continue care as below otherwise; - azotemia per nephrology team (improving) - supplemental oxygen to keep O2 sats > 90% - bronchodilators (CHLOE) with pulm hygiene per RT - continue to avoid nephrotoxins, renally dose all medications - mobility protocols to prevent pressure ulcers - PT/OT as tolerated - Wound care per RN/WCT - continue accuchecks with glycemic control per SSI for target blood glucose < 180 mg/dL - tobacco abstinence counseled at the bedside - home oxygen evaluation at discharge - GI & VTE prophylaxis - Flu & pneumovax per protocol - Pulmonary out patient follow up for PFTs and optimization of respiratory status - continue other care per attending / other consultants - prn analgesia per pain score COVID SPECIFIC INTERVENTIONS - Remdesivir as per ID/Pulmonary developed protocols - continue systemic steroids for severe COVID-19 infection empirically (decadron) - follow repeat COVID tests results - zinc and vitamin C supplementation - Monitor inflammatory markers per facility protocol - ferritin, Ddimer, CRP - therapeutic anticoagulation per system Protocol based on d-dimer and clinical considerations (DVT prophylaxis) - Continue contact and airborne isolation ... re-evaluate in am & prn .... ok to transfer to Med/Surg floor Subjective Date of service: 05/06/22 Principal diagnosis: AMS; UTI; ANJU; Septic shock; E.Coli Bacteremia; UTI; Thrombocytopenia Interval history: Patient is seen today for: AMS; UTI; H/O CVA with ICH; ANJU; Septic shock; E. Coli Bacteremia; UTI; Thrombocytopenia; A-fib Seen and examined at bedside; 24hour events reviewed; nursing and respiratory care staff consulted; no adverse overnight events reported to me; resting in bed; on intermittent supplemental oxygen up to 2L NC; tolerating diet very well; no high grade fevers; no N/V/F/C Objective Vital Signs - 12hr 05/05/22 05/05/22 05/05/22 19:00 19:16 19:30 Temperature Pulse Rate 96 H 94 H 83 Pulse Rate [ From Monitor] Respiratory 22 21 22 Rate Blood Pressure 152/86 124/73 130/72 O2 Sat by Pulse 100 100 97 Oximetry 05/05/22 05/05/22 05/05/22 19:46 20:00 20:16 Temperature 99.5 F Pulse Rate 96 H 93 H 94 H Pulse Rate [ 93 H From Monitor] Respiratory 24 20 26 H Rate Blood Pressure 130/72 129/72 130/72 O2 Sat by Pulse 100 100 100 Oximetry 05/05/22 05/05/22 05/05/22 20:30 20:46 21:00 Temperature Pulse Rate Pulse Rate [ From Monitor] Respiratory Rate Blood Pressure 130/72 158/99 177/103 O2 Sat by Pulse 99 100 98 Oximetry 05/05/22 05/05/22 05/05/22 21:16 21:30 21:46 Temperature Pulse Rate 106 H 104 H 92 H Pulse Rate [ From Monitor] Respiratory 17 23 19 Rate Blood Pressure 177/103 142/73 142/73 O2 Sat by Pulse 99 100 99 Oximetry 05/05/22 05/05/22 05/05/22 22:00 22:16 22:30 Temperature Pulse Rate 89 106 H 98 H Pulse Rate [ From Monitor] Respiratory 19 24 18 Rate Blood Pressure 161/76 161/76 160/87 O2 Sat by Pulse 100 100 100 Oximetry 05/05/22 05/05/22 05/05/22 22:46 23:00 23:15 Temperature Pulse Rate 100 H 108 H 102 H Pulse Rate [ From Monitor] Respiratory 17 17 19 Rate Blood Pressure 160/87 159/83 159/83 O2 Sat by Pulse 100 100 99 Oximetry 05/05/22 05/05/22 05/06/22 23:31 23:45 00:00 Temperature 99.2 F Pulse Rate 97 H 103 H 104 H Pulse Rate [ 104 H From Monitor] Respiratory 26 H 20 16 Rate Blood Pressure 159/86 159/86 147/76 O2 Sat by Pulse 97 95 95 Oximetry 05/06/22 05/06/22 05/06/22 00:06 00:31 01:01 Temperature Pulse Rate 93 H 98 H Pulse Rate [ From Monitor] Respiratory 23 19 Rate Blood Pressure 160/87 145/78 163/104 O2 Sat by Pulse 99 98 96 Oximetry 05/06/22 05/06/22 05/06/22 01:30 02:01 02:30 Temperature Pulse Rate 100 H 96 H 110 H Pulse Rate [ From Monitor] Respiratory 18 21 23 Rate Blood Pressure 137/69 145/73 155/81 O2 Sat by Pulse 95 96 95 Oximetry 05/06/22 05/06/22 05/06/22 03:01 03:31 04:00 Temperature 98.2 F Pulse Rate 115 H 105 H 132 H Pulse Rate [ 134 H From Monitor] Respiratory 24 24 22 Rate Blood Pressure 153/78 163/82 153/83 O2 Sat by Pulse 95 94 95 Oximetry 05/06/22 05/06/22 05/06/22 04:30 05:00 05:31 Temperature Pulse Rate 96 H 97 H Pulse Rate [ From Monitor] Respiratory 23 21 Rate Blood Pressure 138/72 140/75 139/70 O2 Sat by Pulse 96 98 98 Oximetry 05/06/22 06:00 Temperature Pulse Rate 99 H Pulse Rate [ From Monitor] Respiratory 20 Rate Blood Pressure 129/79 O2 Sat by Pulse 93 Oximetry Constitutional: no acute distress, alert, other (elderly male with milldy increased respiratory effort at rest) Eyes: non-icteric ENT: oropharynx moist Neck: supple, no lymphadenopathy, no JVD Effort: mildly labored Ascultation: Bilateral: diminished breath sounds, rhonchi (scant bases) Percussion: Bilateral: not dull Cardiovascular: irregular rhythm Gastrointestinal: normoactive bowel sounds, soft, non-tender, non-distended (protuberant) Integumentary: normal Extremities: no cyanosis, no edema, pink and warm, pulses normal Neurologic: non-focal exam (grossly), pupils equal and round, CN II-XII normal, motor strength normal and Psychiatric: mood appropriate, affect normal CBC and BMP: 05/05/22 04:38 05/05/22 04:38 ABG, PT/INR, D-dimer: PT/INR, D-dimer PT 19.1 Sec. (12.2-14.9) H 05/01/22 23:14 INR 1.42 (0.87-1.13) H 05/01/22 23:14 D-Dimer 1135.33 ng/mlDDU (0-234) H 05/02/22 11:14 Abnormal lab findings: Abnormal Labs 05/01/22 05/01/22 05/01/22 23:14 23:14 23:14 WBC RBC Hgb 10.8 L Hct 30.9 L MCHC 35 H RDW 18.0 H Plt Count 113 L Lymph % (Auto) [place] % (Auto) Lymph # (Auto) [place] # (Auto) Seg Neutrophils % Seg Neutrophils # PT 19.1 H INR 1.42 H APTT 39.9 H D-Dimer Sodium 125 L Potassium Chloride 91.0 L Carbon Dioxide 21 L BUN 38 H Creatinine 2.1 H Glucose 131 H POC Glucose Lactic Acid Calcium 7.9 L Phosphorus Magnesium 1.60 L Ferritin AST Total Creatine Kinase Troponin T C-Reactive Protein NT-Pro-B Natriuret Pep Total Protein 4.8 L Albumin 3.3 L Prealbumin LDL Cholesterol Direct Vitamin B12 Urine WBC (Auto) Coronavirus (PCR) 05/01/22 05/01/22 05/02/22 23:14 23:54 03:39 WBC RBC Hgb Hct MCHC RDW Plt Count Lymph % (Auto) [place] % (Auto) Lymph # (Auto) [place] # (Auto) Seg Neutrophils % Seg Neutrophils # PT INR APTT D-Dimer Sodium Potassium Chloride Carbon Dioxide BUN Creatinine Glucose POC Glucose Lactic Acid 2.30 H* Calcium Phosphorus Magnesium Ferritin AST Total Creatine Kinase Troponin T 0.054 H C-Reactive Protein NT-Pro-B Natriuret Pep 27619 H Total Protein Albumin Prealbumin LDL Cholesterol Direct 25 L Vitamin B12 Urine WBC (Auto) > 182.0 H Coronavirus (PCR) 05/02/22 05/02/22 05/02/22 06:05 11:14 11:14 WBC RBC Hgb Hct MCHC RDW Plt Count Lymph % (Auto) [place] % (Auto) Lymph # (Auto) [place] # (Auto) Seg Neutrophils % Seg Neutrophils # PT INR APTT D-Dimer 1135.33 H Sodium 132 L D Potassium Chloride Carbon Dioxide 15 L BUN 41 H Creatinine 2.1 H Glucose 127 H POC Glucose 139 H Lactic Acid Calcium 7.6 L Phosphorus Magnesium Ferritin AST Total Creatine Kinase Troponin T 0.196 H* D C-Reactive Protein 29.00 H NT-Pro-B Natriuret Pep Total Protein Albumin Prealbumin LDL Cholesterol Direct Vitamin B12 Urine WBC (Auto) Coronavirus (PCR) 05/02/22 05/02/22 05/02/22 11:14 11:14 17:10 WBC RBC Hgb Hct MCHC RDW Plt Count Lymph % (Auto) [place] % (Auto) Lymph # (Auto) [place] # (Auto) Seg Neutrophils % Seg Neutrophils # PT INR APTT D-Dimer Sodium 130 L Potassium Chloride 96.0 L Carbon Dioxide 17 L BUN 42 H Creatinine 2.3 H Glucose 141 H POC Glucose 150 H Lactic Acid Calcium 7.7 L Phosphorus Magnesium Ferritin 544.4 H AST Total Creatine Kinase Troponin T C-Reactive Protein NT-Pro-B Natriuret Pep Total Protein Albumin Prealbumin LDL Cholesterol Direct Vitamin B12 Urine WBC (Auto) Coronavirus (PCR) 05/02/22 05/02/22 05/02/22 20:20 20:20 22:06 WBC RBC Hgb Hct MCHC RDW Plt Count Lymph % (Auto) [place] % (Auto) Lymph # (Auto) [place] # (Auto) Seg Neutrophils % Seg Neutrophils # PT INR APTT D-Dimer Sodium 133 L Potassium Chloride Carbon Dioxide BUN Creatinine Glucose POC Glucose 146 H Lactic Acid Calcium Phosphorus Magnesium Ferritin AST Total Creatine Kinase 816 H Troponin T C-Reactive Protein NT-Pro-B Natriuret Pep Total Protein Albumin Prealbumin LDL Cholesterol Direct Vitamin B12 Urine WBC (Auto) Coronavirus (PCR) 05/02/22 05/03/22 05/03/22 Unknown 05:00 06:48 WBC 13.3 H RBC 3.62 L Hgb 10.1 L Hct 30.8 L MCHC RDW 19.1 H Plt Count Lymph % (Auto) 3.9 L [place] % (Auto) 9.4 H Lymph # (Auto) 0.5 L [place] # (Auto) 1.3 H Seg Neutrophils % 85.6 H Seg Neutrophils # 11.4 H PT INR APTT D-Dimer Sodium 135 L Potassium Chloride Carbon Dioxide 16 L BUN 38 H Creatinine 2.0 H Glucose 122 H POC Glucose Lactic Acid Calcium 7.6 L Phosphorus Magnesium Ferritin AST Total Creatine Kinase Troponin T C-Reactive Protein NT-Pro-B Natriuret Pep Total Protein Albumin Prealbumin LDL Cholesterol Direct Vitamin B12 Urine WBC (Auto) Coronavirus (PCR) Positive A 05/03/22 05/03/22 05/03/22 08:48 11:07 16:29 WBC RBC Hgb Hct MCHC RDW Plt Count Lymph % (Auto) [place] % (Auto) Lymph # (Auto) [place] # (Auto) Seg Neutrophils % Seg Neutrophils # PT INR APTT D-Dimer Sodium Potassium Chloride Carbon Dioxide BUN Creatinine Glucose POC Glucose 127 H 116 H 113 H Lactic Acid Calcium Phosphorus Magnesium Ferritin AST Total Creatine Kinase Troponin T C-Reactive Protein NT-Pro-B Natriuret Pep Total Protein Albumin Prealbumin LDL Cholesterol Direct Vitamin B12 Urine WBC (Auto) Coronavirus (PCR) 05/03/22 05/04/22 05/04/22 22:29 05:00 05:00 WBC RBC 3.39 L Hgb 9.6 L Hct 28.8 L MCHC RDW 18.8 H Plt Count Lymph % (Auto) [place] % (Auto) Lymph # (Auto) [place] # (Auto) Seg Neutrophils % Seg Neutrophils # PT INR APTT D-Dimer Sodium Potassium 3.3 L D Chloride 108.7 H Carbon Dioxide 17 L BUN 37 H Creatinine 1.8 H Glucose 117 H POC Glucose 113 H Lactic Acid Calcium 7.4 L Phosphorus Magnesium Ferritin AST Total Creatine Kinase Troponin T C-Reactive Protein NT-Pro-B Natriuret Pep Total Protein Albumin Prealbumin LDL Cholesterol Direct Vitamin B12 Urine WBC (Auto) Coronavirus (PCR) 05/04/22 05/04/22 05/04/22 07:40 11:22 15:57 WBC RBC Hgb Hct MCHC RDW Plt Count Lymph % (Auto) [place] % (Auto) Lymph # (Auto) [place] # (Auto) Seg Neutrophils % Seg Neutrophils # PT INR APTT D-Dimer Sodium Potassium Chloride Carbon Dioxide BUN Creatinine Glucose POC Glucose 107 H 124 H 147 H Lactic Acid Calcium Phosphorus Magnesium Ferritin AST Total Creatine Kinase Troponin T C-Reactive Protein NT-Pro-B Natriuret Pep Total Protein Albumin Prealbumin LDL Cholesterol Direct Vitamin B12 Urine WBC (Auto) Coronavirus (PCR) 05/04/22 05/04/22 05/05/22 18:55 22:40 04:38 WBC RBC Hgb 10.6 L Hct 32.3 L MCHC RDW 19.3 H Plt Count Lymph % (Auto) [place] % (Auto) Lymph # (Auto) [place] # (Auto) Seg Neutrophils % Seg Neutrophils # PT INR APTT D-Dimer Sodium Potassium 3.5 L Chloride 109.4 H Carbon Dioxide 18 L BUN 31 H Creatinine 1.6 H Glucose 166 H POC Glucose 138 H Lactic Acid Calcium 7.4 L Phosphorus Magnesium Ferritin AST Total Creatine Kinase Troponin T C-Reactive Protein NT-Pro-B Natriuret Pep Total Protein Albumin Prealbumin LDL Cholesterol Direct Vitamin B12 Urine WBC (Auto) Coronavirus (PCR) 05/05/22 05/05/22 05/05/22 04:38 07:35 13:06 WBC RBC Hgb Hct MCHC RDW Plt Count Lymph % (Auto) [place] % (Auto) Lymph # (Auto) [place] # (Auto) Seg Neutrophils % Seg Neutrophils # PT INR APTT D-Dimer Sodium Potassium 3.2 L Chloride 112.3 H Carbon Dioxide 19 L BUN 27 H Creatinine 1.6 H Glucose 168 H POC Glucose 152 H 208 H Lactic Acid Calcium 7.6 L Phosphorus 2.30 L Magnesium Ferritin AST 44 H Total Creatine Kinase Troponin T C-Reactive Protein NT-Pro-B Natriuret Pep Total Protein 4.5 L Albumin 2.5 L Prealbumin LDL Cholesterol Direct Vitamin B12 Urine WBC (Auto) Coronavirus (PCR) 05/05/22 05/05/22 05/06/22 16:20 22:07 04:43 WBC RBC Hgb Hct MCHC RDW Plt Count Lymph % (Auto) [place] % (Auto) Lymph # (Auto) [place] # (Auto) Seg Neutrophils % Seg Neutrophils # PT INR APTT D-Dimer Sodium Potassium Chloride Carbon Dioxide BUN Creatinine Glucose POC Glucose 164 H 148 H Lactic Acid Calcium Phosphorus Magnesium Ferritin AST Total Creatine Kinase Troponin T C-Reactive Protein NT-Pro-B Natriuret Pep Total Protein Albumin Prealbumin 0.055 L LDL Cholesterol Direct Vitamin B12 Urine WBC (Auto) Coronavirus (PCR) 05/06/22 04:43 WBC RBC Hgb Hct MCHC RDW Plt Count Lymph % (Auto) [place] % (Auto) Lymph # (Auto) [place] # (Auto) Seg Neutrophils % Seg Neutrophils # PT INR APTT D-Dimer Sodium Potassium Chloride Carbon Dioxide BUN Creatinine Glucose POC Glucose Lactic Acid Calcium Phosphorus Magnesium Ferritin AST Total Creatine Kinase Troponin T C-Reactive Protein NT-Pro-B Natriuret Pep Total Protein Albumin Prealbumin LDL Cholesterol Direct Vitamin B12 1464 H Urine WBC (Auto) Coronavirus (PCR) Allied health notes reviewed: nursing
[2022-05-06] MEDS: cefTRIAXone/NS 2 GM/100 ML 2 GM/100 ML BAG IV SCH (09:57)
[2022-05-06] MEDS: FAMOTIDINE 20 MG TAB PO SCH (09:58)
[2022-05-06] MEDS: AMIODARONE 200 MG TAB PO SCH (09:58)
[2022-05-06] MEDS: ASCORBIC ACID 500 MG TAB PO SCH (09:58)
[2022-05-06] MEDS: ZINC SULFATE 220 MG CAP PO SCH (09:58)
[2022-05-06] MEDS: SODIUM BICARBONATE 650 MG TAB PO SCH ×2 (09:58→14:43)
[2022-05-06] MEDS: INSULIN REGULAR, HUMAN 100 UNITS/1 ML SUB-Q SCH ×3 (09:58→17:14)
--- NOTE | 2022-05-06 10:42 | Consultation ---
History of Present Illness - Reason for Consult Consult date: 05/06/22 - History of Present Illness 86-year-old man past medical history hypertension, CVA, dementia, hyperlipidemia presented hospital with worsening mental status which began a couple hours prior to admission. He recently had COVID-19 approximate 3 weeks ago, and repeat ported by his family he has been declining since that time. He has had bouts of intermittent confusion since that infection. He was found to have UTI and bacteremia, as such we are consulted. Afebrile, white count 13.3. Blood and urine cultures with E. coli. Imaging personally reviewed: Brain MRI: Chronic ischemic changes Unable to complete review of systems due to altered mental status. Past History Past Medical History: arthritis, hypertension, hyperlipidemia, stroke, other (Dementia,hiatal hernia,BPH,Kidney stones) Past Surgical History: cholecystectomy, Other (Open heart surgery) Social history: no significant social history Family history: no significant family history Medications and Allergies Allergies Allergy/AdvReac Type Severity Reaction Status Date / Time aspirin AdvReac Bleeding Verified 05/02/22 13:20 levofloxacin [From Levaquin] AdvReac Rash Verified 04/21/17 21:12 blood thinners AdvReac Bleeding Uncoded 05/02/22 13:20 Home Medications Medication Instructions Recorded Confirmed Last Taken Type Memantine HCl [Namenda] 10 mg PO BID 04/21/17 05/02/22 Unknown History Omeprazole 40 mg PO QDAY 04/21/17 05/02/22 Unknown History Sertraline [Zoloft] 50 mg PO QDAY 04/21/17 05/02/22 Unknown History Simvastatin (NF) [Zocor TAB] 40 mg PO QHS 04/21/17 05/02/22 Unknown History Meclizine [Antivert] 12.5 mg PO Q12H PRN #60 tablet 04/22/19 05/02/22 Unknown Rx Fluticasone [Flonase] 1 spray NS QDAY #1 bottle 04/23/19 05/02/22 Unknown Rx Active Meds: Active Medications Acetaminophen (Acetaminophen 325 Mg Tab) 650 mg PO Q4H PRN PRN Reason: Pain MILD(1-3)/Fever >100.5/ALLEN Amiodarone HCl (Amiodarone 200 Mg Tab) 200 mg PO BID GENA Last Admin: 05/06/22 09:58 Dose: 200 mg Ascorbic Acid (Ascorbic Acid 500 Mg Tab) 500 mg PO BID [facility] Last Admin: 05/06/22 09:58 Dose: 500 mg Atorvastatin Calcium (Atorvastatin 40 Mg Tab) 40 mg PO QHS [facility] Last Admin: 05/05/22 22:02 Dose: 40 mg Dextrose (Dextrose 50% In Water (25gm) 50 Ml Syringe) 50 ml IV Q30MIN PRN; Protocol PRN Reason: Hypoglycemia Famotidine (Famotidine 20 Mg Tab) 20 mg PO QDAY [facility] Last Admin: 05/06/22 09:58 Dose: 20 mg Haloperidol Lactate (Haloperidol Lactate 5 Mg/1 Ml Inj) 5 mg IV Q6H PRN PRN Reason: Agitation Last Admin: 05/06/22 03:42 Dose: 5 mg Hydralazine HCl (Hydralazine 20 Mg/1 Ml Inj) 10 mg IV Q4HR PRN PRN Reason: Hypertension Ceftriaxone Sodium (Rocephin/Ns 2 Gm/100 Ml) 2 gm in 100 mls @ 200 mls/hr IV Q24H [facility]; Protocol Last Admin: 05/06/22 09:57 Dose: 200 mls/hr Insulin Human Regular (Insulin Regular, Human 100 Units/1 Ml) 0 units SUB-Q ACHS [facility]; Protocol Last Admin: 05/06/22 09:58 Dose: Not Given Magnesium Hydroxide (Magnesium Hydroxide (Mom) Oral Liqd Udc) 30 ml PO Q4H PRN PRN Reason: Constipation Memantine (Memantine 10 Mg Tab) 10 mg PO BID [facility] Last Admin: 05/05/22 22:02 Dose: 10 mg Morphine Sulfate (Morphine 2 Mg/1 Ml Inj) 2 mg IV Q4H PRN PRN Reason: Pain, Moderate (4-6) Last Admin: 05/06/22 01:31 Dose: 2 mg Ondansetron HCl (Ondansetron 4 Mg/2 Ml Inj) 4 mg IV Q8H PRN PRN Reason: Nausea And Vomiting Senna/Docusate Sodium (Sennosides/Docusate Sodium 8.6/50 Mg Tab) 1 tab PO QHS [facility] Last Admin: 05/05/22 22:03 Dose: 1 tab Sodium Bicarbonate (Sodium Bicarbonate 650 Mg Tab) 1,300 mg PO TID [facility] Last Admin: 05/06/22 09:58 Dose: 1,300 mg Sodium Chloride (Sodium Chloride 0.9% 10 Ml Flush Syringe) 10 ml IV BID [facility] Last Admin: 05/06/22 09:59 Dose: 10 ml Sodium Chloride (Sodium Chloride 0.9% 10 Ml Flush Syringe) 10 ml IV PRN PRN PRN Reason: LINE FLUSH Zinc Sulfate (Zinc Sulfate 220 Mg Cap) 220 mg PO QDAY [facility] Last Admin: 05/06/22 09:58 Dose: 220 mg Physical Examination - Physical Exam Narrative exam: Physical Exam: Constitutional: Awake, confused Head, Ears, Nose: Normocephalic, atraumatic. External ears, nose normal Eyes: Conjunctivae/corneas clear. No icterus. No ptosis. Neck: Supple, no meningeal signs Oral: dentition fair, no thrush Cardiovascular: S1, S2 normal. Respiratory: Good air entry, clear to auscultation bilaterally GI: Soft, non-tender; bowel sounds normal. No peritoneal signs. Musculoskeletal: No pedal edema, no cyanosis. Skin: No rash or abscess Hem/Lymphatic: No palpable cervical or supraclavicular nodes. No lymphangitis Psych: Confused Neurological: Confused - Constitutional Vitals: Vital Signs Temp Pulse Resp BP Pulse Ox 99.7 F H 112 H 14 134/76 95 05/06/22 07:17 05/06/22 08:31 05/06/22 08:31 05/06/22 10:00 05/06/22 10:00 Temperature -Last 24 Hours Temperature 99.7 F Temperature 98.2 F Temperature 98.8 F Temperature 99.2 F Temperature 99.5 F Temperature 98.0 F Temperature 97.7 F Results - Labs CBC & Chem 7: 05/05/22 04:38 05/05/22 04:38 Labs: Abnormal lab results 05/05/22 05/05/22 05/05/22 Range/Units 13:06 16:20 22:07 POC Glucose 208 H 164 H 148 H (70-105) mg/dL Prealbumin (0.200-0.400) g/L Vitamin B12 (211-911) pg/mL 05/06/22 05/06/22 05/06/22 Range/Units 04:43 04:43 07:27 POC Glucose 127 H (70-105) mg/dL Prealbumin 0.055 L (0.200-0.400) g/L Vitamin B12 1464 H (211-911) pg/mL Assessment and Plan Cultures: Blood culture E. coli Urine culture E. coli A/P: 78-year-old man past medical history hypertension, hyperlipidemia, dementia now with: #E. coli bacteremia: Urinary source. Mostly sensitive. #UTI: With E. coli #Acute encephalopathy: Likely secondary to above #ANJU: Renally dose medications #Fluoroquinolone allergy Recs: -Continue ceftriaxone 2 g over 24 hours -When stable for discharge, would send with Keflex 500 mg every 8 hours to complete 2 total weeks of antibiotics Thank you for the consult, we will continue to follow. MD [facility] O: [phone] F: [phone]
[2022-05-06] MEDS: MEMANTINE 10 MG TAB PO SCH (12:01)
--- NOTE | 2022-05-06 14:22 | Progress Note ---
Assessment and Plan - Patient Problems (1) Chronic atrial fibrillation Current Visit: Yes Status: Acute Plan to address problem: Frail, elderly 86-year-old admitted with sepsis. He has chronic atrial fibrillation, and on presentation with sepsis there was an increased ventricular rate, which prompted cardiac consultation. Rate control is much improved, on amiodarone therapy. The patient has previously been determined by his primary leaflet distributor as a poor candidate for antiplatelet or anticoagulation therapy due to a chronic bleeding diathesis. 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 The aortic stenosis appears to be a chronic finding, unrelated to his current presentation with acute sepsis. Will continue conservative management with rate control of his atrial fibrillation, and defer further follow-up of his aortic valvular disease with his primary outpatient leaflet distributor. Subjective Date of service: 05/06/22 Principal diagnosis: AMS; UTI; ANJU; Septic shock; E.Coli Bacteremia; UTI; Thrombocytopenia Interval history: Patient is comfortably no acute distress. On shelter monitor, atrial fibrillation with well-controlled ventricular rate. Objective Vital Signs Temp Pulse Pulse Resp BP Pulse Ox 05/06/22 14:00 105 H 28 H 106/53 95 05/06/22 13:30 100/56 92 05/06/22 13:00 115 H 109/60 94 05/06/22 12:30 133 H 134/77 92 05/06/22 12:00 100 H 110 H 20 152/93 95 05/06/22 11:43 98.0 F 05/06/22 11:31 120 H 152/93 96 05/06/22 11:00 30 H 133/73 95 05/06/22 10:30 114 H 28 H 125/68 97 05/06/22 10:00 134/76 95 05/06/22 09:30 136/66 95 05/06/22 09:00 130/70 96 05/06/22 08:31 112 H 14 129/80 96 05/06/22 08:01 97 H 12 159/85 96 05/06/22 08:00 110 H 118 H 21 95 05/06/22 07:30 134/77 95 05/06/22 07:17 99.7 F H 05/06/22 07:01 103 H 18 137/68 95 05/06/22 06:30 100 H 27 H 143/74 95 05/06/22 06:00 99 H 20 129/79 93 05/06/22 05:31 97 H 21 139/70 98 05/06/22 05:00 96 H 23 140/75 98 05/06/22 04:30 138/72 96 05/06/22 04:00 98.2 F 132 H 134 H 22 153/83 95 05/06/22 03:31 105 H 24 163/82 94 05/06/22 03:01 115 H 24 153/78 95 05/06/22 02:30 110 H 23 155/81 95 05/06/22 02:01 96 H 21 145/73 96 05/06/22 01:30 100 H 18 137/69 95 05/06/22 01:01 163/104 96 05/06/22 00:31 98 H 19 145/78 98 05/06/22 00:06 93 H 23 160/87 99 05/06/22 00:00 99.2 F 104 H 104 H 16 147/76 95 05/05/22 23:45 103 H 20 159/86 95 05/05/22 23:31 97 H 26 H 159/86 97 05/05/22 23:15 102 H 19 159/83 99 05/05/22 23:00 108 H 17 159/83 100 05/05/22 22:46 100 H 17 160/87 100 05/05/22 22:30 98 H 18 160/87 100 05/05/22 22:16 106 H 24 161/76 100 05/05/22 22:00 89 19 161/76 100 05/05/22 21:46 92 H 19 142/73 99 05/05/22 21:30 104 H 23 142/73 100 05/05/22 21:16 106 H 17 177/103 99 05/05/22 21:00 177/103 98 05/05/22 20:46 158/99 100 05/05/22 20:30 130/72 99 05/05/22 20:16 94 H 26 H 130/72 100 05/05/22 20:00 99.5 F 93 H 93 H 20 129/72 100 05/05/22 19:46 96 H 24 130/72 100 05/05/22 19:30 83 22 130/72 97 05/05/22 19:16 94 H 21 124/73 100 05/05/22 19:00 96 H 22 152/86 100 05/05/22 18:46 95 H 20 152/86 97 05/05/22 18:30 24 134/70 96 05/05/22 18:16 118 H 34 H 134/70 100 05/05/22 18:00 103 H 24 134/70 100 05/05/22 17:46 105 H 20 165/88 100 05/05/22 17:30 109 H 21 165/88 98 05/05/22 17:16 116 H 32 H 132/69 97 05/05/22 17:00 101 H 24 132/69 98 05/05/22 16:46 97 H 28 H 132/69 98 05/05/22 16:35 98.0 F 05/05/22 16:30 96 H 17 132/69 100 05/05/22 16:16 99 H 22 183/105 99 05/05/22 16:00 106 H 97 H 12 150/94 95 05/05/22 15:46 98 H 24 150/94 96 05/05/22 15:30 114 H 23 124/82 93 05/05/22 15:16 132 H 28 H 124/82 05/05/22 15:00 107 H 21 124/82 94 05/05/22 14:46 102 H 24 124/82 94 05/05/22 14:30 96 H 25 H 124/82 94 - Physical Examination General: No Apparent Distress Neck: Positive: neck supple Cardiac: Positive: irregularly irregular Lungs: Positive: Decreased Breath Sounds Neuro: Positive: Grossly Intact Abdomen: Positive: Soft Skin: Positive: Clear Extremities: Absent: edema - Allied health notes Allied health notes reviewed: nursing
--- NOTE | 2022-05-06 14:50 | Progress Note ---
Assessment and Plan Assessment and plan: Assessment and plan: This is a 86-year-old male with known past medical history of CVA, ICHx2, dementia, HLD, AL, CAD s/p CABGX5, paroxysmal Afib- not a candidate of anticoagulation, s/p multiple falls at home admitted for septic shock probably secondary to urosepsis requiring vasopressors. Hospital Course to Date 05/02: Remains encephalopathic, stable on RA, on high dose pressors, additional IVF bolus administered. Patient remains in Afib, rate control. Cardiology consulted Dumont inserted this am due to retenstion, 1L of malodorous and cloudy urine drained. Probable urosepsis, patient is current on IV rocephin. D/w patient's daughters they reported that patient does have a history of Afib and open heart surgery with 5 bypass. Patient had X2 ICH in the past and he is not a candidate for any anticoagulations. Patient was also recently diagnosed with COVID outpatient, did not received any treatment since he was stable. COVID and PLU PCRs pending, check inflam. markers and Procal. Renal function is unchanged, continue IVF hydration, Nephrology is also following. Continue to trend Lactic acid. 05/03: More awake and alert this am but still confused. Still in Afib but rate control this am. Amiodarone gtt added yesterday due to Afib with RVR, patient remains on low dose Levophed. Cardiology recommendations noted. Concern for possible aspiration this morning, awaiting speech consulted. Will keep amiodarone gtt for now, transition to PO Amio if clear by speech. Blood cultures positive gram negative rods in 3/4 bottles, Vancomycin added. Check 2D echo to r/o vegetations. ID consulted pending. COVID PCR came back positive, spoke with patient's daughter. She reported that patient received "the COVID pill that Cruzito had". Patient is currently on 1L NC, SPO2 at 100%. Will continue to monitor for now. 05/04: Still confused but calm and following commands, agitated overnight required IV ativan. MRI brain pending. Patient remains in Afib, rate control. Remains on Amiodarone gtt, off pressors this am, VSS. Orders placed for repeat blood culture. Continue current IV abx, 2D echo and ID consult pending. Patient failed speech swallow due to cognitive deficits, multiple attempts to insert DHT was unsuccessful due to suspected hiatal hernia. Continue IVF hydration for now, speech to reassess swallow screen in 48hrs since patient's mentation is improving. If patient continue to fail swallow, alternative nutrition should be considered. Plan of care discussed with patient's daughters while visiting patient today. All questions and concerns were addressed at this time. Team will continue to follow with any further updates. 05/05: I did reach out to this infectious disease to see the patient as they had not previously seen him. He does not have any new fever today. Speech did evaluate the patient recommended some nectar thick. Patient was tested positive for COVID did have PACs COVID as mentioned. Currently very minimal oxygen requirement. We will transition him to oral amiodarone due to underlying atrial fibrillation. Creatinine is down to 1.6. He is not a candidate for anticoagulation as mentioned. I did update the patient's daughter anticipate discharge in 24 to 48 hours. During my conversation we did reaffirm CODE STATUS and advance care planning done for 35 minutes that he is a full code. MRI completed negative for acute stroke. 05/06: HR still continues to be challenging to control with rate as high as 130 bpm. Patient has chronic afib. Will continue amiodorone for suppression and monitor on tele for next 24 hrs. Avoid blood thinners due to hx of ICH. Mentation improving. Renal profile, mag, Phos ordered. Eating food tray at bedside with assistance of nursing aid. Will likely d/c in next 24 hrs. Will likely go home with [facility]. Transfer to med/surg with tele. Assessment and Plan #Septic Shock- Probable Urosepsis (POA) #Urinary Tract Infection (UTI) #Lactic Acidosis #Recent COVID infection- Received Treatment, probably Paxlovid - Dumont inserted for retention- cloudy and malodourous urine drained - Urine culture pending, Blood cultures with Gram neg Rods in 3/4 bottles - Repeat Blood cultures - Continue IVF hydration and current empiric IV Abx- Rocephin, Vanco added - 2D Echo to r/o vegetation - ID consulted - Continue blood pressure monitor per protocol - Titrate pressors to maintain MAP above 65 - COVID PCR positive- per patient's daughter, patient received the COVID Pill that Cruzito had. Probably Paxlovid - Patient is stable on 1L NC, continue to monitor for now #Acute Kidney Injury(ANJU) most likely ATN #Electrolyte imbalance- hypomagnesemia, hyponatremia, hypocalcemia #Hypovelemia/Dehydration - Nephrology on consult, appreciated recommendation - Strict intake and output - Avoid nephrotoxic medications; Renally dose medications - Dumont inserted for retention- cloudy and malodourous urine drained - Continue IVF for now - Monitor and replace electrolytes as needed #Paroxysmal Atrial Fibrillation- Not candidate for anticoagulation #NSTEMI- probably Type 2 2/2 demand ischemia vs ANJU #H/o AL and CAD s/p CABGX5 over 20 years ago - Cardiology consulted - Not candidate for BB due to low BP on levophed gtt - on Amio gtt - Continue blood pressure monitor per protocol - Titrate pressors to maintain MAP above 65 - Not candidate for AC due to bleeding #Acute Metabolic Encephalopathy (improved) #Multiple Falls at Home #H/o Dementia #H/o CVA and ICHx2 - Mentation improved - Avoid benzodiazepine to reduce the possibility of delirium - PRN Analgesia for pain control - Maintenance of sleep-wake cycle - Fall precaution - MRI negative for acute CVA. #Dyphagia #Unable to insert NGT/DHT due to Hiatal Hernia - Failed speech bedside swallow due to cognitive deficits - Multiple attempts to insert NGT/DHT unsuccessful, blockage at the GE junction probably due to Hiatal Hernia - Continue IVF hydration for now - speech to reassess swallow screen in 48hrs since patient's mentation is improving. - If patient continue to fail swallow, alternative nutrition should be considered #Urinary Retention #History of BPH - Dumont inserted - resume home meds once list is available #Thrombocytopenia - Present on admit - H&H stable, no s/s of any active bleeding - Not on any AC due to bleeding - Continue to trend CBC - Transfuse for hgb less than 7 #GI/DVT Prophylaxis - PPI- pepcid - SCDs to bilateral lower extremities while in bed #Advance Care Planning - Disease education data, care plan, diagnoses, and prognosis were discussed with patient's daughters via phone, Kath Sargentruben- ; Jacquie Laguerre- . Patient is a FULL code. Patient's family acknowledged understanding and agreed with current care plan. The high probability of a clinically significant, sudden or life threatening deterioration of the [multi] system(s) required my full and direct attention, intervention and personal management. The aggregate critical care time was [60] minutes. This time is in addition to time spent performing reported procedures but includes the following: [x] Data Review and interpretation [x] Patient assessment and monitoring of vital signs [x] Documentation [x] Medication orders and management History Interval history: No acute complaints this AM. Bedside monitor reading HR of 130 at the time of my encounter. Hospitalist Physical - Physical exam Narrative exam: - Physical exam Narrative exam: Physical exam Narrative exam: General appearance: Present: no acute distress, well-nourished - EENT Eyes: Present: PERRL ENT: hearing intact, - Neck Neck: Present: normal ROM - Respiratory Respiratory effort: normal Respiratory: bilateral: diminished - Cardiovascular Rhythm: regular Heart Sounds: Present: S1 & S2 - Extremities Extremities: no ischemia, pulses intact, pulses symmetrical Peripheral Pulses: within normal limits - Abdominal General gastrointestinal: soft, non-distended, normal bowel sounds - Integumentary Integumentary: Present: dry, erythema (Generalized ecchymosis and skin tears, stage 1 sacral pressure ulcer, and Lt. big toe wound) - Psychiatric Psychiatric: appropriate mood/affect, cooperative, - Neurologic Neurologic: moves all extremities, following commands - Allied Health Allied health notes reviewed: nursing, Case management - Constitutional Vitals: Temp Pulse Resp BP Pulse Ox 98.0 F 105 H 28 H 106/53 95 05/06/22 11:43 05/06/22 14:00 05/06/22 14:00 05/06/22 14:00 05/06/22 14:00 General appearance: Present: no acute distress, well-nourished, other (Dry oral mucosa) HEART Score - HEART Score Troponin: Troponin T 0.196 ng/mL (0.00-0.029) H* D 05/02/22 11:14 Results - Labs CBC & Chem 7: 05/05/22 04:38 05/05/22 04:38 Labs: Laboratory Last Values WBC 8.9 K/mm3 (4.5-11.0) 05/05/22 04:38 RBC 3.82 M/mm3 (3.65-5.03) 05/05/22 04:38 Hgb 10.6 gm/dl (11.8-15.2) L 05/05/22 04:38 Hct 32.3 % (35.5-45.6) L 05/05/22 04:38 MCV 85 fl (84-94) 05/05/22 04:38 MCH 28 pg (28-32) 05/05/22 04:38 MCHC 33 % (32-34) 05/05/22 04:38 RDW 19.3 % (13.2-15.2) H 05/05/22 04:38 Plt Count 160 K/mm3 (140-440) 05/05/22 04:38 Lymph % (Auto) 3.9 % (13.4-35.0) L 05/03/22 05:00 [place] % (Auto) 9.4 % (0.0-7.3) H 05/03/22 05:00 Eos % (Auto) 1.0 % (0.0-4.3) 05/03/22 05:00 Baso % (Auto) 0.1 % (0.0-1.8) 05/03/22 05:00 Lymph # (Auto) 0.5 K/mm3 (1.2-5.4) L 05/03/22 05:00 [place] # (Auto) 1.3 K/mm3 (0.0-0.8) H 05/03/22 05:00 Eos # (Auto) 0.1 K/mm3 (0.0-0.4) 05/03/22 05:00 Baso # (Auto) 0.0 K/mm3 (0.0-0.1) 05/03/22 05:00 Seg Neutrophils % 85.6 % (40.0-70.0) H 05/03/22 05:00 Seg Neutrophils # 11.4 K/mm3 (1.8-7.7) H 05/03/22 05:00 PT 19.1 Sec. (12.2-14.9) H 05/01/22 23:14 INR 1.42 (0.87-1.13) H 05/01/22 23:14 APTT 39.9 Sec. (24.2-36.6) H 05/01/22 23:14 D-Dimer 1135.33 ng/mlDDU (0-234) H 05/02/22 11:14 Sodium 142 mmol/L (137-145) 05/05/22 04:38 Potassium 3.2 mmol/L (3.6-5.0) L 05/05/22 04:38 Chloride 112.3 mmol/L (98-107) H 05/05/22 04:38 Carbon Dioxide 19 mmol/L (22-30) L 05/05/22 04:38 Anion Gap 14 mmol/L 05/05/22 04:38 BUN 27 mg/dL (9-20) H 05/05/22 04:38 Creatinine 1.6 mg/dL (0.8-1.3) H 05/05/22 04:38 Estimated GFR 41 ml/min 05/05/22 04:38 BUN/Creatinine Ratio 17 % 05/05/22 04:38 Glucose 168 mg/dL (75-100) H 05/05/22 04:38 POC Glucose 127 mg/dL (70-105) H 05/06/22 07:27 Lactic Acid 1.90 mmol/L (0.7-2.0) 05/02/22 11:14 Calcium 7.6 mg/dL (8.4-10.2) L 05/05/22 04:38 Phosphorus 2.30 mg/dL (2.5-4.5) L 05/05/22 04:38 Magnesium 2.00 mg/dL (1.7-2.3) 05/05/22 04:38 Ferritin 544.4 ng/mL (30.0-300.0) H 05/02/22 11:14 Total Bilirubin 0.40 mg/dL (0.1-1.2) 05/05/22 04:38 AST 44 units/L (5-40) H 05/05/22 04:38 ALT 34 units/L (7-56) 05/05/22 04:38 Alkaline Phosphatase 82 units/L (35-129) 05/05/22 04:38 Lactate Dehydrogenase 172 units/L (91-180) 05/02/22 11:14 Total Creatine Kinase 72 units/L (55-170) 05/05/22 16:00 Troponin T 0.196 ng/mL (0.00-0.029) H* D 05/02/22 11:14 C-Reactive Protein 29.00 mg/dL (0.00-1.30) H 05/02/22 11:14 NT-Pro-B Natriuret Pep 44056 pg/mL (0-900) H 05/01/22 23:14 Total Protein 4.5 g/dL (6.3-8.2) L 05/05/22 04:38 Albumin 2.5 g/dL (3.9-5) L 05/05/22 04:38 Albumin/Globulin Ratio 1.3 % 05/05/22 04:38 Prealbumin 0.055 g/L (0.200-0.400) L 05/06/22 04:43 Triglycerides 64 mg/dL (2-149) 05/01/22 23:14 Cholesterol 77 mg/dL (50-199) 05/01/22 23:14 LDL Cholesterol Direct 25 mg/dL (50-130) L 05/01/22 23:14 HDL Cholesterol 46 mg/dL (40-59) 05/01/22 23:14 Cholesterol/HDL Ratio 1.67 % 05/01/22 23:14 Vitamin B12 1464 pg/mL (211-911) H 05/06/22 04:43 Folate 10.08 ng/mL (7.3-26.0) 05/06/22 01:09 Procalcitonin 16.30 ng/mL (<0.15) 05/02/22 11:14 TSH 3.960 mlU/mL (0.270-4.200) 05/06/22 01:09 Urine Color Yellow (Yellow) 05/01/22 23:54 Urine Turbidity Hazy (Clear) 05/01/22 23:54 Specific [place] (Man) 1.015 (1.003-1.030) 05/01/22 23:54 Ur Protein (Man) 1+ mg/dL (Negative) 05/01/22 23:54 Ur Ketones (Man) Negative (Negative) 05/01/22 23:54 Ur Nitrite (Man) Negative (Negative) 05/01/22 23:54 Urine Bilirubin (Man) Negative (Negative) 05/01/22 23:54 Leukocyte Esterase (Man) Moderate (Negative) 05/01/22 23:54 Urine WBC (Auto) > 182.0 /HPF (0.0-6.0) H 05/01/22 23:54 Urine RBC (Auto) 33.0 /HPF (0.0-6.0) 05/01/22 23:54 Urine Bacteria (Auto) 2+ /HPF (Negative) 05/01/22 23:54 Urine RBC (Manual) 3+ (Negative) 05/01/22 23:54 Urine WBC Clumps 3+ /HPF 05/01/22 23:54 Urine Mucus Few /HPF 05/01/22 23:54 Urine Yeast (Budding) 2+ /HPF 05/01/22 23:54 Syphilis IgG/IgM Ab Nonreactive (NonReactive) 05/06/22 04:43 Coronavirus (PCR) Positive (Negative) A 05/02/22 Unknown Hep Bs Antigen Non-reactive (Negative) 05/02/22 20:20 Hepatitis C Antibody Non-reactive (NonReactive) 05/02/22 20:20 Influenza A (RT-PCR) Negative (Negative) 05/02/22 15:40 Influenza B (RT-PCR) Negative (Negative) 05/02/22 15:40 Microbiology: Microbiology 05/04/22 09:20 Peripheral/Venous Blood Culture - Preliminary NO GROWTH AFTER 48 HOURS 05/04/22 09:20 Peripheral/Venous Blood Culture - Preliminary NO GROWTH AFTER 48 HOURS Dumont/IV: Voiding Method Indwelling Catheter Active Medications - Current Medications Current Medications: Generic Name Dose Route Start Last Admin Trade Name Freq PRN Reason Stop Dose Admin Acetaminophen 650 mg 05/02/22 00:33 Acetaminophen 325 Mg Tab PO Q4H PRN Pain MILD(1-3)/Fever >100.5/ALLEN Amiodarone HCl 200 mg 05/05/22 14:00 05/06/22 09:58 Amiodarone 200 Mg Tab PO 200 mg BID GENA Administration Ascorbic Acid 500 mg 05/05/22 22:00 05/06/22 09:58 Ascorbic Acid 500 Mg Tab PO 500 mg BID GENA Administration Atorvastatin Calcium 40 mg 05/02/22 22:00 05/05/22 22:02 Atorvastatin 40 Mg Tab PO 40 mg QHS GENA Administration Dextrose 50 ml 05/02/22 18:49 Dextrose 50% In Water (25gm) 50 Ml Syringe IV Q30MIN PRN Hypoglycemia Protocol Famotidine 20 mg 05/03/22 10:00 05/06/22 09:58 Famotidine 20 Mg Tab PO 20 mg QDAY GENA Administration Haloperidol Lactate 5 mg 05/03/22 13:25 05/06/22 03:42 Haloperidol Lactate 5 Mg/1 Ml Inj IV 5 mg Q6H PRN Administration Agitation Hydralazine HCl 10 mg 05/05/22 17:45 Hydralazine 20 Mg/1 Ml Inj IV Q4HR PRN Hypertension Ceftriaxone Sodium 2 gm in 100 mls @ 200 mls/hr 05/06/22 10:00 05/06/22 09:57 Rocephin/Ns 2 Gm/100 Ml IV 200 mls/hr Q24H GENA Administration Protocol Insulin Human Regular 0 units 05/02/22 22:00 05/06/22 12:01 Insulin Regular, Human 100 Units/1 Ml SUB-Q 3 units ACHS GENA Administration Protocol Magnesium Hydroxide 30 ml 05/02/22 00:33 Magnesium Hydroxide (Mom) Oral Liqd Udc PO Q4H PRN Constipation Memantine 10 mg 05/05/22 22:00 05/06/22 12:01 Memantine 10 Mg Tab PO 10 mg BID GENA Administration Morphine Sulfate 2 mg 05/02/22 00:33 05/06/22 01:31 Morphine 2 Mg/1 Ml Inj IV 2 mg Q4H PRN Administration Pain, Moderate (4-6) Ondansetron HCl 4 mg 05/02/22 00:33 Ondansetron 4 Mg/2 Ml Inj IV Q8H PRN Nausea And Vomiting Senna/Docusate Sodium 1 tab 05/03/22 22:00 05/05/22 22:03 Sennosides/Docusate Sodium 8.6/50 Mg Tab PO 1 tab QHS GENA Administration Sodium Bicarbonate 1,300 mg 05/03/22 14:00 05/06/22 14:43 Sodium Bicarbonate 650 Mg Tab PO 1,300 mg TID GENA Administration Sodium Chloride 10 ml 05/02/22 10:00 05/06/22 09:59 Sodium Chloride 0.9% 10 Ml Flush Syringe IV 10 ml BID GENA Administration Sodium Chloride 10 ml 05/02/22 00:33 Sodium Chloride 0.9% 10 Ml Flush Syringe IV PRN PRN LINE FLUSH Zinc Sulfate 220 mg 05/06/22 10:00 05/06/22 09:58 Zinc Sulfate 220 Mg Cap PO 220 mg QDAY GENA Administration Nutrition/Malnutrition Assess - Dietary Evaluation Nutrition/Malnutrition Findings: Nutrition Notes Start: 05/02/22 10:24 Freq: Status: Active Protocol: Document 05/02/22 10:24 KIERSTEN (Rec: 05/02/22 11:05 KIERSTEN [id number]) Nutrition Notes Need for Assessment generated from: photogrammetrist,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 Current Diet Cardiac -Renal- Diet (since B 05/02). Labs/Tests 05/01: Na 125, Cl 91.0, CO2 21 , BUN 38, Crea 2.1, Glu 131, Ca 7.9, Mg 1.6. Pertinent Medications 05/02: Nutritionally unremarkable. 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 Weight Status Appropriate Subjective/Other Information RD consult for skin risk and risk of malnutrition assessments. No reports available on Pt's PO intake of meals at the time , will assess at F/U. I will recommend Renal modification to current diet, to support Pt's ANJU condition during LOS. I will also recommend dietary supplements to support wound healinh processes during LOS. Pt is on Room Air, O2 saturation @ 99%, according to Physical Assessment History notes. Pt has caries and missing teeth, according to Physical Assessment History notes. Pt passed bedside swallow assessment on 05/02, according to Swallow Screen notes. Pt shows Decubitus Sacral Ulcer stage II, L-toe open wound, and multiple bruises and skin tears in arms and legs as signs of concern for skin risk at the time, according to Physical Assessment History notes. Pt shows no signs of concern for risk of malnutrition at the time, according to Physical Assessment History notes. Percent of energy/protein needs met: Prescribed Cardiac -Renal- Diet provides for energy/ protein needs (2,230 Kcal/85 g ) during LOS; additionally, Dietary Supplements will support wound healing processes with 320 Kcal and 32 g of protein. Burn Absent Trauma Absent GI Symptoms None Food Allergy No Skin Integrity/Comment Sacral decubitus, L-toe & bruises. Minimum of two criteria No Fluid Accumulation N/A Reduced Screen Printing Loader Unloader Strength N/A (non-severe) Protein-Calorie Malnutrition N\\A #2 Nutrition Diagnosis Increased nutrient needs ( specify in comment below) Comments: Protein, to support wound healing processes during LOS. Etiology Uncertain. As Evidenced by Signs and Symptoms Pt shows Decubitus Sacral Ulcer stage II, L-toe open wound, and multiple bruises and skin tears in arms and legs as signs of concern for skin risk at the time, according to Physical Assessment History notes. #1 Nutrition Diagnosis Altered nutrition-related laboratory values Etiology ANJU. As Evidenced by Signs and Symptoms 05/01: Na 125, Cl 91.0, CO2 21 , BUN 38, Crea 2.1, Glu 131, Ca 7.9, Mg 1.6. Is patient on ventilator? No Is Patient Ambulatory and/or Out of Bed No REE-([place]-confined to bed) 1617.408 Kcal/Kg value to use for calculation 26 Approximate Energy Requirements Using 1812 kcal/Kg Calculation Used for Recommendations Kcal/kg Additional Notes Protein: 0.8-1.2 g/Kg ABW; 56- 84 g/day. Fluids: 1 ml/Kcal, or as per MD. Nutrition Intervention Change Diet Order: Modify to Cardiac -Renal- Diet , continue as tolerated. Add Supplement/Snack (indicate name/kcal Start 8 fl oz Ensure High /protein ) Protein; BID. Provides kCal: 320 Provides Protein (gm) 32 Goal #1 Help reach and maintain acceptable chemistry lab values during LOS. Goal #2 Support, through dietary supplementation, wound healing processes during LOS. Goal #3 Adjust the dietary intervention to better serve Pt's energy/protein needs and clinical conditions during LOS . Follow-Up By: 05/09/22 Additional Comments Continue monitoring food tolerance, %PO intake of meals , dietary supplements, and BM.
[2022-05-06 16:41] LABS: Calcium 8.4 mg/dL (8.4-10.2)
[2022-05-07] MEDS: SODIUM BICARBONATE 650 MG TAB PO SCH (03:14)
[2022-05-07] MEDS: AMIODARONE 200 MG TAB PO SCH ×3 (03:20→22:51)
[2022-05-07] MEDS: INSULIN REGULAR, HUMAN 100 UNITS/1 ML SUB-Q SCH ×5 (03:21→22:53)
[2022-05-07] MEDS: SENNOSIDES/DOCUSATE SODIUM 8.6/50 MG TAB PO SCH ×2 (03:22→22:50)
[2022-05-07] MEDS: MEMANTINE 10 MG TAB PO SCH ×3 (03:22→22:50)
[2022-05-07] MEDS: ASCORBIC ACID 500 MG TAB PO SCH ×3 (03:24→22:51)
[2022-05-07 08:31] LABS: Basophils % (Auto) 0.1 % (0.0-1.8); Eosinophils % (Auto) 0.1 % (0.0-4.3); Hematocrit 32.7 % (35.5-45.6); Hemoglobin 10.9 gm/dl (11.8-15.2); Lymphocytes # (Auto) 0.9 K/mm3 (1.2-5.4); Lymphocytes % (Auto) 5.8 % (13.4-35.0); Mean Corpuscular HGB Conc 33 % (32-34); Mean Corpuscular Volume 84 fl (84-94); Monocytes # (Auto) 1.2 K/mm3 (0.0-0.8); Monocytes % (Auto) 7.7 % (0.0-7.3); Platelet Count 215 K/mm3 (140-440); Red Blood Count 3.92 M/mm3 (3.65-5.03); Red Cell Distribution Width 19.2 % (13.2-15.2)
[2022-05-07 08:42] LABS: INR 1.3 (0.87-1.13)
[2022-05-07 08:50] LABS: Calcium 8.3 mg/dL (8.4-10.2)
--- NOTE | 2022-05-07 09:04 | Progress Note ---
Assessment and Plan Acute kidney injury: suspect due to tubular injury in setting of shock Hypernatremia Hypokalemia Acute encephalopathy Shock Acidosis COVID-positive Creatinine improved at 1.3 this AM Sodium continuing to rise with low K, likely due to decreased water intake Will stop NaHCO3 given persistent hypokalemia Start D5W for hydration, po hydration recommended as able Follow-up renal ultrasound- no acute process noted, do note potential mass, plan for CT once more stable, can be done outpatient Follow serologies - pending Continue current supportive measures Keep MAP more than 65 renally dose medications Avoid nephrotoxins Renal diet Neurology, cardiology note reviewed Subjective Date of service: 05/07/22 Principal diagnosis: AMS; UTI; ANJU; Septic shock; E.Coli Bacteremia; UTI; Thrombocytopenia Interval history: Seen in floor, resting in bed Vitals, labs and I/os reviewed Interdisciplinary notes and consults reviewed Objective - Exam Narrative Exam: Constitutional: no acute distress Head: NC/AT Neck: supple Lungs: clear to auscultation CV: RRR, no M/R/G Abdomen: soft, non-tender, bowel sounds present Back: nontender Extremities: no edema, pulses WNL Skin: intact Neuro: Somnolent. Altered. - Vital Signs Vital signs: Vital Signs - 12hr 05/06/22 05/07/22 05/07/22 22:00 00:00 04:00 Temperature Pulse Rate Pulse Rate [ 105 H 105 H From Monitor] Respiratory 20 20 Rate Blood Pressure [Left] O2 Sat by Pulse 95 96 96 Oximetry 05/07/22 05/07/22 05:00 08:32 Temperature 97.0 F L Pulse Rate 66 Pulse Rate [ From Monitor] Respiratory 22 Rate Blood Pressure 115/66 [Left] O2 Sat by Pulse 94 95 Oximetry - Lab 05/07/22 08:23 05/07/22 08:23 Most recent lab results Calcium 8.3 mg/dL (8.4-10.2) L 05/07/22 08:23 Phosphorus 1.40 mg/dL (2.5-4.5) L D 05/06/22 15:46 Magnesium 2.00 mg/dL (1.7-2.3) 05/06/22 15:46 Medications & Allergies - Medications Allergies/Adverse Reactions: Allergies aspirin Adverse Reaction (Verified 05/02/22 13:20) Bleeding levofloxacin [From Levaquin] Adverse Reaction (Verified 04/21/17 21:12) Rash blood thinners Adverse Reaction (Uncoded 05/02/22 13:20) Bleeding Home Medications: Home Medications Medication Instructions Recorded Confirmed Last Taken Type Memantine HCl [Namenda] 10 mg PO BID 04/21/17 05/02/22 Unknown History Omeprazole 40 mg PO QDAY 04/21/17 05/02/22 Unknown History Sertraline [Zoloft] 50 mg PO QDAY 04/21/17 05/02/22 Unknown History Simvastatin (NF) [Zocor TAB] 40 mg PO QHS 04/21/17 05/02/22 Unknown History Meclizine [Antivert] 12.5 mg PO Q12H PRN #60 tablet 04/22/19 05/02/22 Unknown Rx Fluticasone [Flonase] 1 spray NS QDAY #1 bottle 04/23/19 05/02/22 Unknown Rx Active Medications: Generic Name Dose Route Start Last Admin Trade Name Freq PRN Reason Stop Dose Admin Acetaminophen 650 mg 05/02/22 00:33 Acetaminophen 325 Mg Tab PO Q4H PRN Pain MILD(1-3)/Fever >100.5/ALLEN Amiodarone HCl 200 mg 05/05/22 14:00 05/07/22 03:20 Amiodarone 200 Mg Tab PO Not Given BID GENA Ascorbic Acid 500 mg 05/05/22 22:00 05/07/22 03:24 Ascorbic Acid 500 Mg Tab PO Not Given BID GENA Atorvastatin Calcium 40 mg 05/02/22 22:00 05/07/22 03:22 Atorvastatin 40 Mg Tab PO Not Given QHS GENA Dextrose 50 ml 05/02/22 18:49 Dextrose 50% In Water (25gm) 50 Ml Syringe IV Q30MIN PRN Hypoglycemia Protocol Famotidine 20 mg 05/03/22 10:00 05/06/22 09:58 Famotidine 20 Mg Tab PO 20 mg QDAY GENA Administration Haloperidol Lactate 5 mg 05/03/22 13:25 05/06/22 03:42 Haloperidol Lactate 5 Mg/1 Ml Inj IV 5 mg Q6H PRN Administration Agitation Hydralazine HCl 10 mg 05/05/22 17:45 Hydralazine 20 Mg/1 Ml Inj IV Q4HR PRN Hypertension Ceftriaxone Sodium 2 gm in 100 mls @ 200 mls/hr 05/06/22 10:00 05/06/22 09:57 Rocephin/Ns 2 Gm/100 Ml IV 05/19/22 10:29 200 mls/hr Q24H GENA Administration Protocol Potassium Chloride 10 meq/ 1,005 mls @ 75 mls/hr 05/07/22 09:15 Dextrose IV DIRECT GENA Insulin Human Regular 0 units 05/02/22 22:00 05/07/22 03:21 Insulin Regular, Human 100 Units/1 Ml SUB-Q Not Given ACHS [facility] Protocol Magnesium Hydroxide 30 ml 05/02/22 00:33 Magnesium Hydroxide (Mom) Oral Liqd Udc PO Q4H PRN Constipation Memantine 10 mg 05/05/22 22:00 05/07/22 03:22 Memantine 10 Mg Tab PO Not Given BID [facility] Morphine Sulfate 2 mg 05/02/22 00:33 05/06/22 01:31 Morphine 2 Mg/1 Ml Inj IV 2 mg Q4H PRN Administration Pain, Moderate (4-6) Ondansetron HCl 4 mg 05/02/22 00:33 Ondansetron 4 Mg/2 Ml Inj IV Q8H PRN Nausea And Vomiting Senna/Docusate Sodium 1 tab 05/03/22 22:00 05/07/22 03:22 Sennosides/Docusate Sodium 8.6/50 Mg Tab PO Not Given QHS [facility] Sodium Chloride 10 ml 05/02/22 10:00 05/07/22 06:55 Sodium Chloride 0.9% 10 Ml Flush Syringe IV Not Given BID GENA Sodium Chloride 10 ml 05/02/22 00:33 Sodium Chloride 0.9% 10 Ml Flush Syringe IV PRN PRN LINE FLUSH Zinc Sulfate 220 mg 05/06/22 10:00 05/06/22 09:58 Zinc Sulfate 220 Mg Cap PO 220 mg QDAY GENA Administration
[2022-05-07 09:25] LABS: ABG Base Excess -3.6 mmol/L (-2.0-3.0); ABG HCO3 19.1 mmol/L (20.0-26.0); ABG Methemoglobin 0.5 % (0.0-1.5); ABG Oxygen Saturation 94.8 % (95.0-99.0); ABG PCO2 26.7 mm Hg; ABG PH 7.471 pH Units (7.350-7.450)
[2022-05-07] MEDS: ZINC SULFATE 220 MG CAP PO SCH (10:00)
[2022-05-07] MEDS: FAMOTIDINE 20 MG TAB PO SCH (10:00)
[2022-05-07] MEDS ORDERED: POTASSIUM CHLORIDE 10 MEQ in DEXTROSE 5% IN WATER 1,000 ML IV SCH (10:00)
[2022-05-07] MEDS ORDERED: LACTATED RINGERS 1,000 ML IV ONE (10:00)
[2022-05-07] MEDS: cefTRIAXone/NS 2 GM/100 ML 2 GM/100 ML BAG IV SCH (10:06)
--- NOTE | 2022-05-07 10:14 | Progress Note ---
Assessment and Plan - Patient Problems (1) Chronic atrial fibrillation Current Visit: Yes Status: Acute Plan to address problem: Frail, elderly 86-year-old admitted with sepsis. He has chronic atrial fibrillation, and on presentation with sepsis there was an increased ventricular rate, which prompted cardiac consultation. Rate control is much improved, on amiodarone therapy. The patient has previously been determined by his primary state manager as a poor candidate for antiplatelet or anticoagulation therapy due to a chronic bleeding diathesis. 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 The aortic stenosis appears to be a chronic finding, unrelated to his current presentation with acute sepsis. Will continue conservative management with rate control of his atrial fibrillation, and defer further follow-up of his aortic valvular disease with his primary outpatient state manager. Subjective Date of service: 05/07/22 Principal diagnosis: AMS; UTI; ANJU; Septic shock; E.Coli Bacteremia; UTI; Thrombocytopenia Interval history: Patient is comfortably no acute distress. On cupola charger, atrial fibrillation with well-controlled ventricular rate. Objective Vital Signs Temp Pulse Pulse Resp BP BP Pulse Ox 05/07/22 09:31 98 05/07/22 08:32 95 05/07/22 05:00 97.0 F L 66 22 115/66 94 05/07/22 04:00 105 H 20 96 05/07/22 00:00 105 H 20 96 05/06/22 22:00 95 05/06/22 18:57 98.3 F 100 H 19 120/54 95 05/06/22 17:30 100 H 29 H 141/67 05/06/22 17:01 97.8 F 05/06/22 17:00 94 H 26 H 141/67 96 05/06/22 16:30 99 H 27 H 132/69 96 05/06/22 16:00 95 H 105 H 29 H 129/66 96 05/06/22 15:30 105 H 28 H 111/65 98 05/06/22 15:00 96 H 26 H 109/60 98 05/06/22 14:30 96 H 29 H 111/55 97 05/06/22 14:00 105 H 28 H 106/53 95 05/06/22 13:30 100/56 92 05/06/22 13:00 115 H 109/60 94 05/06/22 12:30 133 H 134/77 92 05/06/22 12:00 100 H 110 H 20 152/93 95 05/06/22 11:43 98.0 F 05/06/22 11:31 120 H 152/93 96 05/06/22 11:00 30 H 133/73 95 05/06/22 10:30 114 H 28 H 125/68 97 - Physical Examination General: No Apparent Distress Neck: Positive: neck supple Cardiac: Positive: irregularly irregular Lungs: Positive: Decreased Breath Sounds Neuro: Positive: Grossly Intact Abdomen: Positive: Soft Skin: Positive: Clear Extremities: Absent: edema - Labs and Meds Coagulation 05/07/22 Range/Units 08:23 PT 17.7 H (12.2-14.9) Sec. INR 1.30 H (0.87-1.13) CBC 05/07/22 Range/Units 08:23 WBC 15.4 H (4.5-11.0) K/mm3 RBC 3.92 (3.65-5.03) M/mm3 Hgb 10.9 L (11.8-15.2) gm/dl Hct 32.7 L (35.5-45.6) % Plt Count 215 (140-440) K/mm3 Lymph # (Auto) 0.9 L (1.2-5.4) K/mm3 [place] # (Auto) 1.2 H (0.0-0.8) K/mm3 Eos # (Auto) 0.0 (0.0-0.4) K/mm3 Baso # (Auto) 0.0 (0.0-0.1) K/mm3 Comprehensive Metabolic Panel 05/06/22 05/07/22 Range/Units 15:46 08:23 Sodium 148 H 152 H (137-145) mmol/L Potassium 3.3 L 3.3 L (3.6-5.0) mmol/L Chloride 112.7 H 116.9 H (98-107) mmol/L Carbon Dioxide 21 L 20 L (22-30) mmol/L BUN 28 H 27 H (9-20) mg/dL Creatinine 1.3 1.3 (0.8-1.3) mg/dL Glucose 143 H 150 H (75-100) mg/dL Calcium 8.4 8.3 L (8.4-10.2) mg/dL - Allied health notes Allied health notes reviewed: nursing
--- NOTE | 2022-05-07 10:27 | Progress Note ---
Assessment and Plan Cultures: Blood culture E. coli Urine culture E. coli A/P: 78-year-old man past medical history hypertension, hyperlipidemia, dementia now with: #E. coli bacteremia: Urinary source. Mostly sensitive. #UTI: With E. coli #Acute encephalopathy: Likely secondary to above #ANJU: Renally dose medications #Fluoroquinolone allergy Recs: -Continue ceftriaxone 2 g over 24 hours -When stable for discharge, would send with Keflex 500 mg every 8 hours to complete 2 total weeks of antibiotics Thank you for the consult, we will sign off. Please call questions. Lynn Garcia MD [facility] ([facility]) O: [phone] F: [phone] Subjective Date of service: 05/07/22 Principal diagnosis: AMS; UTI; ANJU; Septic shock; E.Coli Bacteremia; UTI; Thro mbocytopenia Interval history: Afebrile, white count remains elevated 15.4. Objective - Exam Narrative Exam: Physical Exam: Constitutional: Awake, confused Head, Ears, Nose: Normocephalic, atraumatic. External ears, nose normal Eyes: Conjunctivae/corneas clear. No icterus. No ptosis. Neck: Supple, no meningeal signs Oral: dentition fair, no thrush Cardiovascular: S1, S2 normal. Respiratory: Good air entry, clear to auscultation bilaterally GI: Soft, non-tender; bowel sounds normal. No peritoneal signs. Musculoskeletal: No pedal edema, no cyanosis. Skin: No rash or abscess Hem/Lymphatic: No palpable cervical or supraclavicular nodes. No lymphangitis Psych: Confused Neurological: Confused - Constitutional Vitals: Vital Signs Temp Pulse Resp BP Pulse Ox 97.0 F L 66 22 115/66 98 05/07/22 05:00 05/07/22 05:00 05/07/22 05:00 05/07/22 05:00 05/07/22 09:31 Temperature -Last 24 Hours Temperature 97.0 F Temperature 98.3 F Temperature 97.8 F Temperature 98.0 F - Labs CBC & Chem 7: 05/07/22 08:23 05/07/22 08:23 Labs: Abnormal lab results 05/06/22 05/06/22 05/06/22 Range/Units 11:30 15:46 16:49 WBC (4.5-11.0) K/mm3 Hgb (11.8-15.2) gm/dl Hct (35.5-45.6) % RDW (13.2-15.2) % Lymph % (Auto) (13.4-35.0) % [place] % (Auto) (0.0-7.3) % Lymph # (Auto) (1.2-5.4) K/mm3 [place] # (Auto) (0.0-0.8) K/mm3 Seg Neutrophils % (40.0-70.0) % Seg Neutrophils # (1.8-7.7) K/mm3 PT (12.2-14.9) Sec. INR (0.87-1.13) ABG pH (7.350-7.450) pH Units ABG pO2 (80.0-90.0) mm Hg ABG HCO3 (20.0-26.0) mmol/L ABG O2 Saturation (95.0-99.0) % ABG Base Excess (-2.0-3.0) mmol/L ABG Hemoglobin (14.0-18.0) gm/dl Oxyhemoglobin (95.0-99.0) % Sodium 148 H (137-145) mmol/L Potassium 3.3 L (3.6-5.0) mmol/L Chloride 112.7 H (98-107) mmol/L Carbon Dioxide 21 L (22-30) mmol/L BUN 28 H (9-20) mg/dL Glucose 143 H (75-100) mg/dL POC Glucose 211 H 148 H (70-105) mg/dL Lactic Acid (0.7-2.0) mmol/L Calcium (8.4-10.2) mg/dL Phosphorus 1.40 L D (2.5-4.5) mg/dL 05/06/22 05/07/22 05/07/22 Range/Units 22:35 08:22 08:23 WBC 15.4 H (4.5-11.0) K/mm3 Hgb 10.9 L (11.8-15.2) gm/dl Hct 32.7 L (35.5-45.6) % RDW 19.2 H (13.2-15.2) % Lymph % (Auto) 5.8 L (13.4-35.0) % [place] % (Auto) 7.7 H (0.0-7.3) % Lymph # (Auto) 0.9 L (1.2-5.4) K/mm3 [place] # (Auto) 1.2 H (0.0-0.8) K/mm3 Seg Neutrophils % 86.3 H (40.0-70.0) % Seg Neutrophils # 13.3 H (1.8-7.7) K/mm3 PT (12.2-14.9) Sec. INR (0.87-1.13) ABG pH (7.350-7.450) pH Units ABG pO2 (80.0-90.0) mm Hg ABG HCO3 (20.0-26.0) mmol/L ABG O2 Saturation (95.0-99.0) % ABG Base Excess (-2.0-3.0) mmol/L ABG Hemoglobin (14.0-18.0) gm/dl Oxyhemoglobin (95.0-99.0) % Sodium (137-145) mmol/L Potassium (3.6-5.0) mmol/L Chloride (98-107) mmol/L Carbon Dioxide (22-30) mmol/L BUN (9-20) mg/dL Glucose (75-100) mg/dL POC Glucose 156 H 169 H (70-105) mg/dL Lactic Acid (0.7-2.0) mmol/L Calcium (8.4-10.2) mg/dL Phosphorus (2.5-4.5) mg/dL 05/07/22 05/07/22 05/07/22 Range/Units 08:23 08:23 08:23 WBC (4.5-11.0) K/mm3 Hgb (11.8-15.2) gm/dl Hct (35.5-45.6) % RDW (13.2-15.2) % Lymph % (Auto) (13.4-35.0) % [place] % (Auto) (0.0-7.3) % Lymph # (Auto) (1.2-5.4) K/mm3 [place] # (Auto) (0.0-0.8) K/mm3 Seg Neutrophils % (40.0-70.0) % Seg Neutrophils # (1.8-7.7) K/mm3 PT 17.7 H (12.2-14.9) Sec. INR 1.30 H (0.87-1.13) ABG pH (7.350-7.450) pH Units ABG pO2 (80.0-90.0) mm Hg ABG HCO3 (20.0-26.0) mmol/L ABG O2 Saturation (95.0-99.0) % ABG Base Excess (-2.0-3.0) mmol/L ABG Hemoglobin (14.0-18.0) gm/dl Oxyhemoglobin (95.0-99.0) % Sodium 152 H (137-145) mmol/L Potassium 3.3 L (3.6-5.0) mmol/L Chloride 116.9 H (98-107) mmol/L Carbon Dioxide 20 L (22-30) mmol/L BUN 27 H (9-20) mg/dL Glucose 150 H (75-100) mg/dL POC Glucose (70-105) mg/dL Lactic Acid 2.40 H* (0.7-2.0) mmol/L Calcium 8.3 L (8.4-10.2) mg/dL Phosphorus (2.5-4.5) mg/dL 05/07/22 Range/Units 09:10 WBC (4.5-11.0) K/mm3 Hgb (11.8-15.2) gm/dl Hct (35.5-45.6) % RDW (13.2-15.2) % Lymph % (Auto) (13.4-35.0) % [place] % (Auto) (0.0-7.3) % Lymph # (Auto) (1.2-5.4) K/mm3 [place] # (Auto) (0.0-0.8) K/mm3 Seg Neutrophils % (40.0-70.0) % Seg Neutrophils # (1.8-7.7) K/mm3 PT (12.2-14.9) Sec. INR (0.87-1.13) ABG pH 7.471 H (7.350-7.450) pH Units ABG pO2 64.0 L (80.0-90.0) mm Hg ABG HCO3 19.1 L (20.0-26.0) mmol/L ABG O2 Saturation 94.8 L (95.0-99.0) % ABG Base Excess -3.6 L (-2.0-3.0) mmol/L ABG Hemoglobin 9.7 L (14.0-18.0) gm/dl Oxyhemoglobin 92.4 L (95.0-99.0) % Sodium (137-145) mmol/L Potassium (3.6-5.0) mmol/L Chloride (98-107) mmol/L Carbon Dioxide (22-30) mmol/L BUN (9-20) mg/dL Glucose (75-100) mg/dL POC Glucose (70-105) mg/dL Lactic Acid (0.7-2.0) mmol/L Calcium (8.4-10.2) mg/dL Phosphorus (2.5-4.5) mg/dL
[2022-05-07] MEDS: POTASSIUM CHLORIDE 10 MEQ 10 MEQ/100 ML BAG IV SCH ×4 (11:21→17:35)
--- NOTE | 2022-05-07 14:00 | Electrocardiograph Report ---
[facility] Test Date: 2022-05-03 Test Time: 13:36:55 Pat Name: SEAN DE LA TORRE Department: Room: A357 Gender: M Teacher Associate: PAMELLA : [id number] Requested By: PARVEZ LEON Order Number: [id number] Reading MD: Malathi Ware Measurements Intervals [place] Rate: 87 P: MA: QRS: 34 QRSD: 85 T: -28 QT: 390 QTc: 470 Interpretive Statements Atrial fibrillation Low voltage, extremity leads Compared to ECG 05/02/2022 07:15:50 No significant change Electronically Signed On 05-07-2022 14:00:13 EDT by Malathi Ware
--- NOTE | 2022-05-07 14:14 | Progress Note ---
Assessment and Plan Assessment and plan: This is a 86-year-old male with known past medical history of CVA, ICHx2, dementia, HLD, UT, CAD s/p CABGX5, paroxysmal Afib- not a candidate of anticoagulation, s/p multiple falls at home admitted for septic shock probably secondary to urosepsis requiring vasopressors. Hospital Course to Date 05/02: Remains encephalopathic, stable on RA, on high dose pressors, additional IVF bolus administered. Patient remains in Afib, rate control. Cardiology consulted Dumont inserted this am due to retenstion, 1L of malodorous and cloudy urine drained. Probable urosepsis, patient is current on IV rocephin. D/w patient's daughters they reported that patient does have a history of Afib and open heart surgery with 5 bypass. Patient had X2 ICH in the past and he is not a candidate for any anticoagulations. Patient was also recently diagnosed with COVID outpatient, did not received any treatment since he was stable. COVID and PLU PCRs pending, check inflam. markers and Procal. Renal function is unchanged, continue IVF hydration, Nephrology is also following. Continue to trend Lactic acid. 05/03: More awake and alert this am but still confused. Still in Afib but rate control this am. Amiodarone gtt added yesterday due to Afib with RVR, patient remains on low dose Levophed. Cardiology recommendations noted. Concern for possible aspiration this morning, awaiting speech consulted. Will keep amiodarone gtt for now, transition to PO Amio if clear by speech. Blood cultures positive gram negative rods in 3/4 bottles, Vancomycin added. Check 2D echo to r/o vegetations. ID consulted pending. COVID PCR came back positive, spoke with patient's daughter. She reported that patient received "the COVID pill that Cruzito had". Patient is currently on 1L NC, SPO2 at 100%. Will continue to monitor for now. 05/04: Still confused but calm and following commands, agitated overnight required IV ativan. MRI brain pending. Patient remains in Afib, rate control. Remains on Amiodarone gtt, off pressors this am, VSS. Orders placed for repeat blood culture. Continue current IV abx, 2D echo and ID consult pending. Patient failed speech swallow due to cognitive deficits, multiple attempts to insert DHT was unsuccessful due to suspected hiatal hernia. Continue IVF hydration for now, speech to reassess swallow screen in 48hrs since patient's mentation is improving. If patient continue to fail swallow, alternative nutrition should be considered. Plan of care discussed with patient's daughters while visiting patient today. All questions and concerns were addressed at this time. Team will continue to follow with any further updates. 05/05: I did reach out to this infectious disease to see the patient as they had not previously seen him. He does not have any new fever today. Speech did evaluate the patient recommended some nectar thick. Patient was tested positive for COVID did have PACs COVID as mentioned. Currently very minimal oxygen requirement. We will transition him to oral amiodarone due to underlying atrial fibrillation. Creatinine is down to 1.6. He is not a candidate for anticoagulation as mentioned. I did update the patient's daughter anticipate discharge in 24 to 48 hours. During my conversation we did reaffirm CODE STATUS and advance care planning done for 35 minutes that he is a full code. MRI completed negative for acute stroke. 05/06: HR still continues to be challenging to control with rate as high as 130 bpm. Patient has chronic afib. Will continue amiodorone for suppression and monitor on tele for next 24 hrs. Avoid blood thinners due to hx of ICH. Mentation improving. Renal profile, mag, Phos ordered. Eating food tray at bedside with assistance of nursing aid. Will likely d/c in next 24 hrs. [facility] likely go [facility] with [facility]. Transfer to med/surg with tele. Assessment and Plan #Acute metabolic encephalopathy #Acute hypoxic respiratory failure #Lactic acidosis Pending chest x-ray and CT head noncontrast to evaluate for possible etiology of acute mental status change Concern for possible volume overload ordered IV Lasix 40 mg x 1 If chest x-ray found to show pulmonary edema, consider starting BiPAP. #Septic Shock- Probable Urosepsis (POA) #Urinary Tract Infection (UTI) #Lactic Acidosis #Recent COVID infection- Received Treatment, probably Paxlovid - Dumont inserted for retention- cloudy and malodourous urine drained - Urine culture pending, Blood cultures with Gram neg Rods in 3/4 bottles - Repeat Blood cultures - Continue IVF hydration and current empiric IV Abx- Rocephin, Vanco added - 2D Echo to r/o vegetation - ID consulted - Continue blood pressure monitor per protocol - Titrate pressors to maintain MAP above 65 - COVID PCR positive- per patient's daughter, patient received the COVID Pill that Cruzito had. Probably Paxlovid - Patient is stable on 1L NC, continue to monitor for now #Acute Kidney Injury(ANJU) most likely ATNresolved #Electrolyte imbalance- hypomagnesemia, hyponatremia, hypocalcemia #Hypovelemia/Dehydration - Nephrology on consult, appreciated recommendation - Strict intake and output - Avoid nephrotoxic medications; Renally dose medications - Dumont inserted for retention- cloudy and malodourous urine drained - Continue IVF for now - Monitor and replace electrolytes as needed #Paroxysmal Atrial Fibrillation- Not candidate for anticoagulation #NSTEMI- probably Type 2 2/2 demand ischemia vs ANJU #H/o UT and CAD s/p CABGX5 over 20 years ago - Cardiology consulted - Not candidate for BB due to low BP on levophed gtt - on Amio gtt - Continue blood pressure monitor per protocol - Titrate pressors to maintain MAP above 65 - Not candidate for AC due to bleeding #Acute Metabolic Encephalopathy (improved) #Multiple Falls at Home #H/o Dementia #H/o CVA and ICHx2 - Mentation improved - Avoid benzodiazepine to reduce the possibility of delirium - PRN Analgesia for pain control - Maintenance of sleep-wake cycle - Fall precaution - MRI negative for acute CVA. #Dyphagia #Unable to insert NGT/DHT due to Hiatal Hernia - Failed speech bedside swallow due to cognitive deficits - Multiple attempts to insert NGT/DHT unsuccessful, blockage at the GE junction probably due to Hiatal Hernia - Continue IVF hydration for now - speech to reassess swallow screen in 48hrs since patient's mentation is improving. - If patient continue to fail swallow, alternative nutrition should be conside red #Urinary Retention #History of BPH - Dumont inserted - resume home meds once list is available #Thrombocytopenia - Present on admit - H&H stable, no s/s of any active bleeding - Not on any AC due to bleeding - Continue to trend CBC - Transfuse for hgb less than 7 #GI/DVT Prophylaxis - PPI- pepcid - SCDs to bilateral lower extremities while in bed #Advance Care Planning - Disease education data, care plan, diagnoses, and prognosis were discussed with patient's daughters via phone, Kath Carter- ; Jacquie Laguerre- . Patient is a FULL code. Patient's family acknowledged understanding and agreed with current care plan. Time: +30 minutes Disposition Plan: Continue medical management Total Time Spent with Patient (Minutes): 45 minutes History Interval history: No acute events overnight. Hospitalist Physical - Constitutional Vitals: Temp Pulse Resp BP Pulse Ox 98.7 F 116 H 22 127/69 98 05/07/22 08:00 05/07/22 08:00 05/07/22 10:00 05/07/22 08:00 05/07/22 10:00 General appearance: Present: no acute distress, well-nourished, other (Unresponsive to sternal rub) - EENT Eyes: Present: PERRL, EOM intact ENT: hearing intact, clear oral mucosa - Neck Neck: Present: supple, normal ROM - Respiratory Respiratory effort: normal Respiratory: bilateral: diminished (On nonrebreather) - Cardiovascular Rhythm: regular Heart Sounds: Present: S1 & S2 - Extremities Extremities: no ischemia, pulses intact, pulses symmetrical, No edema, normal temperature, normal color Peripheral Pulses: within normal limits - Abdominal General gastrointestinal: soft, non-tender, non-distended, normal bowel sounds - Integumentary Integumentary: Present: clear, warm, dry - Psychiatric Psychiatric: other (Unable to assess given mental status) - Neurologic Neurologic: CNII-XII intact - Allied Health Allied health notes reviewed: nursing HEART Score - HEART Score Troponin: Troponin T 0.196 ng/mL (0.00-0.029) H* D 05/02/22 11:14 Results - Labs CBC & Chem 7: 05/07/22 08:23 05/07/22 08:23 Labs: Laboratory Last Values WBC 15.4 K/mm3 (4.5-11.0) H 05/07/22 08:23 RBC 3.92 M/mm3 (3.65-5.03) 05/07/22 08:23 Hgb 10.9 gm/dl (11.8-15.2) L 05/07/22 08:23 Hct 32.7 % (35.5-45.6) L 05/07/22 08:23 MCV 84 fl (84-94) 05/07/22 08:23 MCH 28 pg (28-32) 05/07/22 08:23 MCHC 33 % (32-34) 05/07/22 08:23 RDW 19.2 % (13.2-15.2) H 05/07/22 08:23 Plt Count 215 K/mm3 (140-440) 05/07/22 08:23 Lymph % (Auto) 5.8 % (13.4-35.0) L 05/07/22 08:23 [place] % (Auto) 7.7 % (0.0-7.3) H 05/07/22 08:23 Eos % (Auto) 0.1 % (0.0-4.3) 05/07/22 08:23 Baso % (Auto) 0.1 % (0.0-1.8) 05/07/22 08:23 Lymph # (Auto) 0.9 K/mm3 (1.2-5.4) L 05/07/22 08:23 [place] # (Auto) 1.2 K/mm3 (0.0-0.8) H 05/07/22 08:23 Eos # (Auto) 0.0 K/mm3 (0.0-0.4) 05/07/22 08:23 Baso # (Auto) 0.0 K/mm3 (0.0-0.1) 05/07/22 08:23 Seg Neutrophils % 86.3 % (40.0-70.0) H 05/07/22 08:23 Seg Neutrophils # 13.3 K/mm3 (1.8-7.7) H 05/07/22 08:23 PT 17.7 Sec. (12.2-14.9) H 05/07/22 08:23 INR 1.30 (0.87-1.13) H 05/07/22 08:23 APTT 39.9 Sec. (24.2-36.6) H 05/01/22 23:14 D-Dimer 1135.33 ng/mlDDU (0-234) H 05/02/22 11:14 ABG pH 7.471 pH Units (7.350-7.450) H 05/07/22 09:10 ABG pCO2 26.7 mm Hg 05/07/22 09:10 ABG pO2 64.0 mm Hg (80.0-90.0) L 05/07/22 09:10 ABG HCO3 19.1 mmol/L (20.0-26.0) L 05/07/22 09:10 ABG O2 Saturation 94.8 % (95.0-99.0) L 05/07/22 09:10 ABG O2 Content 12.7 (0.0-44) 05/07/22 09:10 ABG Base Excess -3.6 mmol/L (-2.0-3.0) L 05/07/22 09:10 ABG Hemoglobin 9.7 gm/dl (14.0-18.0) L 05/07/22 09:10 ABG Carboxyhemoglobin 2.1 % (0.0-5.0) 05/07/22 09:10 ABG Methemoglobin 0.5 % (0.0-1.5) 05/07/22 09:10 Oxyhemoglobin 92.4 % (95.0-99.0) L 05/07/22 09:10 FiO2 40 % 05/07/22 09:10 Sodium 152 mmol/L (137-145) H 05/07/22 08:23 Potassium 3.3 mmol/L (3.6-5.0) L 05/07/22 08:23 Chloride 116.9 mmol/L (98-107) H 05/07/22 08:23 Carbon Dioxide 20 mmol/L (22-30) L 05/07/22 08:23 Anion Gap 18 mmol/L 05/07/22 08:23 BUN 27 mg/dL (9-20) H 05/07/22 08:23 Creatinine 1.3 mg/dL (0.8-1.3) 05/07/22 08:23 Estimated GFR 52 ml/min 05/07/22 08:23 BUN/Creatinine Ratio 21 % 05/07/22 08:23 Glucose 150 mg/dL (75-100) H 05/07/22 08:23 POC Glucose 132 mg/dL (70-105) H 05/07/22 12:23 Lactic Acid 2.40 mmol/L (0.7-2.0) H* 05/07/22 08:23 Calcium 8.3 mg/dL (8.4-10.2) L 05/07/22 08:23 Phosphorus 1.40 mg/dL (2.5-4.5) L D 05/06/22 15:46 Magnesium 2.00 mg/dL (1.7-2.3) 05/06/22 15:46 Ferritin 544.4 ng/mL (30.0-300.0) H 05/02/22 11:14 Total Bilirubin 0.40 mg/dL (0.1-1.2) 05/05/22 04:38 AST 44 units/L (5-40) H 05/05/22 04:38 ALT 34 units/L (7-56) 05/05/22 04:38 Alkaline Phosphatase 82 units/L (35-129) 05/05/22 04:38 Lactate Dehydrogenase 172 units/L (91-180) 05/02/22 11:14 Total Creatine Kinase 72 units/L (55-170) 05/05/22 16:00 Troponin T 0.196 ng/mL (0.00-0.029) H* D 05/02/22 11:14 C-Reactive Protein 29.00 mg/dL (0.00-1.30) H 05/02/22 11:14 NT-Pro-B Natriuret Pep 30031 pg/mL (0-900) H 05/01/22 23:14 Total Protein 4.5 g/dL (6.3-8.2) L 05/05/22 04:38 Albumin 2.5 g/dL (3.9-5) L 05/05/22 04:38 Albumin/Globulin Ratio 1.3 % 05/05/22 04:38 Prealbumin 0.055 g/L (0.200-0.400) L 05/06/22 04:43 Triglycerides 64 mg/dL (2-149) 05/01/22 23:14 Cholesterol 77 mg/dL (50-199) 05/01/22 23:14 LDL Cholesterol Direct 25 mg/dL (50-130) L 05/01/22 23:14 HDL Cholesterol 46 mg/dL (40-59) 05/01/22 23:14 Cholesterol/HDL Ratio 1.67 % 05/01/22 23:14 Vitamin B12 1464 pg/mL (211-911) H 05/06/22 04:43 Folate 10.08 ng/mL (7.3-26.0) 05/06/22 01:09 Procalcitonin 16.30 ng/mL (<0.15) 05/02/22 11:14 TSH 3.960 mlU/mL (0.270-4.200) 05/06/22 01:09 Urine Color Yellow (Yellow) 05/01/22 23:54 Urine Turbidity Hazy (Clear) 05/01/22 23:54 Specific [place] (Man) 1.015 (1.003-1.030) 05/01/22 23:54 Ur Protein (Man) 1+ mg/dL (Negative) 05/01/22 23:54 Ur Ketones (Man) Negative (Negative) 05/01/22 23:54 Ur Nitrite (Man) Negative (Negative) 05/01/22 23:54 Urine Bilirubin (Man) Negative (Negative) 05/01/22 23:54 Leukocyte Esterase (Man) Moderate (Negative) 05/01/22 23:54 Urine WBC (Auto) > 182.0 /HPF (0.0-6.0) H 05/01/22 23:54 Urine RBC (Auto) 33.0 /HPF (0.0-6.0) 05/01/22 23:54 Urine Bacteria (Auto) 2+ /HPF (Negative) 05/01/22 23:54 Urine RBC (Manual) 3+ (Negative) 05/01/22 23:54 Urine WBC Clumps 3+ /HPF 05/01/22 23:54 Urine Mucus Few /HPF 05/01/22 23:54 Urine Yeast (Budding) 2+ /HPF 05/01/22 23:54 Complement C3 91 mg/dL () 05/02/22 20:20 Complement C4 47 mg/dL () 05/02/22 20:20 Syphilis IgG/IgM Ab Nonreactive (NonReactive) 05/06/22 04:43 Coronavirus (PCR) Positive (Negative) A 05/02/22 Unknown Hep Bs Antigen Non-reactive (Negative) 05/02/22 20:20 Hepatitis C Antibody Non-reactive (NonReactive) 05/02/22 20:20 Influenza A (RT-PCR) Negative (Negative) 05/02/22 15:40 Influenza B (RT-PCR) Negative (Negative) 05/02/22 15:40 Microbiology: Microbiology 05/04/22 09:20 Peripheral/Venous Blood Culture - Preliminary NO GROWTH AFTER 72 HOURS 05/04/22 09:20 Peripheral/Venous Blood Culture - Preliminary NO GROWTH AFTER 72 HOURS Dumont/IV: Voiding Method Indwelling Catheter Active Medications - Current Medications Current Medications: Generic Name Dose Route Start Last Admin Trade Name Freq PRN Reason Stop Dose Admin Acetaminophen 650 mg 05/02/22 00:33 Acetaminophen 325 Mg Tab PO Q4H PRN Pain MILD(1-3)/Fever >100.5/ALLEN Amiodarone HCl 200 mg 05/05/22 14:00 05/07/22 03:20 Amiodarone 200 Mg Tab PO Not Given BID GENA Ascorbic Acid 500 mg 05/05/22 22:00 05/07/22 03:24 Ascorbic Acid 500 Mg Tab PO Not Given BID GENA Atorvastatin Calcium 40 mg 05/02/22 22:00 05/07/22 03:22 Atorvastatin 40 Mg Tab PO Not Given QHS GENA Dextrose 50 ml 05/02/22 18:49 Dextrose 50% In Water (25gm) 50 Ml Syringe IV Q30MIN PRN Hypoglycemia Protocol Famotidine 20 mg 05/03/22 10:00 05/06/22 09:58 Famotidine 20 Mg Tab PO 20 mg QDAY GENA Administration Furosemide 40 mg 05/07/22 14:05 Furosemide 40 Mg/4 Ml Inj IV 05/07/22 14:06 ONCE ONE Haloperidol Lactate 5 mg 05/03/22 13:25 05/06/22 03:42 Haloperidol Lactate 5 Mg/1 Ml Inj IV 5 mg Q6H PRN Administration Agitation Hydralazine HCl 10 mg 05/05/22 17:45 Hydralazine 20 Mg/1 Ml Inj IV Q4HR PRN Hypertension Ceftriaxone Sodium 2 gm in 100 mls @ 200 mls/hr 05/06/22 10:00 05/07/22 10:06 Rocephin/Ns 2 Gm/100 Ml IV 05/19/22 10:29 200 mls/hr Q24H GENA Administration Protocol Potassium Chloride 10 meq/ 1,005 mls @ 75 mls/hr 05/07/22 10:00 Dextrose IV DIRECT GENA Potassium Chloride 10 meq in 100 mls @ 100 mls/hr 05/07/22 11:00 05/07/22 1 2:45 Kcl 10meq/100ml IV 05/07/22 14:59 100 mls/hr Q1H GENA Administration Insulin Human Regular 0 units 05/02/22 22:00 05/07/22 11:30 Insulin Regular, Human 100 Units/1 Ml SUB-Q Not Given ACHS [facility] Protocol Magnesium Hydroxide 30 ml 05/02/22 00:33 Magnesium Hydroxide (Mom) Oral Liqd Udc PO Q4H PRN Constipation Memantine 10 mg 05/05/22 22:00 05/07/22 03:22 Memantine 10 Mg Tab PO Not Given BID GENA Morphine Sulfate 2 mg 05/02/22 00:33 05/06/22 01:31 Morphine 2 Mg/1 Ml Inj IV 2 mg Q4H PRN Administration Pain, Moderate (4-6) Ondansetron HCl 4 mg 05/02/22 00:33 Ondansetron 4 Mg/2 Ml Inj IV Q8H PRN Nausea And Vomiting Senna/Docusate Sodium 1 tab 05/03/22 22:00 05/07/22 03:22 Sennosides/Docusate Sodium 8.6/50 Mg Tab PO Not Given QHS GENA Sodium Chloride 10 ml 05/02/22 10:00 05/07/22 10:07 Sodium Chloride 0.9% 10 Ml Flush Syringe IV 10 ml BID GENA Administration Sodium Chloride 10 ml 05/02/22 00:33 Sodium Chloride 0.9% 10 Ml Flush Syringe IV PRN PRN LINE FLUSH Tamsulosin HCl 0.4 mg 05/07/22 15:00 Tamsulosin 0.4 Mg Cap PO QDAY [facility] Zinc Sulfate 220 mg 05/06/22 10:00 05/06/22 09:58 Zinc Sulfate 220 Mg Cap PO 220 mg QDAY GENA Administration Nutrition/Malnutrition Assess - Dietary Evaluation Nutrition/Malnutrition Findings: Nutrition Notes Start: 05/02/22 10:24 Freq: Status: Active Protocol: Document 05/02/22 10:24 KIERSTEN (Rec: 05/02/22 11:05 KIERSTEN [id number]) Nutrition Notes Need for Assessment generated from: surveyor helper,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 Current Diet Cardiac -Renal- Diet (since B 05/02). Labs/Tests 05/01: Na 125, Cl 91.0, CO2 21 , BUN 38, Crea 2.1, Glu 131, Ca 7.9, Mg 1.6. Pertinent Medications 05/02: Nutritionally unremarkable. Height 5 ft 8 in Weight 69.7 kg [place] Body Weight (kg) 70.00 BMI 23.3 Intake Prior to Admission Good Weight change and time frame Pt states being unsure if loss body weight [employer]. Weight Status Appropriate Subjective/Other Information RD consult for skin risk and risk of malnutrition assessments. No reports available on Pt's PO intake of meals at the time , will assess at F/U. I will recommend Renal modification to current diet, to support Pt's ANJU condition during LOS. I will also recommend dietary supplements to support wound healinh processes during LOS. Pt is on Room Air, O2 saturation @ 99%, according to Physical Assessment History notes. Pt has caries and missing teeth, according to Physical Assessment History notes. Pt passed bedside swallow assessment on 05/02, according to Swallow Screen notes. Pt shows Decubitus Sacral Ulcer stage II, L-toe open wound, and multiple bruises and skin tears in arms and legs as signs of concern for skin risk at the time, according to Physical Assessment History notes. Pt shows no signs of concern for risk of malnutrition at the time, according to Physical Assessment History notes. Percent of energy/protein needs met: Prescribed Cardiac -Renal- Diet provides for energy/ protein needs (2,230 Kcal/85 g ) during LOS; additionally, Dietary Supplements will support wound healing processes with 320 Kcal and 32 g of protein. Burn Absent Trauma Absent GI Symptoms None Food Allergy No Skin Integrity/Comment Sacral decubitus, L-toe & bruises. Minimum of two criteria No Fluid Accumulation N/A Reduced Animal Feeder Strength N/A (non-severe) Protein-Calorie Malnutrition N\\A #2 Nutrition Diagnosis Increased nutrient needs ( specify in comment below) Comments: Protein, to support wound healing processes during LOS. Etiology Uncertain. As Evidenced by Signs and Symptoms Pt shows Decubitus Sacral Ulcer stage II, L-toe open wound, and multiple bruises and skin tears in arms and legs as signs of concern for skin risk at the time, according to Physical Assessment History notes. #1 Nutrition Diagnosis Altered nutrition-related laboratory values Etiology ANJU. As Evidenced by Signs and Symptoms 05/01: Na 125, Cl 91.0, CO2 21 , BUN 38, Crea 2.1, Glu 131, Ca 7.9, Mg 1.6. Is patient on ventilator? No Is Patient Ambulatory and/or Out of Bed No REE-([facility]-confined to bed) 1617.408 Kcal/Kg value to use for calculation 26 Approximate Energy Requirements Using 1812 kcal/Kg Calculation Used for Recommendations Kcal/kg Additional Notes Protein: 0.8-1.2 g/Kg ABW; 56- 84 g/day. Fluids: 1 ml/Kcal, or as per MD. Nutrition Intervention Change Diet Order: Modify to Cardiac -Renal- Diet , continue as tolerated. Add Supplement/Snack (indicate name/kcal Start 8 fl oz Ensure High /protein ) Protein; BID. Provides kCal: 320 Provides Protein (gm) 32 Goal #1 Help reach and maintain acceptable chemistry lab values during LOS. Goal #2 Support, through dietary supplementation, wound healing processes during LOS. Goal #3 Adjust the dietary intervention to better serve Pt's energy/protein needs and clinical conditions during LOS . Follow-Up By: 05/09/22 Additional Comments Continue monitoring food tolerance, %PO intake of meals , dietary supplements, and BM.
[2022-05-07] MEDS ORDERED: FUROSEMIDE 40 MG/4 ML INJ IV NR (14:30)
--- NOTE | 2022-05-07 14:36 | Cat Scan Report ---
CT head/brain wo con INDICATION: Concern for acute CVA. TECHNIQUE: CT head. All CT scans at this location are performed using CT dose reduction for ALARA by means of automated exposure control. COMPARISON: 05/01/2022 CT and MR brain 05/05/2022 FINDINGS: Intracranial: Large area of gomez-white matter differentiation loss seen within the left MALOU and MCA t erritory. No hemorrhagic conversion. No herniation. Remote right parietal lobe infarction. . No extra axial collection. No hydrocephalus. No herniation. Sinuses: Paranasal sinuses and mastoid air cells are essentially clear. Orbits: Globes are intact. Calvarium: No acute fracture. IMPRESSION: 1. Acute infarction seen in the left MALOU and MCA territory. I attempted to call the E.D and there was no answer. Signer Name: Bry Liu MD Signed: 05/07/2022 2:32 PM Workstation Name: [id number]
[2022-05-07] MEDS: TAMSULOSIN 0.4 MG CAP PO SCH (16:17)
--- NOTE | 2022-05-07 16:21 | XRay Report ---
CHEST 1 VIEW 05/07/2022 2:23 PM INDICATION / CLINICAL INFORMATION: respiratory distress. COMPARISON: 05/02/22 FINDINGS: SUPPORT DEVICES: Right jugular central line is unchanged. HEART / MEDIASTINUM: Stable. LUNGS / PLEURA: Interval worsening of bilateral interstitial opacities. No pneumothorax. ADDITIONAL FINDINGS: No significant additional findings. IMPRESSION: 1. Interval worsening. Signer Name: Carlos Pierre MD Signed: 05/07/2022 4:17 PM Workstation Name: [id number]
[2022-05-07 16:30] LABS: C-Reactive Protein 22.7 mg/dL (0.00-1.30)
--- NOTE | 2022-05-07 17:06 | Progress Note ---
Assessment and Plan 86-year-old white male with known history of hypertension, CVA, dementia,Arthritis, hyperlipidemia and also a recent history of COVID infection about 2 to 3 weeks ago brought into the emergency room by the family for evaluation of changes in mental status with started about 2 hours prior to reporting to the emergency room. Patient is said to have been declining since his recent COVID infection. He has been increasingly getting weaker, having unsteady gait and appearing confused. Upon arrival in the emergency room, a code stroke was called and patient was promptly evaluated by the neurologist. CT head and neck and CT of the head did not reveal any acute abnormalities. Patient has history of Cholecystectomy and Open heart surgery. Most of the history was obtained from and daughter. Patient unable to give any coherent history. Patients smoking, alcohol or drug history not known at this time. Further work-up reveals UTI and multiple electrolyte imbalance with acute kidney injury. Patient being admitted for multiple medical problems including UTI, electrolyte imbalance, dehydration. Will also be ruled out for possible CVA. Urine wbc greater than 182. Patient sleeping. On BIPAP 30/01, FIO2 50%, rate 20 . O2 saturation 94% Tolerating BIPAP. No acute respiratory distress. Patient afebrile. Has leukocytosis. Blood pressure 127/69, Pulse 66, Respirations 22. Urine wbc greater than 182. Patients Coronana virus PCR Positive Chest xray done 05/02/22 reported Bilateral pulmonary opacities with increased pulmonary vascularity . No pneumothorax, Patient is on ceftriaxone, famotidine. Recommend DVt prophylaxis. - Patient Problems (1) AMS (altered mental status) Current Visit: No Status: Acute Plan to address problem: Could be related to his infection or dementia. Management as per primary care. (2) CVA (cerebral vascular accident) Current Visit: No Status: Acute Qualifiers: Laterality of affected vessel: unspecified Plan to address problem: Management as per primary care and neurology. (3) Dementia Current Visit: No Status: Acute Plan to address problem: Management as per primary care. (4) HLD (hyperlipidemia) Current Visit: No Status: Acute Qualifiers: Hyperlipidemia type: mixed hyperlipidemia Qualified Code(s): E78.2 - Mixed hyperlipidemia Plan to address problem: Management as per primary care. (5) HTN (hypertension) Current Visit: No Status: Acute Qualifiers: Hypertension type: essential hypertension Plan to address problem: Management as per primary care. (6) UTI (urinary tract infection) Current Visit: Yes Status: Acute Plan to address problem: Patient is on Rocephin . (7) Coronavirus infection Current Visit: Yes Status: Acute Plan to address problem: Management as per infectious disease specialists. Gann virus precautions. (8) Opacities of both lungs present on chest x-ray Current Visit: Yes Status: Acute Plan to address problem: Patient is on rocephin Subjective Date of service: 05/07/22 Principal diagnosis: AMS; UTI; ANJU; Septic shock; E.Coli Bacteremia; UTI; Thrombocytopenia Interval history: 86-year-old white male with known history of hypertension, CVA, dementia,Arthritis, hyperlipidemia and also a recent history of COVID infection about 2 to 3 weeks ago brought into the emergency room by the family for evaluation of changes in mental status with started about 2 hours prior to reporting to the emergency room. Patient is said to have been declining since his recent COVID infection. He has been increasingly getting weaker, having unsteady gait and appearing confused. Upon arrival in the emergency room, a code stroke was called and patient was promptly evaluated by the neurologist. CT head and neck and CT of the head did not reveal any acute abnormalities. Patient has history of Cholecystectomy and Open heart surgery. Most of the history was obtained from and daughter. Patient unable to give any coherent history. Patients smoking, alcohol or drug history not known at this time. Further work-up reveals UTI and multiple electrolyte imbalance with acute kidney injury. Patient being admitted for multiple medical problems including UTI, electrolyte imbalance, dehydration. Will also be ruled out for possible CVA. Patient sleeping. On BIPAP 30/01, FIO2 50%, rate 20 . O2 saturation 94% Tolerating BIPAP. No acute respiratory distress. Patient afebrile. Has leukocytosis. Blood pressure 127/69, Pulse 66, Respirations 22. Urine wbc greater than 182. Patients Coronana virus PCR Positive Chest xray done 05/02/22 reported Bilateral pulmonary opacities with increased pulmonary vascularity . No pneumothorax, Patient is on ceftriaxone, famotidine. Recommend DVt prophylaxis. Objective Vital Signs - 12hr 05/07/22 05/07/22 05/07/22 08:00 08:32 09:31 Temperature 98.7 F Pulse Rate 116 H Pulse Rate [ From Monitor] Respiratory 26 H Rate Blood Pressure 127/69 [Left] O2 Sat by Pulse 84 95 98 Oximetry 05/07/22 05/07/22 05/07/22 10:00 15:00 16:12 Temperature Pulse Rate 105 H Pulse Rate [ 105 H From Monitor] Respiratory 22 20 20 Rate Blood Pressure [Left] O2 Sat by Pulse 98 98 96 Oximetry Constitutional: no acute distress, asleep, other (elderly male resting on BIPAP.) Eyes: non-icteric ENT: oropharynx moist Neck: supple, no lymphadenopathy, no JVD Effort: mildly labored Ascultation: Bilateral: diminished breath sounds, rhonchi (scant bases) Percussion: Bilateral: not dull Cardiovascular: irregular rhythm Gastrointestinal: normoactive bowel sounds, soft, non-tender, non-distended (protuberant) Integumentary: normal Extremities: no cyanosis, no edema, pink and warm, pulses normal Neurologic: non-focal exam (grossly), pupils equal and round, CN II-XII normal Psychiatric: other (Sleeping on BIPAP.) CBC and BMP: 05/08/22 08:00 05/08/22 07:26 ABG, PT/INR, D-dimer: ABG ABG pH 7.471 pH Units (7.350-7.450) H 05/07/22 09:10 ABG pCO2 26.7 mm Hg 05/07/22 09:10 ABG pO2 64.0 mm Hg (80.0-90.0) L 05/07/22 09:10 ABG O2 Saturation 94.8 % (95.0-99.0) L 05/07/22 09:10 PT/INR, D-dimer PT 17.7 Sec. (12.2-14.9) H 05/07/22 08:23 INR 1.30 (0.87-1.13) H 05/07/22 08:23 D-Dimer 1135.33 ng/mlDDU (0-234) H 05/02/22 11:14 Abnormal lab findings: Abnormal Labs 05/01/22 05/01/22 05/01/22 23:14 23:14 23:14 WBC RBC Hgb 10.8 L Hct 30.9 L MCHC 35 H RDW 18.0 H Plt Count 113 L Lymph % (Auto) Canadian % (Auto) Lymph # (Auto) Canadian # (Auto) Seg Neutrophils % Seg Neutrophils # PT 19.1 H INR 1.42 H APTT 39.9 H D-Dimer ABG pH ABG pO2 ABG HCO3 ABG O2 Saturation ABG Base Excess ABG Hemoglobin Oxyhemoglobin Sodium 125 L Potassium Chloride 91.0 L Carbon Dioxide 21 L BUN 38 H Creatinine 2.1 H Glucose 131 H POC Glucose Lactic Acid Calcium 7.9 L Phosphorus Magnesium 1.60 L Ferritin AST Total Creatine Kinase Troponin T C-Reactive Protein NT-Pro-B Natriuret Pep Total Protein 4.8 L Albumin 3.3 L Prealbumin LDL Cholesterol Direct Vitamin B12 Urine WBC (Auto) Coronavirus (PCR) 05/01/22 05/01/22 05/02/22 23:14 23:54 03:39 WBC RBC Hgb Hct MCHC RDW Plt Count Lymph % (Auto) Canadian % (Auto) Lymph # (Auto) Canadian # (Auto) Seg Neutrophils % Seg Neutrophils # PT INR APTT D-Dimer ABG pH ABG pO2 ABG HCO3 ABG O2 Saturation ABG Base Excess ABG Hemoglobin Oxyhemoglobin Sodium Potassium Chloride Carbon Dioxide BUN Creatinine Glucose POC Glucose Lactic Acid 2.30 H* Calcium Phosphorus Magnesium Ferritin AST Total Creatine Kinase Troponin T 0.054 H C-Reactive Protein NT-Pro-B Natriuret Pep 22431 H Total Protein Albumin Prealbumin LDL Cholesterol Direct 25 L Vitamin B12 Urine WBC (Auto) > 182.0 H Coronavirus (PCR) 05/02/22 05/02/22 05/02/22 06:05 11:14 11:14 WBC RBC Hgb Hct MCHC RDW Plt Count Lymph % (Auto) Canadian % (Auto) Lymph # (Auto) Canadian # (Auto) Seg Neutrophils % Seg Neutrophils # PT INR APTT D-Dimer 1135.33 H ABG pH ABG pO2 ABG HCO3 ABG O2 Saturation ABG Base Excess ABG Hemoglobin Oxyhemoglobin Sodium 132 L D Potassium Chloride Carbon Dioxide 15 L BUN 41 H Creatinine 2.1 H Glucose 127 H POC Glucose 139 H Lactic Acid Calcium 7.6 L Phosphorus Magnesium Ferritin AST Total Creatine Kinase Troponin T 0.196 H* D C-Reactive Protein 29.00 H NT-Pro-B Natriuret Pep Total Protein Albumin Prealbumin LDL Cholesterol Direct Vitamin B12 Urine WBC (Auto) Coronavirus (PCR) 09/16/22 09/16/22 09/16/22 11:14 11:14 17:10 WBC RBC Hgb Hct MCHC RDW Plt Count Lymph % (Auto) Canadian % (Auto) Lymph # (Auto) Canadian # (Auto) Seg Neutrophils % Seg Neutrophils # PT INR APTT D-Dimer ABG pH ABG pO2 ABG HCO3 ABG O2 Saturation ABG Base Excess ABG Hemoglobin Oxyhemoglobin Sodium 130 L Potassium Chloride 96.0 L Carbon Dioxide 17 L BUN 42 H Creatinine 2.3 H Glucose 141 H POC Glucose 150 H Lactic Acid Calcium 7.7 L Phosphorus Magnesium Ferritin 544.4 H AST Total Creatine Kinase Troponin T C-Reactive Protein NT-Pro-B Natriuret Pep Total Protein Albumin Prealbumin LDL Cholesterol Direct Vitamin B12 Urine WBC (Auto) Coronavirus (PCR) 05/02/22 05/02/22 05/02/22 20:20 20:20 22:06 WBC RBC Hgb Hct MCHC RDW Plt Count Lymph % (Auto) Canadian % (Auto) Lymph # (Auto) Canadian # (Auto) Seg Neutrophils % Seg Neutrophils # PT INR APTT D-Dimer ABG pH ABG pO2 ABG HCO3 ABG O2 Saturation ABG Base Excess ABG Hemoglobin Oxyhemoglobin Sodium 133 L Potassium Chloride Carbon Dioxide BUN Creatinine Glucose POC Glucose 146 H Lactic Acid Calcium Phosphorus Magnesium Ferritin AST Total Creatine Kinase 816 H Troponin T C-Reactive Protein NT-Pro-B Natriuret Pep Total Protein Albumin Prealbumin LDL Cholesterol Direct Vitamin B12 Urine WBC (Auto) Coronavirus (PCR) 05/02/22 05/03/22 05/03/22 Unknown 05:00 06:48 WBC 13.3 H RBC 3.62 L Hgb 10.1 L Hct 30.8 L MCHC RDW 19.1 H Plt Count Lymph % (Auto) 3.9 L Canadian % (Auto) 9.4 H Lymph # (Auto) 0.5 L Canadian # (Auto) 1.3 H Seg Neutrophils % 85.6 H Seg Neutrophils # 11.4 H PT INR APTT D-Dimer ABG pH ABG pO2 ABG HCO3 ABG O2 Saturation ABG Base Excess ABG Hemoglobin Oxyhemoglobin Sodium 135 L Potassium Chloride Carbon Dioxide 16 L BUN 38 H Creatinine 2.0 H Glucose 122 H POC Glucose Lactic Acid Calcium 7.6 L Phosphorus Magnesium Ferritin AST Total Creatine Kinase Troponin T C-Reactive Protein NT-Pro-B Natriuret Pep Total Protein Albumin Prealbumin LDL Cholesterol Direct Vitamin B12 Urine WBC (Auto) Coronavirus (PCR) Positive A 05/03/22 05/03/22 05/03/22 08:48 11:07 16:29 WBC RBC Hgb Hct MCHC RDW Plt Count Lymph % (Auto) Canadian % (Auto) Lymph # (Auto) Canadian # (Auto) Seg Neutrophils % Seg Neutrophils # PT INR APTT D-Dimer ABG pH ABG pO2 ABG HCO3 ABG O2 Saturation ABG Base Excess ABG Hemoglobin Oxyhemoglobin Sodium Potassium Chloride Carbon Dioxide BUN Creatinine Glucose POC Glucose 127 H 116 H 113 H Lactic Acid Calcium Phosphorus Magnesium Ferritin AST Total Creatine Kinase Troponin T C-Reactive Protein NT-Pro-B Natriuret Pep Total Protein Albumin Prealbumin LDL Cholesterol Direct Vitamin B12 Urine WBC (Auto) Coronavirus (PCR) 05/03/22 05/04/22 05/04/22 22:29 05:00 05:00 WBC RBC 3.39 L Hgb 9.6 L Hct 28.8 L MCHC RDW 18.8 H Plt Count Lymph % (Auto) Canadian % (Auto) Lymph # (Auto) Canadian # (Auto) Seg Neutrophils % Seg Neutrophils # PT INR APTT D-Dimer ABG pH ABG pO2 ABG HCO3 ABG O2 Saturation ABG Base Excess ABG Hemoglobin Oxyhemoglobin Sodium Potassium 3.3 L D Chloride 108.7 H Carbon Dioxide 17 L BUN 37 H Creatinine 1.8 H Glucose 117 H POC Glucose 113 H Lactic Acid Calcium 7.4 L Phosphorus Magnesium Ferritin AST Total Creatine Kinase Troponin T C-Reactive Protein NT-Pro-B Natriuret Pep Total Protein Albumin Prealbumin LDL Cholesterol Direct Vitamin B12 Urine WBC (Auto) Coronavirus (PCR) 05/04/22 05/04/22 05/04/22 07:40 11:22 15:57 WBC RBC Hgb Hct MCHC RDW Plt Count Lymph % (Auto) Canadian % (Auto) Lymph # (Auto) Canadian # (Auto) Seg Neutrophils % Seg Neutrophils # PT INR APTT D-Dimer ABG pH ABG pO2 ABG HCO3 ABG O2 Saturation ABG Base Excess ABG Hemoglobin Oxyhemoglobin Sodium Potassium Chloride Carbon Dioxide BUN Creatinine Glucose POC Glucose 107 H 124 H 147 H Lactic Acid Calcium Phosphorus Magnesium Ferritin AST Total Creatine Kinase Troponin T C-Reactive Protein NT-Pro-B Natriuret Pep Total Protein Albumin Prealbumin LDL Cholesterol Direct Vitamin B12 Urine WBC (Auto) Coronavirus (PCR) 05/04/22 05/04/22 05/05/22 18:55 22:40 04:38 WBC RBC Hgb 10.6 L Hct 32.3 L MCHC RDW 19.3 H Plt Count Lymph % (Auto) Canadian % (Auto) Lymph # (Auto) Canadian # (Auto) Seg Neutrophils % Seg Neutrophils # PT INR APTT D-Dimer ABG pH ABG pO2 ABG HCO3 ABG O2 Saturation ABG Base Excess ABG Hemoglobin Oxyhemoglobin Sodium Potassium 3.5 L Chloride 109.4 H Carbon Dioxide 18 L BUN 31 H Creatinine 1.6 H Glucose 166 H POC Glucose 138 H Lactic Acid Calcium 7.4 L Phosphorus Magnesium Ferritin AST Total Creatine Kinase Troponin T C-Reactive Protein NT-Pro-B Natriuret Pep Total Protein Albumin Prealbumin LDL Cholesterol Direct Vitamin B12 Urine WBC (Auto) Coronavirus (PCR) 05/05/22 05/05/22 05/05/22 04:38 07:35 13:06 WBC RBC Hgb Hct MCHC RDW Plt Count Lymph % (Auto) Canadian % (Auto) Lymph # (Auto) Canadian # (Auto) Seg Neutrophils % Seg Neutrophils # PT INR APTT D-Dimer ABG pH ABG pO2 ABG HCO3 ABG O2 Saturation ABG Base Excess ABG Hemoglobin Oxyhemoglobin Sodium Potassium 3.2 L Chloride 112.3 H Carbon Dioxide 19 L BUN 27 H Creatinine 1.6 H Glucose 168 H POC Glucose 152 H 208 H Lactic Acid Calcium 7.6 L Phosphorus 2.30 L Magnesium Ferritin AST 44 H Total Creatine Kinase Troponin T C-Reactive Protein NT-Pro-B Natriuret Pep Total Protein 4.5 L Albumin 2.5 L Prealbumin LDL Cholesterol Direct Vitamin B12 Urine WBC (Auto) Coronavirus (PCR) 05/05/22 05/05/22 05/06/22 16:20 22:07 04:43 WBC RBC Hgb Hct MCHC RDW Plt Count Lymph % (Auto) Canadian % (Auto) Lymph # (Auto) Canadian # (Auto) Seg Neutrophils % Seg Neutrophils # PT INR APTT D-Dimer ABG pH ABG pO2 ABG HCO3 ABG O2 Saturation ABG Base Excess ABG Hemoglobin Oxyhemoglobin Sodium Potassium Chloride Carbon Dioxide BUN Creatinine Glucose POC Glucose 164 H 148 H Lactic Acid Calcium Phosphorus Magnesium Ferritin AST Total Creatine Kinase Troponin T C-Reactive Protein NT-Pro-B Natriuret Pep Total Protein Albumin Prealbumin 0.055 L LDL Cholesterol Direct Vitamin B12 Urine WBC (Auto) Coronavirus (PCR) 05/06/22 05/06/22 05/06/22 04:43 07:27 11:30 WBC RBC Hgb Hct MCHC RDW Plt Count Lymph % (Auto) Canadian % (Auto) Lymph # (Auto) Canadian # (Auto) Seg Neutrophils % Seg Neutrophils # PT INR APTT D-Dimer ABG pH ABG pO2 ABG HCO3 ABG O2 Saturation ABG Base Excess ABG Hemoglobin Oxyhemoglobin Sodium Potassium Chloride Carbon Dioxide BUN Creatinine Glucose POC Glucose 127 H 211 H Lactic Acid Calcium Phosphorus Magnesium Ferritin AST Total Creatine Kinase Troponin T C-Reactive Protein NT-Pro-B Natriuret Pep Total Protein Albumin Prealbumin LDL Cholesterol Direct Vitamin B12 1464 H Urine WBC (Auto) Coronavirus (PCR) 05/06/22 05/06/22 05/06/22 15:46 16:49 22:35 WBC RBC Hgb Hct MCHC RDW Plt Count Lymph % (Auto) Canadian % (Auto) Lymph # (Auto) Canadian # (Auto) Seg Neutrophils % Seg Neutrophils # PT INR APTT D-Dimer ABG pH ABG pO2 ABG HCO3 ABG O2 Saturation ABG Base Excess ABG Hemoglobin Oxyhemoglobin Sodium 148 H Potassium 3.3 L Chloride 112.7 H Carbon Dioxide 21 L BUN 28 H Creatinine Glucose 143 H POC Glucose 148 H 156 H Lactic Acid Calcium Phosphorus 1.40 L D Magnesium Ferritin AST Total Creatine Kinase Troponin T C-Reactive Protein NT-Pro-B Natriuret Pep Total Protein Albumin Prealbumin LDL Cholesterol Direct Vitamin B12 Urine WBC (Auto) Coronavirus (PCR) 05/07/22 05/07/22 05/07/22 08:22 08:23 08:23 WBC 15.4 H RBC Hgb 10.9 L Hct 32.7 L MCHC RDW 19.2 H Plt Count Lymph % (Auto) 5.8 L Canadian % (Auto) 7.7 H Lymph # (Auto) 0.9 L Canadian # (Auto) 1.2 H Seg Neutrophils % 86.3 H Seg Neutrophils # 13.3 H PT INR APTT D-Dimer ABG pH ABG pO2 ABG HCO3 ABG O2 Saturation ABG Base Excess ABG Hemoglobin Oxyhemoglobin Sodium 152 H Potassium 3.3 L Chloride 116.9 H Carbon Dioxide 20 L BUN 27 H Creatinine Glucose 150 H POC Glucose 169 H Lactic Acid Calcium 8.3 L Phosphorus Magnesium Ferritin AST Total Creatine Kinase Troponin T C-Reactive Protein NT-Pro-B Natriuret Pep Total Protein Albumin Prealbumin LDL Cholesterol Direct Vitamin B12 Urine WBC (Auto) Coronavirus (PCR) 05/07/22 05/07/22 05/07/22 08:23 08:23 09:10 WBC RBC Hgb Hct MCHC RDW Plt Count Lymph % (Auto) Canadian % (Auto) Lymph # (Auto) Canadian # (Auto) Seg Neutrophils % Seg Neutrophils # PT 17.7 H INR 1.30 H APTT D-Dimer ABG pH 7.471 H ABG pO2 64.0 L ABG HCO3 19.1 L ABG O2 Saturation 94.8 L ABG Base Excess -3.6 L ABG Hemoglobin 9.7 L Oxyhemoglobin 92.4 L Sodium Potassium Chloride Carbon Dioxide BUN Creatinine Glucose POC Glucose Lactic Acid 2.40 H* Calcium Phosphorus Magnesium Ferritin AST Total Creatine Kinase Troponin T C-Reactive Protein NT-Pro-B Natriuret Pep Total Protein Albumin Prealbumin LDL Cholesterol Direct Vitamin B12 Urine WBC (Auto) Coronavirus (PCR) 05/07/22 05/07/22 05/07/22 12:23 15:35 15:35 WBC RBC Hgb Hct MCHC RDW Plt Count Lymph % (Auto) Canadian % (Auto) Lymph # (Auto) Canadian # (Auto) Seg Neutrophils % Seg Neutrophils # PT INR APTT D-Dimer ABG pH ABG pO2 ABG HCO3 ABG O2 Saturation ABG Base Excess ABG Hemoglobin Oxyhemoglobin Sodium Potassium Chloride Carbon Dioxide BUN Creatinine Glucose POC Glucose 132 H Lactic Acid Calcium Phosphorus Magnesium Ferritin 735.8 H AST Total Creatine Kinase Troponin T C-Reactive Protein 22.70 H NT-Pro-B Natriuret Pep 20204 H Total Protein Albumin Prealbumin LDL Cholesterol Direct Vitamin B12 Urine WBC (Auto) Coronavirus (PCR) Chest x-ray: report reviewed, image reviewed Additional Studies: CHEST 1 VIEW 05/07/2022 2:23 PM INDICATION / CLINICAL INFORMATION: respiratory distress. COMPARISON: 05/02/22 FINDINGS: SUPPORT DEVICES: Right jugular central line is unchanged. HEART / MEDIASTINUM: Stable. LUNGS / PLEURA: Interval worsening of bilateral interstitial opacities. No pneumothorax. ADDITIONAL FINDINGS: No significant additional findings. IMPRESSION: 1. Interval worsening. Allied health notes reviewed: nursing
[2022-05-07] MEDS ORDERED: SODIUM CHLORIDE 0.9% 250ML 250 ML IV ONE (23:33)
[2022-05-08] MEDS ORDERED: dilTIAZem 25 MG/5 ML INJ IV ONE (04:13)
[2022-05-08 07:39] LABS: ANA Screen, IFA Positive (Negative)
[2022-05-08] MEDS ORDERED: FUROSEMIDE 40 MG/4 ML INJ IV SCH (08:00)
[2022-05-08 08:11] LABS: Hematocrit 32.2 % (35.5-45.6); Hemoglobin 10.5 gm/dl (11.8-15.2); Mean Corpuscular HGB Conc 33 % (32-34); Mean Corpuscular Volume 84 fl (84-94); Platelet Count 259 K/mm3 (140-440); Red Blood Count 3.83 M/mm3 (3.65-5.03); Red Cell Distribution Width 19.6 % (13.2-15.2)
[2022-05-08 08:18] LABS: Calcium 8.2 mg/dL (8.4-10.2)
[2022-05-08] MEDS: INSULIN REGULAR, HUMAN 100 UNITS/1 ML SUB-Q SCH ×3 (08:50→21:50)
[2022-05-08] MEDS ORDERED: AMIODARONE 150 MG in DEXTROSE 5% IN WATER 97 ML IV ONE (09:15)
[2022-05-08 11:26] LABS: ABG Base Excess -2.2 mmol/L (-2.0-3.0); ABG HCO3 20.6 mmol/L (20.0-26.0); ABG Methemoglobin 0.5 % (0.0-1.5); ABG Oxygen Saturation 95.1 % (95.0-99.0); ABG PCO2 28.9 mm Hg; ABG PH 7.47 pH Units (7.350-7.450); ABG PO2 65.4 mm Hg (80.0-90.0)
--- NOTE | 2022-05-08 11:47 | Electrocardiograph Report ---
[facility] Test Date: 2022-05-08 Test Time: 04:18:01 Pat Name: SEAN DE LA TORRE Department: Room: A357 1 Gender: M Elder Assistant: REID : [id number] Requested By: NABILA ZARCO Order Number: [id number] Reading MD: Chet Deleon Measurements Intervals [place] Rate: 115 P: [place]: QRS: 50 QRSD: 88 T: -29 QT: 416 QTc: 576 Interpretive Statements Atrial fibrillation Repol abnrm suggests ischemia, anterolateral Prolonged QT interval Compared to ECG 05/03/2022 13:36:55 Early repolarization now present Possible ischemia now present Prolonged QT interval now present Electronically Signed On 05-08-2022 11:47:43 EDT by Chet Deleon
[2022-05-08 12:23] LABS: Basophils % (Manual) 0 % (0.0-1.8); Eosinophils % (Manual) 0 % (0.0-4.3); Total Cells Counted 100
[2022-05-08 12:24] LABS: Platelet Estimate Consistent w Auto; Tear Drop Cells Few
--- NOTE | 2022-05-08 12:28 | Progress Note ---
Assessment and Plan - Patient Problems (1) Chronic atrial fibrillation Current Visit: Yes Status: Acute Plan to address problem: Frail, elderly 86-year-old admitted with sepsis. He has chronic atrial fibrillation, and on presentation with sepsis there was an increased ventricular rate, which prompted cardiac consultation. Rate control is much improved, on amiodarone therapy. The patient has previously been determined by his primary photography assistant as a poor candidate for antiplatelet or anticoagulation therapy due to a chronic bleeding diathesis. 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 The aortic stenosis appears to be a chronic finding, unrelated to his current presentation with acute sepsis. Will continue conservative management with rate control of his atrial fibrillation, and defer further follow-up of his aortic valvular disease with his primary outpatient photography assistant. Subjective Date of service: 05/08/22 Principal diagnosis: AMS; UTI; ANJU; Septic shock; E.Coli Bacteremia; UTI; Thrombocytopenia Interval history: Patient is moderately lethargic, but no acute respiratory distress. 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 Objective Vital Signs Temp Pulse Pulse Resp BP Pulse Ox 05/08/22 10:00 95 05/08/22 04:01 101.2 F H 126 H 18 156/90 89 05/08/22 03:35 135 H 40 H 89 05/08/22 00:53 22 90 05/08/22 00:22 102 H 05/07/22 21:29 100.6 F H 122 H 20 112/61 86 05/07/22 20:35 112 H 33 H 98 05/07/22 16:12 105 H 20 96 05/07/22 15:00 105 H 20 98 - Physical Examination General: No Apparent Distress Neck: Positive: neck supple Cardiac: Positive: Irregularly Regular Lungs: Positive: Decreased Breath Sounds Neuro: Positive: Weakness (Generalized lethargy) Abdomen: Positive: Soft Skin: Positive: Clear Extremities: Absent: edema - Labs and Meds CBC 05/08/22 Range/Units 08:00 WBC 17.1 H (4.5-11.0) K/mm3 RBC 3.83 (3.65-5.03) M/mm3 Hgb 10.5 L (11.8-15.2) gm/dl Hct 32.2 L (35.5-45.6) % Plt Count 259 (140-440) K/mm3 Comprehensive Metabolic Panel 05/08/22 Range/Units 07:26 Sodium 146 H (137-145) mmol/L Potassium 3.7 (3.6-5.0) mmol/L Chloride 111.2 H (98-107) mmol/L Carbon Dioxide 21 L (22-30) mmol/L BUN 33 H (9-20) mg/dL Creatinine 1.5 H (0.8-1.3) mg/dL Glucose 207 H (75-100) mg/dL Calcium 8.2 L (8.4-10.2) mg/dL - Allied health notes Allied health notes reviewed: nursing
[2022-05-08] MEDS: cefTRIAXone/NS 2 GM/100 ML 2 GM/100 ML BAG IV SCH (12:32)
[2022-05-08] MEDS ORDERED: ASPIRIN 81 MG TAB CHEW PO SCH ×2 (13:00→17:36)
[2022-05-08] MEDS ORDERED: ASPIRIN 325 MG TAB PO SCH (13:00)
--- NOTE | 2022-05-08 13:19 | Event Note ---
Date: 05/08/22 Called by hospitalist service, re patient that is unresponsive. Wanted input into his care. Discussed extensively with the hospitalist- CT head done yesterday shows a new acute left MALOU and MCA stroke. This is possibly the reason for his mental status changes. Treat as acute stroke, may need intubation to protect his airway. Get Neurology consult, patient's family to be notified to discuss goals of care. Hospitalist service will call family.
--- NOTE | 2022-05-08 14:07 | Progress Note ---
Assessment and Plan 86-year-old white male with known history of hypertension, CVA, dementia,Arthritis, hyperlipidemia and also a recent history of COVID infection about 2 to 3 weeks ago brought into the emergency room by the family for evaluation of changes in mental status with started about 2 hours prior to reporting to the emergency room. Patient is said to have been declining since his recent COVID infection. He has been increasingly getting weaker, having unsteady gait and appearing confused. Upon arrival in the emergency room, a code stroke was called and patient was promptly evaluated by the neurologist. CT head and neck and CT of the head did not reveal any acute abnormalities. Patient has history of Cholecystectomy and Open heart surgery. Most of the history was obtained from and daughter. Patient unable to give any coherent history. Patients smoking, alcohol or drug history not known at this time. Further work-up reveals UTI and multiple electrolyte imbalance with acute kidney injury. Patient being admitted for multiple medical problems including UTI, electrolyte imbalance, dehydration. Will also be ruled out for possible CVA. Urine wbc greater than 182. Patient sleeping. Not responding to verbal stimuli.On BIPAP 30/01, FIO2 50%, rate 20 . O2 saturation 95% Patient slight increased work of breathing on BIPAP. Patient afebrile. Has leukocytosis. Blood pressure 156/90, Pulse 126, Respirations 36. Urine wbc greater than 182. Patients Coronana virus PCR Positive Chest xray done 05/02/22 reported Bilateral pulmonary opacities with increased pulmonary vascularity . No pneumothorax, Chest xray 05/07/22 reported Interval worsening of bilateral interstitial opacities. No pneumothorax. Patient is on ceftriaxone, famotidine. Recommend DVt prophylaxis. - Patient Problems (1) AMS (altered mental status) Current Visit: No Status: Acute Plan to address problem: Could be related to his infection or dementia. Management as per primary care. (2) CVA (cerebral vascular accident) Current Visit: No Status: Acute Qualifiers: Laterality of affected vessel: unspecified Plan to address problem: Management as per primary care and neurology. (3) Dementia Current Visit: No Status: Acute Plan to address problem: Management as per primary care. (4) HLD (hyperlipidemia) Current Visit: No Status: Acute Qualifiers: Hyperlipidemia type: mixed hyperlipidemia Qualified Code(s): E78.2 - Mixed hyperlipidemia Plan to address problem: Management as per primary care. (5) HTN (hypertension) Current Visit: No Status: Acute Qualifiers: Hypertension type: essential hypertension Plan to address problem: Management as per primary care. (6) UTI (urinary tract infection) Current Visit: Yes Status: Acute Plan to address problem: Patient is on Rocephin . (7) Coronavirus infection Current Visit: Yes Status: Acute Plan to address problem: Management as per infectious disease specialists. Gann virus precautions. (8) Opacities of both lungs present on chest x-ray Current Visit: Yes Status: Acute Plan to address problem: Patient is on rocephin Subjective Date of service: 05/08/22 Principal diagnosis: AMS; UTI; ANJU; Septic shock; E.Coli Bacteremia; UTI; Thromb ocytopenia Interval history: 86-year-old white male with known history of hypertension, CVA, dementia,Arthritis, hyperlipidemia and also a recent history of COVID infection about 2 to 3 weeks ago brought into the emergency room by the family for evaluation of changes in mental status with started about 2 hours prior to reporting to the emergency room. Patient is said to have been declining since his recent COVID infection. He has been increasingly getting weaker, having unsteady gait and appearing confused. Upon arrival in the emergency room, a code stroke was called and patient was promptly evaluated by the neurologist. CT head and neck and CT of the head did not reveal any acute abnormalities. Patient has history of Cholecystectomy and Open heart surgery. Most of the history was obtained from and daughter. Patient unable to give any coherent history. Patients smoking, alcohol or drug history not known at this time. Further work-up reveals UTI and multiple electrolyte imbalance with acute kidney injury. Patient being admitted for multiple medical problems including UTI, electrolyte imbalance, dehydration. Will also be ruled out for possible CVA. Patient sleeping. Not responding to verbal stimuli.On BIPAP 30/01, FIO2 50%, rate 20 . O2 saturation 95% Patient slight increased work of breathing on BIPAP. Patient afebrile. Has leukocytosis. Blood pressure 156/90, Pulse 126, Respirations 36. Urine wbc greater than 182. Patients Coronana virus PCR Positive Chest xray done 05/02/22 reported Bilateral pulmonary opacities with increased pulmonary vascularity . No pneumothorax, Chest xray 05/07/22 reported Interval worsening of bilateral interstitial opacities. No pneumothorax. Patient is on ceftriaxone, famotidine. Recommend DVt prophylaxis. Objective Vital Signs - 12hr 05/08/22 05/08/22 05/08/22 03:35 04:01 10:00 Temperature 101.2 F H Pulse Rate 135 H 126 H Respiratory 40 H 18 Rate Blood Pressure 156/90 O2 Sat by Pulse 89 89 95 Oximetry Constitutional: no acute distress, asleep, other (elderly male slight increase work of breathing on BIPAP.) Eyes: non-icteric ENT: oropharynx moist Neck: supple, no lymphadenopathy, no JVD Effort: mildly labored Ascultation: Bilateral: diminished breath sounds, rhonchi (scant bases) Percussion: Bilateral: not dull Cardiovascular: irregular rhythm Gastrointestinal: normoactive bowel sounds, soft, non-tender, non-distended (protuberant) Integumentary: normal Extremities: no cyanosis, no edema, pink and warm, pulses normal Neurologic: non-focal exam (grossly), pupils equal and round, CN II-XII normal Psychiatric: other (Sleeping on BIPAP.) CBC and BMP: 05/10/22 04:00 05/10/22 04:00 ABG, PT/INR, D-dimer: ABG ABG pH 7.470 pH Units (7.350-7.450) H 05/08/22 11:02 ABG pCO2 28.9 mm Hg 05/08/22 11:02 ABG pO2 65.4 mm Hg (80.0-90.0) L 05/08/22 11:02 ABG O2 Saturation 95.1 % (95.0-99.0) 05/08/22 11:02 PT/INR, D-dimer PT 17.7 Sec. (12.2-14.9) H 05/07/22 08:23 INR 1.30 (0.87-1.13) H 05/07/22 08:23 D-Dimer 4522.88 ng/mlDDU (0-234) H 05/07/22 15:35 Abnormal lab findings: Abnormal Labs 05/01/22 05/01/22 05/01/22 23:14 23:14 23:14 WBC RBC Hgb 10.8 L Hct 30.9 L MCHC 35 H RDW 18.0 H Plt Count 113 L Lymph % (Auto) [place] % (Auto) Lymph # (Auto) [place] # (Auto) Seg Neutrophils % Seg Neuts % (Manual) Lymphocytes % (Manual) Seg Neutrophils # Seg Neutrophils # Man Lymphocytes # (Manual) PT 19.1 H INR 1.42 H APTT 39.9 H D-Dimer ABG pH ABG pO2 ABG HCO3 ABG O2 Saturation ABG Base Excess ABG Hemoglobin Oxyhemoglobin Sodium 125 L Potassium Chloride 91.0 L Carbon Dioxide 21 L BUN 38 H Creatinine 2.1 H Glucose 131 H POC Glucose Lactic Acid Calcium 7.9 L Phosphorus Magnesium 1.60 L Ferritin AST Total Creatine Kinase Troponin T C-Reactive Protein NT-Pro-B Natriuret Pep Total Protein 4.8 L Albumin 3.3 L Prealbumin LDL Cholesterol Direct Vitamin B12 Urine WBC (Auto) OSKAR Screen Coronavirus (PCR) 05/01/22 05/01/22 05/02/22 23:14 23:54 03:39 WBC RBC Hgb Hct MCHC RDW Plt Count Lymph % (Auto) [place] % (Auto) Lymph # (Auto) [place] # (Auto) Seg Neutrophils % Seg Neuts % (Manual) Lymphocytes % (Manual) Seg Neutrophils # Seg Neutrophils # Man Lymphocytes # (Manual) PT INR APTT D-Dimer ABG pH ABG pO2 ABG HCO3 ABG O2 Saturation ABG Base Excess ABG Hemoglobin Oxyhemoglobin Sodium Potassium Chloride Carbon Dioxide BUN Creatinine Glucose POC Glucose Lactic Acid 2.30 H* Calcium Phosphorus Magnesium Ferritin AST Total Creatine Kinase Troponin T 0.054 H C-Reactive Protein NT-Pro-B Natriuret Pep 93993 H Total Protein Albumin Prealbumin LDL Cholesterol Direct 25 L Vitamin B12 Urine WBC (Auto) > 182.0 H OSKAR Screen Coronavirus (PCR) 05/02/22 05/02/22 05/02/22 06:05 11:14 11:14 WBC RBC Hgb Hct MCHC RDW Plt Count Lymph % (Auto) [place] % (Auto) Lymph # (Auto) [place] # (Auto) Seg Neutrophils % Seg Neuts % (Manual) Lymphocytes % (Manual) Seg Neutrophils # Seg Neutrophils # Man Lymphocytes # (Manual) PT INR APTT D-Dimer 1135.33 H ABG pH ABG pO2 ABG HCO3 ABG O2 Saturation ABG Base Excess ABG Hemoglobin Oxyhemoglobin Sodium 132 L D Potassium Chloride Carbon Dioxide 15 L BUN 41 H Creatinine 2.1 H Glucose 127 H POC Glucose 139 H Lactic Acid Calcium 7.6 L Phosphorus Magnesium Ferritin AST Total Creatine Kinase Troponin T 0.196 H* D C-Reactive Protein 29.00 H NT-Pro-B Natriuret Pep Total Protein Albumin Prealbumin LDL Cholesterol Direct Vitamin B12 Urine WBC (Auto) OSKAR Screen Coronavirus (PCR) 05/02/22 05/02/22 05/02/22 11:14 11:14 17:10 WBC RBC Hgb Hct MCHC RDW Plt Count Lymph % (Auto) [place] % (Auto) Lymph # (Auto) [place] # (Auto) Seg Neutrophils % Seg Neuts % (Manual) Lymphocytes % (Manual) Seg Neutrophils # Seg Neutrophils # Man Lymphocytes # (Manual) PT INR APTT D-Dimer ABG pH ABG pO2 ABG HCO3 ABG O2 Saturation ABG Base Excess ABG Hemoglobin Oxyhemoglobin Sodium 130 L Potassium Chloride 96.0 L Carbon Dioxide 17 L BUN 42 H Creatinine 2.3 H Glucose 141 H POC Glucose 150 H Lactic Acid Calcium 7.7 L Phosphorus Magnesium Ferritin 544.4 H AST Total Creatine Kinase Troponin T C-Reactive Protein NT-Pro-B Natriuret Pep Total Protein Albumin Prealbumin LDL Cholesterol Direct Vitamin B12 Urine WBC (Auto) OSKAR Screen Coronavirus (PCR) 05/02/22 05/02/22 05/02/22 20:20 20:20 20:20 WBC RBC Hgb Hct MCHC RDW Plt Count Lymph % (Auto) [place] % (Auto) Lymph # (Auto) [place] # (Auto) Seg Neutrophils % Seg Neuts % (Manual) Lymphocytes % (Manual) Seg Neutrophils # Seg Neutrophils # Man Lymphocytes # (Manual) PT INR APTT D-Dimer ABG pH ABG pO2 ABG HCO3 ABG O2 Saturation ABG Base Excess ABG Hemoglobin Oxyhemoglobin Sodium 133 L Potassium Chloride Carbon Dioxide BUN Creatinine Glucose POC Glucose Lactic Acid Calcium Phosphorus Magnesium Ferritin AST Total Creatine Kinase 816 H Troponin T C-Reactive Protein NT-Pro-B Natriuret Pep Total Protein Albumin Prealbumin LDL Cholesterol Direct Vitamin B12 Urine WBC (Auto) OSKAR Screen Positive H Coronavirus (PCR) 05/02/22 05/02/22 05/03/22 22:06 Unknown 05:00 WBC 13.3 H RBC 3.62 L Hgb 10.1 L Hct 30.8 L MCHC RDW 19.1 H Plt Count Lymph % (Auto) 3.9 L [place] % (Auto) 9.4 H Lymph # (Auto) 0.5 L [place] # (Auto) 1.3 H Seg Neutrophils % 85.6 H Seg Neuts % (Manual) Lymphocytes % (Manual) Seg Neutrophils # 11.4 H Seg Neutrophils # Man Lymphocytes # (Manual) PT INR APTT D-Dimer ABG pH ABG pO2 ABG HCO3 ABG O2 Saturation ABG Base Excess ABG Hemoglobin Oxyhemoglobin Sodium Potassium Chloride Carbon Dioxide BUN Creatinine Glucose POC Glucose 146 H Lactic Acid Calcium Phosphorus Magnesium Ferritin AST Total Creatine Kinase Troponin T C-Reactive Protein NT-Pro-B Natriuret Pep Total Protein Albumin Prealbumin LDL Cholesterol Direct Vitamin B12 Urine WBC (Auto) OSKAR Screen Coronavirus (PCR) Positive A 05/03/22 05/03/22 05/03/22 06:48 08:48 11:07 WBC RBC Hgb Hct MCHC RDW Plt Count Lymph % (Auto) [place] % (Auto) Lymph # (Auto) [place] # (Auto) Seg Neutrophils % Seg Neuts % (Manual) Lymphocytes % (Manual) Seg Neutrophils # Seg Neutrophils # Man Lymphocytes # (Manual) PT INR APTT D-Dimer ABG pH ABG pO2 ABG HCO3 ABG O2 Saturation ABG Base Excess ABG Hemoglobin Oxyhemoglobin Sodium 135 L Potassium Chloride Carbon Dioxide 16 L BUN 38 H Creatinine 2.0 H Glucose 122 H POC Glucose 127 H 116 H Lactic Acid Calcium 7.6 L Phosphorus Magnesium Ferritin AST Total Creatine Kinase Troponin T C-Reactive Protein NT-Pro-B Natriuret Pep Total Protein Albumin Prealbumin LDL Cholesterol Direct Vitamin B12 Urine WBC (Auto) OSKAR Screen Coronavirus (PCR) 05/03/22 05/03/22 05/04/22 16:29 22:29 05:00 WBC RBC 3.39 L Hgb 9.6 L Hct 28.8 L MCHC RDW 18.8 H Plt Count Lymph % (Auto) [place] % (Auto) Lymph # (Auto) [place] # (Auto) Seg Neutrophils % Seg Neuts % (Manual) Lymphocytes % (Manual) Seg Neutrophils # Seg Neutrophils # Man Lymphocytes # (Manual) PT INR APTT D-Dimer ABG pH ABG pO2 ABG HCO3 ABG O2 Saturation ABG Base Excess ABG Hemoglobin Oxyhemoglobin Sodium Potassium Chloride Carbon Dioxide BUN Creatinine Glucose POC Glucose 113 H 113 H Lactic Acid Calcium Phosphorus Magnesium Ferritin AST Total Creatine Kinase Troponin T C-Reactive Protein NT-Pro-B Natriuret Pep Total Protein Albumin Prealbumin LDL Cholesterol Direct Vitamin B12 Urine WBC (Auto) OSKAR Screen Coronavirus (PCR) 05/04/22 05/04/22 05/04/22 05:00 07:40 11:22 WBC RBC Hgb Hct MCHC RDW Plt Count Lymph % (Auto) [place] % (Auto) Lymph # (Auto) [place] # (Auto) Seg Neutrophils % Seg Neuts % (Manual) Lymphocytes % (Manual) Seg Neutrophils # Seg Neutrophils # Man Lymphocytes # (Manual) PT INR APTT D-Dimer ABG pH ABG pO2 ABG HCO3 ABG O2 Saturation ABG Base Excess ABG Hemoglobin Oxyhemoglobin Sodium Potassium 3.3 L D Chloride 108.7 H Carbon Dioxide 17 L BUN 37 H Creatinine 1.8 H Glucose 117 H POC Glucose 107 H 124 H Lactic Acid Calcium 7.4 L Phosphorus Magnesium Ferritin AST Total Creatine Kinase Troponin T C-Reactive Protein NT-Pro-B Natriuret Pep Total Protein Albumin Prealbumin LDL Cholesterol Direct Vitamin B12 Urine WBC (Auto) OSKAR Screen Coronavirus (PCR) 05/04/22 05/04/22 05/04/22 15:57 18:55 22:40 WBC RBC Hgb Hct MCHC RDW Plt Count Lymph % (Auto) [place] % (Auto) Lymph # (Auto) [place] # (Auto) Seg Neutrophils % Seg Neuts % (Manual) Lymphocytes % (Manual) Seg Neutrophils # Seg Neutrophils # Man Lymphocytes # (Manual) PT INR APTT D-Dimer ABG pH ABG pO2 ABG HCO3 ABG O2 Saturation ABG Base Excess ABG Hemoglobin Oxyhemoglobin Sodium Potassium 3.5 L Chloride 109.4 H Carbon Dioxide 18 L BUN 31 H Creatinine 1.6 H Glucose 166 H POC Glucose 147 H 138 H Lactic Acid Calcium 7.4 L Phosphorus Magnesium Ferritin AST Total Creatine Kinase Troponin T C-Reactive Protein NT-Pro-B Natriuret Pep Total Protein Albumin Prealbumin LDL Cholesterol Direct Vitamin B12 Urine WBC (Auto) OSKAR Screen Coronavirus (PCR) 05/05/22 05/05/22 05/05/22 04:38 04:38 07:35 WBC RBC Hgb 10.6 L Hct 32.3 L MCHC RDW 19.3 H Plt Count Lymph % (Auto) [place] % (Auto) Lymph # (Auto) [place] # (Auto) Seg Neutrophils % Seg Neuts % (Manual) Lymphocytes % (Manual) Seg Neutrophils # Seg Neutrophils # Man Lymphocytes # (Manual) PT INR APTT D-Dimer ABG pH ABG pO2 ABG HCO3 ABG O2 Saturation ABG Base Excess ABG Hemoglobin Oxyhemoglobin Sodium Potassium 3.2 L Chloride 112.3 H Carbon Dioxide 19 L BUN 27 H Creatinine 1.6 H Glucose 168 H POC Glucose 152 H Lactic Acid Calcium 7.6 L Phosphorus 2.30 L Magnesium Ferritin AST 44 H Total Creatine Kinase Troponin T C-Reactive Protein NT-Pro-B Natriuret Pep Total Protein 4.5 L Albumin 2.5 L Prealbumin LDL Cholesterol Direct Vitamin B12 Urine WBC (Auto) OSKAR Screen Coronavirus (PCR) 05/05/22 05/05/22 05/05/22 13:06 16:20 22:07 WBC RBC Hgb Hct MCHC RDW Plt Count Lymph % (Auto) [place] % (Auto) Lymph # (Auto) [place] # (Auto) Seg Neutrophils % Seg Neuts % (Manual) Lymphocytes % (Manual) Seg Neutrophils # Seg Neutrophils # Man Lymphocytes # (Manual) PT INR APTT D-Dimer ABG pH ABG pO2 ABG HCO3 ABG O2 Saturation ABG Base Excess ABG Hemoglobin Oxyhemoglobin Sodium Potassium Chloride Carbon Dioxide BUN Creatinine Glucose POC Glucose 208 H 164 H 148 H Lactic Acid Calcium Phosphorus Magnesium Ferritin AST Total Creatine Kinase Troponin T C-Reactive Protein NT-Pro-B Natriuret Pep Total Protein Albumin Prealbumin LDL Cholesterol Direct Vitamin B12 Urine WBC (Auto) OSKAR Screen Coronavirus (PCR) 05/06/22 05/06/22 05/06/22 04:43 04:43 07:27 WBC RBC Hgb Hct MCHC RDW Plt Count Lymph % (Auto) [place] % (Auto) Lymph # (Auto) [place] # (Auto) Seg Neutrophils % Seg Neuts % (Manual) Lymphocytes % (Manual) Seg Neutrophils # Seg Neutrophils # Man Lymphocytes # (Manual) PT INR APTT D-Dimer ABG pH ABG pO2 ABG HCO3 ABG O2 Saturation ABG Base Excess ABG Hemoglobin Oxyhemoglobin Sodium Potassium Chloride Carbon Dioxide BUN Creatinine Glucose POC Glucose 127 H Lactic Acid Calcium Phosphorus Magnesium Ferritin AST Total Creatine Kinase Troponin T C-Reactive Protein NT-Pro-B Natriuret Pep Total Protein Albumin Prealbumin 0.055 L LDL Cholesterol Direct Vitamin B12 1464 H Urine WBC (Auto) OSKAR Screen Coronavirus (PCR) 05/06/22 05/06/22 05/06/22 11:30 15:46 16:49 WBC RBC Hgb Hct MCHC RDW Plt Count Lymph % (Auto) [place] % (Auto) Lymph # (Auto) [place] # (Auto) Seg Neutrophils % Seg Neuts % (Manual) Lymphocytes % (Manual) Seg Neutrophils # Seg Neutrophils # Man Lymphocytes # (Manual) PT INR APTT D-Dimer ABG pH ABG pO2 ABG HCO3 ABG O2 Saturation ABG Base Excess ABG Hemoglobin Oxyhemoglobin Sodium 148 H Potassium 3.3 L Chloride 112.7 H Carbon Dioxide 21 L BUN 28 H Creatinine Glucose 143 H POC Glucose 211 H 148 H Lactic Acid Calcium Phosphorus 1.40 L D Magnesium Ferritin AST Total Creatine Kinase Troponin T C-Reactive Protein NT-Pro-B Natriuret Pep Total Protein Albumin Prealbumin LDL Cholesterol Direct Vitamin B12 Urine WBC (Auto) OSKAR Screen Coronavirus (PCR) 05/06/22 05/07/22 05/07/22 22:35 08:22 08:23 WBC 15.4 H RBC Hgb 10.9 L Hct 32.7 L MCHC RDW 19.2 H Plt Count Lymph % (Auto) 5.8 L [place] % (Auto) 7.7 H Lymph # (Auto) 0.9 L [place] # (Auto) 1.2 H Seg Neutrophils % 86.3 H Seg Neuts % (Manual) Lymphocytes % (Manual) Seg Neutrophils # 13.3 H Seg Neutrophils # Man Lymphocytes # (Manual) PT INR APTT D-Dimer ABG pH ABG pO2 ABG HCO3 ABG O2 Saturation ABG Base Excess ABG Hemoglobin Oxyhemoglobin Sodium Potassium Chloride Carbon Dioxide BUN Creatinine Glucose POC Glucose 156 H 169 H Lactic Acid Calcium Phosphorus Magnesium Ferritin AST Total Creatine Kinase Troponin T C-Reactive Protein NT-Pro-B Natriuret Pep Total Protein Albumin Prealbumin LDL Cholesterol Direct Vitamin B12 Urine WBC (Auto) OSKAR Screen Coronavirus (PCR) 05/07/22 05/07/22 05/07/22 08:23 08:23 08:23 WBC RBC Hgb Hct MCHC RDW Plt Count Lymph % (Auto) [place] % (Auto) Lymph # (Auto) [place] # (Auto) Seg Neutrophils % Seg Neuts % (Manual) Lymphocytes % (Manual) Seg Neutrophils # Seg Neutrophils # Man Lymphocytes # (Manual) PT 17.7 H INR 1.30 H APTT D-Dimer ABG pH ABG pO2 ABG HCO3 ABG O2 Saturation ABG Base Excess ABG Hemoglobin Oxyhemoglobin Sodium 152 H Potassium 3.3 L Chloride 116.9 H Carbon Dioxide 20 L BUN 27 H Creatinine Glucose 150 H POC Glucose Lactic Acid 2.40 H* Calcium 8.3 L Phosphorus Magnesium Ferritin AST Total Creatine Kinase Troponin T C-Reactive Protein NT-Pro-B Natriuret Pep Total Protein Albumin Prealbumin LDL Cholesterol Direct Vitamin B12 Urine WBC (Auto) OSKAR Screen Coronavirus (PCR) 05/07/22 05/07/22 05/07/22 09:10 12:23 15:35 WBC RBC Hgb Hct MCHC RDW Plt Count Lymph % (Auto) [place] % (Auto) Lymph # (Auto) [place] # (Auto) Seg Neutrophils % Seg Neuts % (Manual) Lymphocytes % (Manual) Seg Neutrophils # Seg Neutrophils # Man Lymphocytes # (Manual) PT INR APTT D-Dimer 4522.88 H ABG pH 7.471 H ABG pO2 64.0 L ABG HCO3 19.1 L ABG O2 Saturation 94.8 L ABG Base Excess -3.6 L ABG Hemoglobin 9.7 L Oxyhemoglobin 92.4 L Sodium Potassium Chloride Carbon Dioxide BUN Creatinine Glucose POC Glucose 132 H Lactic Acid Calcium Phosphorus Magnesium Ferritin AST Total Creatine Kinase Troponin T C-Reactive Protein NT-Pro-B Natriuret Pep Total Protein Albumin Prealbumin LDL Cholesterol Direct Vitamin B12 Urine WBC (Auto) OSKAR Screen Coronavirus (PCR) 05/07/22 05/07/22 05/07/22 15:35 15:35 17:19 WBC RBC Hgb Hct MCHC RDW Plt Count Lymph % (Auto) [place] % (Auto) Lymph # (Auto) [place] # (Auto) Seg Neutrophils % Seg Neuts % (Manual) Lymphocytes % (Manual) Seg Neutrophils # Seg Neutrophils # Man Lymphocytes # (Manual) PT INR APTT D-Dimer ABG pH ABG pO2 ABG HCO3 ABG O2 Saturation ABG Base Excess ABG Hemoglobin Oxyhemoglobin Sodium Potassium Chloride Carbon Dioxide BUN Creatinine Glucose POC Glucose 137 H Lactic Acid Calcium Phosphorus Magnesium Ferritin 735.8 H AST Total Creatine Kinase Troponin T C-Reactive Protein 22.70 H NT-Pro-B Natriuret Pep 02306 H Total Protein Albumin Prealbumin LDL Cholesterol Direct Vitamin B12 Urine WBC (Auto) OSKAR Screen Coronavirus (PCR) 05/07/22 05/07/22 05/08/22 19:52 22:51 07:23 WBC RBC Hgb Hct MCHC RDW Plt Count Lymph % (Auto) [place] % (Auto) Lymph # (Auto) [place] # (Auto) Seg Neutrophils % Seg Neuts % (Manual) Lymphocytes % (Manual) Seg Neutrophils # Seg Neutrophils # Man Lymphocytes # (Manual) PT INR APTT D-Dimer ABG pH ABG pO2 ABG HCO3 ABG O2 Saturation ABG Base Excess ABG Hemoglobin Oxyhemoglobin Sodium Potassium Chloride Carbon Dioxide BUN Creatinine Glucose POC Glucose 172 H 214 H Lactic Acid 2.20 H* Calcium Phosphorus Magnesium Ferritin AST Total Creatine Kinase Troponin T C-Reactive Protein NT-Pro-B Natriuret Pep Total Protein Albumin Prealbumin LDL Cholesterol Direct Vitamin B12 Urine WBC (Auto) OSKAR Screen Coronavirus (PCR) 05/08/22 05/08/22 05/08/22 07:26 07:26 08:00 WBC 17.1 H RBC Hgb 10.5 L Hct 32.2 L MCHC RDW 19.6 H Plt Count Lymph % (Auto) [place] % (Auto) Lymph # (Auto) [place] # (Auto) Seg Neutrophils % Seg Neuts % (Manual) 92.0 H Lymphocytes % (Manual) 4.0 L Seg Neutrophils # Seg Neutrophils # Man 15.7 H Lymphocytes # (Manual) 0.7 L PT INR APTT D-Dimer ABG pH ABG pO2 ABG HCO3 ABG O2 Saturation ABG Base Excess ABG Hemoglobin Oxyhemoglobin Sodium 146 H Potassium Chloride 111.2 H Carbon Dioxide 21 L BUN 33 H Creatinine 1.5 H Glucose 207 H POC Glucose Lactic Acid 2.10 H* Calcium 8.2 L Phosphorus Magnesium Ferritin AST Total Creatine Kinase Troponin T C-Reactive Protein NT-Pro-B Natriuret Pep Total Protein Albumin Prealbumin LDL Cholesterol Direct Vitamin B12 Urine WBC (Auto) OSKAR Screen Coronavirus (PCR) 05/08/22 05/08/22 05/08/22 10:38 10:40 11:02 WBC RBC Hgb Hct MCHC RDW Plt Count Lymph % (Auto) [place] % (Auto) Lymph # (Auto) [place] # (Auto) Seg Neutrophils % Seg Neuts % (Manual) Lymphocytes % (Manual) Seg Neutrophils # Seg Neutrophils # Man Lymphocytes # (Manual) PT INR APTT D-Dimer ABG pH 7.470 H ABG pO2 65.4 L ABG HCO3 ABG O2 Saturation ABG Base Excess -2.2 L ABG Hemoglobin 10.5 L Oxyhemoglobin 93.1 L Sodium Potassium Chloride Carbon Dioxide BUN Creatinine Glucose POC Glucose 163 H Lactic Acid 2.40 H* Calcium Phosphorus Magnesium Ferritin AST Total Creatine Kinase Troponin T C-Reactive Protein NT-Pro-B Natriuret Pep Total Protein Albumin Prealbumin LDL Cholesterol Direct Vitamin B12 Urine WBC (Auto) OSKAR Screen Coronavirus (PCR) Chest x-ray: report reviewed, image reviewed Additional Studies: CHEST 1 VIEW 05/07/2022 2:23 PM INDICATION / CLINICAL INFORMATION: respiratory distress. COMPARISON: 05/02/22 FINDINGS: SUPPORT DEVICES: Right jugular central line is unchanged. HEART / MEDIASTINUM: Stable. LUNGS / PLEURA: Interval worsening of bilateral interstitial opacities. No pneumothorax. ADDITIONAL FINDINGS: No significant additional findings. IMPRESSION: 1. Interval worsening. Allied health notes reviewed: nursing
--- NOTE | 2022-05-08 17:33 | Progress Note ---
Assessment and Plan Assessment and plan: This is a 86-year-old male with known past medical history of CVA, ICHx2, dementia, HLD, AR, CAD s/p CABGX5, paroxysmal Afib- not a candidate of anticoagulation, s/p multiple falls at home admitted for septic shock probably secondary to urosepsis requiring vasopressors. Hospital Course to Date 05/02: Remains encephalopathic, stable on RA, on high dose pressors, additional IVF bolus administered. Patient remains in Afib, rate control. Cardiology consulted Dumont inserted this am due to retenstion, 1L of malodorous and cloudy urine drained. Probable urosepsis, patient is current on IV rocephin. D/w patient's daughters they reported that patient does have a history of Afib and open heart surgery with 5 bypass. Patient had X2 ICH in the past and he is not a candidate for any anticoagulations. Patient was also recently diagnosed with COVID outpatient, did not received any treatment since he was stable. COVID and PLU PCRs pending, check inflam. markers and Procal. Renal function is unchanged, continue IVF hydration, Nephrology is also following. Continue to trend Lactic acid. 05/03: More awake and alert this am but still confused. Still in Afib but rate control this am. Amiodarone gtt added yesterday due to Afib with RVR, patient remains on low dose Levophed. Cardiology recommendations noted. Concern for possible aspiration this morning, awaiting speech consulted. Will keep amiodarone gtt for now, transition to PO Amio if clear by speech. Blood cultures positive gram negative rods in 3/4 bottles, Vancomycin added. Check 2D echo to r/o vegetations. ID consulted pending. COVID PCR came back positive, spoke with patient's daughter. She reported that patient received "the COVID pill that Cruzito had". Patient is currently on 1L NC, SPO2 at 100%. Will continue to monitor for now. 05/04: Still confused but calm and following commands, agitated overnight required IV ativan. MRI brain pending. Patient remains in Afib, rate control. Remains on Amiodarone gtt, off pressors this am, VSS. Orders placed for repeat blood culture. Continue current IV abx, 2D echo and ID consult pending. Patient failed speech swallow due to cognitive deficits, multiple attempts to insert DHT was unsuccessful due to suspected hiatal hernia. Continue IVF hydration for now, speech to reassess swallow screen in 48hrs since patient's mentation is improving. If patient continue to fail swallow, alternative nutrition should be considered. Plan of care discussed with patient's daughters while visiting patient today. All questions and concerns were addressed at this time. Team will continue to follow with any further updates. 05/05: I did reach out to this infectious disease to see the patient as they had not previously seen him. He does not have any new fever today. Speech did evaluate the patient recommended some nectar thick. Patient was tested positive for COVID did have PACs COVID as mentioned. Currently very minimal oxygen requirement. We will transition him to oral amiodarone due to underlying atrial fibrillation. Creatinine is down to 1.6. He is not a candidate for anticoagulation as mentioned. I did update the patient's daughter anticipate discharge in 24 to 48 hours. During my conversation we did reaffirm CODE STATUS and advance care planning done for 35 minutes that he is a full code. MRI completed negative for acute stroke. 05/06: HR still continues to be challenging to control with rate as high as 130 bpm. Patient has chronic afib. Will continue amiodorone for suppression and monitor on tele for next 24 hrs. Avoid blood thinners due to hx of ICH. Mentation improving. Renal profile, mag, Phos ordered. Eating food tray at bedside with assistance of nursing aid. Will likely d/c in next 24 hrs. Will likely go home with [facility]. Transfer to med/surg with tele. 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 Pending hemoglobin A1c and lipid profile. Continue BiPAP; continue to trend ABG. #Septic Shock- Probable Urosepsis (POA) #Urinary Tract Infection (UTI) #Lactic Acidosis #Recent COVID infection- Received Treatment, probably Paxlovid - Dumont inserted for retention- cloudy and malodourous urine drained - Urine culture pending, Blood cultures with Gram neg Rods in 3/4 bottles - Repeat Blood cultures - Continue IVF hydration and current empiric IV Abx- Rocephin, Vanco added - 2D Echo to r/o vegetation - ID consulted - Continue blood pressure monitor per protocol - Titrate pressors to maintain MAP above 65 - COVID PCR positive- per patient's daughter, patient received the COVID Pill that Cruzito had. Probably Paxlovid - Patient is stable on 1L NC, continue to monitor for now #Acute Kidney Injury(ANJU) most likely ATNresolved #Electrolyte imbalance- hypomagnesemia, hyponatremia, hypocalcemia #Hypovelemia/Dehydration - Nephrology on consult, appreciated recommendation - Strict intake and output - Avoid nephrotoxic medications; Renally dose medications - Dumont inserted for retention- cloudy and malodourous urine drained - Continue IVF for now - Monitor and replace electrolytes as needed #Paroxysmal Atrial Fibrillation- Not candidate for anticoagulation #NSTEMI- probably Type 2 2/2 demand ischemia vs ANJU #H/o AR and CAD s/p CABGX5 over 20 years ago - Cardiology consulted - Not candidate for BB due to low BP on levophed gtt - on Amio gtt - Continue blood pressure monitor per protocol - Titrate pressors to maintain MAP above 65 - Not candidate for AC due to bleeding #Multiple Falls at Home #H/o Dementia #H/o CVA and ICHx2 - Mentation improved - Avoid benzodiazepine to reduce the possibility of delirium - PRN Analgesia for pain control - Maintenance of sleep-wake cycle - Fall precaution - MRI negative for acute CVA. #Dyphagia #Unable to insert NGT/DHT due to Hiatal Hernia - Failed speech bedside swallow due to cognitive deficits - Multiple attempts to insert NGT/DHT unsuccessful, blockage at the GE junction probably due to Hiatal Hernia - Continue IVF hydration for now - speech to reassess swallow screen in 48hrs since patient's mentation is improving. - If patient continue to fail swallow, alternative nutrition should be considered #Urinary Retention #History of BPH - Dumont inserted - resume home meds once list is available #Thrombocytopenia - Present on admit - H&H stable, no s/s of any active bleeding - Not on any AC due to bleeding - Continue to trend CBC - Transfuse for hgb less than 7 #GI/DVT Prophylaxis - PPI- pepcid - SCDs to bilateral lower extremities while in bed Critical Care Billing: The high probability of a clinically significant, sudden or life threatening deterioration of the [neuro and respiratory] system(s) required my full and direct attention, intervention and personal management. The aggregate critical care time was [60] minutes. This time is in addition to time spent performing reported procedures but includes the following: [x] Data Review and interpretation [x] Patient assessment and monitoring of vital signs [x] Documentation [x] Medication orders and management Disposition Plan: Continue medical management Total Time Spent with Patient (Minutes): 60 min History Interval history: Patient became febrile to 101.6 and tachycardic to 126 bpm. Hospitalist Physical - Constitutional Vitals: Temp Pulse Resp BP Pulse Ox 97.6 F 105 H 20 156/90 96 05/08/22 12:04 05/08/22 16:00 05/08/22 16:00 05/08/22 13:05 05/08/22 16:00 General appearance: Present: no acute distress, well-nourished, other (Unresponsive to sternal rub) - EENT Eyes: Present: PERRL, EOM intact ENT: hearing intact, clear oral mucosa - Neck Neck: Present: supple, normal ROM - Respiratory Respiratory effort: labored Respiratory: bilateral: diminished (On BiPAP) - Cardiovascular Rhythm: irregularly irregular Heart Sounds: Present: S1 & S2 - Extremities Extremities: no ischemia, pulses intact, pulses symmetrical, No edema, normal temperature, normal color Peripheral Pulses: within normal limits - Abdominal General gastrointestinal: soft, non-tender, non-distended, normal bowel sounds - Integumentary Integumentary: Present: clear, warm, dry - Psychiatric Psychiatric: other (unable to assess given medical condition) - Neurologic Neurologic: other (unable to assess given medical condition) - Allied Health Allied health notes reviewed: nursing HEART Score - HEART Score Troponin: Troponin T 0.196 ng/mL (0.00-0.029) H* D 05/02/22 11:14 Results - Labs CBC & Chem 7: 05/08/22 08:00 05/08/22 07:26 Labs: Laboratory Last Values WBC 17.1 K/mm3 (4.5-11.0) H 05/08/22 08:00 RBC 3.83 M/mm3 (3.65-5.03) 05/08/22 08:00 Hgb 10.5 gm/dl (11.8-15.2) L 05/08/22 08:00 Hct 32.2 % (35.5-45.6) L 05/08/22 08:00 MCV 84 fl (84-94) 05/08/22 08:00 MCH 28 pg (28-32) 05/08/22 08:00 MCHC 33 % (32-34) 05/08/22 08:00 RDW 19.6 % (13.2-15.2) H 05/08/22 08:00 Plt Count 259 K/mm3 (140-440) 05/08/22 08:00 Lymph % (Auto) 5.8 % (13.4-35.0) L 05/07/22 08:23 [place] % (Auto) 7.7 % (0.0-7.3) H 05/07/22 08:23 Eos % (Auto) 0.1 % (0.0-4.3) 05/07/22 08:23 Baso % (Auto) 0.1 % (0.0-1.8) 05/07/22 08:23 Lymph # (Auto) 0.9 K/mm3 (1.2-5.4) L 05/07/22 08:23 [place] # (Auto) 1.2 K/mm3 (0.0-0.8) H 05/07/22 08:23 Eos # (Auto) 0.0 K/mm3 (0.0-0.4) 05/07/22 08:23 Baso # (Auto) 0.0 K/mm3 (0.0-0.1) 05/07/22 08:23 Add Manual Diff Complete 05/08/22 08:00 Total Counted 100 05/08/22 08:00 Seg Neutrophils % Chro 05/08/22 08:00 Seg Neuts % (Manual) 92.0 % (40.0-70.0) H 05/08/22 08:00 Band Neutrophils % 0 % 05/08/22 08:00 Lymphocytes % (Manual) 4.0 % (13.4-35.0) L 05/08/22 08:00 Reactive Lymphs % (Man) 0 % 05/08/22 08:00 Monocytes % (Manual) 4.0 % (0.0-7.3) 05/08/22 08:00 Eosinophils % (Manual) 0 % (0.0-4.3) 05/08/22 08:00 Basophils % (Manual) 0 % (0.0-1.8) 05/08/22 08:00 Metamyelocytes % 0 % 05/08/22 08:00 Myelocytes % 0 % 05/08/22 08:00 Promyelocytes % 0 % 05/08/22 08:00 Blast Cells % 0 % 05/08/22 08:00 Nucleated RBC % Not Reportable 05/08/22 08:00 Seg Neutrophils # 13.3 K/mm3 (1.8-7.7) H 05/07/22 08:23 Seg Neutrophils # Man 15.7 K/mm3 (1.8-7.7) H 05/08/22 08:00 Band Neutrophils # 0.0 K/mm3 05/08/22 08:00 Lymphocytes # (Manual) 0.7 K/mm3 (1.2-5.4) L 05/08/22 08:00 Abs React Lymphs (Man) 0.0 K/mm3 05/08/22 08:00 Monocytes # (Manual) 0.7 K/mm3 (0.0-0.8) 05/08/22 08:00 Eosinophils # (Manual) 0.0 K/mm3 (0.0-0.4) 05/08/22 08:00 Basophils # (Manual) 0.0 K/mm3 (0.0-0.1) 05/08/22 08:00 Metamyelocytes # 0.0 K/mm3 05/08/22 08:00 Myelocytes # 0.0 K/mm3 05/08/22 08:00 Promyelocytes # 0.0 K/mm3 05/08/22 08:00 Blast Cells # 0.0 K/mm3 05/08/22 08:00 WBC Morphology Not Reportable 05/08/22 08:00 Hypersegmented Neuts Not Reportable 05/08/22 08:00 Hyposegmented Neuts Not Reportable 05/08/22 08:00 Hypogranular Neuts Not Reportable 05/08/22 08:00 Smudge Cells Not Reportable 05/08/22 08:00 Toxic Granulation Not Reportable 05/08/22 08:00 Toxic Vacuolation Not Reportable 05/08/22 08:00 Dohle Bodies Not Reportable 05/08/22 08:00 Pel[place]-Huet Anomaly Not Reportable 05/08/22 08:00 Elieser Rods Not Reportable 05/08/22 08:00 Platelet Estimate Consistent w auto 05/08/22 08:00 Clumped Platelets Not Reportable 05/08/22 08:00 Plt Clumps, EDTA Not Reportable 05/08/22 08:00 Large Platelets Not Reportable 05/08/22 08:00 Giant Platelets Not Reportable 05/08/22 08:00 Platelet Satelliting Not Reportable 05/08/22 08:00 Plt Morphology Comment Not Reportable 05/08/22 08:00 RBC Morphology Not Reportable 05/08/22 08:00 Dimorphic RBCs Not Reportable 05/08/22 08:00 Polychromasia Not Reportable 05/08/22 08:00 Hypochromasia Not Reportable 05/08/22 08:00 Poikilocytosis Not Reportable 05/08/22 08:00 Anisocytosis Not Reportable 05/08/22 08:00 Microcytosis Not Reportable 05/08/22 08:00 Macrocytosis Not Reportable 05/08/22 08:00 Spherocytes Not Reportable 05/08/22 08:00 Pappenheimer Bodies Not Reportable 05/08/22 08:00 Sickle Cells Not Reportable 05/08/22 08:00 Target Cells Not Reportable 05/08/22 08:00 Tear Drop Cells Few 05/08/22 08:00 Ovalocytes Not Reportable 05/08/22 08:00 Helmet Cells Not Reportable 05/08/22 08:00 [place] Bodies Not Reportable 05/08/22 08:00 [place] Rings Not Reportable 05/08/22 08:00 [place] Cells Not Reportable 05/08/22 08:00 Bite Cells Not Reportable 05/08/22 08:00 Crenated Cell Not Reportable 05/08/22 08:00 Elliptocytes 1+ 05/08/22 08:00 Acanthocytes (Spur) Not Reportable 05/08/22 08:00 Rouleaux Not Reportable 05/08/22 08:00 Hemoglobin C Crystals Not Reportable 05/08/22 08:00 Schistocytes Not Reportable 05/08/22 08:00 Malaria parasites Not Reportable 05/08/22 08:00 [place] Bodies Not Reportable 05/08/22 08:00 Hem Pathologist Commnt No 05/08/22 08:00 PT 17.7 Sec. (12.2-14.9) H 05/07/22 08:23 INR 1.30 (0.87-1.13) H 05/07/22 08:23 APTT 39.9 Sec. (24.2-36.6) H 05/01/22 23:14 D-Dimer 4522.88 ng/mlDDU (0-234) H 05/07/22 15:35 ABG pH 7.470 pH Units (7.350-7.450) H 05/08/22 11:02 ABG pCO2 28.9 mm Hg 05/08/22 11:02 ABG pO2 65.4 mm Hg (80.0-90.0) L 05/08/22 11:02 ABG HCO3 20.6 mmol/L (20.0-26.0) 05/08/22 11:02 ABG O2 Saturation 95.1 % (95.0-99.0) 05/08/22 11:02 ABG O2 Content 13.8 (0.0-44) 05/08/22 11:02 ABG Base Excess -2.2 mmol/L (-2.0-3.0) L 05/08/22 11:02 ABG Hemoglobin 10.5 gm/dl (14.0-18.0) L 05/08/22 11:02 ABG Carboxyhemoglobin 1.6 % (0.0-5.0) 05/08/22 11:02 ABG Methemoglobin 0.5 % (0.0-1.5) 05/08/22 11:02 Oxyhemoglobin 93.1 % (95.0-99.0) L 05/08/22 11:02 FiO2 21 % 05/08/22 11:02 Sodium 146 mmol/L (137-145) H 05/08/22 07:26 Potassium 3.7 mmol/L (3.6-5.0) 05/08/22 07:26 Chloride 111.2 mmol/L (98-107) H 05/08/22 07:26 Carbon Dioxide 21 mmol/L (22-30) L 05/08/22 07:26 Anion Gap 18 mmol/L 05/08/22 07:26 BUN 33 mg/dL (9-20) H 05/08/22 07:26 Creatinine 1.5 mg/dL (0.8-1.3) H 05/08/22 07:26 Estimated GFR 44 ml/min 05/08/22 07:26 BUN/Creatinine Ratio 22 % 05/08/22 07:26 Glucose 207 mg/dL (75-100) H 05/08/22 07:26 POC Glucose 163 mg/dL (70-105) H 05/08/22 10:40 Lactic Acid 2.40 mmol/L (0.7-2.0) H* 05/08/22 10:38 Calcium 8.2 mg/dL (8.4-10.2) L 05/08/22 07:26 Phosphorus 1.40 mg/dL (2.5-4.5) L D 05/06/22 15:46 Magnesium 2.00 mg/dL (1.7-2.3) 05/06/22 15:46 Ferritin 735.8 ng/mL (30.0-300.0) H 05/07/22 15:35 Total Bilirubin 0.40 mg/dL (0.1-1.2) 05/05/22 04:38 AST 44 units/L (5-40) H 05/05/22 04:38 ALT 34 units/L (7-56) 05/05/22 04:38 Alkaline Phosphatase 82 units/L (35-129) 05/05/22 04:38 Lactate Dehydrogenase 172 units/L (91-180) 05/02/22 11:14 Total Creatine Kinase 72 units/L (55-170) 05/05/22 16:00 Troponin T 0.196 ng/mL (0.00-0.029) H* D 05/02/22 11:14 C-Reactive Protein 22.70 mg/dL (0.00-1.30) H 05/07/22 15:35 NT-Pro-B Natriuret Pep 54848 pg/mL (0-900) H 05/07/22 15:35 Total Protein 4.5 g/dL (6.3-8.2) L 05/05/22 04:38 Albumin 2.5 g/dL (3.9-5) L 05/05/22 04:38 Albumin/Globulin Ratio 1.3 % 05/05/22 04:38 Prealbumin 0.055 g/L (0.200-0.400) L 05/06/22 04:43 Triglycerides 64 mg/dL (2-149) 05/01/22 23:14 Cholesterol 77 mg/dL (50-199) 05/01/22 23:14 LDL Cholesterol Direct 25 mg/dL (50-130) L 05/01/22 23:14 HDL Cholesterol 46 mg/dL (40-59) 05/01/22 23:14 Cholesterol/HDL Ratio 1.67 % 05/01/22 23:14 Vitamin B12 1464 pg/mL (211-911) H 05/06/22 04:43 Folate 10.08 ng/mL (7.3-26.0) 05/06/22 01:09 Procalcitonin 16.30 ng/mL (<0.15) 05/02/22 11:14 TSH 3.960 mlU/mL (0.270-4.200) 05/06/22 01:09 Urine Color Yellow (Yellow) 05/01/22 23:54 Urine Turbidity Hazy (Clear) 05/01/22 23:54 Specific [place] (Man) 1.015 (1.003-1.030) 05/01/22 23:54 Ur Protein (Man) 1+ mg/dL (Negative) 05/01/22 23:54 Ur Ketones (Man) Negative (Negative) 05/01/22 23:54 Ur Nitrite (Man) Negative (Negative) 05/01/22 23:54 Urine Bilirubin (Man) Negative (Negative) 05/01/22 23:54 Leukocyte Esterase (Man) Moderate (Negative) 05/01/22 23:54 Urine WBC (Auto) > 182.0 /HPF (0.0-6.0) H 05/01/22 23:54 Urine RBC (Auto) 33.0 /HPF (0.0-6.0) 05/01/22 23:54 Urine Bacteria (Auto) 2+ /HPF (Negative) 05/01/22 23:54 Urine RBC (Manual) 3+ (Negative) 05/01/22 23:54 Urine WBC Clumps 3+ /HPF 05/01/22 23:54 Urine Mucus Few /HPF 05/01/22 23:54 Urine Yeast (Budding) 2+ /HPF 05/01/22 23:54 OSKAR Screen Positive (Negative) H 05/02/22 20:20 Complement C3 91 mg/dL () 05/02/22 20:20 Complement C4 47 mg/dL () 05/02/22 20:20 Syphilis IgG/IgM Ab Nonreactive (NonReactive) 05/06/22 04:43 Coronavirus (PCR) Positive (Negative) A 05/02/22 Unknown Hep Bs Antigen Non-reactive (Negative) 05/02/22 20:20 Hepatitis C Antibody Non-reactive (NonReactive) 05/02/22 20:20 Influenza A (RT-PCR) Negative (Negative) 05/02/22 15:40 Influenza B (RT-PCR) Negative (Negative) 05/02/22 15:40 Microbiology: Microbiology 05/04/22 09:20 Peripheral/Venous Blood Culture - Preliminary NO GROWTH AFTER 4 DAYS 05/04/22 09:20 Peripheral/Venous Blood Culture - Preliminary NO GROWTH AFTER 4 DAYS Dumont/IV: Voiding Method Indwelling Catheter Active Medications - Current Medications Current Medications: Generic Name Dose Route Start Last Admin Trade Name Freq PRN Reason Stop Dose Admin Acetaminophen 650 mg 05/02/22 00:33 Acetaminophen 325 Mg Tab PO Q4H PRN Pain MILD(1-3)/Fever >100.5/ALLEN Ascorbic Acid 500 mg 05/05/22 22:00 05/07/22 22:51 Ascorbic Acid 500 Mg Tab PO Not Given BID GENA Aspirin 81 mg 05/08/22 13:00 Aspirin 81 Mg Tab Chew PO QDAY GENA Atorvastatin Calcium 40 mg 05/02/22 22:00 05/07/22 22:50 Atorvastatin 40 Mg Tab PO Not Given QHS GENA Dextrose 50 ml 05/02/22 18:49 Dextrose 50% In Water (25gm) 50 Ml Syringe IV Q30MIN PRN Hypoglycemia Protocol Famotidine 20 mg 05/03/22 10:00 05/07/22 10:00 Famotidine 20 Mg Tab PO Not Given QDAY GENA Furosemide 40 mg 05/08/22 08:00 05/08/22 08:50 Furosemide 40 Mg/4 Ml Inj IV 40 mg 0600,1800 GENA Administration Haloperidol Lactate 5 mg 05/03/22 13:25 05/06/22 03:42 Haloperidol Lactate 5 Mg/1 Ml Inj IV 5 mg Q6H PRN Administration Agitation Hydralazine HCl 10 mg 05/05/22 17:45 Hydralazine 20 Mg/1 Ml Inj IV Q4HR PRN Hypertension Ceftriaxone Sodium 2 gm in 100 mls @ 200 mls/hr 05/06/22 10:00 05/07/22 10:36 Rocephin/Ns 2 Gm/100 Ml IV 05/19/22 10:29 Infused Q24H [facility] Infusion Protocol Potassium Chloride 10 meq/ 1,005 mls @ 75 mls/hr 05/07/22 10:00 Dextrose IV DIRECT [facility] Insulin Human Regular 0 units 05/02/22 22:00 05/08/22 12:35 Insulin Regular, Human 100 Units/1 Ml SUB-Q Not Given ACHS [facility] Protocol Magnesium Hydroxide 30 ml 05/02/22 00:33 Magnesium Hydroxide (Mom) Oral Liqd Udc PO Q4H PRN Constipation Memantine 10 mg 05/05/22 22:00 05/07/22 22:50 Memantine 10 Mg Tab PO Not Given BID [facility] Morphine Sulfate 2 mg 05/02/22 00:33 05/06/22 01:31 Morphine 2 Mg/1 Ml Inj IV 2 mg Q4H PRN Administration Pain, Moderate (4-6) Ondansetron HCl 4 mg 05/02/22 00:33 Ondansetron 4 Mg/2 Ml Inj IV Q8H PRN Nausea And Vomiting Senna/Docusate Sodium 1 tab 05/03/22 22:00 05/07/22 22:50 Sennosides/Docusate Sodium 8.6/50 Mg Tab PO Not Given QHS GENA Sodium Chloride 10 ml 05/02/22 10:00 05/07/22 22:50 Sodium Chloride 0.9% 10 Ml Flush Syringe IV 10 ml BID GENA Administration Sodium Chloride 10 ml 05/02/22 00:33 Sodium Chloride 0.9% 10 Ml Flush Syringe IV PRN PRN LINE FLUSH Tamsulosin HCl 0.4 mg 05/07/22 15:00 05/07/22 16:17 Tamsulosin 0.4 Mg Cap PO Not Given QDAY [facility] Zinc Sulfate 220 mg 05/06/22 10:00 05/07/22 10:00 Zinc Sulfate 220 Mg Cap PO Not Given QDAY [facility] Nutrition/Malnutrition Assess - Dietary Evaluation Nutrition/Malnutrition Findings: Nutrition Notes Start: 05/02/22 1 0:24 Freq: Status: Active Protocol: Document 05/02/22 10:24 KIERSTEN (Rec: 05/02/22 11:05 KIERSTEN [id number]) Nutrition Notes 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 Current Diet Cardiac -Renal- Diet (since B 05/02). Labs/Tests 05/01: Na 125, Cl 91.0, CO2 21 , BUN 38, Crea 2.1, Glu 131, Ca 7.9, Mg 1.6. Pertinent Medications 05/02: Nutritionally unremarkable. 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 Weight Status Appropriate Subjective/Other Information RD consult for skin risk and risk of malnutrition assessments. No reports available on Pt's PO intake of meals at the time , will assess at F/U. I will recommend Renal modification to current diet, to support Pt's ANJU condition during LOS. I will also recommend dietary supplements to support wound healinh processes during LOS. Pt is on Room Air, O2 saturation @ 99%, according to Physical Assessment History notes. Pt has caries and missing teeth, according to Physical Assessment History notes. Pt passed bedside swallow assessment on 05/02, according to Swallow Screen notes. Pt shows Decubitus Sacral Ulcer stage II, L-toe open wound, and multiple bruises and skin tears in arms and legs as signs of concern for skin risk at the time, according to Physical Assessment History notes. Pt shows no signs of concern for risk of malnutrition at the time, according to Physical Assessment History notes. Percent of energy/protein needs met: Prescribed Cardiac -Renal- Diet provides for energy/ protein needs (2,230 Kcal/85 g ) during LOS; additionally, Dietary Supplements will support wound healing processes with 320 Kcal and 32 g of protein. Burn Absent Trauma Absent GI Symptoms None Food Allergy No Skin Integrity/Comment Sacral decubitus, L-toe & bruises. Minimum of two criteria No Fluid Accumulation N/A Reduced Bilingual Hr Generalist Strength N/A (non-severe) Protein-Calorie Malnutrition N\\A #2 Nutrition Diagnosis Increased nutrient needs ( specify in comment below) Comments: Protein, to support wound healing processes during LOS. Etiology Uncertain. As Evidenced by Signs and Symptoms Pt shows Decubitus Sacral Ulcer stage II, L-toe open wound, and multiple bruises and skin tears in arms and legs as signs of concern for skin risk at the time, according to Physical Assessment History notes. #1 Nutrition Diagnosis Altered nutrition-related laboratory values Etiology ANJU. As Evidenced by Signs and Symptoms 05/01: Na 125, Cl 91.0, CO2 21 , BUN 38, Crea 2.1, Glu 131, Ca 7.9, Mg 1.6. Is patient on ventilator? No Is Patient Ambulatory and/or Out of Bed No REE-([place]-confined to bed) 1617.408 Kcal/Kg value to use for calculation 26 Approximate Energy Requirements Using 1812 kcal/Kg Calculation Used for Recommendations Kcal/kg Additional Notes Protein: 0.8-1.2 g/Kg ABW; 56- 84 g/day. Fluids: 1 ml/Kcal, or as per MD. Nutrition Intervention Change Diet Order: Modify to Cardiac -Renal- Diet , continue as tolerated. Add Supplement/Snack (indicate name/kcal Start 8 fl oz Ensure High /protein ) Protein; BID. Provides kCal: 320 Provides Protein (gm) 32 Goal #1 Help reach and maintain acceptable chemistry lab values during LOS. Goal #2 Support, through dietary supplementation, wound healing processes during LOS. Goal #3 Adjust the dietary intervention to better serve Pt's energy/protein needs and clinical conditions during LOS . Follow-Up By: 05/09/22 Additional Comments Continue monitoring food tolerance, %PO intake of meals , dietary supplements, and BM.
[2022-05-08] MEDS ORDERED: ACETAMINOPHEN 650 MG RECT SUPP PR PRN (18:55)
--- NOTE | 2022-05-08 21:36 | Progress Note ---
Assessment and Plan Acute kidney injury: suspect due to tubular injury in setting of shock Hypernatremia Hypokalemia Acute encephalopathy Shock Acidosis COVID-positive Creatinine higher from 1.3->1.5 this AM, concern for tubular injury given clinic al decompensation Agree with IVF Follow-up renal ultrasound- no acute process noted, do note potential mass, plan for CT once more stable, can be done outpatient Follow serologies - pending Continue current supportive measures Keep MAP more than 65 renally dose medications Avoid nephrotoxins Renal diet Neurology, cardiology note reviewed Subjective Date of service: 05/08/22 Principal diagnosis: AMS; UTI; ANJU; Septic shock; E.Coli Bacteremia; UTI; Thrombocytopenia Interval history: Patient noted to be unresponsive this AM, transferred to ICU Vitals, labs and I/os reviewed Interdisciplinary notes and consults reviewed Objective - Exam Narrative Exam: Constitutional: unresponsive Head: NC/AT Neck: supple Lungs: clear to auscultation CV: RRR, no M/R/G Abdomen: soft, non-tender, bowel sounds present Back: nontender Extremities: no edema, pulses WNL Skin: intact Neuro: Somnolent. Altered. - Vital Signs Vital signs: Vital Signs - 12hr 05/08/22 05/08/22 05/08/22 10:00 12:04 13:05 Temperature 97.6 F Pulse Rate 127 H 126 H Pulse Rate [ From Monitor] Respiratory 38 H 36 H Rate Blood Pressure 122/73 156/90 O2 Sat by Pulse 95 95 95 Oximetry 05/08/22 05/08/22 05/08/22 16:00 16:30 17:23 Temperature Pulse Rate 133 H Pulse Rate [ 105 H 107 H From Monitor] Respiratory 20 36 H Rate Blood Pressure O2 Sat by Pulse 96 95 Oximetry 05/08/22 05/08/22 05/08/22 19:00 19:16 19:20 Temperature 99.0 F Pulse Rate 127 H 120 H Pulse Rate [ 107 H From Monitor] Respiratory 33 H 34 H 36 H Rate Blood Pressure 124/61 127/63 O2 Sat by Pulse 95 97 95 Oximetry 05/08/22 05/08/22 05/08/22 19:30 20:00 20:30 Temperature Pulse Rate 112 H 119 H 117 H Pulse Rate [ From Monitor] Respiratory 34 H 33 H 31 H Rate Blood Pressure 114/61 114/70 116/65 O2 Sat by Pulse 97 97 97 Oximetry 05/08/22 21:00 Temperature Pulse Rate 119 H Pulse Rate [ From Monitor] Respiratory 24 Rate Blood Pressure 103/53 O2 Sat by Pulse 99 Oximetry - Lab 05/08/22 08:00 05/08/22 07:26 Most recent lab results ABG pH 7.470 pH Units (7.350-7.450) H 05/08/22 11:02 ABG pCO2 28.9 mm Hg 05/08/22 11:02 ABG pO2 65.4 mm Hg (80.0-90.0) L 05/08/22 11:02 ABG HCO3 20.6 mmol/L (20.0-26.0) 05/08/22 11:02 ABG O2 Saturation 95.1 % (95.0-99.0) 05/08/22 11:02 Calcium 8.2 mg/dL (8.4-10.2) L 05/08/22 07:26 Phosphorus 1.40 mg/dL (2.5-4.5) L D 05/06/22 15:46 Magnesium 2.00 mg/dL (1.7-2.3) 05/06/22 15:46 Medications & Allergies - Medications Allergies/Adverse Reactions: Allergies aspirin Adverse Reaction (Verified 05/02/22 13:20) Bleeding levofloxacin [From Levaquin] Adverse Reaction (Verified 05/07/22 10:25) Rash and severe diarrhea blood thinners Adverse Reaction (Uncoded 05/02/22 13:20) Bleeding Home Medications: Home Medications Medication Instructions Recorded Confirmed Last Taken Type Memantine HCl [Namenda] 10 mg PO BID 04/21/17 05/02/22 05/01/22 History Omeprazole 40 mg PO QDAY 04/21/17 05/02/22 05/01/22 History Sertraline [Zoloft] 50 mg PO QDAY 04/21/17 05/02/22 05/01/22 History Simvastatin (NF) [Zocor TAB] 40 mg PO QHS 04/21/17 05/02/22 05/01/22 History Tamsulosin [Flomax] 0.4 mg PO QDAY 05/07/22 05/07/22 05/01/22 History Active Medications: Generic Name Dose Route Start Last Admin Trade Name Freq PRN Reason Stop Dose Admin Acetaminophen 650 mg 05/02/22 00:33 Acetaminophen 325 Mg Tab PO Q4H PRN Pain MILD(1-3)/Fever >100.5/ALLEN Acetaminophen 650 mg 05/08/22 18:55 Acetaminophen 650 Mg Rect Supp DE Q4H PRN Fever >101 Ascorbic Acid 500 mg 05/05/22 22:00 05/07/22 22:51 Ascorbic Acid 500 Mg Tab PO Not Given BID [facility] Aspirin 325 mg 05/08/22 17:36 Aspirin 81 Mg Tab Chew PO QDAY [facility] Atorvastatin Calcium 40 mg 05/02/22 22:00 05/07/22 22:50 Atorvastatin 40 Mg Tab PO Not Given QHS [facility] Dextrose 50 ml 05/02/22 18:49 Dextrose 50% In Water (25gm) 50 Ml Syringe IV Q30MIN PRN Hypoglycemia Protocol Famotidine 20 mg 05/03/22 10:00 05/07/22 10:00 Famotidine 20 Mg Tab PO Not Given QDAY [facility] Haloperidol Lactate 5 mg 05/03/22 13:25 05/06/22 03:42 Haloperidol Lactate 5 Mg/1 Ml Inj IV 5 mg Q6H PRN Administration Agitation Hydralazine HCl 10 mg 05/05/22 17:45 Hydralazine 20 Mg/1 Ml Inj IV Q4HR PRN Hypertension Ceftriaxone Sodium 2 gm in 100 mls @ 200 mls/hr 05/06/22 10:00 05/07/22 10:36 Rocephin/Ns 2 Gm/100 Ml IV 05/19/22 10:29 Infused Q24H [facility] Infusion Protocol Potassium Chloride 10 meq/ 1,005 mls @ 75 mls/hr 05/07/22 10:00 Dextrose IV DIRECT [facility] Insulin Human Regular 0 units 05/02/22 22:00 05/08/22 12:35 Insulin Regular, Human 100 Units/1 Ml SUB-Q Not Given ACHS [facility] Protocol Magnesium Hydroxide 30 ml 05/02/22 00:33 Magnesium Hydroxide (Mom) Oral Liqd Udc PO Q4H PRN Constipation Memantine 10 mg 05/05/22 22:00 05/07/22 22:50 Memantine 10 Mg Tab PO Not Given BID [facility] Morphine Sulfate 2 mg 05/02/22 00:33 05/06/22 01:31 Morphine 2 Mg/1 Ml Inj IV 2 mg Q4H PRN Administration Pain, Moderate (4-6) Ondansetron HCl 4 mg 05/02/22 00:33 Ondansetron 4 Mg/2 Ml Inj IV Q8H PRN Nausea And Vomiting Senna/Docusate Sodium 1 tab 05/03/22 22:00 05/07/22 22:50 Sennosides/Docusate Sodium 8.6/50 Mg Tab PO Not Given QHS [facility] Sodium Chloride 10 ml 05/02/22 10:00 05/07/22 22:50 Sodium Chloride 0.9% 10 Ml Flush Syringe IV 10 ml BID [facility] Administration Sodium Chloride 10 ml 05/02/22 00:33 Sodium Chloride 0.9% 10 Ml Flush Syringe IV PRN PRN LINE FLUSH Tamsulosin HCl 0.4 mg 05/07/22 15:00 05/07/22 16:17 Tamsulosin 0.4 Mg Cap PO Not Given QDAY [facility] Zinc Sulfate 220 mg 05/06/22 10:00 05/07/22 10:00 Zinc Sulfate 220 Mg Cap PO Not Given QDAY [facility]
[2022-05-08] MEDS: MEMANTINE 10 MG TAB PO SCH (21:50)
[2022-05-08] MEDS: SENNOSIDES/DOCUSATE SODIUM 8.6/50 MG TAB PO SCH (21:50)
[2022-05-08] MEDS: ASCORBIC ACID 500 MG TAB PO SCH (21:51)
[2022-05-09 05:04] LABS: Basophils % (Auto) 0.1 % (0.0-1.8); Eosinophils % (Auto) 0.1 % (0.0-4.3); Hematocrit 29.4 % (35.5-45.6); Hemoglobin 9.8 gm/dl (11.8-15.2); Lymphocytes # (Auto) 0.8 K/mm3 (1.2-5.4); Lymphocytes % (Auto) 5.5 % (13.4-35.0); Mean Corpuscular HGB Conc 33 % (32-34); Mean Corpuscular Volume 84 fl (84-94); Monocytes # (Auto) 0.7 K/mm3 (0.0-0.8); Monocytes % (Auto) 4.4 % (0.0-7.3); Platelet Count 219 K/mm3 (140-440); Red Blood Count 3.49 M/mm3 (3.65-5.03); Red Cell Distribution Width 19.2 % (13.2-15.2)
[2022-05-09 05:12] LABS: Calcium 8.1 mg/dL (8.4-10.2)
[2022-05-09] MEDS: cefTRIAXone/NS 2 GM/100 ML 2 GM/100 ML BAG IV SCH ×2 (09:00→09:38)
[2022-05-09] MEDS: MEMANTINE 10 MG TAB PO SCH ×3 (09:00→21:25)
[2022-05-09] MEDS: ZINC SULFATE 220 MG CAP PO SCH ×2 (09:00→14:52)
[2022-05-09] MEDS: ASCORBIC ACID 500 MG TAB PO SCH ×3 (09:00→21:25)
[2022-05-09] MEDS: INSULIN REGULAR, HUMAN 100 UNITS/1 ML SUB-Q SCH ×5 (09:00→23:15)
[2022-05-09] MEDS: TAMSULOSIN 0.4 MG CAP PO SCH (09:01)
[2022-05-09] MEDS: FAMOTIDINE 20 MG TAB PO SCH (09:01)
--- NOTE | 2022-05-09 09:56 | Progress Note ---
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 Follow Neurology recommendations -Hypotonic solution for hypernatremia- Renal following. Unable to place SBFT for nutritional support. He will need placement of small bowel feeding tube under fluroscopic guidance, so we can address nutrition. Once it is in, continue with free water flushes to help with treatment of hypernatremia - continue to avoid nephrotoxins, renally dose all medications - mobility, off loading and frequent turning per facility mobility protocols to prevent pressure ulcers - continue accuchecks with glycemic control per SSI for target blood glucose < 180 mg/dL - VTE prophylaxis-SCDs - Flu & pneumovax per protocol -Dumont catheter in for urinary retention, home medications were resumed. -Discontinue RIJ CVL, place peripheral IV. The line has been in since 05/02- patient does not have any medications requiring central venous access. -Trend temperature curve and WCC. Antibiotics per ID -All other care per primary service and Neurology CONDITION: CRITICAL PROGNOSIS: GUARDED CODE STATUS: FULL CODE COVID SPECIFIC INTERVENTIONS - Continue contact and airborne isolation per facility protocol The primary service is having ongoing goals of care discussions with the family. If there is any deterioration in neurological status, or new clinical findings, repeat CT head to re-evaluate The high probability of a clinically significant, sudden or life threatening deterioration of the [neuro and respiratory] system(s) required my full and direct attention, intervention and personal management. The aggregate critical care time was 35 minutes. This time is in addition to time spent performing reported procedures but includes the following: [x] Data Review and interpretation [x] Patient assessment and monitoring of vital signs [x] Documentation [x] Medication orders and management Subjective Date of service: 05/09/22 Principal diagnosis: AMS; UTI; ANJU; Septic shock; E.Coli Bacteremia; UTI; Thrombocytopenia Interval history: Patient is seen today for: AMS; UTI; H/O CVA with ICH; ANJU; Septic shock; E. Coli Bacteremia; UTI; Thrombocytopenia; A-fib Seen and examined at bedside; 24hour events reviewed; nursing and respiratory care staff consulted; no adverse overnight events reported to me; resting in bed; on BIPAP with upper airway noise, unresponsive. Remains in Afib but rate controlled. Fever Tmax 100.4 with leukocytosis Was transferred to the ICU for closer monitoring- new stroke CT head noncontrast (05/07/2022) revealing acute ischemic CVA of MALOU and MCA territories was not present on previous imaging during this hospitalization . Objective Vital Signs - 12hr 05/08/22 05/08/22 05/08/22 22:00 22:30 23:00 Temperature Pulse Rate 112 H 118 H 112 H Pulse Rate [ From Monitor] Respiratory 29 H 29 H 31 H Rate Blood Pressure 118/59 120/65 123/68 O2 Sat by Pulse 99 98 98 Oximetry 05/08/22 05/08/22 05/09/22 23:27 23:30 00:00 Temperature 100.3 F H Pulse Rate 117 H 113 H 120 H Pulse Rate [ From Monitor] Respiratory 32 H 28 H 33 H Rate Blood Pressure 123/68 118/63 134/52 O2 Sat by Pulse 98 97 98 Oximetry 05/09/22 05/09/22 05/09/22 00:30 01:00 01:30 Temperature Pulse Rate 109 H 113 H 116 H Pulse Rate [ From Monitor] Respiratory 31 H 31 H 28 H Rate Blood Pressure 138/64 121/74 122/64 O2 Sat by Pulse 98 96 Oximetry 05/09/22 05/09/22 05/09/22 02:00 02:35 03:23 Temperature Pulse Rate 113 H 113 H Pulse Rate [ 115 H From Monitor] Respiratory 28 H 28 H 28 H Rate Blood Pressure 124/64 O2 Sat by Pulse 97 95 95 Oximetry 05/09/22 05/09/22 05/09/22 03:25 05:44 08:00 Temperature 99.0 F 98.3 F Pulse Rate Pulse Rate [ 113 H From Monitor] Respiratory 28 H Rate Blood Pressure O2 Sat by Pulse 95 Oximetry Constitutional: no acute distress, other (elderly male resting on BIPAP.) Eyes: non-icteric Neck: supple, no lymphadenopathy, no JVD Effort: mildly labored Ascultation: Bilateral: diminished breath sounds, other (Upper airway noise,) Cardiovascular: irregular rhythm, other (S1,S2) Gastrointestinal: normoactive bowel sounds, soft, non-tender, non-distended (protuberant) Integumentary: normal Extremities: no cyanosis, no edema, pink and warm, pulses normal Neurologic: unable to assess (unresponsive, not obeying commands) Psychiatric: other (Sleeping on BIPAP.) CBC and BMP: 05/10/22 04:00 05/10/22 04:00 ABG, PT/INR, D-dimer: ABG ABG pH 7.470 pH Units (7.350-7.450) H 05/08/22 11:02 ABG pCO2 28.9 mm Hg 05/08/22 11:02 ABG pO2 65.4 mm Hg (80.0-90.0) L 05/08/22 11:02 ABG O2 Saturation 95.1 % (95.0-99.0) 05/08/22 11:02 PT/INR, D-dimer PT 17.7 Sec. (12.2-14.9) H 05/07/22 08:23 INR 1.30 (0.87-1.13) H 05/07/22 08:23 D-Dimer 4522.88 ng/mlDDU (0-234) H 05/07/22 15:35 Abnormal lab findings: Abnormal Labs 05/01/22 05/01/22 05/01/22 23:14 23:14 23:14 WBC RBC Hgb 10.8 L Hct 30.9 L MCHC 35 H RDW 18.0 H Plt Count 113 L Lymph % (Auto) [place] % (Auto) Lymph # (Auto) [place] # (Auto) Seg Neutrophils % Seg Neuts % (Manual) Lymphocytes % (Manual) Seg Neutrophils # Seg Neutrophils # Man Lymphocytes # (Manual) PT 19.1 H INR 1.42 H APTT 39.9 H D-Dimer ABG pH ABG pO2 ABG HCO3 ABG O2 Saturation ABG Base Excess ABG Hemoglobin Oxyhemoglobin Sodium 125 L Potassium Chloride 91.0 L Carbon Dioxide 21 L BUN 38 H Creatinine 2.1 H Glucose 131 H POC Glucose Lactic Acid Calcium 7.9 L Phosphorus Magnesium 1.60 L Ferritin AST Total Creatine Kinase Troponin T C-Reactive Protein NT-Pro-B Natriuret Pep Total Protein 4.8 L Albumin 3.3 L Prealbumin LDL Cholesterol Direct Vitamin B12 Urine WBC (Auto) [facility] Screen Coronavirus (PCR) 05/01/22 05/01/22 05/02/22 23:14 23:54 03:39 WBC RBC Hgb Hct MCHC RDW Plt Count Lymph % (Auto) [place] % (Auto) Lymph # (Auto) [place] # (Auto) Seg Neutrophils % Seg Neuts % (Manual) Lymphocytes % (Manual) Seg Neutrophils # Seg Neutrophils # Man Lymphocytes # (Manual) PT INR APTT D-Dimer ABG pH ABG pO2 ABG HCO3 ABG O2 Saturation ABG Base Excess ABG Hemoglobin Oxyhemoglobin Sodium Potassium Chloride Carbon Dioxide BUN Creatinine Glucose POC Glucose Lactic Acid 2.30 H* Calcium Phosphorus Magnesium Ferritin AST Total Creatine Kinase Troponin T 0.054 H C-Reactive Protein NT-Pro-B Natriuret Pep 70179 H Total Protein Albumin Prealbumin LDL Cholesterol Direct 25 L Vitamin B12 Urine WBC (Auto) > 182.0 H OSKAR Screen Coronavirus (PCR) 05/02/22 05/02/22 05/02/22 06:05 11:14 11:14 WBC RBC Hgb Hct MCHC RDW Plt Count Lymph % (Auto) [place] % (Auto) Lymph # (Auto) [place] # (Auto) Seg Neutrophils % Seg Neuts % (Manual) Lymphocytes % (Manual) Seg Neutrophils # Seg Neutrophils # Man Lymphocytes # (Manual) PT INR APTT D-Dimer 1135.33 H ABG pH ABG pO2 ABG HCO3 ABG O2 Saturation ABG Base Excess ABG Hemoglobin Oxyhemoglobin Sodium 132 L D Potassium Chloride Carbon Dioxide 15 L BUN 41 H Creatinine 2.1 H Glucose 127 H POC Glucose 139 H Lactic Acid Calcium 7.6 L Phosphorus Magnesium Ferritin AST Total Creatine Kinase Troponin T 0.196 H* D C-Reactive Protein 29.00 H NT-Pro-B Natriuret Pep Total Protein Albumin Prealbumin LDL Cholesterol Direct Vitamin B12 Urine WBC (Auto) [facility] Screen Coronavirus (PCR) 05/02/22 05/02/22 05/02/22 11:14 11:14 17:10 WBC RBC Hgb Hct MCHC RDW Plt Count Lymph % (Auto) [place] % (Auto) Lymph # (Auto) [place] # (Auto) Seg Neutrophils % Seg Neuts % (Manual) Lymphocytes % (Manual) Seg Neutrophils # Seg Neutrophils # Man Lymphocytes # (Manual) PT INR APTT D-Dimer ABG pH ABG pO2 ABG HCO3 ABG O2 Saturation ABG Base Excess ABG Hemoglobin Oxyhemoglobin Sodium 130 L Potassium Chloride 96.0 L Carbon Dioxide 17 L BUN 42 H Creatinine 2.3 H Glucose 141 H POC Glucose 150 H Lactic Acid Calcium 7.7 L Phosphorus Magnesium Ferritin 544.4 H AST Total Creatine Kinase Troponin T C-Reactive Protein NT-Pro-B Natriuret Pep Total Protein Albumin Prealbumin LDL Cholesterol Direct Vitamin B12 Urine WBC (Auto) [facility] Screen Coronavirus (PCR) 05/02/22 05/02/22 05/02/22 20:20 20:20 20:20 WBC RBC Hgb Hct MCHC RDW Plt Count Lymph % (Auto) [place] % (Auto) Lymph # (Auto) [place] # (Auto) Seg Neutrophils % Seg Neuts % (Manual) Lymphocytes % (Manual) Seg Neutrophils # Seg Neutrophils # Man Lymphocytes # (Manual) PT INR APTT D-Dimer ABG pH ABG pO2 ABG HCO3 ABG O2 Saturation ABG Base Excess ABG Hemoglobin Oxyhemoglobin Sodium 133 L Potassium Chloride Carbon Dioxide BUN Creatinine Glucose POC Glucose Lactic Acid Calcium Phosphorus Magnesium Ferritin AST Total Creatine Kinase 816 H Troponin T C-Reactive Protein NT-Pro-B Natriuret Pep Total Protein Albumin Prealbumin LDL Cholesterol Direct Vitamin B12 Urine WBC (Auto) [facility] Screen Positive H Coronavirus (PCR) 05/02/22 05/02/22 05/03/22 22:06 Unknown 05:00 WBC 13.3 H RBC 3.62 L Hgb 10.1 L Hct 30.8 L MCHC RDW 19.1 H Plt Count Lymph % (Auto) 3.9 L [place] % (Auto) 9.4 H Lymph # (Auto) 0.5 L [place] # (Auto) 1.3 H Seg Neutrophils % 85.6 H Seg Neuts % (Manual) Lymphocytes % (Manual) Seg Neutrophils # 11.4 H Seg Neutrophils # Man Lymphocytes # (Manual) PT INR APTT D-Dimer ABG pH ABG pO2 ABG HCO3 ABG O2 Saturation ABG Base Excess ABG Hemoglobin Oxyhemoglobin Sodium Potassium Chloride Carbon Dioxide BUN Creatinine Glucose POC Glucose 146 H Lactic Acid Calcium Phosphorus Magnesium Ferritin AST Total Creatine Kinase Troponin T C-Reactive Protein NT-Pro-B Natriuret Pep Total Protein Albumin Prealbumin LDL Cholesterol Direct Vitamin B12 Urine WBC (Auto) [facility] Screen Coronavirus (PCR) Positive A 05/03/22 05/03/22 05/03/22 06:48 08:48 11:07 WBC RBC Hgb Hct MCHC RDW Plt Count Lymph % (Auto) [place] % (Auto) Lymph # (Auto) [place] # (Auto) Seg Neutrophils % Seg Neuts % (Manual) Lymphocytes % (Manual) Seg Neutrophils # Seg Neutrophils # Man Lymphocytes # (Manual) PT INR APTT D-Dimer ABG pH ABG pO2 ABG HCO3 ABG O2 Saturation ABG Base Excess ABG Hemoglobin Oxyhemoglobin Sodium 135 L Potassium Chloride Carbon Dioxide 16 L BUN 38 H Creatinine 2.0 H Glucose 122 H POC Glucose 127 H 116 H Lactic Acid Calcium 7.6 L Phosphorus Magnesium Ferritin AST Total Creatine Kinase Troponin T C-Reactive Protein NT-Pro-B Natriuret Pep Total Protein Albumin Prealbumin LDL Cholesterol Direct Vitamin B12 Urine WBC (Auto) [facility] Screen Coronavirus (PCR) 05/03/22 05/03/22 05/04/22 16:29 22:29 05:00 WBC RBC 3.39 L Hgb 9.6 L Hct 28.8 L MCHC RDW 18.8 H Plt Count Lymph % (Auto) [place] % (Auto) Lymph # (Auto) [place] # (Auto) Seg Neutrophils % Seg Neuts % (Manual) Lymphocytes % (Manual) Seg Neutrophils # Seg Neutrophils # Man Lymphocytes # (Manual) PT INR APTT D-Dimer ABG pH ABG pO2 ABG HCO3 ABG O2 Saturation ABG Base Excess ABG Hemoglobin Oxyhemoglobin Sodium Potassium Chloride Carbon Dioxide BUN Creatinine Glucose POC Glucose 113 H 113 H Lactic Acid Calcium Phosphorus Magnesium Ferritin AST Total Creatine Kinase Troponin T C-Reactive Protein NT-Pro-B Natriuret Pep Total Protein Albumin Prealbumin LDL Cholesterol Direct Vitamin B12 Urine WBC (Auto) [facility] Screen Coronavirus (PCR) 05/04/22 05/04/22 05/04/22 05:00 07:40 11:22 WBC RBC Hgb Hct MCHC RDW Plt Count Lymph % (Auto) [place] % (Auto) Lymph # (Auto) [place] # (Auto) Seg Neutrophils % Seg Neuts % (Manual) Lymphocytes % (Manual) Seg Neutrophils # Seg Neutrophils # Man Lymphocytes # (Manual) PT INR APTT D-Dimer ABG pH ABG pO2 ABG HCO3 ABG O2 Saturation ABG Base Excess ABG Hemoglobin Oxyhemoglobin Sodium Potassium 3.3 L D Chloride 108.7 H Carbon Dioxide 17 L BUN 37 H Creatinine 1.8 H Glucose 117 H POC Glucose 107 H 124 H Lactic Acid Calcium 7.4 L Phosphorus Magnesium Ferritin AST Total Creatine Kinase Troponin T C-Reactive Protein NT-Pro-B Natriuret Pep Total Protein Albumin Prealbumin LDL Cholesterol Direct Vitamin B12 Urine WBC (Auto) [facility] Screen Coronavirus (PCR) 05/04/22 05/04/22 05/04/22 15:57 18:55 22:40 WBC RBC Hgb Hct MCHC RDW Plt Count Lymph % (Auto) [place] % (Auto) Lymph # (Auto) [place] # (Auto) Seg Neutrophils % Seg Neuts % (Manual) Lymphocytes % (Manual) Seg Neutrophils # Seg Neutrophils # Man Lymphocytes # (Manual) PT INR APTT D-Dimer ABG pH ABG pO2 ABG HCO3 ABG O2 Saturation ABG Base Excess ABG Hemoglobin Oxyhemoglobin Sodium Potassium 3.5 L Chloride 109.4 H Carbon Dioxide 18 L BUN 31 H Creatinine 1.6 H Glucose 166 H POC Glucose 147 H 138 H Lactic Acid Calcium 7.4 L Phosphorus Magnesium Ferritin AST Total Creatine Kinase Troponin T C-Reactive Protein NT-Pro-B Natriuret Pep Total Protein Albumin Prealbumin LDL Cholesterol Direct Vitamin B12 Urine WBC (Auto) [facility] Screen Coronavirus (PCR) 05/05/22 05/05/22 05/05/22 04:38 04:38 07:35 WBC RBC Hgb 10.6 L Hct 32.3 L MCHC RDW 19.3 H Plt Count Lymph % (Auto) [place] % (Auto) Lymph # (Auto) [place] # (Auto) Seg Neutrophils % Seg Neuts % (Manual) Lymphocytes % (Manual) Seg Neutrophils # Seg Neutrophils # Man Lymphocytes # (Manual) PT INR APTT D-Dimer ABG pH ABG pO2 ABG HCO3 ABG O2 Saturation ABG Base Excess ABG Hemoglobin Oxyhemoglobin Sodium Potassium 3.2 L Chloride 112.3 H Carbon Dioxide 19 L BUN 27 H Creatinine 1.6 H Glucose 168 H POC Glucose 152 H Lactic Acid Calcium 7.6 L Phosphorus 2.30 L Magnesium Ferritin AST 44 H Total Creatine Kinase Troponin T C-Reactive Protein NT-Pro-B Natriuret Pep Total Protein 4.5 L Albumin 2.5 L Prealbumin LDL Cholesterol Direct Vitamin B12 Urine WBC (Auto) [facility] Screen Coronavirus (PCR) 05/05/22 05/05/22 05/05/22 13:06 16:20 22:07 WBC RBC Hgb Hct MCHC RDW Plt Count Lymph % (Auto) [place] % (Auto) Lymph # (Auto) [place] # (Auto) Seg Neutrophils % Seg Neuts % (Manual) Lymphocytes % (Manual) Seg Neutrophils # Seg Neutrophils # Man Lymphocytes # (Manual) PT INR APTT D-Dimer ABG pH ABG pO2 ABG HCO3 ABG O2 Saturation ABG Base Excess ABG Hemoglobin Oxyhemoglobin Sodium Potassium Chloride Carbon Dioxide BUN Creatinine Glucose POC Glucose 208 H 164 H 148 H Lactic Acid Calcium Phosphorus Magnesium Ferritin AST Total Creatine Kinase Troponin T C-Reactive Protein NT-Pro-B Natriuret Pep Total Protein Albumin Prealbumin LDL Cholesterol Direct Vitamin B12 Urine WBC (Auto) [facility] Screen Coronavirus (PCR) 05/06/22 05/06/22 05/06/22 04:43 04:43 07:27 WBC RBC Hgb Hct MCHC RDW Plt Count Lymph % (Auto) [place] % (Auto) Lymph # (Auto) [place] # (Auto) Seg Neutrophils % Seg Neuts % (Manual) Lymphocytes % (Manual) Seg Neutrophils # Seg Neutrophils # Man Lymphocytes # (Manual) PT INR APTT D-Dimer ABG pH ABG pO2 ABG HCO3 ABG O2 Saturation ABG Base Excess ABG Hemoglobin Oxyhemoglobin Sodium Potassium Chloride Carbon Dioxide BUN Creatinine Glucose POC Glucose 127 H Lactic Acid Calcium Phosphorus Magnesium Ferritin AST Total Creatine Kinase Troponin T C-Reactive Protein NT-Pro-B Natriuret Pep Total Protein Albumin Prealbumin 0.055 L LDL Cholesterol Direct Vitamin B12 1464 H Urine WBC (Auto) [facility] Screen Coronavirus (PCR) 05/06/22 05/06/22 05/06/22 11:30 15:46 16:49 WBC RBC Hgb Hct MCHC RDW Plt Count Lymph % (Auto) [place] % (Auto) Lymph # (Auto) [place] # (Auto) Seg Neutrophils % Seg Neuts % (Manual) Lymphocytes % (Manual) Seg Neutrophils # Seg Neutrophils # Man Lymphocytes # (Manual) PT INR APTT D-Dimer ABG pH ABG pO2 ABG HCO3 ABG O2 Saturation ABG Base Excess ABG Hemoglobin Oxyhemoglobin Sodium 148 H Potassium 3.3 L Chloride 112.7 H Carbon Dioxide 21 L BUN 28 H Creatinine Glucose 143 H POC Glucose 211 H 148 H Lactic Acid Calcium Phosphorus 1.40 L D Magnesium Ferritin AST Total Creatine Kinase Troponin T C-Reactive Protein NT-Pro-B Natriuret Pep Total Protein Albumin Prealbumin LDL Cholesterol Direct Vitamin B12 Urine WBC (Auto) [facility] Screen Coronavirus (PCR) 05/06/22 05/07/22 05/07/22 22:35 08:22 08:23 WBC 15.4 H RBC Hgb 10.9 L Hct 32.7 L MCHC RDW 19.2 H Plt Count Lymph % (Auto) 5.8 L [place] % (Auto) 7.7 H Lymph # (Auto) 0.9 L [place] # (Auto) 1.2 H Seg Neutrophils % 86.3 H Seg Neuts % (Manual) Lymphocytes % (Manual) Seg Neutrophils # 13.3 H Seg Neutrophils # Man Lymphocytes # (Manual) PT INR APTT D-Dimer ABG pH ABG pO2 ABG HCO3 ABG O2 Saturation ABG Base Excess ABG Hemoglobin Oxyhemoglobin Sodium Potassium Chloride Carbon Dioxide BUN Creatinine Glucose POC Glucose 156 H 169 H Lactic Acid Calcium Phosphorus Magnesium Ferritin AST Total Creatine Kinase Troponin T C-Reactive Protein NT-Pro-B Natriuret Pep Total Protein Albumin Prealbumin LDL Cholesterol Direct Vitamin B12 Urine WBC (Auto) [facility] Screen Coronavirus (PCR) 05/07/22 05/07/22 05/07/22 08:23 08:23 08:23 WBC RBC Hgb Hct MCHC RDW Plt Count Lymph % (Auto) [place] % (Auto) Lymph # (Auto) [place] # (Auto) Seg Neutrophils % Seg Neuts % (Manual) Lymphocytes % (Manual) Seg Neutrophils # Seg Neutrophils # Man Lymphocytes # (Manual) PT 17.7 H INR 1.30 H APTT D-Dimer ABG pH ABG pO2 ABG HCO3 ABG O2 Saturation ABG Base Excess ABG Hemoglobin Oxyhemoglobin Sodium 152 H Potassium 3.3 L Chloride 116.9 H Carbon Dioxide 20 L BUN 27 H Creatinine Glucose 150 H POC Glucose Lactic Acid 2.40 H* Calcium 8.3 L Phosphorus Magnesium Ferritin AST Total Creatine Kinase Troponin T C-Reactive Protein NT-Pro-B Natriuret Pep Total Protein Albumin Prealbumin LDL Cholesterol Direct Vitamin B12 Urine WBC (Auto) [facility] Screen Coronavirus (PCR) 05/07/22 05/07/22 05/07/22 09:10 12:23 15:35 WBC RBC Hgb Hct MCHC RDW Plt Count Lymph % (Auto) [place] % (Auto) Lymph # (Auto) [place] # (Auto) Seg Neutrophils % Seg Neuts % (Manual) Lymphocytes % (Manual) Seg Neutrophils # Seg Neutrophils # Man Lymphocytes # (Manual) PT INR APTT D-Dimer 4522.88 H ABG pH 7.471 H ABG pO2 64.0 L ABG HCO3 19.1 L ABG O2 Saturation 94.8 L ABG Base Excess -3.6 L ABG Hemoglobin 9.7 L Oxyhemoglobin 92.4 L Sodium Potassium Chloride Carbon Dioxide BUN Creatinine Glucose POC Glucose 132 H Lactic Acid Calcium Phosphorus Magnesium Ferritin AST Total Creatine Kinase Troponin T C-Reactive Protein NT-Pro-B Natriuret Pep Total Protein Albumin Prealbumin LDL Cholesterol Direct Vitamin B12 Urine WBC (Auto) [facility] Screen Coronavirus (PCR) 05/07/22 05/07/22 05/07/22 15:35 15:35 17:19 WBC RBC Hgb Hct MCHC RDW Plt Count Lymph % (Auto) [place] % (Auto) Lymph # (Auto) [place] # (Auto) Seg Neutrophils % Seg Neuts % (Manual) Lymphocytes % (Manual) Seg Neutrophils # Seg Neutrophils # Man Lymphocytes # (Manual) PT INR APTT D-Dimer ABG pH ABG pO2 ABG HCO3 ABG O2 Saturation ABG Base Excess ABG Hemoglobin Oxyhemoglobin Sodium Potassium Chloride Carbon Dioxide BUN Creatinine Glucose POC Glucose 137 H Lactic Acid Calcium Phosphorus Magnesium Ferritin 735.8 H AST Total Creatine Kinase Troponin T C-Reactive Protein 22.70 H NT-Pro-B Natriuret Pep 52608 H Total Protein Albumin Prealbumin LDL Cholesterol Direct Vitamin B12 Urine WBC (Auto) [facility] Screen Coronavirus (PCR) 05/07/22 05/07/22 05/08/22 19:52 22:51 07:23 WBC RBC Hgb Hct MCHC RDW Plt Count Lymph % (Auto) [place] % (Auto) Lymph # (Auto) [place] # (Auto) Seg Neutrophils % Seg Neuts % (Manual) Lymphocytes % (Manual) Seg Neutrophils # Seg Neutrophils # Man Lymphocytes # (Manual) PT INR APTT D-Dimer ABG pH ABG pO2 ABG HCO3 ABG O2 Saturation ABG Base Excess ABG Hemoglobin Oxyhemoglobin Sodium Potassium Chloride Carbon Dioxide BUN Creatinine Glucose POC Glucose 172 H 214 H Lactic Acid 2.20 H* Calcium Phosphorus Magnesium Ferritin AST Total Creatine Kinase Troponin T C-Reactive Protein NT-Pro-B Natriuret Pep Total Protein Albumin Prealbumin LDL Cholesterol Direct Vitamin B12 Urine WBC (Auto) [facility] Screen Coronavirus (PCR) 05/08/22 05/08/22 05/08/22 07:26 07:26 08:00 WBC 17.1 H RBC Hgb 10.5 L Hct 32.2 L MCHC RDW 19.6 H Plt Count Lymph % (Auto) [place] % (Auto) Lymph # (Auto) [place] # (Auto) Seg Neutrophils % Seg Neuts % (Manual) 92.0 H Lymphocytes % (Manual) 4.0 L Seg Neutrophils # Seg Neutrophils # Man 15.7 H Lymphocytes # (Manual) 0.7 L PT INR APTT D-Dimer ABG pH ABG pO2 ABG HCO3 ABG O2 Saturation ABG Base Excess ABG Hemoglobin Oxyhemoglobin Sodium 146 H Potassium Chloride 111.2 H Carbon Dioxide 21 L BUN 33 H Creatinine 1.5 H Glucose 207 H POC Glucose Lactic Acid 2.10 H* Calcium 8.2 L Phosphorus Magnesium Ferritin AST Total Creatine Kinase Troponin T C-Reactive Protein NT-Pro-B Natriuret Pep Total Protein Albumin Prealbumin LDL Cholesterol Direct Vitamin B12 Urine WBC (Auto) [facility] Screen Coronavirus (PCR) 05/08/22 05/08/22 05/08/22 10:38 10:40 11:02 WBC RBC Hgb Hct MCHC RDW Plt Count Lymph % (Auto) [place] % (Auto) Lymph # (Auto) [place] # (Auto) Seg Neutrophils % Seg Neuts % (Manual) Lymphocytes % (Manual) Seg Neutrophils # Seg Neutrophils # Man Lymphocytes # (Manual) PT INR APTT D-Dimer ABG pH 7.470 H ABG pO2 65.4 L ABG HCO3 ABG O2 Saturation ABG Base Excess -2.2 L ABG Hemoglobin 10.5 L Oxyhemoglobin 93.1 L Sodium Potassium Chloride Carbon Dioxide BUN Creatinine Glucose POC Glucose 163 H Lactic Acid 2.40 H* Calcium Phosphorus Magnesium Ferritin AST Total Creatine Kinase Troponin T C-Reactive Protein NT-Pro-B Natriuret Pep Total Protein Albumin Prealbumin LDL Cholesterol Direct Vitamin B12 Urine WBC (Auto) [facility] Screen Coronavirus (PCR) 05/08/22 05/08/22 05/08/22 17:35 17:47 21:48 WBC RBC Hgb Hct MCHC RDW Plt Count Lymph % (Auto) [place] % (Auto) Lymph # (Auto) [place] # (Auto) Seg Neutrophils % Seg Neuts % (Manual) Lymphocytes % (Manual) Seg Neutrophils # Seg Neutrophils # Man Lymphocytes # (Manual) PT INR APTT D-Dimer ABG pH ABG pO2 ABG HCO3 ABG O2 Saturation ABG Base Excess ABG Hemoglobin Oxyhemoglobin Sodium Potassium Chloride Carbon Dioxide BUN Creatinine Glucose POC Glucose 143 H 151 H Lactic Acid 2.10 H* Calcium Phosphorus Magnesium Ferritin AST Total Creatine Kinase Troponin T C-Reactive Protein NT-Pro-B Natriuret Pep Total Protein Albumin Prealbumin LDL Cholesterol Direct Vitamin B12 Urine WBC (Auto) [facility] Screen Coronavirus (PCR) 05/09/22 05/09/22 04:05 04:05 WBC 15.3 H RBC 3.49 L Hgb 9.8 L Hct 29.4 L MCHC RDW 19.2 H Plt Count Lymph % (Auto) 5.5 L [place] % (Auto) Lymph # (Auto) 0.8 L [place] # (Auto) Seg Neutrophils % 89.9 H Seg Neuts % (Manual) Lymphocytes % (Manual) Seg Neutrophils # 13.8 H Seg Neutrophils # Man Lymphocytes # (Manual) PT INR APTT D-Dimer ABG pH ABG pO2 ABG HCO3 ABG O2 Saturation ABG Base Excess ABG Hemoglobin Oxyhemoglobin Sodium 151 H Potassium 3.3 L Chloride 115.0 H Carbon Dioxide BUN 47 H Creatinine 1.7 H Glucose 158 H POC Glucose Lactic Acid Calcium 8.1 L Phosphorus Magnesium Ferritin AST Total Creatine Kinase Troponin T C-Reactive Protein NT-Pro-B Natriuret Pep Total Protein Albumin Prealbumin LDL Cholesterol Direct Vitamin B12 Urine WBC (Auto) [facility] Screen Coronavirus (PCR) Chest x-ray: image reviewed Allied health notes reviewed: RT
[2022-05-09] MEDS ORDERED: POTASSIUM CHLORIDE 20 MEQ PACKET FEEDTUBE SCH (12:00)
[2022-05-09 12:27] LABS: Myeloperoxidase Antibody <1.0 AI (<1.0)
[2022-05-09] MEDS ORDERED: LACTATED RINGERS 1,000 ML IV ONE (12:45)
--- NOTE | 2022-05-09 13:50 | Progress Note ---
Assessment and Plan - Patient Problems (1) Chronic atrial fibrillation Current Visit: Yes Status: Acute Subjective Date of service: 05/09/22 Principal diagnosis: AMS; UTI; ANJU; Septic shock; E.Coli Bacteremia; UTI; Thrombocytopenia Objective Vital Signs Temp Pulse Pulse Resp BP Pulse Ox 05/09/22 12:30 99 H 30 H 81/43 81 L 05/09/22 12:00 98.8 F 101 H 104 H 21 112/60 89 05/09/22 11:30 102 H 27 H 122/62 99 05/09/22 11:00 103 H 29 H 136/76 100 05/09/22 10:30 106 H 27 H 136/76 99 05/09/22 10:00 96 H 29 H 131/66 99 05/09/22 09:30 100 H 29 H 122/59 100 05/09/22 09:00 98 H 25 H 110/65 100 05/09/22 08:30 101 H 27 H 109/61 100 05/09/22 08:00 98.3 F 97 H 29 H 117/63 99 05/09/22 07:30 104 H 29 H 130/63 99 05/09/22 07:00 104 H 27 H 124/55 99 05/09/22 06:30 104 H 29 H 117/57 99 05/09/22 06:00 115 H 36 H 104/69 05/09/22 05:44 113 H 28 H 95 05/09/22 05:30 114 H 28 H 121/59 96 05/09/22 05:00 116 H 28 H 118/78 97 05/09/22 04:30 112 H 30 H 115/65 98 05/09/22 04:00 118 H 42 H 122/72 96 05/09/22 03:30 111 H 29 H 112/64 96 05/09/22 03:25 99.0 F 05/09/22 03:23 113 H 115 H 28 H 95 05/09/22 03:00 117 H 29 H 128/66 95 05/09/22 02:35 28 H 95 05/09/22 02:30 117 H 32 H 110/58 97 05/09/22 02:00 113 H 28 H 124/64 97 05/09/22 01:30 116 H 28 H 122/64 96 05/09/22 01:00 113 H 31 H 121/74 05/09/22 00:30 109 H 31 H 138/64 98 05/09/22 00:00 100.3 F H 120 H 33 H 134/52 98 05/08/22 23:30 113 H 28 H 118/63 97 05/08/22 23:27 117 H 32 H 123/68 98 05/08/22 23:00 112 H 31 H 123/68 98 05/08/22 22:30 118 H 29 H 120/65 98 05/08/22 22:00 112 H 29 H 118/59 99 05/08/22 21:48 124 H 34 H 121/58 97 05/08/22 21:30 114 H 33 H 107/62 96 05/08/22 21:00 119 H 24 103/53 99 05/08/22 20:30 117 H 31 H 116/65 97 05/08/22 20:00 119 H 33 H 114/70 97 05/08/22 19:30 112 H 34 H 114/61 97 05/08/22 19:20 99.0 F 107 H 36 H 95 05/08/22 19:16 120 H 34 H 127/63 97 05/08/22 19:00 127 H 33 H 124/61 95 05/08/22 17:23 133 H 05/08/22 16:30 107 H 36 H 95 05/08/22 16:00 105 H 20 96 - Physical Examination General: No Apparent Distress Neck: Positive: neck supple Neuro: Positive: Weakness (Generalized lethargy) Abdomen: Positive: Soft Skin: Positive: Clear Extremities: Absent: edema - Labs and Meds CBC 05/09/22 Range/Units 04:05 WBC 15.3 H (4.5-11.0) K/mm3 RBC 3.49 L (3.65-5.03) M/mm3 Hgb 9.8 L (11.8-15.2) gm/dl Hct 29.4 L (35.5-45.6) % Plt Count 219 (140-440) K/mm3 Lymph # (Auto) 0.8 L (1.2-5.4) K/mm3 [place] # (Auto) 0.7 (0.0-0.8) K/mm3 Eos # (Auto) 0.0 (0.0-0.4) K/mm3 Baso # (Auto) 0.0 (0.0-0.1) K/mm3 Comprehensive Metabolic Panel 05/09/22 Range/Units 04:05 Sodium 151 H (137-145) mmol/L Potassium 3.3 L (3.6-5.0) mmol/L Chloride 115.0 H (98-107) mmol/L Carbon Dioxide 22 (22-30) mmol/L BUN 47 H (9-20) mg/dL Creatinine 1.7 H (0.8-1.3) mg/dL Glucose 158 H (75-100) mg/dL Calcium 8.1 L (8.4-10.2) mg/dL - Allied health notes Allied health notes reviewed: nursing
--- NOTE | 2022-05-09 14:15 | Progress Note ---
Assessment and Plan - Patient Problems (1) Chronic atrial fibrillation Current Visit: Yes Status: Acute Plan to address problem: Frail, elderly 86-year-old admitted with sepsis. He has chronic atrial fibrillation, and on presentation with sepsis there was an increased ventricular rate, which prompted cardiac consultation. Rate control is much improved, on amiodarone therapy. The patient has previously been determined by his primary field artillery cannoneer as a poor candidate for antiplatelet or anticoagulation therapy due to a chronic bleeding diathesis. 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 The aortic stenosis appears to be a chronic finding, unrelated to his current presentation with acute sepsis. Will continue conservative management with rate control of his atrial fibrillation, and defer further follow-up of his aortic valvular disease with his primary outpatient field artillery cannoneer. Subjective Date of service: 05/09/22 Principal diagnosis: AMS; UTI; ANJU; Septic shock; E.Coli Bacteremia; UTI; Thrombocytopenia Interval history: Patient is lethargic, on BiPAP in the ICU. On tin worker there is atrial fibrillation with ventricular rate in the 100s. Objective Vital Signs Temp Pulse Pulse Resp BP Pulse Ox 05/09/22 12:30 99 H 30 H 81/43 81 L 05/09/22 12:00 98.8 F 101 H 104 H 21 112/60 89 05/09/22 11:30 102 H 27 H 122/62 99 05/09/22 11:00 103 H 29 H 136/76 100 05/09/22 10:30 106 H 27 H 136/76 99 05/09/22 10:00 96 H 29 H 131/66 99 05/09/22 09:30 100 H 29 H 122/59 100 05/09/22 09:00 98 H 25 H 110/65 100 05/09/22 08:30 101 H 27 H 109/61 100 05/09/22 08:00 98.3 F 97 H 29 H 117/63 99 05/09/22 07:30 104 H 29 H 130/63 99 05/09/22 07:00 104 H 27 H 124/55 99 05/09/22 06:30 104 H 29 H 117/57 99 05/09/22 06:00 115 H 36 H 104/69 05/09/22 05:44 113 H 28 H 95 05/09/22 05:30 114 H 28 H 121/59 96 05/09/22 05:00 116 H 28 H 118/78 97 05/09/22 04:30 112 H 30 H 115/65 98 05/09/22 04:00 118 H 42 H 122/72 96 05/09/22 03:30 111 H 29 H 112/64 96 05/09/22 03:25 99.0 F 05/09/22 03:23 113 H 115 H 28 H 95 05/09/22 03:00 117 H 29 H 128/66 95 05/09/22 02:35 28 H 95 05/09/22 02:30 117 H 32 H 110/58 97 05/09/22 02:00 113 H 28 H 124/64 97 05/09/22 01:30 116 H 28 H 122/64 96 05/09/22 01:00 113 H 31 H 121/74 05/09/22 00:30 109 H 31 H 138/64 98 05/09/22 00:00 100.3 F H 120 H 33 H 134/52 98 05/08/22 23:30 113 H 28 H 118/63 97 05/08/22 23:27 117 H 32 H 123/68 98 05/08/22 23:00 112 H 31 H 123/68 98 05/08/22 22:30 118 H 29 H 120/65 98 05/08/22 22:00 112 H 29 H 118/59 99 05/08/22 21:48 124 H 34 H 121/58 97 05/08/22 21:30 114 H 33 H 107/62 96 05/08/22 21:00 119 H 24 103/53 99 05/08/22 20:30 117 H 31 H 116/65 97 05/08/22 20:00 119 H 33 H 114/70 97 05/08/22 19:30 112 H 34 H 114/61 97 05/08/22 19:20 99.0 F 107 H 36 H 95 05/08/22 19:16 120 H 34 H 127/63 97 05/08/22 19:00 127 H 33 H 124/61 95 05/08/22 17:23 133 H 05/08/22 16:30 107 H 36 H 95 05/08/22 16:00 105 H 20 96 - Physical Examination General: No Apparent Distress Neck: Positive: neck supple Cardiac: Positive: irregularly irregular Lungs: Positive: Decreased Breath Sounds Neuro: Positive: Weakness (Generalized lethargy) Abdomen: Positive: Soft Skin: Positive: Clear Extremities: Absent: edema - Labs and Meds CBC 05/09/22 Range/Units 04:05 WBC 15.3 H (4.5-11.0) K/mm3 RBC 3.49 L (3.65-5.03) M/mm3 Hgb 9.8 L (11.8-15.2) gm/dl Hct 29.4 L (35.5-45.6) % Plt Count 219 (140-440) K/mm3 Lymph # (Auto) 0.8 L (1.2-5.4) K/mm3 [place] # (Auto) 0.7 (0.0-0.8) K/mm3 Eos # (Auto) 0.0 (0.0-0.4) K/mm3 Baso # (Auto) 0.0 (0.0-0.1) K/mm3 Comprehensive Metabolic Panel 05/09/22 Range/Units 04:05 Sodium 151 H (137-145) mmol/L Potassium 3.3 L (3.6-5.0) mmol/L Chloride 115.0 H (98-107) mmol/L Carbon Dioxide 22 (22-30) mmol/L BUN 47 H (9-20) mg/dL Creatinine 1.7 H (0.8-1.3) mg/dL Glucose 158 H (75-100) mg/dL Calcium 8.1 L (8.4-10.2) mg/dL - Allied health notes Allied health notes reviewed: nursing
--- NOTE | 2022-05-09 14:28 | Progress Note ---
Assessment and Plan Acute kidney injury: suspect due to tubular injury in setting of shock Hypernatremia Hypokalemia Acute encephalopathy Shock Acidosis COVID-positive Creatinine higher from 1.3->1.5->1.7 this AM, concern for tubular injury given c linical decompensation, hypotension Hold further IVF, given worsening respiratory status, hypernatremia Strict Is/Os No immediate need for renal replacement therapy- Continue current supportive measures Follow-up renal ultrasound- no acute process noted, do note potential mass, plan for CT once more stable, can be done outpatient Follow serologies - pending Keep MAP more than 65, recommend vasopressors if needed renally dose medications Avoid nephrotoxins Renal diet Neurology, cardiology note reviewed Subjective Date of service: 05/09/22 Principal diagnosis: AMS; UTI; ANJU; Septic shock; E.Coli Bacteremia; UTI; Throm bocytopenia Interval history: Patient remains lethargic in ICU Vitals, labs and I/os reviewed Interdisciplinary notes and consults reviewed Objective - Exam Narrative Exam: Constitutional: unresponsive Head: NC/AT Neck: supple Lungs: clear to auscultation CV: RRR, no M/R/G Abdomen: soft, non-tender, bowel sounds present Back: nontender Extremities: no edema, pulses WNL Skin: intact Neuro: Somnolent. Altered. - Vital Signs Vital signs: Vital Signs - 12hr 05/09/22 05/09/22 05/09/22 02:30 02:35 03:00 Temperature Pulse Rate 117 H 117 H Pulse Rate [ From Monitor] Respiratory 32 H 28 H 29 H Rate Blood Pressure 110/58 128/66 O2 Sat by Pulse 97 95 95 Oximetry 05/09/22 05/09/22 05/09/22 03:23 03:25 03:30 Temperature 99.0 F Pulse Rate 113 H 111 H Pulse Rate [ 115 H From Monitor] Respiratory 28 H 29 H Rate Blood Pressure 112/64 O2 Sat by Pulse 95 96 Oximetry 05/09/22 05/09/22 05/09/22 04:00 04:30 05:00 Temperature Pulse Rate 118 H 112 H 116 H Pulse Rate [ From Monitor] Respiratory 42 H 30 H 28 H Rate Blood Pressure 122/72 115/65 118/78 O2 Sat by Pulse 96 98 97 Oximetry 05/09/22 05/09/22 05/09/22 05:30 05:44 06:00 Temperature Pulse Rate 114 H 115 H Pulse Rate [ 113 H From Monitor] Respiratory 28 H 28 H 36 H Rate Blood Pressure 121/59 104/69 O2 Sat by Pulse 96 95 Oximetry 05/09/22 05/09/22 05/09/22 06:30 07:00 07:30 Temperature Pulse Rate 104 H 104 H 104 H Pulse Rate [ From Monitor] Respiratory 29 H 27 H 29 H Rate Blood Pressure 117/57 124/55 130/63 O2 Sat by Pulse 99 99 99 Oximetry 05/09/22 05/09/22 05/09/22 08:00 08:30 09:00 Temperature 98.3 F Pulse Rate 97 H 101 H 98 H Pulse Rate [ From Monitor] Respiratory 29 H 27 H 25 H Rate Blood Pressure 117/63 109/61 110/65 O2 Sat by Pulse 99 100 100 Oximetry 05/09/22 05/09/22 05/09/22 09:30 10:00 10:30 Temperature Pulse Rate 100 H 96 H 106 H Pulse Rate [ From Monitor] Respiratory 29 H 29 H 27 H Rate Blood Pressure 122/59 131/66 136/76 O2 Sat by Pulse 100 99 99 Oximetry 05/09/22 05/09/22 05/09/22 11:00 11:30 12:00 Temperature 98.8 F Pulse Rate 103 H 102 H 101 H Pulse Rate [ 104 H From Monitor] Respiratory 29 H 27 H 21 Rate Blood Pressure 136/76 122/62 112/60 O2 Sat by Pulse 100 99 89 Oximetry 05/09/22 12:30 Temperature Pulse Rate 99 H Pulse Rate [ From Monitor] Respiratory 30 H Rate Blood Pressure 81/43 O2 Sat by Pulse 81 L Oximetry - Lab 05/09/22 04:05 05/09/22 04:05 Most recent lab results ABG pH 7.470 pH Units (7.350-7.450) H 05/08/22 11:02 ABG pCO2 28.9 mm Hg 05/08/22 11:02 ABG pO2 65.4 mm Hg (80.0-90.0) L 05/08/22 11:02 ABG HCO3 20.6 mmol/L (20.0-26.0) 05/08/22 11:02 ABG O2 Saturation 95.1 % (95.0-99.0) 05/08/22 11:02 Calcium 8.1 mg/dL (8.4-10.2) L 05/09/22 04:05 Phosphorus 1.40 mg/dL (2.5-4.5) L D 05/06/22 15:46 Magnesium 2.00 mg/dL (1.7-2.3) 05/06/22 15:46 Medications & Allergies - Medications Allergies/Adverse Reactions: Allergies aspirin Adverse Reaction (Verified 05/02/22 13:20) Bleeding levofloxacin [From Levaquin] Adverse Reaction (Verified 05/07/22 10:25) Rash and severe diarrhea blood thinners Adverse Reaction (Uncoded 05/02/22 13:20) Bleeding Home Medications: Home Medications Medication Instructions Recorded Confirmed Last Taken Type Memantine HCl [Namenda] 10 mg PO BID 04/21/17 05/02/22 05/01/22 History Omeprazole 40 mg PO QDAY 04/21/17 05/02/22 05/01/22 History Sertraline [Zoloft] 50 mg PO QDAY 04/21/17 05/02/22 05/01/22 History Simvastatin (NF) [Zocor TAB] 40 mg PO QHS 04/21/17 05/02/22 05/01/22 History Tamsulosin [Flomax] 0.4 mg PO QDAY 05/07/22 05/07/22 05/01/22 History Active Medications: Generic Name Dose Route Start Last Admin Trade Name Freq PRN Reason Stop Dose Admin Acetaminophen 650 mg 05/02/22 00:33 Acetaminophen 325 Mg Tab PO Q4H PRN Pain MILD(1-3)/Fever >100.5/ALLEN Acetaminophen 650 mg 05/08/22 18:55 Acetaminophen 650 Mg Rect Supp GA Q4H PRN Fever >101 Ascorbic Acid 500 mg 05/05/22 22:00 05/09/22 09:00 Ascorbic Acid 500 Mg Tab PO 05/10/22 10:01 Not Given BID [facility] Aspirin 325 mg 05/08/22 17:36 Aspirin 81 Mg Tab Chew PO QDAY GENA Atorvastatin Calcium 40 mg 05/02/22 22:00 05/08/22 21:00 Atorvastatin 40 Mg Tab PO Not Given QHS [facility] Dextrose 50 ml 05/02/22 18:49 Dextrose 50% In Water (25gm) 50 Ml Syringe IV Q30MIN PRN Hypoglycemia Protocol Famotidine 20 mg 05/03/22 10:00 05/09/22 09:01 Famotidine 20 Mg Tab PO Not Given QDAY GENA Haloperidol Lactate 5 mg 05/03/22 13:25 05/06/22 03:42 Haloperidol Lactate 5 Mg/1 Ml Inj IV 5 mg Q6H PRN Administration Agitation Hydralazine HCl 10 mg 05/05/22 17:45 Hydralazine 20 Mg/1 Ml Inj IV Q4HR PRN Hypertension Ceftriaxone Sodium 2 gm in 100 mls @ 200 mls/hr 05/06/22 10:00 05/09/22 09:38 Rocephin/Ns 2 Gm/100 Ml IV 05/19/22 10:29 200 mls/hr Q24H GENA Administration Protocol Insulin Human Regular 0 units 05/09/22 12:00 05/09/22 12:58 Insulin Regular, Human 100 Units/1 Ml SUB-Q Not Given Q6H [facility] Protocol Magnesium Hydroxide 30 ml 05/02/22 00:33 Magnesium Hydroxide (Mom) Oral Liqd Udc PO Q4H PRN Constipation Memantine 10 mg 05/05/22 22:00 05/09/22 09:00 Memantine 10 Mg Tab PO Not Given BID [facility] Morphine Sulfate 2 mg 05/02/22 00:33 05/06/22 01:31 Morphine 2 Mg/1 Ml Inj IV 2 mg Q4H PRN Administration Pain, Moderate (4-6) Ondansetron HCl 4 mg 05/02/22 00:33 Ondansetron 4 Mg/2 Ml Inj IV Q8H PRN Nausea And Vomiting Potassium Chloride 20 meq 05/09/22 12:00 Potassium Chloride 20 Meq Packet FEEDTUBE 05/09/22 16:00 ONCE@1200 [facility] Senna/Docusate Sodium 1 tab 05/03/22 22:00 05/08/22 21:50 Sennosides/Docusate Sodium 8.6/50 Mg Tab PO Not Given QHS GENA Sodium Chloride 10 ml 05/02/22 10:00 05/09/22 09:39 Sodium Chloride 0.9% 10 Ml Flush Syringe IV 10 ml BID GENA Administration Sodium Chloride 10 ml 05/02/22 00:33 Sodium Chloride 0.9% 10 Ml Flush Syringe IV PRN PRN LINE FLUSH Zinc Sulfate 220 mg 05/06/22 10:00 05/09/22 09:00 Zinc Sulfate 220 Mg Cap PO 05/15/22 10:01 Not Given QDAY GENA
[2022-05-09] MEDS ORDERED: ASPIRIN 300 MG RECT SUPP PR SCH (16:00)
[2022-05-09] MEDS ORDERED: POTASSIUM CHLORIDE 20 MEQ 20 MEQ/100 ML BAG IV ONE (16:30)
--- NOTE | 2022-05-09 17:19 | Progress Note ---
Assessment and Plan 86 yo male with htn, hld, stroke (hx of ich), recent covid-19 (past 2-3 weeks), dementia, bph, who initially presented with acute encephaloapthy and is admitted w/ urosepsis; in icu initially for pressors and for afib w/ rvr; per RN (at [facility]), awake, no focal weakness; difficulty getting words out; no seizure-like activity. 1. Acute Ischemic Stroke - in the setting of afib and recent covid-19, concern is raised for a cardioembolic event; recommend CUS to confirm no ipsilateral ICA stenosis; aspirin 325 mg po or 300 mg pr qday / statin therapy; repeat stat nchct ordered; please see #2 below with regards to hx of ich and contraindication to anticoagulation and instead a watchman procedure; tte (if negative, recommend agatha in the setting of "sepsis" to rule out underlying endocarditis); pt/ot/st/swallow evaluation/monitoring; stroke education upon discharge. 2. Paroxysmal AFib w/ hx of ICH - recommend watchman procedure for secondary stroke prophylaxis. 3. Hypertension - aim for permissive hypertension for 48 more hours. 4. Hyperlipidemai - goal ld of 70 w/ statin therapy if no contraindications. 5. Metabolic Encephalopathy - management per primary team in the setting of sepsis. 6. Dementia - monitor clinically; risk of sundowning. Chris Naqvi MD Neurology Subjective Date of service: 05/09/22 Principal diagnosis: AMS; UTI; ANJU; Septic shock; E.Coli Bacteremia; UTI; Thrombocytopenia Interval history: Requested by BIOMEDICAL EQUIPMENT TECHNICIAN for followup of CT Head wo contrast which reveals a left constance/mca territory infarct. Objective - Vital Sign Vital Signs - 12hr 05/09/22 05/09/22 05/09/22 05:30 05:44 06:00 Temperature Pulse Rate 114 H 115 H Pulse Rate [ 113 H From Monitor] Respiratory 28 H 28 H 36 H Rate Blood Pressure 121/59 104/69 O2 Sat by Pulse 96 95 Oximetry 05/09/22 05/09/22 05/09/22 06:30 07:00 07:30 Temperature Pulse Rate 104 H 104 H 104 H Pulse Rate [ From Monitor] Respiratory 29 H 27 H 29 H Rate Blood Pressure 117/57 124/55 130/63 O2 Sat by Pulse 99 99 99 Oximetry 05/09/22 05/09/2222 08:00 08:30 09:00 Temperature 98.3 F Pulse Rate 97 H 101 H 98 H Pulse Rate [ From Monitor] Respiratory 29 H 27 H 25 H Rate Blood Pressure 117/63 109/61 110/65 O2 Sat by Pulse 99 100 100 Oximetry 05/09/22 05/09/22 05/09/22 09:30 10:00 10:30 Temperature Pulse Rate 100 H 96 H 106 H Pulse Rate [ From Monitor] Respiratory 29 H 29 H 27 H Rate Blood Pressure 122/59 131/66 136/76 O2 Sat by Pulse 100 99 99 Oximetry 05/09/22 05/09/22 05/09/22 11:00 11:30 12:00 Temperature 98.8 F Pulse Rate 103 H 102 H 101 H Pulse Rate [ 104 H From Monitor] Respiratory 29 H 27 H 21 Rate Blood Pressure 136/76 122/62 112/60 O2 Sat by Pulse 100 99 89 Oximetry 05/09/22 05/09/22 05/09/22 12:30 13:00 13:30 Temperature Pulse Rate 99 H 107 H 97 H Pulse Rate [ From Monitor] Respiratory 30 H 26 H 28 H Rate Blood Pressure 81/43 90/48 103/53 O2 Sat by Pulse 81 L 89 97 Oximetry 05/09/22 14:00 Temperature Pulse Rate 96 H Pulse Rate [ From Monitor] Respiratory 28 H Rate Blood Pressure 101/47 O2 Sat by Pulse 93 Oximetry - Laboratory Findings CBC and BMP: 05/09/22 04:05 05/09/22 04:05 Abnormal Lab Findings: Abnormal Labs 05/01/22 05/01/22 05/01/22 23:14 23:14 23:14 WBC RBC Hgb 10.8 L Hct 30.9 L MCHC 35 H RDW 18.0 H Plt Count 113 L Lymph % (Auto) [place] % (Auto) Lymph # (Auto) [place] # (Auto) Seg Neutrophils % Seg Neuts % (Manual) Lymphocytes % (Manual) Seg Neutrophils # Seg Neutrophils # Man Lymphocytes # (Manual) PT 19.1 H INR 1.42 H APTT 39.9 H D-Dimer ABG pH ABG pO2 ABG HCO3 ABG O2 Saturation ABG Base Excess ABG Hemoglobin Oxyhemoglobin Sodium 125 L Potassium Chloride 91.0 L Carbon Dioxide 21 L BUN 38 H Creatinine 2.1 H Glucose 131 H POC Glucose Lactic Acid Calcium 7.9 L Phosphorus Magnesium 1.60 L Ferritin AST Total Creatine Kinase Troponin T C-Reactive Protein NT-Pro-B Natriuret Pep Total Protein 4.8 L Albumin 3.3 L Prealbumin LDL Cholesterol Direct Vitamin B12 Urine WBC (Auto) OSKAR Screen Coronavirus (PCR) SARS-CoV-2 (PCR) 05/01/22 05/01/22 05/02/22 23:14 23:54 03:39 WBC RBC Hgb Hct MCHC RDW Plt Count Lymph % (Auto) [place] % (Auto) Lymph # (Auto) [place] # (Auto) Seg Neutrophils % Seg Neuts % (Manual) Lymphocytes % (Manual) Seg Neutrophils # Seg Neutrophils # Man Lymphocytes # (Manual) PT INR APTT D-Dimer ABG pH ABG pO2 ABG HCO3 ABG O2 Saturation ABG Base Excess ABG Hemoglobin Oxyhemoglobin Sodium Potassium Chloride Carbon Dioxide BUN Creatinine Glucose POC Glucose Lactic Acid 2.30 H* Calcium Phosphorus Magnesium Ferritin AST Total Creatine Kinase Troponin T 0.054 H C-Reactive Protein NT-Pro-B Natriuret Pep 00965 H Total Protein Albumin Prealbumin LDL Cholesterol Direct 25 L Vitamin B12 Urine WBC (Auto) > 182.0 H OSKAR Screen Coronavirus (PCR) SARS-CoV-2 (PCR) 05/02/22 05/02/22 05/02/22 06:05 11:14 11:14 WBC RBC Hgb Hct MCHC RDW Plt Count Lymph % (Auto) [place] % (Auto) Lymph # (Auto) [place] # (Auto) Seg Neutrophils % Seg Neuts % (Manual) Lymphocytes % (Manual) Seg Neutrophils # Seg Neutrophils # Man Lymphocytes # (Manual) PT INR APTT D-Dimer 1135.33 H ABG pH ABG pO2 ABG HCO3 ABG O2 Saturation ABG Base Excess ABG Hemoglobin Oxyhemoglobin Sodium 132 L D Potassium Chloride Carbon Dioxide 15 L BUN 41 H Creatinine 2.1 H Glucose 127 H POC Glucose 139 H Lactic Acid Calcium 7.6 L Phosphorus Magnesium Ferritin AST Total Creatine Kinase Troponin T 0.196 H* D C-Reactive Protein 29.00 H NT-Pro-B Natriuret Pep Total Protein Albumin Prealbumin LDL Cholesterol Direct Vitamin B12 Urine WBC (Auto) OSKAR Screen Coronavirus (PCR) SARS-CoV-2 (PCR) 05/02/22 05/02/22 05/02/22 11:14 11:14 17:10 WBC RBC Hgb Hct MCHC RDW Plt Count Lymph % (Auto) [place] % (Auto) Lymph # (Auto) [place] # (Auto) Seg Neutrophils % Seg Neuts % (Manual) Lymphocytes % (Manual) Seg Neutrophils # Seg Neutrophils # Man Lymphocytes # (Manual) PT INR APTT D-Dimer ABG pH ABG pO2 ABG HCO3 ABG O2 Saturation ABG Base Excess ABG Hemoglobin Oxyhemoglobin Sodium 130 L Potassium Chloride 96.0 L Carbon Dioxide 17 L BUN 42 H Creatinine 2.3 H Glucose 141 H POC Glucose 150 H Lactic Acid Calcium 7.7 L Phosphorus Magnesium Ferritin 544.4 H AST Total Creatine Kinase Troponin T C-Reactive Protein NT-Pro-B Natriuret Pep Total Protein Albumin Prealbumin LDL Cholesterol Direct Vitamin B12 Urine WBC (Auto) OSKAR Screen Coronavirus (PCR) SARS-CoV-2 (PCR) 05/02/22 05/02/22 05/02/22 20:20 20:20 20:20 WBC RBC Hgb Hct MCHC RDW Plt Count Lymph % (Auto) [place] % (Auto) Lymph # (Auto) [place] # (Auto) Seg Neutrophils % Seg Neuts % (Manual) Lymphocytes % (Manual) Seg Neutrophils # Seg Neutrophils # Man Lymphocytes # (Manual) PT INR APTT D-Dimer ABG pH ABG pO2 ABG HCO3 ABG O2 Saturation ABG Base Excess ABG Hemoglobin Oxyhemoglobin Sodium 133 L Potassium Chloride Carbon Dioxide BUN Creatinine Glucose POC Glucose Lactic Acid Calcium Phosphorus Magnesium Ferritin AST Total Creatine Kinase 816 H Troponin T C-Reactive Protein NT-Pro-B Natriuret Pep Total Protein Albumin Prealbumin LDL Cholesterol Direct Vitamin B12 Urine WBC (Auto) OSKAR Screen Positive H Coronavirus (PCR) SARS-CoV-2 (PCR) 05/02/22 05/02/22 05/03/22 22:06 Unknown 05:00 WBC 13.3 H RBC 3.62 L Hgb 10.1 L Hct 30.8 L MCHC RDW 19.1 H Plt Count Lymph % (Auto) 3.9 L [place] % (Auto) 9.4 H Lymph # (Auto) 0.5 L [place] # (Auto) 1.3 H Seg Neutrophils % 85.6 H Seg Neuts % (Manual) Lymphocytes % (Manual) Seg Neutrophils # 11.4 H Seg Neutrophils # Man Lymphocytes # (Manual) PT INR APTT D-Dimer ABG pH ABG pO2 ABG HCO3 ABG O2 Saturation ABG Base Excess ABG Hemoglobin Oxyhemoglobin Sodium Potassium Chloride Carbon Dioxide BUN Creatinine Glucose POC Glucose 146 H Lactic Acid Calcium Phosphorus Magnesium Ferritin AST Total Creatine Kinase Troponin T C-Reactive Protein NT-Pro-B Natriuret Pep Total Protein Albumin Prealbumin LDL Cholesterol Direct Vitamin B12 Urine WBC (Auto) OSKAR Screen Coronavirus (PCR) Positive A SARS-CoV-2 (PCR) 05/03/22 05/03/22 05/03/22 06:48 08:48 11:07 WBC RBC Hgb Hct MCHC RDW Plt Count Lymph % (Auto) [place] % (Auto) Lymph # (Auto) [place] # (Auto) Seg Neutrophils % Seg Neuts % (Manual) Lymphocytes % (Manual) Seg Neutrophils # Seg Neutrophils # Man Lymphocytes # (Manual) PT INR APTT D-Dimer ABG pH ABG pO2 ABG HCO3 ABG O2 Saturation ABG Base Excess ABG Hemoglobin Oxyhemoglobin Sodium 135 L Potassium Chloride Carbon Dioxide 16 L BUN 38 H Creatinine 2.0 H Glucose 122 H POC Glucose 127 H 116 H Lactic Acid Calcium 7.6 L Phosphorus Magnesium Ferritin AST Total Creatine Kinase Troponin T C-Reactive Protein NT-Pro-B Natriuret Pep Total Protein Albumin Prealbumin LDL Cholesterol Direct Vitamin B12 Urine WBC (Auto) OSKAR Screen Coronavirus (PCR) SARS-CoV-2 (PCR) 05/03/22 05/03/22 05/04/22 16:29 22:29 05:00 WBC RBC 3.39 L Hgb 9.6 L Hct 28.8 L MCHC RDW 18.8 H Plt Count Lymph % (Auto) [place] % (Auto) Lymph # (Auto) [place] # (Auto) Seg Neutrophils % Seg Neuts % (Manual) Lymphocytes % (Manual) Seg Neutrophils # Seg Neutrophils # Man Lymphocytes # (Manual) PT INR APTT D-Dimer ABG pH ABG pO2 ABG HCO3 ABG O2 Saturation ABG Base Excess ABG Hemoglobin Oxyhemoglobin Sodium Potassium Chloride Carbon Dioxide BUN Creatinine Glucose POC Glucose 113 H 113 H Lactic Acid Calcium Phosphorus Magnesium Ferritin AST Total Creatine Kinase Troponin T C-Reactive Protein NT-Pro-B Natriuret Pep Total Protein Albumin Prealbumin LDL Cholesterol Direct Vitamin B12 Urine WBC (Auto) OSKAR Screen Coronavirus (PCR) SARS-CoV-2 (PCR) 05/04/22 05/04/22 05/04/22 05:00 07:40 11:22 WBC RBC Hgb Hct MCHC RDW Plt Count Lymph % (Auto) [place] % (Auto) Lymph # (Auto) [place] # (Auto) Seg Neutrophils % Seg Neuts % (Manual) Lymphocytes % (Manual) Seg Neutrophils # Seg Neutrophils # Man Lymphocytes # (Manual) PT INR APTT D-Dimer ABG pH ABG pO2 ABG HCO3 ABG O2 Saturation ABG Base Excess ABG Hemoglobin Oxyhemoglobin Sodium Potassium 3.3 L D Chloride 108.7 H Carbon Dioxide 17 L BUN 37 H Creatinine 1.8 H Glucose 117 H POC Glucose 107 H 124 H Lactic Acid Calcium 7.4 L Phosphorus Magnesium Ferritin AST Total Creatine Kinase Troponin T C-Reactive Protein NT-Pro-B Natriuret Pep Total Protein Albumin Prealbumin LDL Cholesterol Direct Vitamin B12 Urine WBC (Auto) OSKAR Screen Coronavirus (PCR) SARS-CoV-2 (PCR) 05/04/22 05/04/22 05/04/22 15:57 18:55 22:40 WBC RBC Hgb Hct MCHC RDW Plt Count Lymph % (Auto) [place] % (Auto) Lymph # (Auto) [place] # (Auto) Seg Neutrophils % Seg Neuts % (Manual) Lymphocytes % (Manual) Seg Neutrophils # Seg Neutrophils # Man Lymphocytes # (Manual) PT INR APTT D-Dimer ABG pH ABG pO2 ABG HCO3 ABG O2 Saturation ABG Base Excess ABG Hemoglobin Oxyhemoglobin Sodium Potassium 3.5 L Chloride 109.4 H Carbon Dioxide 18 L BUN 31 H Creatinine 1.6 H Glucose 166 H POC Glucose 147 H 138 H Lactic Acid Calcium 7.4 L Phosphorus Magnesium Ferritin AST Total Creatine Kinase Troponin T C-Reactive Protein NT-Pro-B Natriuret Pep Total Protein Albumin Prealbumin LDL Cholesterol Direct Vitamin B12 Urine WBC (Auto) OSKAR Screen Coronavirus (PCR) SARS-CoV-2 (PCR) 05/05/22 05/05/22 05/05/22 04:38 04:38 07:35 WBC RBC Hgb 10.6 L Hct 32.3 L MCHC RDW 19.3 H Plt Count Lymph % (Auto) [place] % (Auto) Lymph # (Auto) [place] # (Auto) Seg Neutrophils % Seg Neuts % (Manual) Lymphocytes % (Manual) Seg Neutrophils # Seg Neutrophils # Man Lymphocytes # (Manual) PT INR APTT D-Dimer ABG pH ABG pO2 ABG HCO3 ABG O2 Saturation ABG Base Excess ABG Hemoglobin Oxyhemoglobin Sodium Potassium 3.2 L Chloride 112.3 H Carbon Dioxide 19 L BUN 27 H Creatinine 1.6 H Glucose 168 H POC Glucose 152 H Lactic Acid Calcium 7.6 L Phosphorus 2.30 L Magnesium Ferritin AST 44 H Total Creatine Kinase Troponin T C-Reactive Protein NT-Pro-B Natriuret Pep Total Protein 4.5 L Albumin 2.5 L Prealbumin LDL Cholesterol Direct Vitamin B12 Urine WBC (Auto) OSKAR Screen Coronavirus (PCR) SARS-CoV-2 (PCR) 05/05/22 05/05/22 05/05/22 13:06 16:20 22:07 WBC RBC Hgb Hct MCHC RDW Plt Count Lymph % (Auto) [place] % (Auto) Lymph # (Auto) [place] # (Auto) Seg Neutrophils % Seg Neuts % (Manual) Lymphocytes % (Manual) Seg Neutrophils # Seg Neutrophils # Man Lymphocytes # (Manual) PT INR APTT D-Dimer ABG pH ABG pO2 ABG HCO3 ABG O2 Saturation ABG Base Excess ABG Hemoglobin Oxyhemoglobin Sodium Potassium Chloride Carbon Dioxide BUN Creatinine Glucose POC Glucose 208 H 164 H 148 H Lactic Acid Calcium Phosphorus Magnesium Ferritin AST Total Creatine Kinase Troponin T C-Reactive Protein NT-Pro-B Natriuret Pep Total Protein Albumin Prealbumin LDL Cholesterol Direct Vitamin B12 Urine WBC (Auto) OSKAR Screen Coronavirus (PCR) SARS-CoV-2 (PCR) 05/06/22 05/06/22 05/06/22 04:43 04:43 07:27 WBC RBC Hgb Hct MCHC RDW Plt Count Lymph % (Auto) [place] % (Auto) Lymph # (Auto) [place] # (Auto) Seg Neutrophils % Seg Neuts % (Manual) Lymphocytes % (Manual) Seg Neutrophils # Seg Neutrophils # Man Lymphocytes # (Manual) PT INR APTT D-Dimer ABG pH ABG pO2 ABG HCO3 ABG O2 Saturation ABG Base Excess ABG Hemoglobin Oxyhemoglobin Sodium Potassium Chloride Carbon Dioxide BUN Creatinine Glucose POC Glucose 127 H Lactic Acid Calcium Phosphorus Magnesium Ferritin AST Total Creatine Kinase Troponin T C-Reactive Protein NT-Pro-B Natriuret Pep Total Protein Albumin Prealbumin 0.055 L LDL Cholesterol Direct Vitamin B12 1464 H Urine WBC (Auto) OSKAR Screen Coronavirus (PCR) SARS-CoV-2 (PCR) 05/06/22 05/06/22 05/06/22 11:30 15:46 16:49 WBC RBC Hgb Hct MCHC RDW Plt Count Lymph % (Auto) [place] % (Auto) Lymph # (Auto) [place] # (Auto) Seg Neutrophils % Seg Neuts % (Manual) Lymphocytes % (Manual) Seg Neutrophils # Seg Neutrophils # Man Lymphocytes # (Manual) PT INR APTT D-Dimer ABG pH ABG pO2 ABG HCO3 ABG O2 Saturation ABG Base Excess ABG Hemoglobin Oxyhemoglobin Sodium 148 H Potassium 3.3 L Chloride 112.7 H Carbon Dioxide 21 L BUN 28 H Creatinine Glucose 143 H POC Glucose 211 H 148 H Lactic Acid Calcium Phosphorus 1.40 L D Magnesium Ferritin AST Total Creatine Kinase Troponin T C-Reactive Protein NT-Pro-B Natriuret Pep Total Protein Albumin Prealbumin LDL Cholesterol Direct Vitamin B12 Urine WBC (Auto) OSKAR Screen Coronavirus (PCR) SARS-CoV-2 (PCR) 05/06/22 05/07/22 05/07/22 22:35 08:22 08:23 WBC 15.4 H RBC Hgb 10.9 L Hct 32.7 L MCHC RDW 19.2 H Plt Count Lymph % (Auto) 5.8 L [place] % (Auto) 7.7 H Lymph # (Auto) 0.9 L [place] # (Auto) 1.2 H Seg Neutrophils % 86.3 H Seg Neuts % (Manual) Lymphocytes % (Manual) Seg Neutrophils # 13.3 H Seg Neutrophils # Man Lymphocytes # (Manual) PT INR APTT D-Dimer ABG pH ABG pO2 ABG HCO3 ABG O2 Saturation ABG Base Excess ABG Hemoglobin Oxyhemoglobin Sodium Potassium Chloride Carbon Dioxide BUN Creatinine Glucose POC Glucose 156 H 169 H Lactic Acid Calcium Phosphorus Magnesium Ferritin AST Total Creatine Kinase Troponin T C-Reactive Protein NT-Pro-B Natriuret Pep Total Protein Albumin Prealbumin LDL Cholesterol Direct Vitamin B12 Urine WBC (Auto) OSKAR Screen Coronavirus (PCR) SARS-CoV-2 (PCR) 05/07/22 05/07/22 05/07/22 08:23 08:23 08:23 WBC RBC Hgb Hct MCHC RDW Plt Count Lymph % (Auto) [place] % (Auto) Lymph # (Auto) [place] # (Auto) Seg Neutrophils % Seg Neuts % (Manual) Lymphocytes % (Manual) Seg Neutrophils # Seg Neutrophils # Man Lymphocytes # (Manual) PT 17.7 H INR 1.30 H APTT D-Dimer ABG pH ABG pO2 ABG HCO3 ABG O2 Saturation ABG Base Excess ABG Hemoglobin Oxyhemoglobin Sodium 152 H Potassium 3.3 L Chloride 116.9 H Carbon Dioxide 20 L BUN 27 H Creatinine Glucose 150 H POC Glucose Lactic Acid 2.40 H* Calcium 8.3 L Phosphorus Magnesium Ferritin AST Total Creatine Kinase Troponin T C-Reactive Protein NT-Pro-B Natriuret Pep Total Protein Albumin Prealbumin LDL Cholesterol Direct Vitamin B12 Urine WBC (Auto) OSKAR Screen Coronavirus (PCR) SARS-CoV-2 (PCR) 05/07/22 05/07/22 05/07/22 09:10 12:23 15:35 WBC RBC Hgb Hct MCHC RDW Plt Count Lymph % (Auto) [place] % (Auto) Lymph # (Auto) [place] # (Auto) Seg Neutrophils % Seg Neuts % (Manual) Lymphocytes % (Manual) Seg Neutrophils # Seg Neutrophils # Man Lymphocytes # (Manual) PT INR APTT D-Dimer 4522.88 H ABG pH 7.471 H ABG pO2 64.0 L ABG HCO3 19.1 L ABG O2 Saturation 94.8 L ABG Base Excess -3.6 L ABG Hemoglobin 9.7 L Oxyhemoglobin 92.4 L Sodium Potassium Chloride Carbon Dioxide BUN Creatinine Glucose POC Glucose 132 H Lactic Acid Calcium Phosphorus Magnesium Ferritin AST Total Creatine Kinase Troponin T C-Reactive Protein NT-Pro-B Natriuret Pep Total Protein Albumin Prealbumin LDL Cholesterol Direct Vitamin B12 Urine WBC (Auto) OSKAR Screen Coronavirus (PCR) SARS-CoV-2 (PCR) 05/07/22 05/07/22 05/07/22 15:35 15:35 17:19 WBC RBC Hgb Hct MCHC RDW Plt Count Lymph % (Auto) [place] % (Auto) Lymph # (Auto) [place] # (Auto) Seg Neutrophils % Seg Neuts % (Manual) Lymphocytes % (Manual) Seg Neutrophils # Seg Neutrophils # Man Lymphocytes # (Manual) PT INR APTT D-Dimer ABG pH ABG pO2 ABG HCO3 ABG O2 Saturation ABG Base Excess ABG Hemoglobin Oxyhemoglobin Sodium Potassium Chloride Carbon Dioxide BUN Creatinine Glucose POC Glucose 137 H Lactic Acid Calcium Phosphorus Magnesium Ferritin 735.8 H AST Total Creatine Kinase Troponin T C-Reactive Protein 22.70 H NT-Pro-B Natriuret Pep 97444 H Total Protein Albumin Prealbumin LDL Cholesterol Direct Vitamin B12 Urine WBC (Auto) OSKAR Screen Coronavirus (PCR) SARS-CoV-2 (PCR) 05/07/22 05/07/22 05/08/22 19:52 22:51 07:23 WBC RBC Hgb Hct MCHC RDW Plt Count Lymph % (Auto) [place] % (Auto) Lymph # (Auto) [place] # (Auto) Seg Neutrophils % Seg Neuts % (Manual) Lymphocytes % (Manual) Seg Neutrophils # Seg Neutrophils # Man Lymphocytes # (Manual) PT INR APTT D-Dimer ABG pH ABG pO2 ABG HCO3 ABG O2 Saturation ABG Base Excess ABG Hemoglobin Oxyhemoglobin Sodium Potassium Chloride Carbon Dioxide BUN Creatinine Glucose POC Glucose 172 H 214 H Lactic Acid 2.20 H* Calcium Phosphorus Magnesium Ferritin AST Total Creatine Kinase Troponin T C-Reactive Protein NT-Pro-B Natriuret Pep Total Protein Albumin Prealbumin LDL Cholesterol Direct Vitamin B12 Urine WBC (Auto) OSKAR Screen Coronavirus (PCR) SARS-CoV-2 (PCR) 05/08/22 05/08/22 05/08/22 07:26 07:26 08:00 WBC 17.1 H RBC Hgb 10.5 L Hct 32.2 L MCHC RDW 19.6 H Plt Count Lymph % (Auto) [place] % (Auto) Lymph # (Auto) [place] # (Auto) Seg Neutrophils % Seg Neuts % (Manual) 92.0 H Lymphocytes % (Manual) 4.0 L Seg Neutrophils # Seg Neutrophils # Man 15.7 H Lymphocytes # (Manual) 0.7 L PT INR APTT D-Dimer ABG pH ABG pO2 ABG HCO3 ABG O2 Saturation ABG Base Excess ABG Hemoglobin Oxyhemoglobin Sodium 146 H Potassium Chloride 111.2 H Carbon Dioxide 21 L BUN 33 H Creatinine 1.5 H Glucose 207 H POC Glucose Lactic Acid 2.10 H* Calcium 8.2 L Phosphorus Magnesium Ferritin AST Total Creatine Kinase Troponin T C-Reactive Protein NT-Pro-B Natriuret Pep Total Protein Albumin Prealbumin LDL Cholesterol Direct Vitamin B12 Urine WBC (Auto) OSKAR Screen Coronavirus (PCR) SARS-CoV-2 (PCR) 05/08/22 05/08/22 05/08/22 10:38 10:40 11:02 WBC RBC Hgb Hct MCHC RDW Plt Count Lymph % (Auto) [place] % (Auto) Lymph # (Auto) [place] # (Auto) Seg Neutrophils % Seg Neuts % (Manual) Lymphocytes % (Manual) Seg Neutrophils # Seg Neutrophils # Man Lymphocytes # (Manual) PT INR APTT D-Dimer ABG pH 7.470 H ABG pO2 65.4 L ABG HCO3 ABG O2 Saturation ABG Base Excess -2.2 L ABG Hemoglobin 10.5 L Oxyhemoglobin 93.1 L Sodium Potassium Chloride Carbon Dioxide BUN Creatinine Glucose POC Glucose 163 H Lactic Acid 2.40 H* Calcium Phosphorus Magnesium Ferritin AST Total Creatine Kinase Troponin T C-Reactive Protein NT-Pro-B Natriuret Pep Total Protein Albumin Prealbumin LDL Cholesterol Direct Vitamin B12 Urine WBC (Auto) OSKAR Screen Coronavirus (PCR) SARS-CoV-2 (PCR) 05/08/22 05/08/22 05/08/22 17:35 17:47 21:48 WBC RBC Hgb Hct MCHC RDW Plt Count Lymph % (Auto) [place] % (Auto) Lymph # (Auto) [place] # (Auto) Seg Neutrophils % Seg Neuts % (Manual) Lymphocytes % (Manual) Seg Neutrophils # Seg Neutrophils # Man Lymphocytes # (Manual) PT INR APTT D-Dimer ABG pH ABG pO2 ABG HCO3 ABG O2 Saturation ABG Base Excess ABG Hemoglobin Oxyhemoglobin Sodium Potassium Chloride Carbon Dioxide BUN Creatinine Glucose POC Glucose 143 H 151 H Lactic Acid 2.10 H* Calcium Phosphorus Magnesium Ferritin AST Total Creatine Kinase Troponin T C-Reactive Protein NT-Pro-B Natriuret Pep Total Protein Albumin Prealbumin LDL Cholesterol Direct Vitamin B12 Urine WBC (Auto) OSKAR Screen Coronavirus (PCR) SARS-CoV-2 (PCR) 05/09/22 05/09/22 05/09/22 04:05 04:05 11:43 WBC 15.3 H RBC 3.49 L Hgb 9.8 L Hct 29.4 L MCHC RDW 19.2 H Plt Count Lymph % (Auto) 5.5 L [place] % (Auto) Lymph # (Auto) 0.8 L [place] # (Auto) Seg Neutrophils % 89.9 H Seg Neuts % (Manual) Lymphocytes % (Manual) Seg Neutrophils # 13.8 H Seg Neutrophils # Man Lymphocytes # (Manual) PT INR APTT D-Dimer ABG pH ABG pO2 ABG HCO3 ABG O2 Saturation ABG Base Excess ABG Hemoglobin Oxyhemoglobin Sodium 151 H Potassium 3.3 L Chloride 115.0 H Carbon Dioxide BUN 47 H Creatinine 1.7 H Glucose 158 H POC Glucose 160 H Lactic Acid Calcium 8.1 L Phosphorus Magnesium Ferritin AST Total Creatine Kinase Troponin T C-Reactive Protein NT-Pro-B Natriuret Pep Total Protein Albumin Prealbumin LDL Cholesterol Direct Vitamin B12 Urine WBC (Auto) OSKAR Screen Coronavirus (PCR) SARS-CoV-2 (PCR) 05/09/22 16:01 WBC RBC Hgb Hct MCHC RDW Plt Count Lymph % (Auto) [place] % (Auto) Lymph # (Auto) [place] # (Auto) Seg Neutrophils % Seg Neuts % (Manual) Lymphocytes % (Manual) Seg Neutrophils # Seg Neutrophils # Man Lymphocytes # (Manual) PT INR APTT D-Dimer ABG pH ABG pO2 ABG HCO3 ABG O2 Saturation ABG Base Excess ABG Hemoglobin Oxyhemoglobin Sodium Potassium Chloride Carbon Dioxide BUN Creatinine Glucose POC Glucose Lactic Acid Calcium Phosphorus Magnesium Ferritin AST Total Creatine Kinase Troponin T C-Reactive Protein NT-Pro-B Natriuret Pep Total Protein Albumin Prealbumin LDL Cholesterol Direct Vitamin B12 Urine WBC (Auto) OSKAR Screen Coronavirus (PCR) SARS-CoV-2 (PCR) Positive A
[2022-05-09] MEDS ORDERED: METOPROLOL TARTRATE 5 MG/5 ML INJ IV PRN (18:00)
--- NOTE | 2022-05-09 18:25 | Progress Note ---
Assessment and Plan Assessment and plan: This is a 86-year-old male with HTN, ICH x2, CVA, DM, HLD, paroxysmal A. fib, IN, CAD s/p CABG x5 admitted with sepsis secondary to UTI, ANJU, A. 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 -[facility]iac: Paroxysmal atrial fibrillation, moderate to severe aortic stenosis, h/o [place]/CAD s/p CABG x5, HLD -Cardiology consulted, appreciate recommendations -Blood pressure monitoring per protocol -Aspirin, Lipitor, -Echocardiogram shows LVEF 55 to 60%, severely calcified aortic valve, cannot exclude aortic valve vegetation, no ventricular thrombus noted -S/p amiodarone drip -Amiodarone p.o. Respiratory: Acute hypoxic respiratory failure -S/p BiPAP therapy -Currently on high flow nasal cannula -SPO2 monitor per protocol -Supplemental oxygen as needed -CCM consulted, appreciate recommendations GI: Moderate protein calorie malnutrition, dysphagia -DHT unable to be placed due to hiatal hernia -PPI -Possible PEG tube if family would like to continue aggressive measures -BR: Senokot-S : Acute kidney injury secondary to vasomotor nephropathy, hypernatremia, hypokalemia, h/o BPH -Nephrology consulted, appreciate recommendations -Monitor intake and output -Renally dose medications -Avoid nephrotoxic medications -Replete potassium -Trend BMP -Dumont catheter in place ID: Septic shock likely secondary to E. coli UTI and bacteremia, COVID-19 infection -Infectious disease consulted, appreciate recommendation -Antibiotic therapy with ceftriaxone -Per ID once stable for discharge will discharge with Keflex to complete total 2 weeks of antibiotics -COVID-19 positive x2 (05/02 and 05/09) -f/u blood culture -05/02 blood cultures x2 and urine culture positive for E. coli -Monitor WBC and temperature curve -Vitamin C, zinc -Dexamethasone () Endo: h/o DM -Avoid hypoglycemia -SSI -Accu-Cheks q. 6 -Long-acting insulin, titrate as needed Heme: Leukocytosis -Trend CBC -Transfuse hemoglobin less than 7 -SCDs to BLE while in bed The high probability of a clinically significant, sudden or life threatening deterioration of the [multi] system(s) required my full and direct attention, intervention and personal management. The aggregate critical care time was [90] minutes. This time is in addition to time spent performing reported procedures but includes the following: [x] Data Review and interpretation [x] Patient assessment and monitoring of vital signs [x] Documentation [x] Medication orders and management Disposition Plan: icu Total Time Spent with Patient (Minutes): 90 History Interval history: This is an 86-year-old male with HTN, ICH x2, CVA, DM, dementia, HLD, BPH, IN, CAD s/p CABG x5, paroxysmal atrial fibrillation, COVID infection in March 2022 presents the emergency department on 04/01 with altered mental status starting 2 hours prior to presentation. Upon arrival to emergency department code stroke was called and patient was evaluated by teleneurology and CTA head/neck and CT head did not reveal any acute abnormalities. Further work-up revealed UTI with possible electrolyte imbalances and acute kidney injury. Patient was admitted to the hospital service with UTI, electrolyte imbalances, ANJU, sepsis with consults to [facility], nephrology and cardiology. Hospital Course to Date 05/02: Remains encephalopathic, stable on RA, on high dose pressors, additional IVF bolus administered. Patient remains in Afib, rate control. Cardiology consulted Dumont inserted this am due to retenstion, 1L of malodorous and cloudy urine drained. Probable urosepsis, patient is current on IV rocephin. D/w patient's daughters they reported that patient does have a history of Afib and open heart surgery with 5 bypass. Patient had X2 ICH in the past and he is not a candidate for any anticoagulations. Patient was also recently diagnosed with COVID outpatient, did not received any treatment since he was stable. COVID and PLU PCRs pending, check inflam. markers and Procal. Renal function is unchanged, continue IVF hydration, Nephrology is also following. Continue to trend Lactic acid. 05/03: More awake and alert this am but still confused. Still in Afib but rate control this am. Amiodarone gtt added yesterday due to Afib with RVR, patient remains on low dose Levophed. Cardiology recommendations noted. Concern for possible aspiration this morning, awaiting speech consulted. Will keep amiodarone gtt for now, transition to PO Amio if clear by speech. Blood cultures positive gram negative rods in 3/4 bottles, Vancomycin added. Check 2D echo to r/o vegetations. ID consulted pending. COVID PCR came back positive, spoke with patient's daughter. She reported that patient received "the COVID pill that Cruzito had". Patient is currently on 1L NC, SPO2 at 100%. Will continue to monitor for now. 05/04: Still confused but calm and following commands, agitated overnight required IV ativan. MRI brain pending. Patient remains in Afib, rate control. Remains on Amiodarone gtt, off pressors this am, VSS. Orders placed for repeat blood culture. Continue current IV abx, 2D echo and ID consult pending. Patient failed speech swallow due to cognitive deficits, multiple attempts to insert DHT was unsuccessful due to suspected hiatal hernia. Continue IVF hydration for now, speech to reassess swallow screen in 48hrs since patient's mentation is improving. If patient continue to fail swallow, alternative nutrition should be considered. Plan of care discussed with patient's daughters while visiting patient today. All questions and concerns were addressed at this time. Team will continue to follow with any further updates. 05/05: I did reach out to this infectious disease to see the patient as they had not previously seen him. He does not have any new fever today. Speech did evaluate the patient recommended some nectar thick. Patient was tested positive for COVID did have PACs COVID as mentioned. Currently very minimal oxygen requirement. We will transition him to oral amiodarone due to underlying atrial fibrillation. Creatinine is down to 1.6. He is not a candidate for anticoagulation as mentioned. I did update the patient's daughter anticipate discharge in 24 to 48 hours. During my conversation we did reaffirm CODE STATUS and advance care planning done for 35 minutes that he is a full code. MRI completed negative for acute stroke. 05/06: HR still continues to be challenging to control with rate as high as 130 bpm. Patient has chronic afib. Will continue amiodorone for suppression and monitor on tele for next 24 hrs. Avoid blood thinners due to hx of ICH. Mentation improving. Renal profile, mag, Phos ordered. Eating food tray at bedside with assistance of nursing aid. Will likely d/c in next 24 hrs. Will likely go home with [facility]. Transfer to med/surg with tele. 05/07: No acute events overnight 05/08: Febrile to 106.8, tachycardic to 126. Obtunded, on BiPAP therapy. Transferred to ICU. CT head shows ischemic CVA 05/09: Patient switched from BiPAP to high flow nasal cannula this morning, plan to reculture with next blood spike, DHT was unable to be placed by RN. Dumont catheter placed for retention. Neurology updated. BELLING MACHINE OPERATOR met with 2 daughters (Jacquie and Kath) we have accommodation with their mother elected for patient to remain full code and to "give him a fighting chance". Neurology has suggested a family meeting to take place next week for goals of care. Hospitalist Physical - Constitutional Vitals: Temp Pulse Resp BP Pulse Ox 98.8 F 96 H 28 H 101/47 93 05/09/22 12:00 05/09/22 14:00 05/09/22 14:00 05/09/22 14:00 05/09/22 14:00 General appearance: Present: no acute distress, well-nourished, other (Unres ponsive to sternal rub) - EENT Eyes: Present: PERRL (sluggish) ENT: dentition normal - Neck Neck: Present: enlarged thyroid. Absent: cervical LAD - Respiratory Respiratory effort: normal Respiratory: bilateral: diminished - Cardiovascular Rhythm: irregularly irregular Heart Sounds: Present: S1 & S2. Absent: systolic murmur, diastolic murmur - Extremities Extremities: no ischemia, pulses intact, pulses symmetrical, normal temperature, normal color Peripheral Pulses: within normal limits - Abdominal General gastrointestinal: soft, non-tender, non-distended, normal bowel sounds - Integumentary Integumentary: Present: warm, dry - Psychiatric Psychiatric: other - Neurologic Neurologic: other - Allied Health Allied health notes reviewed: nursing, RT, social work HEART Score - HEART Score Troponin: Troponin T 0.196 ng/mL (0.00-0.029) H* D 05/02/22 11:14 Results - Labs CBC & Chem 7: 05/09/22 04:05 05/09/22 04:05 Labs: Laboratory Last Values WBC 15.3 K/mm3 (4.5-11.0) H 05/09/22 04:05 RBC 3.49 M/mm3 (3.65-5.03) L 05/09/22 04:05 Hgb 9.8 gm/dl (11.8-15.2) L 05/09/22 04:05 Hct 29.4 % (35.5-45.6) L 05/09/22 04:05 MCV 84 fl (84-94) 05/09/22 04:05 MCH 28 pg (28-32) 05/09/22 04:05 MCHC 33 % (32-34) 05/09/22 04:05 RDW 19.2 % (13.2-15.2) H 05/09/22 04:05 Plt Count 219 K/mm3 (140-440) 05/09/22 04:05 Lymph % (Auto) 5.5 % (13.4-35.0) L 05/09/22 04:05 [place] % (Auto) 4.4 % (0.0-7.3) 05/09/22 04:05 Eos % (Auto) 0.1 % (0.0-4.3) 05/09/22 04:05 Baso % (Auto) 0.1 % (0.0-1.8) 05/09/22 04:05 Lymph # (Auto) 0.8 K/mm3 (1.2-5.4) L 05/09/22 04:05 [place]ucks # (Auto) 0.7 K/mm3 (0.0-0.8) 05/09/22 04:05 Eos # (Auto) 0.0 K/mm3 (0.0-0.4) 05/09/22 04:05 Baso # (Auto) 0.0 K/mm3 (0.0-0.1) 05/09/22 04:05 Add Manual Diff Complete 05/08/22 08:00 Total Counted 100 05/08/22 08:00 Seg Neutrophils % 89.9 % (40.0-70.0) H 05/09/22 04:05 Seg Neuts % (Manual) 92.0 % (40.0-70.0) H 05/08/22 08:00 Band Neutrophils % 0 % 05/08/22 08:00 Lymphocytes % (Manual) 4.0 % (13.4-35.0) L 05/08/22 08:00 Reactive Lymphs % (Man) 0 % 05/08/22 08:00 Monocytes % (Manual) 4.0 % (0.0-7.3) 05/08/22 08:00 Eosinophils % (Manual) 0 % (0.0-4.3) 05/08/22 08:00 Basophils % (Manual) 0 % (0.0-1.8) 05/08/22 08:00 Metamyelocytes % 0 % 05/08/22 08:00 Myelocytes % 0 % 05/08/22 08:00 Promyelocytes % 0 % 05/08/22 08:00 Blast Cells % 0 % 05/08/22 08:00 Nucleated RBC % Not Reportable 05/08/22 08:00 Seg Neutrophils # 13.8 K/mm3 (1.8-7.7) H 05/09/22 04:05 Seg Neutrophils # Man 15.7 K/mm3 (1.8-7.7) H 05/08/22 08:00 Band Neutrophils # 0.0 K/mm3 05/08/22 08:00 Lymphocytes # (Manual) 0.7 K/mm3 (1.2-5.4) L 05/08/22 08:00 Abs React Lymphs (Man) 0.0 K/mm3 05/08/22 08:00 Monocytes # (Manual) 0.7 K/mm3 (0.0-0.8) 05/08/22 08:00 Eosinophils # (Manual) 0.0 K/mm3 (0.0-0.4) 05/08/22 08:00 Basophils # (Manual) 0.0 K/mm3 (0.0-0.1) 05/08/22 08:00 Metamyelocytes # 0.0 K/mm3 05/08/22 08:00 Myelocytes # 0.0 K/mm3 05/08/22 08:00 Promyelocytes # 0.0 K/mm3 05/08/22 08:00 Blast Cells # 0.0 K/mm3 05/08/22 08:00 WBC Morphology Not Reportable 05/08/22 08:00 Hypersegmented Neuts Not Reportable 05/08/22 08:00 Hyposegmented Neuts Not Reportable 05/08/22 08:00 Hypogranular Neuts Not Reportable 05/08/22 08:00 Smudge Cells Not Reportable 05/08/22 08:00 Toxic Granulation Not Reportable 05/08/22 08:00 Toxic Vacuolation Not Reportable 05/08/22 08:00 Dohle Bodies Not Reportable 05/08/22 08:00 Pelger-Huet Anomaly Not Reportable 05/08/22 08:00 Elieser Rods Not Reportable 05/08/22 08:00 Platelet Estimate Consistent w auto 05/08/22 08:00 Clumped Platelets Not Reportable 05/08/22 08:00 Plt Clumps, EDTA Not Reportable 05/08/22 08:00 Large Platelets Not Reportable 05/08/22 08:00 Giant Platelets Not Reportable 05/08/22 08:00 Platelet Satelliting Not Reportable 05/08/22 08:00 Plt Morphology Comment Not Reportable 05/08/22 08:00 RBC Morphology Not Reportable 05/08/22 08:00 Dimorphic RBCs Not Reportable 05/08/22 08:00 Polychromasia Not Reportable 05/08/22 08:00 Hypochromasia Not Reportable 05/08/22 08:00 Poikilocytosis Not Reportable 05/08/22 08:00 Anisocytosis Not Reportable 05/08/22 08:00 Microcytosis Not Reportable 05/08/22 08:00 Macrocytosis Not Reportable 05/08/22 08:00 Spherocytes Not Reportable 05/08/22 08:00 Pappenheimer Bodies Not Reportable 05/08/22 08:00 Sickle Cells Not Reportable 05/08/22 08:00 Target Cells Not Reportable 05/08/22 08:00 Tear Drop Cells Few 05/08/22 08:00 Ovalocytes Not Reportable 05/08/22 08:00 Helmet Cells Not Reportable 05/08/22 08:00 [place] Bodies Not Reportable 05/08/22 08:00 [place] Rings Not Reportable 05/08/22 08:00 [place] Cells Not Reportable 05/08/22 08:00 Bite Cells Not Reportable 05/08/22 08:00 Crenated Cell Not Reportable 05/08/22 08:00 Elliptocytes 1+ 05/08/22 08:00 Acanthocytes (Spur) Not Reportable 05/08/22 08:00 Rouleaux Not Reportable 05/08/22 08:00 Hemoglobin C Crystals Not Reportable 05/08/22 08:00 Schistocytes Not Reportable 05/08/22 08:00 Malaria parasites Not Reportable 05/08/22 08:00 [place] Bodies Not Reportable 05/08/22 08:00 Hem Pathologist Commnt No 05/08/22 08:00 PT 17.7 Sec. (12.2-14.9) H 05/07/22 08:23 INR 1.30 (0.87-1.13) H 05/07/22 08:23 APTT 39.9 Sec. (24.2-36.6) H 05/01/22 23:14 D-Dimer 4522.88 ng/mlDDU (0-234) H 05/07/22 15:35 ABG pH 7.470 pH Units (7.350-7.450) H 05/08/22 11:02 ABG pCO2 28.9 mm Hg 05/08/22 11:02 ABG pO2 65.4 mm Hg (80.0-90.0) L 05/08/22 11:02 ABG HCO3 20.6 mmol/L (20.0-26.0) 05/08/22 11:02 ABG O2 Saturation 95.1 % (95.0-99.0) 05/08/22 11:02 ABG O2 Content 13.8 (0.0-44) 05/08/22 11:02 ABG Base Excess -2.2 mmol/L (-2.0-3.0) L 05/08/22 11:02 ABG Hemoglobin 10.5 gm/dl (14.0-18.0) L 05/08/22 11:02 ABG Carboxyhemoglobin 1.6 % (0.0-5.0) 05/08/22 11:02 ABG Methemoglobin 0.5 % (0.0-1.5) 05/08/22 11:02 Oxyhemoglobin 93.1 % (95.0-99.0) L 05/08/22 11:02 FiO2 21 % 05/08/22 11:02 Sodium 151 mmol/L (137-145) H 05/09/22 04:05 Potassium 3.3 mmol/L (3.6-5.0) L 05/09/22 04:05 Chloride 115.0 mmol/L (98-107) H 05/09/22 04:05 Carbon Dioxide 22 mmol/L (22-30) 05/09/22 04:05 Anion Gap 17 mmol/L 05/09/22 04:05 BUN 47 mg/dL (9-20) H 05/09/22 04:05 Creatinine 1.7 mg/dL (0.8-1.3) H 05/09/22 04:05 Estimated GFR 38 ml/min 05/09/22 04:05 BUN/Creatinine Ratio 28 % 05/09/22 04:05 Glucose 158 mg/dL (75-100) H 05/09/22 04:05 POC Glucose 160 mg/dL (70-105) H 05/09/22 11:43 Lactic Acid 1.60 mmol/L (0.7-2.0) 05/09/22 04:05 Calcium 8.1 mg/dL (8.4-10.2) L 05/09/22 04:05 Phosphorus 1.40 mg/dL (2.5-4.5) L D 05/06/22 15:46 Magnesium 2.00 mg/dL (1.7-2.3) 05/06/22 15:46 Ferritin 735.8 ng/mL (30.0-300.0) H 05/07/22 15:35 Total Bilirubin 0.40 mg/dL (0.1-1.2) 05/05/22 04:38 AST 44 units/L (5-40) H 05/05/22 04:38 ALT 34 units/L (7-56) 05/05/22 04:38 Alkaline Phosphatase 82 units/L (35-129) 05/05/22 04:38 Lactate Dehydrogenase 172 units/L (91-180) 05/02/22 11:14 Total Creatine Kinase 72 units/L (55-170) 05/05/22 16:00 Troponin T 0.196 ng/mL (0.00-0.029) H* D 05/02/22 11:14 C-Reactive Protein 22.70 mg/dL (0.00-1.30) H 05/07/22 15:35 NT-Pro-B Natriuret Pep 89207 pg/mL (0-900) H 05/07/22 15:35 Total Protein 4.5 g/dL (6.3-8.2) L 05/05/22 04:38 Albumin 2.5 g/dL (3.9-5) L 05/05/22 04:38 Albumin/Globulin Ratio 1.3 % 05/05/22 04:38 Prealbumin 0.055 g/L (0.200-0.400) L 05/06/22 04:43 Triglycerides 64 mg/dL (2-149) 05/01/22 23:14 Cholesterol 77 mg/dL (50-199) 05/01/22 23:14 LDL Cholesterol Direct 25 mg/dL (50-130) L 05/01/22 23:14 HDL Cholesterol 46 mg/dL (40-59) 05/01/22 23:14 Cholesterol/HDL Ratio 1.67 % 05/01/22 23:14 Vitamin B12 1464 pg/mL (211-911) H 05/06/22 04:43 Folate 10.08 ng/mL (7.3-26.0) 05/06/22 01:09 Procalcitonin 16.30 ng/mL (<0.15) 05/02/22 11:14 TSH 3.960 mlU/mL (0.270-4.200) 05/06/22 01:09 Urine Color Yellow (Yellow) 05/01/22 23:54 Urine Turbidity Hazy (Clear) 05/01/22 23:54 Specific [place] (Man) 1.015 (1.003-1.030) 05/01/22 23:54 Ur Protein (Man) 1+ mg/dL (Negative) 05/01/22 23:54 Ur Ketones (Man) Negative (Negative) 05/01/22 23:54 Ur Nitrite (Man) Negative (Negative) 05/01/22 23:54 Urine Bilirubin (Man) Negative (Negative) 05/01/22 23:54 Leukocyte Esterase (Man) Moderate (Negative) 05/01/22 23:54 Urine WBC (Auto) > 182.0 /HPF (0.0-6.0) H 05/01/22 23:54 Urine RBC (Auto) 33.0 /HPF (0.0-6.0) 05/01/22 23:54 Urine Bacteria (Auto) 2+ /HPF (Negative) 05/01/22 23:54 Urine RBC (Manual) 3+ (Negative) 05/01/22 23:54 Urine WBC Clumps 3+ /HPF 05/01/22 23:54 Urine Mucus Few /HPF 05/01/22 23:54 Urine Yeast (Budding) 2+ /HPF 05/01/22 23:54 OSKAR Screen Positive (Negative) H 05/02/22 20:20 Proteinase 3 (PR3) Ab <1.0 AI (<1.0) 05/02/22 20:20 Myeloperoxidase Ab <1.0 AI (<1.0) 05/02/22 20:20 Complement C3 91 mg/dL () 05/02/22 20:20 Complement C4 47 mg/dL () 05/02/22 20:20 Syphilis IgG/IgM Ab Nonreactive (NonReactive) 05/06/22 04:43 Coronavirus (PCR) Positive (Negative) A 05/02/22 Unknown SARS-CoV-2 (PCR) Positive (Negative) A 05/09/22 16:01 Hep Bs Antigen Non-reactive (Negative) 05/02/22 20:20 Hepatitis C Antibody Non-reactive (NonReactive) 05/02/22 20:20 Influenza A (RT-PCR) Negative (Negative) 05/02/22 15:40 Influenza B (RT-PCR) Negative (Negative) 05/02/22 15:40 Microbiology: Microbiology 05/04/22 09:20 Peripheral/Venous Blood Culture - Final NO GROWTH AFTER 5 DAYS 05/04/22 09:20 Peripheral/Venous Blood Culture - Final NO GROWTH AFTER 5 DAYS Dumont/IV: Voiding Method Indwelling Catheter Active Medications - Current Medications Current Medications: Generic Name Dose Route Start Last Admin Trade Name Freq PRN Reason Stop Dose Admin Acetaminophen 650 mg 05/02/22 00:33 Acetaminophen 325 Mg Tab PO Q4H PRN Pain MILD(1-3)/Fever >100.5/ALLEN Acetaminophen 650 mg 05/08/22 18:55 Acetaminophen 650 Mg Rect Supp MI Q4H PRN Fever >101 Ascorbic Acid 500 mg 05/05/22 22:00 05/09/22 14:52 Ascorbic Acid 500 Mg Tab PO 05/10/22 10:01 Not Given BID [facility] Aspirin 300 mg 05/10/22 09:00 Aspirin 300 Mg Rect Supp MI QDAY [facility] Atorvastatin Calcium 40 mg 05/02/22 22:00 05/08/22 21:00 Atorvastatin 40 Mg Tab PO Not Given QHS [facility] Dextrose 50 ml 05/02/22 18:49 Dextrose 50% In Water (25gm) 50 Ml Syringe IV Q30MIN PRN Hypoglycemia Protocol Famotidine 20 mg 05/10/22 10:00 Famotidine 20 Mg/2 Ml Inj IV QDAY [facility] Haloperidol Lactate 5 mg 05/03/22 13:25 05/06/22 03:42 Haloperidol Lactate 5 Mg/1 Ml Inj IV 5 mg Q6H PRN Administration Agitation Hydralazine HCl 10 mg 05/05/22 17:45 Hydralazine 20 Mg/1 Ml Inj IV Q4HR PRN Hypertension Ceftriaxone Sodium 2 gm in 100 mls @ 200 mls/hr 05/06/22 10:00 05/09/22 09:38 Rocephin/Ns 2 Gm/100 Ml IV 05/19/22 10:29 200 mls/hr Q24H GENA Administration Protocol Dextrose 1,000 mls @ 42 mls/hr 05/09/22 19:00 D5w IV DIRECT [facility] Insulin Human Regular 0 units 05/09/22 12:00 05/09/22 12:58 Insulin Regular, Human 100 Units/1 Ml SUB-Q Not Given Q6H [facility] Protocol Magnesium Hydroxide 30 ml 05/02/22 00:33 Magnesium Hydroxide (Mom) Oral Liqd Udc PO Q4H PRN Constipation Memantine 10 mg 05/05/22 22:00 05/09/22 14:53 Memantine 10 Mg Tab PO Not Given BID [facility] Metoprolol Tartrate 2.5 mg 05/09/22 18:22 Metoprolol Tartrate 5 Mg/5 Ml Inj IV Q6HR PRN Tachyarrhythmias Morphine Sulfate 2 mg 05/02/22 00:33 05/06/22 01:31 Morphine 2 Mg/1 Ml Inj IV 2 mg Q4H PRN Administration Pain, Moderate (4-6) Ondansetron HCl 4 mg 05/02/22 00:33 Ondansetron 4 Mg/2 Ml Inj IV Q8H PRN Nausea And Vomiting Senna/Docusate Sodium 1 tab 05/03/22 22:00 05/08/22 21:50 Sennosides/Docusate Sodium 8.6/50 Mg Tab PO Not Given QHS [facility] Sodium Chloride 10 ml 05/02/22 10:00 05/09/22 09:39 Sodium Chloride 0.9% 10 Ml Flush Syringe IV 10 ml BID GENA Administration Sodium Chloride 10 ml 05/02/22 00:33 Sodium Chloride 0.9% 10 Ml Flush Syringe IV PRN PRN LINE FLUSH Zinc Sulfate 220 mg 05/06/22 10:00 05/09/22 14:52 Zinc Sulfate 220 Mg Cap PO 05/15/22 10:01 Not Given QDAY GENA Nutrition/Malnutrition Assess - Dietary Evaluation Nutrition/Malnutrition Findings: Nutrition Notes Start: 05/02/22 10:24 Freq: Status: Active Protocol: Document 05/09/22 10:06 BLANCA (Rec: 05/09/22 10:17 BLANCA [id number]) Nutrition Notes Need for Assessment generated from: MD Order Initial or Follow up Reassessment Current Diagnosis Acute Kidney Injury, Respiratory Failure,Stroke Other Pertinent Diagnosis Acute encephalopathy, COVID-19 (+), UTI, Dysphagia Current Diet NPO Labs/Tests Na 151 K 3.3 BUN 47 Cr 1.7 BG 158 Pertinent Medications Vit C, Senokot, Zinc sulfate, 10mEq KCl at 75ml/hr Height 5 ft 8 in Weight 69.7 kg [place] Body Weight (kg) 70.00 BMI 23.3 Weight Status Appropriate Subjective/Other Information RD consulted for TF. Pt transferred from 3A yesterday sec to unresponsiveness. Diet downgraded from Cardiac to pureed with nectar-thickened liqudis on 05/05 per CAR SHAKEOUT OPERATOR recommendation. Pt currently on BiPap support. Per MD note on yesterday, unable to insert DHT/NGT sec to blockage at gastroesophageal junction likely sec to hiatal hernia. Burn Absent Trauma Absent Difficulty In Swallowing Skin Integrity/Comment (L) toe and sacral wounds Current % PO Negligible Minimum of two criteria No Energy Intake (severe) < or equal to 50% Estimated Energy Requirement > or equal to 5 days #3 Nutrition Diagnosis Inadequate oral intake Etiology dysphagia, advanced age, ELIJAH As Evidenced by Signs and Symptoms pt currently NPO and on continuous BiPap support #2 Nutrition Diagnosis Increased nutrient needs ( specify in comment below) Diagnosis Progress(for reassessment Continues documentation) #1 Nutrition Diagnosis Altered nutrition-related laboratory values As Evidenced by Signs and Symptoms BUN and Cr labs remain elevated Diagnosis Progress(for reassessment Continues documentation) Is patient on ventilator? No Is Patient Ambulatory and/or Out of Bed No REE-([facility]-confined to bed) 7091.041 Calculation Used for Recommendations [facility] Additional Notes Pro needs 0.8-1.2g/k-84g/ day Fluid needs 1ml/kcal Nutrition Intervention Nutrition Support: Glucerna 1.2 at 55ml/hr with 100ml water flush q4h. (provides 1465mg sodium and 2666mg potassium). Kcal 1,584 Protein (gm) 79 Carbohydrates (gm) 151 Fat (gm) 79 Fluid (mL) 1,063 Fiber (gm) 21 Goal #1 TF tolerance Goal #2 TF to provide at least 75% energy and pro needs Anticipated Discharge Needs: Continue EN support if necessary Follow-Up By: 05/12/22 Additional Comments F/U: new TF, resp status, renal function
[2022-05-09] MEDS ORDERED: DEXTROSE 5% IN WATER 1,000 ML IV SCH (19:00)
--- NOTE | 2022-05-09 20:35 | Cat Scan Report ---
CT HEAD WITHOUT CONTRAST INDICATION / CLINICAL INFORMATION: cva. Follow-up left hemispheric infarction. TECHNIQUE: All CT scans at this location are performed using CT dose reduction for ALARA by means of automated e xposure control. COMPARISON: Head CT 05/07/2022 and 05/01/2022. MRI brain 05/04/2022 FINDINGS: Again demonstrated is an acute large left hemispheric infarction which involves both anterior and mid dle cerebral artery distribution structures. There is extensive involvement of the gangliocapsular re gion on the left. There is no indication of hemorrhagic transformation. There is mass effect associat ed with this large infarction with effacement of the left sylvian fissure and effacement of cortical sulci over the lateral convexity of the left cerebral hemisphere and at the left frontal lobe vertex. The degree of mass effect has increased slightly. The area of infarction is becoming more hypodense. Again demonstrated are remote infarctions in the head of caudate nucleus on the right and in the righ t parietal lobe. These findings are stable. IMPRESSION: 1. 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 This was first demon strated on 05/07/2022. There is associated increase in mass effect with effacement of cortical sulci a nd sylvian fissure compression of the left lateral ventricle. There is no indication of hemorrhagic t ransformation. Signer Name: Jesus Manuel Contreras MD Signed: 05/09/2022 8:31 PM Workstation Name: [id number]
[2022-05-09] MEDS: SENNOSIDES/DOCUSATE SODIUM 8.6/50 MG TAB PO SCH (21:25)
--- NOTE | 2022-05-09 22:39 | Consultation ---
History of Present Illness Consult date: 05/09/22 History of present illness: [facility] Consult Note # Demographics Consult Type: General Neurology Patient Location: Inpatient First Name: Les Last Name: Chantelle Date of : 1935 Age: 86 Gender: Male Facility: [facility] Time of Initial Page ( Time): 05/09/2022, 21:49 Time of Return Call ( Time): 05/09/2022, 22:01 # HPI History: Per Nurse, patient COVID-positive. Patient initially seen 05/01/22 for difficulty speaking. Last in-house Neurology note The Nurse reported that the patient did not have a new event currently, & it was unclear what the indication for the new event tonight. Comparing the current head CT to the one performed 05/07/22, there was only interval darkening of the same hypodensity without appreciable change in mass effect or midline shift. The head CT reportedly obtained from the daytime for AMS. The 05/09/22 Neurology Note states: "...in the setting of afib and recent covid-19, concern is raised for a cardioembolic event; recommend CUS to confirm no ipsilateral ICA stenosis; aspirin... / statin therapy; repeat stat nchct order; please see #2 below with regards to hx of ich and contraindication to anticoagulation and instead a watchman procedure; tte (if negative, recommend agatha in setting of "sepsis" to rule out underlying endocarditis)..." # Scores Time of exam and NIHSS ( Time): 05/09/2022, 22:04 Level of Consciousness 1a: [3] = Responds only with reflex motor or unresponsive LOC Questions 1b: [2] = Answers neither correctly LOC Commands 1c: [2] = Performs neither correctly Best Gaze 2: [0] = Normal Facial Palsy 4: [0] = Normal symmetrical movements Motor Arm Left 5a: [4] = No movement Motor Arm Right 5b: [4] = No movement Motor Leg Left 6a: [4] = No movement Motor Leg Right 6b: [4] = No movement Limb Ataxia 7: [0] = Absent Sensory 8: [0] = Normal Best Language 9: [3] = Mute Dysarthria 10: [2] = Severe dysarthria Extinction and Inattention 11: [0] = No abnormality NIHSS Total: 28 VAN Screening: Positive # Exam SBP: 96 DBP: 46 Mental Status: obtunded An individual is sleeping in bed with BiPAP machine mask on (confirmed by bedside Nurse to be correct patient). Limited clinical exam currently. Patient reportedly resistive to eye opening, which was an improvement from yesterday per the bedside Nurse. Motor: Patient squeezed hands bilaterally spontaneously. Additional Neurologic Exam: Evaluation limited due to observational assessment. In-person exam may be helpful for more subtle signs that cannot be detected via telemedicine. # ROS Unable to obtain ROS: altered mentation critical illness dementia non-verbal # PMH-FH-SH Past Medical History: A-fib dementia hyperlipidemia hypertension intracranial hemorrhage Allergies: Aspirin, levofloxacin, [blood thinners] # Data Time Head CT personally read by me (Eastern Time): 05/09/2022, 22:[address]: no bleed per radiologist read subacute ischemic stroke Large left hemispheric infarct with mild mass effect, but limited if any midline shift, along with right high fronto-parietal hypodensity (suggestive of another infarction) CTA Head: no large vessel occlusion per radiologist read 05/01/22 study: 2mm saccular aneurysm left A1, severe stenosis proximal right supraclinoid ICA, 50-60% stenosis right proximal cervical segment ICA # Assessment Impression: Ischemic Stroke (Subacute) Large left MCA infarct with right fronto-parietal lesion, patient did not appear to be surgical candidate currently, or in acute distress based on previous exams as reported by bedside Nurse # Plan Thrombolytic/Intervention: NOT IV Thrombolysis or IA Intervention candidate Thrombolytic Exclusion (< 3 hour window): time of onset unclear history of ICH Thrombolytic Exclusion: > 4.5 hours Imaging: (urgency: routine): CT Head without contrast Head CT in the morning to assess for interval change compared to the 05/09/22 study Diagnostic Test: EEG Therapy/Evaluation: PT/OT evaluation speech/swallow consultation Medication: Continued medical management as per the referring service, with COVID management as per hospital protocol (following fibrinogen levels, steroid therapy as indicated, respiratory therapy & monitoring, etc.) DVT Prophylaxis: SCD chemical DVT prophylaxis Other: consult neurosurgery If patient has any neurological deterioration please call me back immediately telemetry monitoring I have discussed my recommendations with the referring provider Continued inpatient Neurology consultation & follow-up Consider Palliative Care consultation, if available inpatient Additional Recommendations: Continued ICU management, including frequent neuro checks to evaluate for interval change/ worsening Disposition: continue admission # Logistics Telemedicine: Interactive 2 way audio and visual telecommunication technology was utilized during this visit # Demographics First Name: Les Last Name: Chantelle Facility: [facility] Past History Past Medical History: arthritis, hypertension, hyperlipidemia, stroke, other (Dementia,hiatal hernia,BPH,Kidney stones) Past Surgical History: cholecystectomy, Other (Open heart surgery) Social history: no significant social history Family history: no significant family history Medications and Allergies Allergies Allergy/AdvReac Type Severity Reaction Status Date / Time aspirin AdvReac Bleeding Verified 05/02/22 13:20 levofloxacin [From Levaquin] AdvReac Rash and Verified 05/07/22 10:25 severe diarrhea blood thinners AdvReac Bleeding Uncoded 05/02/22 13:20 Home Medications Medication Instructions Recorded Confirmed Last Taken Type Memantine HCl [Namenda] 10 mg PO BID 04/21/17 05/02/22 05/01/22 History Omeprazole 40 mg PO QDAY 04/21/17 05/02/22 05/01/22 History Sertraline [Zoloft] 50 mg PO QDAY 04/21/17 05/02/22 05/01/22 History Simvastatin (NF) [Zocor TAB] 40 mg PO QHS 04/21/17 05/02/22 05/01/22 History Tamsulosin [Flomax] 0.4 mg PO QDAY 05/07/22 05/07/22 05/01/22 History Active Meds: Active Medications Acetaminophen (Acetaminophen 325 Mg Tab) 650 mg PO Q4H PRN PRN Reason: Pain MILD(1-3)/Fever >100.5/ALLEN Acetaminophen (Acetaminophen 650 Mg Rect Supp) 650 mg DE Q4H PRN PRN Reason: Fever >101 Ascorbic Acid (Ascorbic Acid 500 Mg Tab) 500 mg PO BID GENA Stop: 05/10/22 10:01 Last Admin: 05/09/22 14:52 Dose: Not Given Aspirin (Aspirin 300 Mg Rect Supp) 300 mg DE QDAY GENA Atorvastatin Calcium (Atorvastatin 40 Mg Tab) 40 mg PO QHS [facility] Last Admin: 05/09/22 21:25 Dose: Not Given Dextrose (Dextrose 50% In Water (25gm) 50 Ml Syringe) 50 ml IV Q30MIN PRN; Protocol PRN Reason: Hypoglycemia Famotidine (Famotidine 20 Mg/2 Ml Inj) 20 mg IV QDAY [facility] Haloperidol Lactate (Haloperidol Lactate 5 Mg/1 Ml Inj) 5 mg IV Q6H PRN PRN Reason: Agitation Last Admin: 05/06/22 03:42 Dose: 5 mg Hydralazine HCl (Hydralazine 20 Mg/1 Ml Inj) 10 mg IV Q4HR PRN PRN Reason: Hypertension Ceftriaxone Sodium (Rocephin/Ns 2 Gm/100 Ml) 2 gm in 100 mls @ 200 mls/hr IV Q24H [facility]; Protocol Stop: 05/19/22 10:29 Last Admin: 05/09/22 09:38 Dose: 200 mls/hr Dextrose (D5w) 1,000 mls @ 42 mls/hr IV DIRECT [facility] Insulin Human Regular (Insulin Regular, Human 100 Units/1 Ml) 0 units SUB-Q Q6H [facility]; Protocol Last Admin: 05/09/22 19:09 Dose: Not Given Magnesium Hydroxide (Magnesium Hydroxide (Mom) Oral Liqd Udc) 30 ml PO Q4H PRN PRN Reason: Constipation Memantine (Memantine 10 Mg Tab) 10 mg PO BID [facility] Last Admin: 05/09/22 21:25 Dose: Not Given Metoprolol Tartrate (Metoprolol Tartrate 5 Mg/5 Ml Inj) 2.5 mg IV Q6HR PRN PRN Reason: Tachyarrhythmias Morphine Sulfate (Morphine 2 Mg/1 Ml Inj) 2 mg IV Q4H PRN PRN Reason: Pain, Moderate (4-6) Last Admin: 05/06/22 01:31 Dose: 2 mg Ondansetron HCl (Ondansetron 4 Mg/2 Ml Inj) 4 mg IV Q8H PRN PRN Reason: Nausea And Vomiting Senna/Docusate Sodium (Sennosides/Docusate Sodium 8.6/50 Mg Tab) 1 tab PO QHS [facility] Last Admin: 05/09/22 21:25 Dose: Not Given Sodium Chloride (Sodium Chloride 0.9% 10 Ml Flush Syringe) 10 ml IV BID [facility] Last Admin: 05/09/22 21:54 Dose: 10 ml Sodium Chloride (Sodium Chloride 0.9% 10 Ml Flush Syringe) 10 ml IV PRN PRN PRN Reason: LINE FLUSH Zinc Sulfate (Zinc Sulfate 220 Mg Cap) 220 mg PO QDAY GENA Stop: 05/15/22 10:01 Last Admin: 05/09/22 14:52 Dose: Not Given Physical Examination - Vital Signs Vital Signs: Vital Signs Temp Pulse Resp BP Pulse Ox 96.5 F L 124 H 18 147/103 96 05/02/22 00:34 05/02/22 00:34 05/02/22 00:34 05/02/22 00:34 05/02/22 00:34 Results - Laboratory Findings CBC and BMP: 05/09/22 04:05 05/09/22 04:05 Abnormal Lab Findings: Abnormal Labs 05/01/22 05/01/22 05/01/22 23:14 23:14 23:14 WBC RBC Hgb 10.8 L Hct 30.9 L MCHC 35 H RDW 18.0 H Plt Count 113 L Lymph % (Auto) [place] % (Auto) Lymph # (Auto) [place] # (Auto) Seg Neutrophils % Seg Neuts % (Manual) Lymphocytes % (Manual) Seg Neutrophils # Seg Neutrophils # Man Lymphocytes # (Manual) PT 19.1 H INR 1.42 H APTT 39.9 H D-Dimer ABG pH ABG pO2 ABG HCO3 ABG O2 Saturation ABG Base Excess ABG Hemoglobin Oxyhemoglobin Sodium 125 L Potassium Chloride 91.0 L Carbon Dioxide 21 L BUN 38 H Creatinine 2.1 H Glucose 131 H POC Glucose Lactic Acid Calcium 7.9 L Phosphorus Magnesium 1.60 L Ferritin AST Total Creatine Kinase Troponin T C-Reactive Protein NT-Pro-B Natriuret Pep Total Protein 4.8 L Albumin 3.3 L Prealbumin LDL Cholesterol Direct Vitamin B12 Urine WBC (Auto) OSKAR Screen Coronavirus (PCR) SARS-CoV-2 (PCR) 05/01/22 05/01/22 05/02/22 23:14 23:54 03:39 WBC RBC Hgb Hct MCHC RDW Plt Count Lymph % (Auto) [place] % (Auto) Lymph # (Auto) [place] # (Auto) Seg Neutrophils % Seg Neuts % (Manual) Lymphocytes % (Manual) Seg Neutrophils # Seg Neutrophils # Man Lymphocytes # (Manual) PT INR APTT D-Dimer ABG pH ABG pO2 ABG HCO3 ABG O2 Saturation ABG Base Excess ABG Hemoglobin Oxyhemoglobin Sodium Potassium Chloride Carbon Dioxide BUN Creatinine Glucose POC Glucose Lactic Acid 2.30 H* Calcium Phosphorus Magnesium Ferritin AST Total Creatine Kinase Troponin T 0.054 H C-Reactive Protein NT-Pro-B Natriuret Pep 24753 H Total Protein Albumin Prealbumin LDL Cholesterol Direct 25 L Vitamin B12 Urine WBC (Auto) > 182.0 H OSKAR Screen Coronavirus (PCR) SARS-CoV-2 (PCR) 05/02/22 05/02/22 05/02/22 06:05 11:14 11:14 WBC RBC Hgb Hct MCHC RDW Plt Count Lymph % (Auto) [place] % (Auto) Lymph # (Auto) [place] # (Auto) Seg Neutrophils % Seg Neuts % (Manual) Lymphocytes % (Manual) Seg Neutrophils # Seg Neutrophils # Man Lymphocytes # (Manual) PT INR APTT D-Dimer 1135.33 H ABG pH ABG pO2 ABG HCO3 ABG O2 Saturation ABG Base Excess ABG Hemoglobin Oxyhemoglobin Sodium 132 L D Potassium Chloride Carbon Dioxide 15 L BUN 41 H Creatinine 2.1 H Glucose 127 H POC Glucose 139 H Lactic Acid Calcium 7.6 L Phosphorus Magnesium Ferritin AST Total Creatine Kinase Troponin T 0.196 H* D C-Reactive Protein 29.00 H NT-Pro-B Natriuret Pep Total Protein Albumin Prealbumin LDL Cholesterol Direct Vitamin B12 Urine WBC (Auto) OSKAR Screen Coronavirus (PCR) SARS-CoV-2 (PCR) 05/02/22 05/02/22 05/02/22 11:14 11:14 17:10 WBC RBC Hgb Hct MCHC RDW Plt Count Lymph % (Auto) [place] % (Auto) Lymph # (Auto) [place] # (Auto) Seg Neutrophils % Seg Neuts % (Manual) Lymphocytes % (Manual) Seg Neutrophils # Seg Neutrophils # Man Lymphocytes # (Manual) PT INR APTT D-Dimer ABG pH ABG pO2 ABG HCO3 ABG O2 Saturation ABG Base Excess ABG Hemoglobin Oxyhemoglobin Sodium 130 L Potassium Chloride 96.0 L Carbon Dioxide 17 L BUN 42 H Creatinine 2.3 H Glucose 141 H POC Glucose 150 H Lactic Acid Calcium 7.7 L Phosphorus Magnesium Ferritin 544.4 H AST Total Creatine Kinase Troponin T C-Reactive Protein NT-Pro-B Natriuret Pep Total Protein Albumin Prealbumin LDL Cholesterol Direct Vitamin B12 Urine WBC (Auto) OSKAR Screen Coronavirus (PCR) SARS-CoV-2 (PCR) 05/02/22 05/02/22 05/02/22 20:20 20:20 20:20 WBC RBC Hgb Hct MCHC RDW Plt Count Lymph % (Auto) [place] % (Auto) Lymph # (Auto) [place] # (Auto) Seg Neutrophils % Seg Neuts % (Manual) Lymphocytes % (Manual) Seg Neutrophils # Seg Neutrophils # Man Lymphocytes # (Manual) PT INR APTT D-Dimer ABG pH ABG pO2 ABG HCO3 ABG O2 Saturation ABG Base Excess ABG Hemoglobin Oxyhemoglobin Sodium 133 L Potassium Chloride Carbon Dioxide BUN Creatinine Glucose POC Glucose Lactic Acid Calcium Phosphorus Magnesium Ferritin AST Total Creatine Kinase 816 H Troponin T C-Reactive Protein NT-Pro-B Natriuret Pep Total Protein Albumin Prealbumin LDL Cholesterol Direct Vitamin B12 Urine WBC (Auto) OSKAR Screen Positive H Coronavirus (PCR) SARS-CoV-2 (PCR) 05/02/22 05/02/22 05/03/22 22:06 Unknown 05:00 WBC 13.3 H RBC 3.62 L Hgb 10.1 L Hct 30.8 L MCHC RDW 19.1 H Plt Count Lymph % (Auto) 3.9 L [place] % (Auto) 9.4 H Lymph # (Auto) 0.5 L [place] # (Auto) 1.3 H Seg Neutrophils % 85.6 H Seg Neuts % (Manual) Lymphocytes % (Manual) Seg Neutrophils # 11.4 H Seg Neutrophils # Man Lymphocytes # (Manual) PT INR APTT D-Dimer ABG pH ABG pO2 ABG HCO3 ABG O2 Saturation ABG Base Excess ABG Hemoglobin Oxyhemoglobin Sodium Potassium Chloride Carbon Dioxide BUN Creatinine Glucose POC Glucose 146 H Lactic Acid Calcium Phosphorus Magnesium Ferritin AST Total Creatine Kinase Troponin T C-Reactive Protein NT-Pro-B Natriuret Pep Total Protein Albumin Prealbumin LDL Cholesterol Direct Vitamin B12 Urine WBC (Auto) OSKAR Screen Coronavirus (PCR) Positive A SARS-CoV-2 (PCR) 05/03/22 05/03/22 05/03/22 06:48 08:48 11:07 WBC RBC Hgb Hct MCHC RDW Plt Count Lymph % (Auto) [place] % (Auto) Lymph # (Auto) [place] # (Auto) Seg Neutrophils % Seg Neuts % (Manual) Lymphocytes % (Manual) Seg Neutrophils # Seg Neutrophils # Man Lymphocytes # (Manual) PT INR APTT D-Dimer ABG pH ABG pO2 ABG HCO3 ABG O2 Saturation ABG Base Excess ABG Hemoglobin Oxyhemoglobin Sodium 135 L Potassium Chloride Carbon Dioxide 16 L BUN 38 H Creatinine 2.0 H Glucose 122 H POC Glucose 127 H 116 H Lactic Acid Calcium 7.6 L Phosphorus Magnesium Ferritin AST Total Creatine Kinase Troponin T C-Reactive Protein NT-Pro-B Natriuret Pep Total Protein Albumin Prealbumin LDL Cholesterol Direct Vitamin B12 Urine WBC (Auto) OSKAR Screen Coronavirus (PCR) SARS-CoV-2 (PCR) 05/03/22 05/03/22 05/04/22 16:29 22:29 05:00 WBC RBC 3.39 L Hgb 9.6 L Hct 28.8 L MCHC RDW 18.8 H Plt Count Lymph % (Auto) [place] % (Auto) Lymph # (Auto) [place] # (Auto) Seg Neutrophils % Seg Neuts % (Manual) Lymphocytes % (Manual) Seg Neutrophils # Seg Neutrophils # Man Lymphocytes # (Manual) PT INR APTT D-Dimer ABG pH ABG pO2 ABG HCO3 ABG O2 Saturation ABG Base Excess ABG Hemoglobin Oxyhemoglobin Sodium Potassium Chloride Carbon Dioxide BUN Creatinine Glucose POC Glucose 113 H 113 H Lactic Acid Calcium Phosphorus Magnesium Ferritin AST Total Creatine Kinase Troponin T C-Reactive Protein NT-Pro-B Natriuret Pep Total Protein Albumin Prealbumin LDL Cholesterol Direct Vitamin B12 Urine WBC (Auto) OSKAR Screen Coronavirus (PCR) SARS-CoV-2 (PCR) 05/04/22 05/04/22 05/04/22 05:00 07:40 11:22 WBC RBC Hgb Hct MCHC RDW Plt Count Lymph % (Auto) [place] % (Auto) Lymph # (Auto) [place] # (Auto) Seg Neutrophils % Seg Neuts % (Manual) Lymphocytes % (Manual) Seg Neutrophils # Seg Neutrophils # Man Lymphocytes # (Manual) PT INR APTT D-Dimer ABG pH ABG pO2 ABG HCO3 ABG O2 Saturation ABG Base Excess ABG Hemoglobin Oxyhemoglobin Sodium Potassium 3.3 L D Chloride 108.7 H Carbon Dioxide 17 L BUN 37 H Creatinine 1.8 H Glucose 117 H POC Glucose 107 H 124 H Lactic Acid Calcium 7.4 L Phosphorus Magnesium Ferritin AST Total Creatine Kinase Troponin T C-Reactive Protein NT-Pro-B Natriuret Pep Total Protein Albumin Prealbumin LDL Cholesterol Direct Vitamin B12 Urine WBC (Auto) OSKAR Screen Coronavirus (PCR) SARS-CoV-2 (PCR) 05/04/22 05/04/22 05/04/22 15:57 18:55 22:40 WBC RBC Hgb Hct MCHC RDW Plt Count Lymph % (Auto) [place] % (Auto) Lymph # (Auto) [place] # (Auto) Seg Neutrophils % Seg Neuts % (Manual) Lymphocytes % (Manual) Seg Neutrophils # Seg Neutrophils # Man Lymphocytes # (Manual) PT INR APTT D-Dimer ABG pH ABG pO2 ABG HCO3 ABG O2 Saturation ABG Base Excess ABG Hemoglobin Oxyhemoglobin Sodium Potassium 3.5 L Chloride 109.4 H Carbon Dioxide 18 L BUN 31 H Creatinine 1.6 H Glucose 166 H POC Glucose 147 H 138 H Lactic Acid Calcium 7.4 L Phosphorus Magnesium Ferritin AST Total Creatine Kinase Troponin T C-Reactive Protein NT-Pro-B Natriuret Pep Total Protein Albumin Prealbumin LDL Cholesterol Direct Vitamin B12 Urine WBC (Auto) OSKAR Screen Coronavirus (PCR) SARS-CoV-2 (PCR) 05/05/22 05/05/22 05/05/22 04:38 04:38 07:35 WBC RBC Hgb 10.6 L Hct 32.3 L MCHC RDW 19.3 H Plt Count Lymph % (Auto) [place] % (Auto) Lymph # (Auto) [place] # (Auto) Seg Neutrophils % Seg Neuts % (Manual) Lymphocytes % (Manual) Seg Neutrophils # Seg Neutrophils # Man Lymphocytes # (Manual) PT INR APTT D-Dimer ABG pH ABG pO2 ABG HCO3 ABG O2 Saturation ABG Base Excess ABG Hemoglobin Oxyhemoglobin Sodium Potassium 3.2 L Chloride 112.3 H Carbon Dioxide 19 L BUN 27 H Creatinine 1.6 H Glucose 168 H POC Glucose 152 H Lactic Acid Calcium 7.6 L Phosphorus 2.30 L Magnesium Ferritin AST 44 H Total Creatine Kinase Troponin T C-Reactive Protein NT-Pro-B Natriuret Pep Total Protein 4.5 L Albumin 2.5 L Prealbumin LDL Cholesterol Direct Vitamin B12 Urine WBC (Auto) OSKAR Screen Coronavirus (PCR) SARS-CoV-2 (PCR) 05/05/22 05/05/22 05/05/22 13:06 16:20 22:07 WBC RBC Hgb Hct MCHC RDW Plt Count Lymph % (Auto) [place] % (Auto) Lymph # (Auto) [place] # (Auto) Seg Neutrophils % Seg Neuts % (Manual) Lymphocytes % (Manual) Seg Neutrophils # Seg Neutrophils # Man Lymphocytes # (Manual) PT INR APTT D-Dimer ABG pH ABG pO2 ABG HCO3 ABG O2 Saturation ABG Base Excess ABG Hemoglobin Oxyhemoglobin Sodium Potassium Chloride Carbon Dioxide BUN Creatinine Glucose POC Glucose 208 H 164 H 148 H Lactic Acid Calcium Phosphorus Magnesium Ferritin AST Total Creatine Kinase Troponin T C-Reactive Protein NT-Pro-B Natriuret Pep Total Protein Albumin Prealbumin LDL Cholesterol Direct Vitamin B12 Urine WBC (Auto) OSKAR Screen Coronavirus (PCR) SARS-CoV-2 (PCR) 05/06/22 05/06/22 05/06/22 04:43 04:43 07:27 WBC RBC Hgb Hct MCHC RDW Plt Count Lymph % (Auto) [place] % (Auto) Lymph # (Auto) [place] # (Auto) Seg Neutrophils % Seg Neuts % (Manual) Lymphocytes % (Manual) Seg Neutrophils # Seg Neutrophils # Man Lymphocytes # (Manual) PT INR APTT D-Dimer ABG pH ABG pO2 ABG HCO3 ABG O2 Saturation ABG Base Excess ABG Hemoglobin Oxyhemoglobin Sodium Potassium Chloride Carbon Dioxide BUN Creatinine Glucose POC Glucose 127 H Lactic Acid Calcium Phosphorus Magnesium Ferritin AST Total Creatine Kinase Troponin T C-Reactive Protein NT-Pro-B Natriuret Pep Total Protein Albumin Prealbumin 0.055 L LDL Cholesterol Direct Vitamin B12 1464 H Urine WBC (Auto) OSKAR Screen Coronavirus (PCR) SARS-CoV-2 (PCR) 05/06/22 05/06/22 05/06/22 11:30 15:46 16:49 WBC RBC Hgb Hct MCHC RDW Plt Count Lymph % (Auto) [place] % (Auto) Lymph # (Auto) [place] # (Auto) Seg Neutrophils % Seg Neuts % (Manual) Lymphocytes % (Manual) Seg Neutrophils # Seg Neutrophils # Man Lymphocytes # (Manual) PT INR APTT D-Dimer ABG pH ABG pO2 ABG HCO3 ABG O2 Saturation ABG Base Excess ABG Hemoglobin Oxyhemoglobin Sodium 148 H Potassium 3.3 L Chloride 112.7 H Carbon Dioxide 21 L BUN 28 H Creatinine Glucose 143 H POC Glucose 211 H 148 H Lactic Acid Calcium Phosphorus 1.40 L D Magnesium Ferritin AST Total Creatine Kinase Troponin T C-Reactive Protein NT-Pro-B Natriuret Pep Total Protein Albumin Prealbumin LDL Cholesterol Direct Vitamin B12 Urine WBC (Auto) OSKAR Screen Coronavirus (PCR) SARS-CoV-2 (PCR) 05/06/22 05/07/22 05/07/22 22:35 08:22 08:23 WBC 15.4 H RBC Hgb 10.9 L Hct 32.7 L MCHC RDW 19.2 H Plt Count Lymph % (Auto) 5.8 L [place] % (Auto) 7.7 H Lymph # (Auto) 0.9 L [place] # (Auto) 1.2 H Seg Neutrophils % 86.3 H Seg Neuts % (Manual) Lymphocytes % (Manual) Seg Neutrophils # 13.3 H Seg Neutrophils # Man Lymphocytes # (Manual) PT INR APTT D-Dimer ABG pH ABG pO2 ABG HCO3 ABG O2 Saturation ABG Base Excess ABG Hemoglobin Oxyhemoglobin Sodium Potassium Chloride Carbon Dioxide BUN Creatinine Glucose POC Glucose 156 H 169 H Lactic Acid Calcium Phosphorus Magnesium Ferritin AST Total Creatine Kinase Troponin T C-Reactive Protein NT-Pro-B Natriuret Pep Total Protein Albumin Prealbumin LDL Cholesterol Direct Vitamin B12 Urine WBC (Auto) OSKAR Screen Coronavirus (PCR) SARS-CoV-2 (PCR) 05/07/22 05/07/22 05/07/22 08:23 08:23 08:23 WBC RBC Hgb Hct MCHC RDW Plt Count Lymph % (Auto) [place] % (Auto) Lymph # (Auto) [place] # (Auto) Seg Neutrophils % Seg Neuts % (Manual) Lymphocytes % (Manual) Seg Neutrophils # Seg Neutrophils # Man Lymphocytes # (Manual) PT 17.7 H INR 1.30 H APTT D-Dimer ABG pH ABG pO2 ABG HCO3 ABG O2 Saturation ABG Base Excess ABG Hemoglobin Oxyhemoglobin Sodium 152 H Potassium 3.3 L Chloride 116.9 H Carbon Dioxide 20 L BUN 27 H Creatinine Glucose 150 H POC Glucose Lactic Acid 2.40 H* Calcium 8.3 L Phosphorus Magnesium Ferritin AST Total Creatine Kinase Troponin T C-Reactive Protein NT-Pro-B Natriuret Pep Total Protein Albumin Prealbumin LDL Cholesterol Direct Vitamin B12 Urine WBC (Auto) OSKAR Screen Coronavirus (PCR) SARS-CoV-2 (PCR) 05/07/22 05/07/22 05/07/22 09:10 12:23 15:35 WBC RBC Hgb Hct MCHC RDW Plt Count Lymph % (Auto) [place] % (Auto) Lymph # (Auto) [place] # (Auto) Seg Neutrophils % Seg Neuts % (Manual) Lymphocytes % (Manual) Seg Neutrophils # Seg Neutrophils # Man Lymphocytes # (Manual) PT INR APTT D-Dimer 4522.88 H ABG pH 7.471 H ABG pO2 64.0 L ABG HCO3 19.1 L ABG O2 Saturation 94.8 L ABG Base Excess -3.6 L ABG Hemoglobin 9.7 L Oxyhemoglobin 92.4 L Sodium Potassium Chloride Carbon Dioxide BUN Creatinine Glucose POC Glucose 132 H Lactic Acid Calcium Phosphorus Magnesium Ferritin AST Total Creatine Kinase Troponin T C-Reactive Protein NT-Pro-B Natriuret Pep Total Protein Albumin Prealbumin LDL Cholesterol Direct Vitamin B12 Urine WBC (Auto) OSKAR Screen Coronavirus (PCR) SARS-CoV-2 (PCR) 05/07/22 05/07/22 05/07/22 15:35 15:35 17:19 WBC RBC Hgb Hct MCHC RDW Plt Count Lymph % (Auto) [place] % (Auto) Lymph # (Auto) [place] # (Auto) Seg Neutrophils % Seg Neuts % (Manual) Lymphocytes % (Manual) Seg Neutrophils # Seg Neutrophils # Man Lymphocytes # (Manual) PT INR APTT D-Dimer ABG pH ABG pO2 ABG HCO3 ABG O2 Saturation ABG Base Excess ABG Hemoglobin Oxyhemoglobin Sodium Potassium Chloride Carbon Dioxide BUN Creatinine Glucose POC Glucose 137 H Lactic Acid Calcium Phosphorus Magnesium Ferritin 735.8 H AST Total Creatine Kinase Troponin T C-Reactive Protein 22.70 H NT-Pro-B Natriuret Pep 18604 H Total Protein Albumin Prealbumin LDL Cholesterol Direct Vitamin B12 Urine WBC (Auto) OSKAR Screen Coronavirus (PCR) SARS-CoV-2 (PCR) 05/07/22 05/07/22 05/08/22 19:52 22:51 07:23 WBC RBC Hgb Hct MCHC RDW Plt Count Lymph % (Auto) [place] % (Auto) Lymph # (Auto) [place] # (Auto) Seg Neutrophils % Seg Neuts % (Manual) Lymphocytes % (Manual) Seg Neutrophils # Seg Neutrophils # Man Lymphocytes # (Manual) PT INR APTT D-Dimer ABG pH ABG pO2 ABG HCO3 ABG O2 Saturation ABG Base Excess ABG Hemoglobin Oxyhemoglobin Sodium Potassium Chloride Carbon Dioxide BUN Creatinine Glucose POC Glucose 172 H 214 H Lactic Acid 2.20 H* Calcium Phosphorus Magnesium Ferritin AST Total Creatine Kinase Troponin T C-Reactive Protein NT-Pro-B Natriuret Pep Total Protein Albumin Prealbumin LDL Cholesterol Direct Vitamin B12 Urine WBC (Auto) OSKAR Screen Coronavirus (PCR) SARS-CoV-2 (PCR) 05/08/22 05/08/22 05/08/22 07:26 07:26 08:00 WBC 17.1 H RBC Hgb 10.5 L Hct 32.2 L MCHC RDW 19.6 H Plt Count Lymph % (Auto) [place] % (Auto) Lymph # (Auto) [place] # (Auto) Seg Neutrophils % Seg Neuts % (Manual) 92.0 H Lymphocytes % (Manual) 4.0 L Seg Neutrophils # Seg Neutrophils # Man 15.7 H Lymphocytes # (Manual) 0.7 L PT INR APTT D-Dimer ABG pH ABG pO2 ABG HCO3 ABG O2 Saturation ABG Base Excess ABG Hemoglobin Oxyhemoglobin Sodium 146 H Potassium Chloride 111.2 H Carbon Dioxide 21 L BUN 33 H Creatinine 1.5 H Glucose 207 H POC Glucose Lactic Acid 2.10 H* Calcium 8.2 L Phosphorus Magnesium Ferritin AST Total Creatine Kinase Troponin T C-Reactive Protein NT-Pro-B Natriuret Pep Total Protein Albumin Prealbumin LDL Cholesterol Direct Vitamin B12 Urine WBC (Auto) OSKAR Screen Coronavirus (PCR) SARS-CoV-2 (PCR) 05/08/22 05/08/22 05/08/22 10:38 10:40 11:02 WBC RBC Hgb Hct MCHC RDW Plt Count Lymph % (Auto) [place] % (Auto) Lymph # (Auto) [place] # (Auto) Seg Neutrophils % Seg Neuts % (Manual) Lymphocytes % (Manual) Seg Neutrophils # Seg Neutrophils # Man Lymphocytes # (Manual) PT INR APTT D-Dimer ABG pH 7.470 H ABG pO2 65.4 L ABG HCO3 ABG O2 Saturation ABG Base Excess -2.2 L ABG Hemoglobin 10.5 L Oxyhemoglobin 93.1 L Sodium Potassium Chloride Carbon Dioxide BUN Creatinine Glucose POC Glucose 163 H Lactic Acid 2.40 H* Calcium Phosphorus Magnesium Ferritin AST Total Creatine Kinase Troponin T C-Reactive Protein NT-Pro-B Natriuret Pep Total Protein Albumin Prealbumin LDL Cholesterol Direct Vitamin B12 Urine WBC (Auto) OSKAR Screen Coronavirus (PCR) SARS-CoV-2 (PCR) 05/08/22 05/08/22 05/08/22 17:35 17:47 21:48 WBC RBC Hgb Hct MCHC RDW Plt Count Lymph % (Auto) [place] % (Auto) Lymph # (Auto) [place] # (Auto) Seg Neutrophils % Seg Neuts % (Manual) Lymphocytes % (Manual) Seg Neutrophils # Seg Neutrophils # Man Lymphocytes # (Manual) PT INR APTT D-Dimer ABG pH ABG pO2 ABG HCO3 ABG O2 Saturation ABG Base Excess ABG Hemoglobin Oxyhemoglobin Sodium Potassium Chloride Carbon Dioxide BUN Creatinine Glucose POC Glucose 143 H 151 H Lactic Acid 2.10 H* Calcium Phosphorus Magnesium Ferritin AST Total Creatine Kinase Troponin T C-Reactive Protein NT-Pro-B Natriuret Pep Total Protein Albumin Prealbumin LDL Cholesterol Direct Vitamin B12 Urine WBC (Auto) OSKAR Screen Coronavirus (PCR) SARS-CoV-2 (PCR) 05/09/22 05/09/22 05/09/22 04:05 04:05 11:43 WBC 15.3 H RBC 3.49 L Hgb 9.8 L Hct 29.4 L MCHC RDW 19.2 H Plt Count Lymph % (Auto) 5.5 L [place] % (Auto) Lymph # (Auto) 0.8 L [place] # (Auto) Seg Neutrophils % 89.9 H Seg Neuts % (Manual) Lymphocytes % (Manual) Seg Neutrophils # 13.8 H Seg Neutrophils # Man Lymphocytes # (Manual) PT INR APTT D-Dimer ABG pH ABG pO2 ABG HCO3 ABG O2 Saturation ABG Base Excess ABG Hemoglobin Oxyhemoglobin Sodium 151 H Potassium 3.3 L Chloride 115.0 H Carbon Dioxide BUN 47 H Creatinine 1.7 H Glucose 158 H POC Glucose 160 H Lactic Acid Calcium 8.1 L Phosphorus Magnesium Ferritin AST Total Creatine Kinase Troponin T C-Reactive Protein NT-Pro-B Natriuret Pep Total Protein Albumin Prealbumin LDL Cholesterol Direct Vitamin B12 Urine WBC (Auto) OSKAR Screen Coronavirus (PCR) SARS-CoV-2 (PCR) 05/09/22 05/09/22 16:01 18:46 WBC RBC Hgb Hct MCHC RDW Plt Count Lymph % (Auto) [place] % (Auto) Lymph # (Auto) [place] # (Auto) Seg Neutrophils % Seg Neuts % (Manual) Lymphocytes % (Manual) Seg Neutrophils # Seg Neutrophils # Man Lymphocytes # (Manual) PT INR APTT D-Dimer ABG pH ABG pO2 ABG HCO3 ABG O2 Saturation ABG Base Excess ABG Hemoglobin Oxyhemoglobin Sodium Potassium Chloride Carbon Dioxide BUN Creatinine Glucose POC Glucose 128 H Lactic Acid Calcium Phosphorus Magnesium Ferritin AST Total Creatine Kinase Troponin T C-Reactive Protein NT-Pro-B Natriuret Pep Total Protein Albumin Prealbumin LDL Cholesterol Direct Vitamin B12 Urine WBC (Auto) OSKAR Screen Coronavirus (PCR) SARS-CoV-2 (PCR) Positive A
[2022-05-10 05:24] LABS: Hematocrit 29.8 % (35.5-45.6); Hemoglobin 9.6 gm/dl (11.8-15.2); Mean Corpuscular HGB Conc 32 % (32-34); Mean Corpuscular Volume 85 fl (84-94); Platelet Count 208 K/mm3 (140-440); Red Blood Count 3.51 M/mm3 (3.65-5.03); Red Cell Distribution Width 19.2 % (13.2-15.2)
[2022-05-10 05:41] LABS: Calcium 8.2 mg/dL (8.4-10.2)
[2022-05-10] MEDS: INSULIN REGULAR, HUMAN 100 UNITS/1 ML SUB-Q SCH (06:15)
[2022-05-10] MEDS ORDERED: POTASSIUM CHLORIDE 20 MEQ 20 MEQ/100 ML BAG IV SCH (09:00)
[2022-05-10] MEDS ORDERED: ASPIRIN 300 MG RECT SUPP PR SCH ×2 (09:00→10:00)
[2022-05-10] MEDS: cefTRIAXone/NS 2 GM/100 ML 2 GM/100 ML BAG IV SCH (09:42)
[2022-05-10] MEDS: ASCORBIC ACID 500 MG TAB PO SCH (09:43)
[2022-05-10] MEDS: ZINC SULFATE 220 MG CAP PO SCH (09:43)
[2022-05-10] MEDS: MEMANTINE 10 MG TAB PO SCH (09:43)
[2022-05-10] MEDS ORDERED: FAMOTIDINE 20 MG/2 ML INJ IV SCH (10:00)
--- NOTE | 2022-05-10 10:44 | Progress Note ---
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 Follow Neurology recommendations -Hypotonic solution for hypernatremia- Renal following. - continue to avoid nephrotoxins, renally dose all medications - mobility, off loading and frequent turning per facility mobility protocols to prevent pressure ulcers - continue accuchecks with glycemic control per SSI for target blood glucose < 180 mg/dL - VTE prophylaxis-SCDs - Flu & pneumovax per protocol -Dumont catheter in for urinary retention, home medications were resumed. -Discontinue RIJ CVL, place peripheral IV. The line has been in since 05/02- patient does not have any medications requiring central venous access. -Trend temperature curve and WCC. Antibiotics per ID -All other care per primary service and Neurology CONDITION: CRITICAL PROGNOSIS: GUARDED-POOR CODE STATUS: FULL CODE COVID SPECIFIC INTERVENTIONS - Continue contact and airborne isolation per facility protocol The primary service is having ongoing goals of care discussions with the family. If there is any deterioration in neurological status, or new clinical findings, repeat CT head to re-evaluate The high probability of a clinically significant, sudden or life threatening deterioration of the [neuro and respiratory] system(s) required my full and direct attention, intervention and personal management. The aggregate critical care time was 35 minutes. This time is in addition to time spent performing reported procedures but includes the following: [x] Data Review and interpretation [x] Patient assessment and monitoring of vital signs [x] Documentation [x] Medication orders and management Subjective Date of service: 05/10/22 Principal diagnosis: AMS; UTI; ANJU; Septic shock; E.Coli Bacteremia; UTI; Thrombocytopenia Interval history: Patient is seen today for: AMS; UTI; H/O CVA with ICH; ANJU; Septic shock; E. Coli Bacteremia; UTI; Thrombocytopenia; A-fib Seen and examined at bedside; 24hour events reviewed; nursing and respiratory care staff consulted; no adverse overnight events reported to me; resting in bed; on BIPAP with upper airway noise, unresponsive. Remains in Afib but rate controlled. Worsening respiratory status,use of accessory muscles, oxygen saturations in the 70s. Primary service had a conversation with [place] daughters, they want the patient intubated so that they can get their mother to come up to see him Objective Vital Signs - 12hr 05/09/22 05/09/22 05/09/22 23:00 23:15 23:30 Temperature 98.6 F Pulse Rate 105 H 105 H 93 H Respiratory 27 H 27 H 26 H Rate Blood Pressure 129/66 129/66 O2 Sat by Pulse 92 100 Oximetry 05/09/22 05/10/22 05/10/22 23:38 00:00 00:30 Temperature Pulse Rate 102 H 112 H 99 H Respiratory 29 H 34 H 27 H Rate Blood Pressure 129/66 100/46 100/46 O2 Sat by Pulse 98 96 99 Oximetry 05/10/22 05/10/22 05/10/22 01:00 01:30 02:00 Temperature Pulse Rate 101 H 95 H 96 H Respiratory 28 H 25 H 28 H Rate Blood Pressure 107/55 107/55 116/59 O2 Sat by Pulse 100 100 100 Oximetry 05/10/22 05/10/22 05/10/22 02:30 03:00 03:30 Temperature Pulse Rate 108 H 99 H 99 H Respiratory 24 27 H 25 H Rate Blood Pressure 107/55 109/58 109/58 O2 Sat by Pulse 99 100 100 Oximetry 05/10/22 05/10/22 05/10/22 03:55 04:00 04:15 Temperature 98.6 F Pulse Rate 95 H 90 Respiratory 26 H 26 H Rate Blood Pressure 95/56 109/58 O2 Sat by Pulse 100 99 Oximetry 05/10/22 05/10/22 05/10/22 04:30 05:00 05:30 Temperature Pulse Rate 108 H 96 H 101 H Respiratory 28 H 22 25 H Rate Blood Pressure 96/56 89/62 89/62 O2 Sat by Pulse 99 98 93 Oximetry 05/10/22 05/10/22 05/10/22 06:00 06:26 06:30 Temperature Pulse Rate 97 H 105 H 104 H Respiratory 24 27 H 23 Rate Blood Pressure 108/51 108/51 O2 Sat by Pulse 98 92 99 Oximetry 05/10/22 05/10/22 05/10/22 07:00 07:30 07:40 Temperature Pulse Rate 89 101 H 85 Respiratory 24 23 24 Rate Blood Pressure 113/52 113/52 113/52 O2 Sat by Pulse 99 100 100 Oximetry 05/10/22 05/10/22 05/10/22 08:00 08:30 09:00 Temperature 98.1 F Pulse Rate 87 101 H 91 H Respiratory 23 21 33 H Rate Blood Pressure 110/48 110/48 110/48 O2 Sat by Pulse 99 94 90 Oximetry 05/10/22 05/10/22 09:30 10:00 Temperature Pulse Rate 97 H 95 H Respiratory 31 H 31 H Rate Blood Pressure 95/49 107/56 O2 Sat by Pulse 95 95 Oximetry Constitutional: other (elderly male resting on BIPAP wiht increased work of breathing, use of accessory muscles) Eyes: non-icteric ENT: oropharynx moist Neck: supple, no lymphadenopathy, no JVD Effort: mildly labored, very labored Ascultation: Bilateral: diminished breath sounds, rhonchi (scant bases), other (Upper airway noise,) Percussion: Bilateral: not dull Cardiovascular: irregular rhythm, other (S1,S2) Gastrointestinal: normoactive bowel sounds, soft, non-tender, non-distended ( protuberant) Integumentary: normal Extremities: no cyanosis, no edema, pink and warm, pulses normal Neurologic: unable to assess (unresponsive, not obeying commands) Psychiatric: other (unable to assess, unresponsive) CBC and BMP: 05/10/22 04:00 05/10/22 04:00 ABG, PT/INR, D-dimer: ABG ABG pH 7.470 pH Units (7.350-7.450) H 05/08/22 11:02 ABG pCO2 28.9 mm Hg 05/08/22 11:02 ABG pO2 65.4 mm Hg (80.0-90.0) L 05/08/22 11:02 ABG O2 Saturation 95.1 % (95.0-99.0) 05/08/22 11:02 PT/INR, D-dimer PT 17.7 Sec. (12.2-14.9) H 05/07/22 08:23 INR 1.30 (0.87-1.13) H 05/07/22 08:23 D-Dimer 4522.88 ng/mlDDU (0-234) H 05/07/22 15:35 Abnormal lab findings: Abnormal Labs 05/01/22 05/01/22 05/01/22 23:14 23:14 23:14 WBC RBC Hgb 10.8 L Hct 30.9 L MCH MCHC 35 H RDW 18.0 H Plt Count 113 L Lymph % (Auto) [place] % (Auto) Lymph # (Auto) [place] # (Auto) Seg Neutrophils % Seg Neuts % (Manual) Lymphocytes % (Manual) Seg Neutrophils # Seg Neutrophils # Man Lymphocytes # (Manual) PT 19.1 H INR 1.42 H APTT 39.9 H D-Dimer ABG pH ABG pO2 ABG HCO3 ABG O2 Saturation ABG Base Excess ABG Hemoglobin Oxyhemoglobin Sodium 125 L Potassium Chloride 91.0 L Carbon Dioxide 21 L BUN 38 H Creatinine 2.1 H Glucose 131 H POC Glucose Lactic Acid Calcium 7.9 L Phosphorus Magnesium 1.60 L Ferritin AST Total Creatine Kinase Troponin T C-Reactive Protein NT-Pro-B Natriuret Pep Total Protein 4.8 L Albumin 3.3 L Prealbumin LDL Cholesterol Direct Vitamin B12 Urine WBC (Auto) OSKAR Screen Coronavirus (PCR) SARS-CoV-2 (PCR) 05/01/22 05/01/22 05/02/22 23:14 23:54 03:39 WBC RBC Hgb Hct MCH MCHC RDW Plt Count Lymph % (Auto) [place] % (Auto) Lymph # (Auto) [place] # (Auto) Seg Neutrophils % Seg Neuts % (Manual) Lymphocytes % (Manual) Seg Neutrophils # Seg Neutrophils # Man Lymphocytes # (Manual) PT INR APTT D-Dimer ABG pH ABG pO2 ABG HCO3 ABG O2 Saturation ABG Base Excess ABG Hemoglobin Oxyhemoglobin Sodium Potassium Chloride Carbon Dioxide BUN Creatinine Glucose POC Glucose Lactic Acid 2.30 H* Calcium Phosphorus Magnesium Ferritin AST Total Creatine Kinase Troponin T 0.054 H C-Reactive Protein NT-Pro-B Natriuret Pep 35383 H Total Protein Albumin Prealbumin LDL Cholesterol Direct 25 L Vitamin B12 Urine WBC (Auto) > 182.0 H OSKAR Screen Coronavirus (PCR) SARS-CoV-2 (PCR) 05/02/22 05/02/22 05/02/22 06:05 11:14 11:14 WBC RBC Hgb Hct MCH MCHC RDW Plt Count Lymph % (Auto) [place] % (Auto) Lymph # (Auto) [place] # (Auto) Seg Neutrophils % Seg Neuts % (Manual) Lymphocytes % (Manual) Seg Neutrophils # Seg Neutrophils # Man Lymphocytes # (Manual) PT INR APTT D-Dimer 1135.33 H ABG pH ABG pO2 ABG HCO3 ABG O2 Saturation ABG Base Excess ABG Hemoglobin Oxyhemoglobin Sodium 132 L D Potassium Chloride Carbon Dioxide 15 L BUN 41 H Creatinine 2.1 H Glucose 127 H POC Glucose 139 H Lactic Acid Calcium 7.6 L Phosphorus Magnesium Ferritin AST Total Creatine Kinase Troponin T 0.196 H* D C-Reactive Protein 29.00 H NT-Pro-B Natriuret Pep Total Protein Albumin Prealbumin LDL Cholesterol Direct Vitamin B12 Urine WBC (Auto) OSKAR Screen Coronavirus (PCR) SARS-CoV-2 (PCR) 05/02/22 05/02/22 05/02/22 11:14 11:14 17:10 WBC RBC Hgb Hct MCH MCHC RDW Plt Count Lymph % (Auto) [place] % (Auto) Lymph # (Auto) [place] # (Auto) Seg Neutrophils % Seg Neuts % (Manual) Lymphocytes % (Manual) Seg Neutrophils # Seg Neutrophils # Man Lymphocytes # (Manual) PT INR APTT D-Dimer ABG pH ABG pO2 ABG HCO3 ABG O2 Saturation ABG Base Excess ABG Hemoglobin Oxyhemoglobin Sodium 130 L Potassium Chloride 96.0 L Carbon Dioxide 17 L BUN 42 H Creatinine 2.3 H Glucose 141 H POC Glucose 150 H Lactic Acid Calcium 7.7 L Phosphorus Magnesium Ferritin 544.4 H AST Total Creatine Kinase Troponin T C-Reactive Protein NT-Pro-B Natriuret Pep Total Protein Albumin Prealbumin LDL Cholesterol Direct Vitamin B12 Urine WBC (Auto) OSKAR Screen Coronavirus (PCR) SARS-CoV-2 (PCR) 05/02/22 05/02/22 05/02/22 20:20 20:20 20:20 WBC RBC Hgb Hct MCH MCHC RDW Plt Count Lymph % (Auto) [place] % (Auto) Lymph # (Auto) [place] # (Auto) Seg Neutrophils % Seg Neuts % (Manual) Lymphocytes % (Manual) Seg Neutrophils # Seg Neutrophils # Man Lymphocytes # (Manual) PT INR APTT D-Dimer ABG pH ABG pO2 ABG HCO3 ABG O2 Saturation ABG Base Excess ABG Hemoglobin Oxyhemoglobin Sodium 133 L Potassium Chloride Carbon Dioxide BUN Creatinine Glucose POC Glucose Lactic Acid Calcium Phosphorus Magnesium Ferritin AST Total Creatine Kinase 816 H Troponin T C-Reactive Protein NT-Pro-B Natriuret Pep Total Protein Albumin Prealbumin LDL Cholesterol Direct Vitamin B12 Urine WBC (Auto) OSKAR Screen Positive H Coronavirus (PCR) SARS-CoV-2 (PCR) 05/02/22 05/02/22 05/03/22 22:06 Unknown 05:00 WBC 13.3 H RBC 3.62 L Hgb 10.1 L Hct 30.8 L MCH MCHC RDW 19.1 H Plt Count Lymph % (Auto) 3.9 L [place] % (Auto) 9.4 H Lymph # (Auto) 0.5 L [place] # (Auto) 1.3 H Seg Neutrophils % 85.6 H Seg Neuts % (Manual) Lymphocytes % (Manual) Seg Neutrophils # 11.4 H Seg Neutrophils # Man Lymphocytes # (Manual) PT INR APTT D-Dimer ABG pH ABG pO2 ABG HCO3 ABG O2 Saturation ABG Base Excess ABG Hemoglobin Oxyhemoglobin Sodium Potassium Chloride Carbon Dioxide BUN Creatinine Glucose POC Glucose 146 H Lactic Acid Calcium Phosphorus Magnesium Ferritin AST Total Creatine Kinase Troponin T C-Reactive Protein NT-Pro-B Natriuret Pep Total Protein Albumin Prealbumin LDL Cholesterol Direct Vitamin B12 Urine WBC (Auto) OSKAR Screen Coronavirus (PCR) Positive A SARS-CoV-2 (PCR) 05/03/22 05/03/22 05/03/22 06:48 08:48 11:07 WBC RBC Hgb Hct MCH MCHC RDW Plt Count Lymph % (Auto) [place] % (Auto) Lymph # (Auto) [place] # (Auto) Seg Neutrophils % Seg Neuts % (Manual) Lymphocytes % (Manual) Seg Neutrophils # Seg Neutrophils # Man Lymphocytes # (Manual) PT INR APTT D-Dimer ABG pH ABG pO2 ABG HCO3 ABG O2 Saturation ABG Base Excess ABG Hemoglobin Oxyhemoglobin Sodium 135 L Potassium Chloride Carbon Dioxide 16 L BUN 38 H Creatinine 2.0 H Glucose 122 H POC Glucose 127 H 116 H Lactic Acid Calcium 7.6 L Phosphorus Magnesium Ferritin AST Total Creatine Kinase Troponin T C-Reactive Protein NT-Pro-B Natriuret Pep Total Protein Albumin Prealbumin LDL Cholesterol Direct Vitamin B12 Urine WBC (Auto) OSKAR Screen Coronavirus (PCR) SARS-CoV-2 (PCR) 05/03/22 05/03/22 05/04/22 16:29 22:29 05:00 WBC RBC 3.39 L Hgb 9.6 L Hct 28.8 L MCH MCHC RDW 18.8 H Plt Count Lymph % (Auto) [place] % (Auto) Lymph # (Auto) [place] # (Auto) Seg Neutrophils % Seg Neuts % (Manual) Lymphocytes % (Manual) Seg Neutrophils # Seg Neutrophils # Man Lymphocytes # (Manual) PT INR APTT D-Dimer ABG pH ABG pO2 ABG HCO3 ABG O2 Saturation ABG Base Excess ABG Hemoglobin Oxyhemoglobin Sodium Potassium Chloride Carbon Dioxide BUN Creatinine Glucose POC Glucose 113 H 113 H Lactic Acid Calcium Phosphorus Magnesium Ferritin AST Total Creatine Kinase Troponin T C-Reactive Protein NT-Pro-B Natriuret Pep Total Protein Albumin Prealbumin LDL Cholesterol Direct Vitamin B12 Urine WBC (Auto) OSKAR Screen Coronavirus (PCR) SARS-CoV-2 (PCR) 05/04/22 05/04/22 05/04/22 05:00 07:40 11:22 WBC RBC Hgb Hct MCH MCHC RDW Plt Count Lymph % (Auto) [place] % (Auto) Lymph # (Auto) [place] # (Auto) Seg Neutrophils % Seg Neuts % (Manual) Lymphocytes % (Manual) Seg Neutrophils # Seg Neutrophils # Man Lymphocytes # (Manual) PT INR APTT D-Dimer ABG pH ABG pO2 ABG HCO3 ABG O2 Saturation ABG Base Excess ABG Hemoglobin Oxyhemoglobin Sodium Potassium 3.3 L D Chloride 108.7 H Carbon Dioxide 17 L BUN 37 H Creatinine 1.8 H Glucose 117 H POC Glucose 107 H 124 H Lactic Acid Calcium 7.4 L Phosphorus Magnesium Ferritin AST Total Creatine Kinase Troponin T C-Reactive Protein NT-Pro-B Natriuret Pep Total Protein Albumin Prealbumin LDL Cholesterol Direct Vitamin B12 Urine WBC (Auto) OSKAR Screen Coronavirus (PCR) SARS-CoV-2 (PCR) 05/04/22 05/04/22 05/04/22 15:57 18:55 22:40 WBC RBC Hgb Hct MCH MCHC RDW Plt Count Lymph % (Auto) [place] % (Auto) Lymph # (Auto) [place] # (Auto) Seg Neutrophils % Seg Neuts % (Manual) Lymphocytes % (Manual) Seg Neutrophils # Seg Neutrophils # Man Lymphocytes # (Manual) PT INR APTT D-Dimer ABG pH ABG pO2 ABG HCO3 ABG O2 Saturation ABG Base Excess ABG Hemoglobin Oxyhemoglobin Sodium Potassium 3.5 L Chloride 109.4 H Carbon Dioxide 18 L BUN 31 H Creatinine 1.6 H Glucose 166 H POC Glucose 147 H 138 H Lactic Acid Calcium 7.4 L Phosphorus Magnesium Ferritin AST Total Creatine Kinase Troponin T C-Reactive Protein NT-Pro-B Natriuret Pep Total Protein Albumin Prealbumin LDL Cholesterol Direct Vitamin B12 Urine WBC (Auto) OSKAR Screen Coronavirus (PCR) SARS-CoV-2 (PCR) 05/05/22 05/05/22 05/05/22 04:38 04:38 07:35 WBC RBC Hgb 10.6 L Hct 32.3 L MCH MCHC RDW 19.3 H Plt Count Lymph % (Auto) [place] % (Auto) Lymph # (Auto) [place] # (Auto) Seg Neutrophils % Seg Neuts % (Manual) Lymphocytes % (Manual) Seg Neutrophils # Seg Neutrophils # Man Lymphocytes # (Manual) PT INR APTT D-Dimer ABG pH ABG pO2 ABG HCO3 ABG O2 Saturation ABG Base Excess ABG Hemoglobin Oxyhemoglobin Sodium Potassium 3.2 L Chloride 112.3 H Carbon Dioxide 19 L BUN 27 H Creatinine 1.6 H Glucose 168 H POC Glucose 152 H Lactic Acid Calcium 7.6 L Phosphorus 2.30 L Magnesium Ferritin AST 44 H Total Creatine Kinase Troponin T C-Reactive Protein NT-Pro-B Natriuret Pep Total Protein 4.5 L Albumin 2.5 L Prealbumin LDL Cholesterol Direct Vitamin B12 Urine WBC (Auto) OSKAR Screen Coronavirus (PCR) SARS-CoV-2 (PCR) 05/05/22 05/05/22 05/05/22 13:06 16:20 22:07 WBC RBC Hgb Hct MCH MCHC RDW Plt Count Lymph % (Auto) [place] % (Auto) Lymph # (Auto) [place] # (Auto) Seg Neutrophils % Seg Neuts % (Manual) Lymphocytes % (Manual) Seg Neutrophils # Seg Neutrophils # Man Lymphocytes # (Manual) PT INR APTT D-Dimer ABG pH ABG pO2 ABG HCO3 ABG O2 Saturation ABG Base Excess ABG Hemoglobin Oxyhemoglobin Sodium Potassium Chloride Carbon Dioxide BUN Creatinine Glucose POC Glucose 208 H 164 H 148 H Lactic Acid Calcium Phosphorus Magnesium Ferritin AST Total Creatine Kinase Troponin T C-Reactive Protein NT-Pro-B Natriuret Pep Total Protein Albumin Prealbumin LDL Cholesterol Direct Vitamin B12 Urine WBC (Auto) OSKAR Screen Coronavirus (PCR) SARS-CoV-2 (PCR) 05/06/22 05/06/22 05/06/22 04:43 04:43 07:27 WBC RBC Hgb Hct MCH MCHC RDW Plt Count Lymph % (Auto) [place] % (Auto) Lymph # (Auto) [place] # (Auto) Seg Neutrophils % Seg Neuts % (Manual) Lymphocytes % (Manual) Seg Neutrophils # Seg Neutrophils # Man Lymphocytes # (Manual) PT INR APTT D-Dimer ABG pH ABG pO2 ABG HCO3 ABG O2 Saturation ABG Base Excess ABG Hemoglobin Oxyhemoglobin Sodium Potassium Chloride Carbon Dioxide BUN Creatinine Glucose POC Glucose 127 H Lactic Acid Calcium Phosphorus Magnesium Ferritin AST Total Creatine Kinase Troponin T C-Reactive Protein NT-Pro-B Natriuret Pep Total Protein Albumin Prealbumin 0.055 L LDL Cholesterol Direct Vitamin B12 1464 H Urine WBC (Auto) OSKAR Screen Coronavirus (PCR) SARS-CoV-2 (PCR) 05/06/22 05/06/22 05/06/22 11:30 15:46 16:49 WBC RBC Hgb Hct MCH MCHC RDW Plt Count Lymph % (Auto) [place] % (Auto) Lymph # (Auto) [place] # (Auto) Seg Neutrophils % Seg Neuts % (Manual) Lymphocytes % (Manual) Seg Neutrophils # Seg Neutrophils # Man Lymphocytes # (Manual) PT INR APTT D-Dimer ABG pH ABG pO2 ABG HCO3 ABG O2 Saturation ABG Base Excess ABG Hemoglobin Oxyhemoglobin Sodium 148 H Potassium 3.3 L Chloride 112.7 H Carbon Dioxide 21 L BUN 28 H Creatinine Glucose 143 H POC Glucose 211 H 148 H Lactic Acid Calcium Phosphorus 1.40 L D Magnesium Ferritin AST Total Creatine Kinase Troponin T C-Reactive Protein NT-Pro-B Natriuret Pep Total Protein Albumin Prealbumin LDL Cholesterol Direct Vitamin B12 Urine WBC (Auto) OSKAR Screen Coronavirus (PCR) SARS-CoV-2 (PCR) 09/20/22 09/21/22 09/21/22 22:35 08:22 08:23 WBC 15.4 H RBC Hgb 10.9 L Hct 32.7 L MCH MCHC RDW 19.2 H Plt Count Lymph % (Auto) 5.8 L [place] % (Auto) 7.7 H Lymph # (Auto) 0.9 L [place] # (Auto) 1.2 H Seg Neutrophils % 86.3 H Seg Neuts % (Manual) Lymphocytes % (Manual) Seg Neutrophils # 13.3 H Seg Neutrophils # Man Lymphocytes # (Manual) PT INR APTT D-Dimer ABG pH ABG pO2 ABG HCO3 ABG O2 Saturation ABG Base Excess ABG Hemoglobin Oxyhemoglobin Sodium Potassium Chloride Carbon Dioxide BUN Creatinine Glucose POC Glucose 156 H 169 H Lactic Acid Calcium Phosphorus Magnesium Ferritin AST Total Creatine Kinase Troponin T C-Reactive Protein NT-Pro-B Natriuret Pep Total Protein Albumin Prealbumin LDL Cholesterol Direct Vitamin B12 Urine WBC (Auto) OSKAR Screen Coronavirus (PCR) SARS-CoV-2 (PCR) 05/07/22 05/07/22 05/07/22 08:23 08:23 08:23 WBC RBC Hgb Hct MCH MCHC RDW Plt Count Lymph % (Auto) [place] % (Auto) Lymph # (Auto) [place] # (Auto) Seg Neutrophils % Seg Neuts % (Manual) Lymphocytes % (Manual) Seg Neutrophils # Seg Neutrophils # Man Lymphocytes # (Manual) PT 17.7 H INR 1.30 H APTT D-Dimer ABG pH ABG pO2 ABG HCO3 ABG O2 Saturation ABG Base Excess ABG Hemoglobin Oxyhemoglobin Sodium 152 H Potassium 3.3 L Chloride 116.9 H Carbon Dioxide 20 L BUN 27 H Creatinine Glucose 150 H POC Glucose Lactic Acid 2.40 H* Calcium 8.3 L Phosphorus Magnesium Ferritin AST Total Creatine Kinase Troponin T C-Reactive Protein NT-Pro-B Natriuret Pep Total Protein Albumin Prealbumin LDL Cholesterol Direct Vitamin B12 Urine WBC (Auto) OSKAR Screen Coronavirus (PCR) SARS-CoV-2 (PCR) 05/07/22 05/07/22 05/07/22 09:10 12:23 15:35 WBC RBC Hgb Hct MCH MCHC RDW Plt Count Lymph % (Auto) [place] % (Auto) Lymph # (Auto) [place] # (Auto) Seg Neutrophils % Seg Neuts % (Manual) Lymphocytes % (Manual) Seg Neutrophils # Seg Neutrophils # Man Lymphocytes # (Manual) PT INR APTT D-Dimer 4522.88 H ABG pH 7.471 H ABG pO2 64.0 L ABG HCO3 19.1 L ABG O2 Saturation 94.8 L ABG Base Excess -3.6 L ABG Hemoglobin 9.7 L Oxyhemoglobin 92.4 L Sodium Potassium Chloride Carbon Dioxide BUN Creatinine Glucose POC Glucose 132 H Lactic Acid Calcium Phosphorus Magnesium Ferritin AST Total Creatine Kinase Troponin T C-Reactive Protein NT-Pro-B Natriuret Pep Total Protein Albumin Prealbumin LDL Cholesterol Direct Vitamin B12 Urine WBC (Auto) OSKAR Screen Coronavirus (PCR) SARS-CoV-2 (PCR) 05/07/22 05/07/22 05/07/22 15:35 15:35 17:19 WBC RBC Hgb Hct MCH MCHC RDW Plt Count Lymph % (Auto) [place] % (Auto) Lymph # (Auto) [place] # (Auto) Seg Neutrophils % Seg Neuts % (Manual) Lymphocytes % (Manual) Seg Neutrophils # Seg Neutrophils # Man Lymphocytes # (Manual) PT INR APTT D-Dimer ABG pH ABG pO2 ABG HCO3 ABG O2 Saturation ABG Base Excess ABG Hemoglobin Oxyhemoglobin Sodium Potassium Chloride Carbon Dioxide BUN Creatinine Glucose POC Glucose 137 H Lactic Acid Calcium Phosphorus Magnesium Ferritin 735.8 H AST Total Creatine Kinase Troponin T C-Reactive Protein 22.70 H NT-Pro-B Natriuret Pep 46452 H Total Protein Albumin Prealbumin LDL Cholesterol Direct Vitamin B12 Urine WBC (Auto) OSKAR Screen Coronavirus (PCR) SARS-CoV-2 (PCR) 05/07/22 05/07/22 05/08/22 19:52 22:51 07:23 WBC RBC Hgb Hct MCH MCHC RDW Plt Count Lymph % (Auto) [place] % (Auto) Lymph # (Auto) [place] # (Auto) Seg Neutrophils % Seg Neuts % (Manual) Lymphocytes % (Manual) Seg Neutrophils # Seg Neutrophils # Man Lymphocytes # (Manual) PT INR APTT D-Dimer ABG pH ABG pO2 ABG HCO3 ABG O2 Saturation ABG Base Excess ABG Hemoglobin Oxyhemoglobin Sodium Potassium Chloride Carbon Dioxide BUN Creatinine Glucose POC Glucose 172 H 214 H Lactic Acid 2.20 H* Calcium Phosphorus Magnesium Ferritin AST Total Creatine Kinase Troponin T C-Reactive Protein NT-Pro-B Natriuret Pep Total Protein Albumin Prealbumin LDL Cholesterol Direct Vitamin B12 Urine WBC (Auto) OSKAR Screen Coronavirus (PCR) SARS-CoV-2 (PCR) 05/08/22 05/08/22 05/08/22 07:26 07:26 08:00 WBC 17.1 H RBC Hgb 10.5 L Hct 32.2 L MCH MCHC RDW 19.6 H Plt Count Lymph % (Auto) [place] % (Auto) Lymph # (Auto) [place] # (Auto) Seg Neutrophils % Seg Neuts % (Manual) 92.0 H Lymphocytes % (Manual) 4.0 L Seg Neutrophils # Seg Neutrophils # Man 15.7 H Lymphocytes # (Manual) 0.7 L PT INR APTT D-Dimer ABG pH ABG pO2 ABG HCO3 ABG O2 Saturation ABG Base Excess ABG Hemoglobin Oxyhemoglobin Sodium 146 H Potassium Chloride 111.2 H Carbon Dioxide 21 L BUN 33 H Creatinine 1.5 H Glucose 207 H POC Glucose Lactic Acid 2.10 H* Calcium 8.2 L Phosphorus Magnesium Ferritin AST Total Creatine Kinase Troponin T C-Reactive Protein NT-Pro-B Natriuret Pep Total Protein Albumin Prealbumin LDL Cholesterol Direct Vitamin B12 Urine WBC (Auto) OSKAR Screen Coronavirus (PCR) SARS-CoV-2 (PCR) 05/08/22 05/08/22 05/08/22 10:38 10:40 11:02 WBC RBC Hgb Hct MCH MCHC RDW Plt Count Lymph % (Auto) [place] % (Auto) Lymph # (Auto) [place] # (Auto) Seg Neutrophils % Seg Neuts % (Manual) Lymphocytes % (Manual) Seg Neutrophils # Seg Neutrophils # Man Lymphocytes # (Manual) PT INR APTT D-Dimer ABG pH 7.470 H ABG pO2 65.4 L ABG HCO3 ABG O2 Saturation ABG Base Excess -2.2 L ABG Hemoglobin 10.5 L Oxyhemoglobin 93.1 L Sodium Potassium Chloride Carbon Dioxide BUN Creatinine Glucose POC Glucose 163 H Lactic Acid 2.40 H* Calcium Phosphorus Magnesium Ferritin AST Total Creatine Kinase Troponin T C-Reactive Protein NT-Pro-B Natriuret Pep Total Protein Albumin Prealbumin LDL Cholesterol Direct Vitamin B12 Urine WBC (Auto) OSKAR Screen Coronavirus (PCR) SARS-CoV-2 (PCR) 05/08/22 05/08/22 05/08/22 17:35 17:47 21:48 WBC RBC Hgb Hct MCH MCHC RDW Plt Count Lymph % (Auto) [place] % (Auto) Lymph # (Auto) [place] # (Auto) Seg Neutrophils % Seg Neuts % (Manual) Lymphocytes % (Manual) Seg Neutrophils # Seg Neutrophils # Man Lymphocytes # (Manual) PT INR APTT D-Dimer ABG pH ABG pO2 ABG HCO3 ABG O2 Saturation ABG Base Excess ABG Hemoglobin Oxyhemoglobin Sodium Potassium Chloride Carbon Dioxide BUN Creatinine Glucose POC Glucose 143 H 151 H Lactic Acid 2.10 H* Calcium Phosphorus Magnesium Ferritin AST Total Creatine Kinase Troponin T C-Reactive Protein NT-Pro-B Natriuret Pep Total Protein Albumin Prealbumin LDL Cholesterol Direct Vitamin B12 Urine WBC (Auto) OSKAR Screen Coronavirus (PCR) SARS-CoV-2 (PCR) 05/09/22 05/09/22 05/09/22 04:05 04:05 11:43 WBC 15.3 H RBC 3.49 L Hgb 9.8 L Hct 29.4 L MCH MCHC RDW 19.2 H Plt Count Lymph % (Auto) 5.5 L [place] % (Auto) Lymph # (Auto) 0.8 L [place] # (Auto) Seg Neutrophils % 89.9 H Seg Neuts % (Manual) Lymphocytes % (Manual) Seg Neutrophils # 13.8 H Seg Neutrophils # Man Lymphocytes # (Manual) PT INR APTT D-Dimer ABG pH ABG pO2 ABG HCO3 ABG O2 Saturation ABG Base Excess ABG Hemoglobin Oxyhemoglobin Sodium 151 H Potassium 3.3 L Chloride 115.0 H Carbon Dioxide BUN 47 H Creatinine 1.7 H Glucose 158 H POC Glucose 160 H Lactic Acid Calcium 8.1 L Phosphorus Magnesium Ferritin AST Total Creatine Kinase Troponin T C-Reactive Protein NT-Pro-B Natriuret Pep Total Protein Albumin Prealbumin LDL Cholesterol Direct Vitamin B12 Urine WBC (Auto) OSKAR Screen Coronavirus (PCR) SARS-CoV-2 (PCR) 05/09/22 05/09/22 05/10/22 16:01 18:46 04:00 WBC 12.9 H RBC 3.51 L Hgb 9.6 L Hct 29.8 L MCH 27 L MCHC RDW 19.2 H Plt Count Lymph % (Auto) Mcculloch % (Auto) Lymph # (Auto) [place]och # (Auto) Seg Neutrophils % Seg Neuts % (Manual) Lymphocytes % (Manual) Seg Neutrophils # Seg Neutrophils # Man Lymphocytes # (Manual) PT INR APTT D-Dimer ABG pH ABG pO2 ABG HCO3 ABG O2 Saturation ABG Base Excess ABG Hemoglobin Oxyhemoglobin Sodium Potassium Chloride Carbon Dioxide BUN Creatinine Glucose POC Glucose 128 H Lactic Acid Calcium Phosphorus Magnesium Ferritin AST Total Creatine Kinase Troponin T C-Reactive Protein NT-Pro-B Natriuret Pep Total Protein Albumin Prealbumin LDL Cholesterol Direct Vitamin B12 Urine WBC (Auto) OSKAR Screen Coronavirus (PCR) SARS-CoV-2 (PCR) Positive A 05/10/22 05/10/22 04:00 04:23 WBC RBC Hgb Hct MCH MCHC RDW Plt Count Lymph % (Auto) [place]ulloch % (Auto) Lymph # (Auto) [place]och # (Auto) Seg Neutrophils % Seg Neuts % (Manual) Lymphocytes % (Manual) Seg Neutrophils # Seg Neutrophils # Man Lymphocytes # (Manual) PT INR APTT D-Dimer ABG pH ABG pO2 ABG HCO3 ABG O2 Saturation ABG Base Excess ABG Hemoglobin Oxyhemoglobin Sodium 154 H Potassium 3.2 L Chloride 119.0 H Carbon Dioxide BUN 44 H Creatinine Glucose 112 H POC Glucose 112 H Lactic Acid Calcium 8.2 L Phosphorus Magnesium Ferritin AST Total Creatine Kinase Troponin T C-Reactive Protein NT-Pro-B Natriuret Pep Total Protein Albumin Prealbumin LDL Cholesterol Direct Vitamin B12 Urine WBC (Auto) OSKRA Screen Coronavirus (PCR) SARS-CoV-2 (PCR) Allied health notes reviewed: RT
[2022-05-10] MEDS ORDERED: ETOMIDATE 20 MG/10 ML INJ IV ONE ×2 (11:14→12:00)
[2022-05-10] MEDS ORDERED: ROCURONIUM 50 MG/5 ML INJ IV ONE ×3 (11:14→12:00)
[2022-05-10] MEDS ORDERED: SODIUM CHLORIDE 0.9% 1000 ML 1,000 ML ONE (11:15)
--- NOTE | 2022-05-10 11:19 | Cat Scan Report ---
CT head without contrast HISTORY: ams. TECHNIQUE: Axial imaging performed from the skull apex through the skull base without the use of con trast. All CT scans at this location are performed using CT dose reduction for ALARA by means of aut omated exposure control. COMPARISON: Yesterday FINDINGS: Parenchyma: Essentially unchanged appearance of the large left hemispheric infarct with old right-si ded centrum semiovale infarct again noted. There is no midline shift or hemorrhage. Ventricles: There is mild diffuse brain atrophy with commensurate ventricular enlargement which is l ikely age appropriate. Soft tissues: Soft tissues including the orbits appear normal. Bones: No acute osseous abnormality. Sinuses: Sinuses and mastoid air cells are clear. IMPRESSION: Essentially unchanged exam. Signer Name: Dane Hoang MD Signed: 05/10/2022 11:15 AM Workstation Name: [id number]
[2022-05-10] MEDS ORDERED: LIP THERAPY VASELINE TP PRN (11:30)
[2022-05-10] MEDS ORDERED: MINERAL OIL/PETROLATUM, WHITE OPHTH OINT 3.5 GM OU PRN (11:30)
[2022-05-10] MEDS ORDERED: EPINEPHrine 1 MG/10 ML SYRINGE ONE (11:35)
--- NOTE | 2022-05-10 11:42 | Event Note ---
Date: 05/10/22 Spoke to daughters and patients spouse, informed of ongoing Code Blue. Spouse in agreement with the daughters elected to make the patient DNR and asked to stop resuscitation.
[2022-05-10] MEDS ORDERED: SODIUM CHLORIDE 0.9% 1000 ML 1,000 ML IV ONE (11:45)
--- NOTE | 2022-05-10 12:01 | Procedure Note ---
Date of procedure: 05/10/22 Pre-op diagnosis: Stroke with acute resp decompensation Post-op diagnosis: same Procedure: Endotracheal intubation RSI-Etomidate 20mg, Rocuronium 50mcg Using Glidescope vocal chords visualized and size 7.5 ETT placed, one attempt. Good color change, equal breath sounds Copious thick secretions noted Post intubation, patient had a PEA arrest. CPR initiated, see code blue notes for details. At 1128 the family elected to stop all resuscitative measures. Surgeon: JOHNNY EUBANKS Estimated blood loss: none Pathology: none
[2022-05-10 12:17] VITALS: BP 145/117
--- NOTE | 2022-05-10 12:48 | Death Summary ---
<SONAMCarlosROBBIEAshley - Last Filed: 05/10/22 12:48> Summary - Providers Consults: 05/02/22 00:33 Consult to Physician [CONS] Routine Comment: Consulting Provider: COURTNEY MEDEIROS Physician Instructions: Reason For Exam: ANJU 05/02/22 00:44 Consult to Physician [CONS] Routine Comment: Consulting Provider: YAZAN ANDINO Physician Instructions: Reason For Exam: Unsteady Gait. - ? CVA 05/02/22 00:45 Consult to Wound/ET Nurse [CONS] Routine Reason For Exam: wound eval- left big toe wound Physical Therapy Evaluation and Treat [CONS] Routine Comment: Reason For Exam: Unsteady gait 05/02/22 06:31 Consult to Physician [CONS] Routine Comment: Consulting Provider: APRIL YADAV Physician Instructions: Reason For Exam: Hypotensive,Afib. 05/02/22 06:56 Consult to Wound/ET Nurse [CONS] Routine Reason For Exam: wound eval 05/02/22 07:41 Speech Therapy Evaluation and Treat [CONS] Routine Reason For Exam: Swallow Screen/ Post Stroke Protocol 05/02/22 08:36 Occupational Therapy Evaluate and Treat [CONS] Routine Comment: Reason For Exam: unsteady gait 05/02/22 10:46 Consult to Physician [CONS] Routine Comment: Consulting Provider: MYNOR CHAVEZ Physician Instructions: Reason For Exam: Afib, NSTEMI 05/02/22 16:37 Consult to Physician [CONS] Routine Comment: Consulting Provider: CHINO HAYNES Physician Instructions: Reason For Exam: Septic Shock- possible Urosepsis 05/03/22 09:06 Speech Therapy Evaluation and Treat [CONS] Urgent Reason For Exam: failed swallow screen 05/09/22 11:41 Consult to Dietitian/Nutrition [CONS] Routine Physician Instructions: Reason For Exam: Reason for Consult: Write/Manage Tube Feeding Attending: MARIA ALEJANDRA REYNOLDS MD - summary Date of admission: 05/02/22 00:34 Date of : 05/10/22 Significant findings: This is an 86-year-old male with HTN, ICH x2, CVA, DM, dementia, HLD, BPH, RI, CAD s/p CABG x5, paroxysmal atrial fibrillation, COVID infection in March 2022 presents the emergency department on 04/01 with altered mental status starting 2 hours prior to presentation. Upon arrival to emergency department code stroke was called and patient was evaluated by teleneurology and CTA head/neck and CT head did not reveal any acute abnormalities. Further work-up revealed UTI with possible electrolyte imbalances and acute kidney injury. Patient was admitted to the hospital service with UTI, electrolyte imbalances, ANJU, sepsis with consults to [facility], nephrology and cardiology. Patient was treated for urinary tract infection with antibiotics. Patient rate developed atrial fibrillation with RVR and was treated with amiodarone. Given history of intracranial hemorrhages patient was unable to be anticoagulated. Patient was eventually moved from ICU to the floor. And an MRI was completed which showed no acute stroke on 05/05. On 05/08 patient was febrile to 106.8, tachycardic, obtunded and placed on BiPAP therapy. He also had a CT head which showed an acute CVA and was transferred to the ICU. On 05/09 patient was switched from BiPAP to high flow nasal cannula, Dobbhoff was unable to be placed by RN, Dumont catheter is in place for retention, neurology was updated and ordered a repeat CT head. The CT head showed mass affect with effacement. Teleneurology was consulted overnight and patient had another repeat CT head this morning which showed no interval change. Unfortunately patient had to be placed on BiPAP post CT scan however was still obtunded and was unable to be changed-nasal cannula due to hypoxia. The decision was made to intubate the patient and shortly after intubation patient went to cardiac arrest. Family was contacted throughout the day with multiple conversations with nurse haiitioner. Ultimately his nicolas ded to change CODE STATUS to DNR and elected to abort resuscitation efforts. Condolences offered to family. See code sheet for details. Refer to chart for DNR paperwork. Acute ischemic CVA with mass effect, h/o CVA, ICH x2, dementia Paroxysmal atrial fibrillation, moderate to severe aortic stenosis h/o RI/CAD s/p CABG x5, HLD Acute hypoxic respiratory failure Moderate protein calorie malnutrition Dysphagia Acute kidney injury secondary to vasomotor nephropathy Hypernatremia Hypokalemia h/o BPH Septic shock likely secondary to E. coli UTI and bacteremia Recent COVID-19 infection h/o DM Leukocytosis <OKMARIA ALEJANDRA PARK - Last Filed: 05/11/22 07:15> Summary - Providers Date of service: 05/10/22 Consults: 05/02/22 00:33 Consult to Physician [CONS] Routine Comment: Consulting Provider: COURTNEY MEDEIROS Physician Instructions: Reason For Exam: ANJU 05/02/22 00:44 Consult to Physician [CONS] Routine Comment: Consulting Provider: YAZAN ANDINO Physician Instructions: Reason For Exam: Unsteady Gait. - ? CVA 05/02/22 00:45 Consult to Wound/ET Nurse [CONS] Routine Reason For Exam: wound eval- left big toe wound Physical Therapy Evaluation and Treat [CONS] Routine Comment: Reason For Exam: Unsteady gait 05/02/22 06:31 Consult to Physician [CONS] Routine Comment: Consulting Provider: APRIL YADAV Physician Instructions: Reason For Exam: Hypotensive,Afib. 05/02/22 06:56 Consult to Wound/ET Nurse [CONS] Routine Reason For Exam: wound eval 05/02/22 07:41 Speech Therapy Evaluation and Treat [CONS] Routine Reason For Exam: Swallow Screen/ Post Stroke Protocol 05/02/22 08:36 Occupational Therapy Evaluate and Treat [CONS] Routine Comment: Reason For Exam: unsteady gait 05/02/22 10:46 Consult to Physician [CONS] Routine Comment: Consulting Provider: MYNOR CHAVEZ Physician Instructions: Reason For Exam: Afib, NSTEMI 05/02/22 16:37 Consult to Physician [CONS] Routine Comment: Consulting Provider: CHINO HAYNES Physician Instructions: Reason For Exam: Septic Shock- possible Urosepsis 05/03/22 09:06 Speech Therapy Evaluation and Treat [CONS] Urgent Reason For Exam: failed swallow screen 05/09/22 11:41 Consult to Dietitian/Nutrition [CONS] Routine Physician Instructions: Reason For Exam: Reason for Consult: Write/Manage Tube Feeding Attending: MARIA ALEJANDRA REYNOLDS MD - summary Date of admission: 05/02/22 00:34 - Final diagnosis (1) Atrial fibrillation Note: Final diagnosis: (2) Coronavirus infection Note: Final diagnosis: (3) CVA (cerebral vascular accident) Qualifiers: Laterality of affected vessel: unspecified Note: Final diagnosis: (4) Cardiac arrest Note: Final diagnosis: (5) Cardiac arrest due to other underlying condition Note: Final diagnosis:
--- NOTE | 2022-05-10 13:23 | Death Note ---
Note Date of : 05/10/22 Time of : 12:01 Time Pronounced: 12:01 - Preliminary Cause of (problem) (1) Atrial fibrillation Preliminary cause of (2) Coronavirus infection Preliminary cause of (3) CVA (cerebral vascular accident) Qualifiers: Laterality of affected vessel: unspecified Preliminary cause of (4) Cardiac arrest Preliminary cause of (5) Cardiac arrest due to other underlying condition Preliminary cause of
[2022-05-14 14:30] LABS: Vitamin D, 25-OH, D2 SEE SCANNED RESULT
== END 2022-05-10 11:35 | DRG 871 ==
LOC: ED 22:30 → 4A 05-02 00:34 → CC1 05-02 02:54 → IMCU 05-04 23:17 → 3A 05-06 17:44 → CC1 05-08 17:34
PROVIDERS: ADMIT Internal Medicine Geriatric Medicine; ATTEND Internal Medicine
PROC: 02HV33Z Insertion of Infusion Device into Superior Vena Cava, Percutaneous Approach (ICD-10-PCS; principal; 2022-05-02)
PROC: B548ZZA Ultrasonography of Superior Vena Cava, Guidance (ICD-10-PCS; 2022-05-02)
PROC: 5A09457 Assistance with Respiratory Ventilation, 24-96 Consecutive Hours, Continuous Positive Airway Pressure (ICD-10-PCS; 2022-05-07)
PROC: 4A033R1 Measurement of Arterial Saturation, Peripheral, Percutaneous Approach (ICD-10-PCS; 2022-05-08)
PROC: 5A0935A Assistance with Respiratory Ventilation, Less than 24 Consecutive Hours, High Flow/Velocity Cannula (ICD-10-PCS; 2022-05-09)
PROC: 5A12012 Performance of Cardiac Output, Single, Manual (ICD-10-PCS; 2022-05-10)
PROC: 0BH17EZ Insertion of Endotracheal Airway into Trachea, Via Natural or Artificial Opening (ICD-10-PCS; 2022-05-10)
DX: A41.51 Sepsis due to Escherichia coli [E. coli] (principal); G93.41 Metabolic encephalopathy; R65.21 Severe sepsis with septic shock; U07.1 COVID-19; N17.0 Acute kidney failure with tubular necrosis; J96.01 Acute respiratory failure with hypoxia; I21.4 Non-ST elevation (NSTEMI) myocardial infarction; I63.522 Cerebral infarction due to unspecified occlusion or stenosis of left anterior cerebral artery; I63.512 Cerebral infarction due to unspecified occlusion or stenosis of left middle cerebral artery; E87.1 Hypo-osmolality and hyponatremia; N39.0 Urinary tract infection, site not specified; E87.0 Hyperosmolality and hypernatremia; I48.20 Chronic atrial fibrillation, unspecified; E44.0 Moderate protein-calorie malnutrition; I10 Essential (primary) hypertension; I48.0 Paroxysmal atrial fibrillation; I25.10 Atherosclerotic heart disease of native coronary artery without angina pectoris; D69.6 Thrombocytopenia, unspecified; N40.0 Benign prostatic hyperplasia without lower urinary tract symptoms; M19.90 Unspecified osteoarthritis, unspecified site; E83.42 Hypomagnesemia; E83.51 Hypocalcemia; E86.1 Hypovolemia; Z66 Do not resuscitate; I46.9 Cardiac arrest, cause unspecified; E86.0 Dehydration; W18.39XA Other fall on same level, initial encounter; Y93.89 Activity, other specified; Y92.89 Other specified places as the place of occurrence of the external cause; Y99.8 Other external cause status; R33.9 Retention of urine, unspecified; E78.2 Mixed hyperlipidemia; R13.10 Dysphagia, unspecified; K44.9 Diaphragmatic hernia without obstruction or gangrene; Z90.49 Acquired absence of other specified parts of digestive tract; Z88.6 Allergy status to analgesic agent; Z88.8 Allergy status to other drugs, medicaments and biological substances
CPT/HCPCS: 36415; 36600; 70450; 70496; 70498; 70551; 71045; 74018; 76770; 80048; 80053; 80061; 81001; 82140; 82306; 82550; 82607; 82728; 82747; 82803; 82962; 83520; 83615; 83735; 83880; 84100; 84134; 84145; 84295; 84425; 84443; 84484; 85007; 85025; 85027; 85379; 85610; 85730; 86021; 86038; 86140; 86160; 86592; 86706; 86803; 87040; 87076; 87086; 87186; 93005; 93306; 94660; 94760; 96374; 99285; G0378; J2354; J3490; J7060; Q9967; 87502; C8929; J0171; J0282; J0696; J1630; J1644; J1815; J1940; J2060; J2270; J2704; J3370; J3475; J3480; J7030; J7040; J7042; J7050; J7070; J7120; U0003